=== PATIENT | male | born 1935 | race Caucasian/White ===

== ENCOUNTER 2022-05-14 08:49 | Emergency (ER) | payer MEDICARE, SELFPAY ==
[2022-05-14] VITALS (20 sets, daily range): BP systolic 118–141; BP diastolic 57–76; PULSE 67–93; RESP 14–20; TEMP 36.4; O2SAT 96–100
--- NOTE | 2022-05-14 09:21 | ED.ALLEREA ---
HPI - Allergic Reaction General Chief complaint: Allergic Reaction Stated complaint: allergic reaction Time Seen by Provider: 05/14/22 08:56 Source: patient Mode of arrival: ambulatory Limitations: no limitations History of Present Illness HPI narrative: Patient is an 86 y/o male who presents to the ED with c/o swelling of lips. Patient is a resident of [facility]. Patient reports he woke up around 4 AM this morning and noticed his upper and lower lips were swollen. He states the swelling seemed to worsen initially. He was given 50 mg Benadryl by [facility] staff and does report the swelling has improved slightly. He denies difficulty swallowing or breathing but does state his throat feels different. Denies any other symptoms, nausea, vomiting, diarrhea, abdominal pain, chest pain, dizziness, rash, itching. Patient denies any new soaps, lotions, face wash, medications, foods. Related Data Allergies Allergy/AdvReac Type Severity Reaction Status Date / Time cefdinir Allergy Unknown Verified 05/14/22 09:10 duloxetine [From Cymbalta] Allergy Unknown Verified 05/14/22 09:10 sertraline Allergy Unknown Verified 05/14/22 09:10 Ndefaiw-UMM-WmH Reductase Allergy Unknown Verified 05/14/22 09:10 Inhibitor Review of Systems Review of Systems: CONSTITUTIONAL: Denies fever, chills, or sweats. ENT: Reports swelling of lips, abnormal sensation to throat. Denies dysphagia, rhinorrhea, congestion, sore throat. CARDIOVASCULAR: Denies chest pain, palpitations. RESPIRATORY: Denies cough or dyspnea. GASTROINTESTINAL: Denies abdominal pain, nausea, vomiting, or diarrhea. SKIN: Denies rash, hives, or itching. NEUROLOGIC: Denies dizziness, headache, numbness, or weakness. All systems reviewed & are unremarkable except as noted in HPI and below PMFSH Past Medical History Medical History (Updated 05/14/22 @ 18:04 by Marsha Anderson PA-C) Dementia HTN (hypertension) Surgical History Surgical History (Updated 05/14/22 @ 18:04 by Marsha Anderson PA-C) No significant past surgical history Social History Social History (Updated 05/14/22 @ 18:04 by Marsha Anderson PA-C) Smoking status: Never smoker Exam Narrative: GENERAL: Elderly, well-nourished, non-toxic, in no acute distress. HEAD: Normocephalic, atraumatic. EYES: PERRLA, EOMI, conjunctiva clear, no significant periorbital edema. ENT: Significant angioedema of upper and lower lips. Swelling of tongue. Difficult to see posterior pharynx and posterior palate due to swelling, even with tongue depressor. NECK: Supple. No adenopathy, no masses. Anterior neck does appear slightly swollen. RESPIRATORY: Airway patent, respirations nonlabored. Clear to auscultation bilaterally, no rales, rhonchi, wheezing. Occasional cough on exam. CARDIOVASCULAR: Regular rate and rhythm without murmurs, rubs, or gallops. Peripheral pulses 2+ and equal bilaterally. ABDOMINAL: Soft, nontender, nondistended, no hepatosplenomegaly. Normoactive BS. MUSCULOSKELETAL: Moves all extremities. Strength/ROM intact without gross deformities. SKIN: Warm, dry, normal color. No rashes. No urticaria. NEURO: A&O X3. Speech clear. Cranial nerves II-XII grossly intact. Steady gait. No ataxic movements. PSYCHIATRIC: Appropriate mood and affect. Normal interaction. Course Consultations Consultation #1: Discussed case with PCP's PAIsak, will see patient in office on Wednesday of the appointment. No further BP meds at this time. Date: 05/14/22 Time: 12:13 Vital Signs Vital signs: Vital Signs Pulse Rate 82 05/14/22 08:57 Respiratory Rate 17 05/14/22 08:57 Pulse Oximetry 100 05/14/22 08:57 Temperature 97.6 F 05/14/22 09:04 Pulse Rate 71 05/14/22 12:30 Respiratory Rate 14 05/14/22 12:30 Blood Pressure 125/57 L 05/14/22 10:00 Pulse Oximetry 98 05/14/22 12:30 Oxygen Delivery Room Air 05/14/22 09:04 MDM - Allergic Reaction MDM Narrative Med
[2022-05-14] MEDS: FAMOTIDINE 20 MG/2 ML VIAL IV PUSH (09:31)
[2022-05-14] MEDS: methylPREDNISolone SOD SUCC 125 MG VIAL IV PUSH (09:31)
[2022-05-14] MEDS: EPINEPHrine HCL INJ 1 MG/ML AMPUL 0.3 MG IM (09:36)
--- NOTE | 2022-05-14 10:28 | PC.NURSE ---
Continues to have swelling to upper lip. No resp distress.
--- NOTE | 2022-05-14 11:30 | PC.NURSE ---
Patient report received from QUINTEN Santana. All questions answered and care of patient assumed. Patient assisted to BR via WC. Denies complaints. VSS. Denies SOB or difficulty breathing. Reports that he was initially having difficulty swallowing but reports that has resolved. His family state that his lip swelling has improved since arrival. Awaiting further orders and disposition. Family at bedside and call light within reach.
== END 2022-05-14 13:03 | disposition home or self-care (01) ==
PROVIDERS: Emergency Provider Physician Assistant; PCP Internal Medicine Geriatric Medicine
DX: T78.3XXA Angioneurotic edema, initial encounter (principal); T46.4X5A Adverse effect of angiotensin-converting-enzyme inhibitors, initial encounter; F03.90 Unspecified dementia, unspecified severity, without behavioral disturbance, psychotic disturbance, mood disturbance, and anxiety; I10 Essential (primary) hypertension
CPT/HCPCS: 96372; 96374; 96375; 99284; J0171; J2930

== ENCOUNTER 2022-11-14 11:06 | Observation (INO) | payer MEDICARE, SELFPAY ==
[2022-11-14] VITALS (24 sets, daily range): BP systolic 114–166; BP diastolic 67–98; PULSE 74–107; RESP 13–20; TEMP 36.4–37; O2SAT 95–100
--- NOTE | ~2022-11-14 | XR_ITS ---
XR femur RT min 2V DATE: 11/14/2022 12:00 INDICATION: Fall. Generalized right hip pain TECHNIQUE: AP and lateral views of the right femur COMPARISON: 11/14/2022 right hip and pelvis FINDINGS: No fracture or dislocation, avascular necrosis or bone destruction of the right femur is de tected. Normal alignment at the right hip and knee joints. Chondrocalcinosis is noted at the right kn ee joint. Femoral and popliteal artery calcifications. IMPRESSION: No fracture or dislocation of the right femur Right knee chondrocalcinosis Reviewed, dictated and finalized at location A.
--- NOTE | ~2022-11-14 | XR_ITS ---
XR chest 1V DATE: 11/14/2022 12:00 INDICATION: Fall. Weakness. TECHNIQUE: AP view on at 1149 hours COMPARISON: 01/11/2018 two-view chest FINDINGS: Status post sternotomy. Heart size is normal. Is aortic arch calcification. No pulmonary vascular congestion or pleural effusion. There is infiltrate or atelectasis in the medial base of the left lower lobe; otherwise no pulmonary infiltrate or consolidation. There is osteopenia. IMPRESSION: Medial basilar left lower lobe infiltrate or atelectasis Status post sternotomy Aortic atherosclerosis Osteopenia Reviewed, dictated and finalized at location A.
--- NOTE | ~2022-11-14 | MR_ITS ---
EXAMINATION: MR hip RT wo con DATE: 11/16/2022 11:10 INDICATION: Right hip pain. TECHNIQUE: Magnetic resonance imaging (MRI) of the right hip was performed without intravenous contra st. COMPARISON: Right hip CT 12/14/2022, radiographs 11/14/2022 FINDINGS: Bones/cartilage: There is 8 degrees levocurvature of lumbar spine. No fracture. There is mild osteoarthritis of the hi ps. There is mild osteoarthritis of right sacroiliac joint and moderate osteoarthritis of left sacroi liac joint. Labrum: There are tears of the acetabular popeye bilaterally. Fluid: There is no hip joint effusion. There is mild bilateral trochanteric bursitis. Soft tissues: The prostate is mildly enlarged. There is mild bilateral gluteus minimus tendinopathy. There is a com plete tear of right iliopsoas tendon at its distal attachment. There is edema in right iliopsoas musc le belly. There is mild tendinopathy of the hamstring origins bilaterally. IMPRESSION: 1. No fracture. 2. Complete tear of right iliopsoas tendon at its distal attachment. 3. Mild osteoarthritis of the hips. Reviewed, dictated and finalized at location A.
--- NOTE | ~2022-11-14 | CT_ITS ---
CT hip RT wo con DATE: 11/14/2022 14:05 INDICATION: Right thigh pain TECHNIQUE: Axial images through the right hip; sagittal and coronal reconstructions. COMPARISON: 11/14/2022 right hip and right femur FINDINGS: No right hip fracture or dislocation, avascular necrosis or bone destruction is evident. Mi ld right hip osteoarthritis. IMPRESSION: Fractures evident. There is clinical concern for occult fracture, consider MR imaging. Mild right hip osteoarthritis Reviewed, dictated and finalized at Location A. Reviewed, dictated and finalized at location A. IMPRESSION: Fractures evident. There is clinical concern for occult fracture, c onsider MR imaging. Mild right hip osteoarthritis
--- NOTE | ~2022-11-14 | XR_ITS ---
XR hip RT 2V w AP pelvis DATE: 11/14/2022 12:00 INDICATION: Fall. Generalized right hip pain TECHNIQUE: AP pelvis. AP and lateral views of right hip. COMPARISON: None FINDINGS: Normal alignment at the pubic symphysis and sacroiliac joints. No pelvic fracture or bone d estruction is detected. No fracture or dislocation, avascular necrosis or bone destruction of the right hip is detected. Bilateral mild hip osteoarthritis. Subtle bilateral hip chondrocalcinosis. Arterial calcifications the aorta, iliac and femoral arteries. IMPRESSION: No pelvic or right hip fracture is evident Mild bilateral hip osteoarthritis Subtle bilateral hip chondrocalcinosis Reviewed, dictated and finalized at location A.
--- NOTE | ~2022-11-14 | CT_ITS ---
EXAMINATION: CT brain wo con DATE: 11/14/2022 14:05 INDICATION: Fall. TECHNIQUE: Computed tomography (CT) of the head was performed without intravenous contrast. The mA wa s adjusted according to patient size. Iterative reconstruction technique was employed. Exam dose: 60 5.33 mGy-cm total exam DLP. COMPARISON: 01/11/2018 CT brain FINDINGS: Bilateral vertebral artery, basilar artery and bilateral carotid siphon and supraclinoid in ternal carotid artery calcifications. There is nonspecific diminished attenuation of the cerebral white matter, likely due to chronic small vessel ischemic changes. There is prominent central and cortical cerebral and cerebellar atrophy. No intracranial mass lesion or hemorrhage or cerebrovascular accident is evident. No midline shift or mass effect effect. No subdural or epidural hematoma. Minimal focal mucoperiosteal thickening of the maxillary sinuses. The paranasal sinuses and mastoid a ir cells are otherwise unremarkable. No fracture or bone destruction of the cranial vault. IMPRESSION: Cerebral atherosclerosis and chronic small vessel ischemic changes of the cerebral white matter Cerebral and cerebellar atrophy; no acute intracranial finding Reviewed, dictated and finalized at Location A. Reviewed, dictated and finalized at location A.
[2022-11-14 12:18] LABS: Basophils Absolute Auto 0.1 K/mm3 (0.0-0.1); Basophils Percent Auto 0.5 % (0.2-1.2); Eosinophils Absolute Auto 0.3 K/mm3 (0-0.3); Eosinophils Percent Auto 1.7 % (0-4.4); Hematocrit 32.7 % (42.0-52.0); Hemoglobin 11.5 g/dL (14.0-18.0); Immature Granulocyte Percent A 0.7 % (0-0.5); Lymphocytes Absolute Auto 1.44 K/mm3 (0.9-3.2); Lymphocytes Percent Auto 9.8 % (18.3-44.2); Mean Corpuscular HGB Conc 35.2 g/dl (32-36); Mean Corpuscular Hemoglobin 31.2 pg (26-34); Mean Corpuscular Volume 88.6 fl (80-100); Mean Platelet Volume 8.7 fl (7.4-10.4); Monocytes Absolute Auto 2.6 K/mm3 (0.1-0.6); Neutrophils Absolute Auto 10.1 K/mm3 (1.3-6.7); Neutrophils Percent Auto 69.3 % (45.5-73.1); Platelet Count Result 254 k/mm3 (150-375); Red Blood Count 3.69 M/mm3 (4.6-6.20); Red Cell Distribution Width 12.4 % (11.5-14.5); White Blood Count 14.6 K/mm3 (4.5-10.0)
[2022-11-14 12:29] LABS: Prothrombin Time 13.4 Seconds (11.1-14.7)
[2022-11-14 12:30] LABS: Partial Thromboplastin Time 30.7 SECONDS (22.3-36.8)
[2022-11-14 12:32] LABS: Alanine Aminotransferase 21 U/L (6-50); Albumin Level 4.1 g/dL (3.5-5.1); Alkaline Phosphatase 69 U/L (38-126); Anion Gap 10 mmol/L (8-16); Aspartate Amino Transferase 26 U/L (17-59); Bilirubin,Total 0.9 mg/dL (0.2-1.3); Blood Urea Nitrogen 19 mg/dL (9-20); Calcium 9.1 mg/dL (8.4-10.2); Carbon Dioxide 28 mmol/L (22-30); Chloride 90 mmol/L (98-107); Creatine Kinase 143 U/L (55-170); Estimated CRCL calculation 41 ml/min; Estimated Glomerular Filt Rate > 60; Glucose 115 mg/dL (65-110); Potassium 2.9 mmol/L (3.4-5.0); Sodium 128 mmol/L (137-145)
--- NOTE | 2022-11-14 13:34 | ED.EXTPRO ---
HPI - Extremity Problem General Chief complaint: Extremity Problem,Nontraumatic Stated complaint: unknown Time Seen by Provider: 11/14/22 11:58 History of Present Illness HPI Narrative: 87 year old male brought in today from assisted living for concerns of 2 falls last night. Per family at the bedside he has been having muscle cramps and complaining of left leg pain for about 1 week now. Patient had 2 falls last night and was brought here due to concerns. Denies syncope, chest pain, and states only issues are his leg and that he fell. Patient still with pain so has not ambulated this morning after his fall. MD Complaint: extremity pain Related Data Allergies Allergy/AdvReac Type Severity Reaction Status Date / Time cefdinir Allergy Unknown Verified 11/14/22 11:29 duloxetine [From Cymbalta] Allergy Unknown Verified 11/14/22 11:29 sertraline Allergy Unknown Verified 11/14/22 11:29 Kkciopm-RHR-DbX Reductase Allergy Unknown Verified 11/14/22 11:29 Inhibitor Review of Systems Review of Systems: CONSTITUTIONAL: Denies fever, chills, or sweats. EYES: Denies visual changes, redness, or discharge. CARDIOVASCULAR: Denies chest pain, palpitations, or edema. RESPIRATORY: Denies cough or dyspnea. SKIN: Denies rash or itching. MUSCULOSKELETAL: Right hip pain. Falls x2. NEUROLOGIC: Denies headache, numbness, dizziness, or weakness. PMFSH Past Medical History Medical History (Updated 11/14/22 @ 17:20 by Deedee Mcdonnell APRN) Dementia HTN (hypertension) Surgical History Surgical History (Updated 05/14/22 @ 18:04 by Marsha Anderson PA-C) No significant past surgical history Social History Social History (Updated 05/14/22 @ 18:04 by Marsha Anderson PA-C) Smoking status: Never smoker Living arrangements: halfway Exam Narrative: GENERAL: Well-appearing, well-nourished, and in no acute distress. HEAD: Normocephalic, bruising noted to forehead. EYES: PERRLA and EOMI. NECK: Supple. No adenopathy or masses. no cervical tenderness. Full ROM CHEST: Clear to auscultation. No respiratory distress. No wheezes rales or rhonchi HEART: Regular rate and rhythm. No murmur heard. Normal peripheral pulses. ABDOMEN: Soft, nontender, nondistended, normal active bowel sounds. EXTREMITIES: Normal range of motion. No edema. Tenderness on paplpation to right upper femur. SKIN: Warm, dry, no rash. NEURO: No focal deficits. Alert and oriented x3. PSYCH: Normal mood and affect. Course Vital Signs Vital signs: Vital Signs Temperature 98.6 F 11/14/22 11:10 Pulse Rate 92 11/14/22 11:10 Respiratory Rate 18 11/14/22 11:10 Blood Pressure 142/67 H 11/14/22 11:10 Pulse Oximetry 99 11/14/22 11:10 Oxygen Delivery Room Air 11/14/22 11:10 Temperature 98.6 F 11/14/22 11:10 Pulse Rate 99 11/14/22 16:45 Respiratory Rate 16 11/14/22 16:45 Blood Pressure 114/98 H 11/14/22 16:31 Pulse Oximetry 98 11/14/22 15:18 Oxygen Delivery Room Air 11/14/22 11:10 MDM - Extremity (Nontraumatic) MDM Narrative Medical decision making narrative: 87 year old male HPI as noted. Right hip pain concerns for possible fracture. CBC, CMP, CXR, CXR, HIP and femur ordered to rule out, fracture, infection such as pneumonia that could cause weakness and fall. CBC with increased wbc at 14.6, CMP NA 128, Potassium 2.9, glucose 115. Cxr pneumonia vs atelectasis. Will treat with ABX due to increase wbc and weakness/falls. Replace potassium. Due to pain with weight bearing ct right hip ordered which was negative. Ct head negative. Discussed with family plans for admission to treat for pneumonia and hypokalemia. All in agreement. Differential Diagnosis Differential diagnosis: Likely other (hip fracture, right hip pain, falls, infection such as uti pneumonia. ) Lab Data 11/14/22 12:11 11/14/22 12:11 Labs: Lab Results 11/14/22 11/14/22 Range/Units 12:10
[2022-11-14 13:49] LABS: Magnesium 1.7 mg/dL (1.6-2.3)
[2022-11-14] MEDS: POTASSIUM CHLORIDE 10 MEQ TABLET 40 MEQ PO (14:15)
[2022-11-14] MEDS: levoFLOXacin 750 MG/D5W 150 ML 750 MG/150 ML BAG 100 MG IVPB (14:15)
[2022-11-14] MEDS: KCL 20 MEQ/SW 100 ML 100 ML 50 MEQ IVPB (14:15)
[2022-11-14] MEDS: SODIUM CHLORIDE 0.9% IV 1,000 ML 150 ML IV CONT (14:15)
--- NOTE | 2022-11-14 14:17 | ECG_ITS ---
Measurements Intervals [place] Rate: 84 P: 21 VA: 198 QRS: 24 QRSD: 121 T: -17 QT: 383 QTc: 455 Interpretive Statements SINUS RHYTHM CANNOT RULE OUT SEPTAL MYOCARDIAL INFARCTION , PROBABLY OLD [35 ms Q WAVE IN V1/V2] NO PREVIOUS ECG AVAILABLE FOR COMPARISON Electronically Signed On 11-15-2022 12:12:36 CDT by Gianni Mcintyre M.D.
[2022-11-14 15:22] LABS: Troponin I 0.017 ng/mL (0.000-0.034)
--- NOTE | 2022-11-14 15:42 | PC.NURSE ---
ordered pt meal.
--- NOTE | 2022-11-14 17:15 | PC.NURSE ---
This patient, Efrain Flores, was admitted to [facility] Surg Room 325-01. Patient/family oriented to hospital policies and general routines including ID bracelet, bed and alarms, visiting hours, pain management, procedures, bathroom and other care routines, personal items, smoking policy, room service/diet, and visiting hours. Report received from Fabiana SHIPLEY Information on how to activate the Rapid Response Team has been discussed. Patient/Family are encouraged to report perceived risks to care and to ask questions if they do not understand what they are told or what they should do.
--- NOTE | 2022-11-14 18:06 | PM.IMHP ---
H&P: HPI History of Present Illness Date/Time: 11/14/22 17:30 Chief Complaint: Falls, difficulties ambulating. Narrative: This is an 87-year-old male with dementia, coronary artery disease, dyslipidemia, and hypertension who presented to the ED via private vehicle accompanied by his and daughter for evaluation of fall and difficulties ambulating. The patient and his provide some of the history however they both suffer from memory loss and his daughter provides additional information with the patient's permission. He and his moved to [facility] sometime this year and within the past couple of weeks they have encouraged the patient to use a walker due to concerns for balance issues. He has had a walker for approximately 1 week though it is unclear whether not he has been using it. Last evening he had 2 unwitnessed falls while in the bathroom. tells me that she heard the commotion in the bathroom and when she went to investigate the patient was sitting on the floor both times the with further questioning she cannot say for sure what position he was in or whether not he had his walker with him. On exam it looks like he has a small abrasion on the forehead but neither of them can recall whether not he had his head. In any event the patient isn't sure why he is falling but he thinks perhaps it is due to pain he has been having in his right thigh. This has apparently been an ongoing issue for him recently and he has been complaining about it frequently. According to the daughter he did physical therapy which seemed to help his symptoms for awhile though he has been complaining about the pain again. On exam he has a healing bruise in the same area and his since come to light that he receives his Repatha injections at that site. In any event he was brought in for evaluation of the falls and imaging of the head, hip, pelvis, and femur were all without acute findings. Chest x-ray showed medial err basilar left lower lobe infiltrate or atelectasis. His labs were significant for a WBC count of 14.6, sodium 128, potassium 2.9, chloride 90, CK 143. In the ED he was given a dose of levofloxacin for possible pneumonia and his potassium was replaced. He is being admitted in this setting for IV fluid rehydration and PT/OT consult. At the time my evaluation he complains of an aching or cramping pain in his right thigh and urinary urgency and hesitancy. He denies fever, chills, sweats, sinus congestion, sore throat, chest pain, shortness a breath, cough, nausea, vomiting, and diarrhea. Review of Systems Review of Systems: Twelve systems were reviewed and are negative except for as per HPI. The patient is not the greatest historian however and thus accuracy is questionable. [facility] Past Medical History Medical History (Updated 11/14/22 @ 22:19 by Jody Navarrete PA-C) Coronary artery disease Dementia Dyslipidemia Hypertension Surgical History Surgical History (Updated 11/14/22 @ 22:14 by Jody Navarrete PA-C) History of arthroscopy of knee History of cataract extraction History of four vessel coronary artery bypass graft Family History Family History Mother Kidney failure CHF (congestive heart failure) Dialysis patient Social History Social History (Updated 11/14/22 @ 22:15 by Jody Navarrete PA-C) Social History: Surrogate medical decision maker: Corine Flores () or Ioana Ludwin (daughter). Code status: Full code. Smoking status: Never smoker Alcohol intake: never Substance use: never Lack of Transportation: No Lack of Food: Never True Current Housing: I Have Housing Concerned About Future Housing: No Difficulty Paying Gas/Electric Bills: No Difficulty Paying for Meds: No Currently Unemployed: No Education: High School Diploma/GED Difficulty w/ Childcare or Family Care: No Additional living arrangements comments:
[2022-11-14 18:15] LABS: Anion Gap 9 mmol/L (8-16); Blood Urea Nitrogen 19 mg/dL (9-20); Calcium 9.1 mg/dL (8.4-10.2); Carbon Dioxide 26 mmol/L (22-30); Chloride 93 mmol/L (98-107); Estimated CRCL calculation 45 ml/min; Estimated Glomerular Filt Rate > 60; Glucose 130 mg/dL (65-110); Potassium 3.8 mmol/L (3.4-5.0); Sodium 128 mmol/L (137-145)
[2022-11-14 20:41] LABS: Creatinine Urine 70.4 mg/dL
[2022-11-14 20:48] LABS: Sodium Urine Random 66 meq/L
[2022-11-14] MEDS: SODIUM CHLORIDE 0.9% IV 1,000 ML 100 ML IV CONT ×2 (22:07→22:24)
[2022-11-14] MEDS: QUEtiapine FUMARATE 25 MG TABLET 50 MG PO (22:10)
[2022-11-14] MEDS: DIVALPROEX SODIUM SPRINKLE 125 MG CAP.DR PO (22:10)
[2022-11-14] MEDS: LABETALOL HCL 100 MG TABLET 200 MG PO (22:10)
[2022-11-14] MEDS: MELATONIN 3 MG TABLET PO (22:10)
[2022-11-15] VITALS (11 sets, daily range): BP systolic 144–150; BP diastolic 58–77; PULSE 80–98; RESP 20; TEMP 36.2–36.5; O2SAT 98–99
[2022-11-15] MEDS: ACETAMINOPHEN 325 MG TABLET 650 MG PO ×2 (02:28→09:13)
[2022-11-15 03:07] LABS: Appearance Urine Clear (Clear); Bacteria Urine None Seen /hpf; Bilirubin Urine Negative (Negative); Blood Urine Trace (Negative); Color Urine Yellow (Yellow); Glucose Urine UA Negative (Negative); Ketones Urine Negative (Negative); Leukocyte Esterase Ur 1+ LEU/UL (Negative); Nitrate Urine Negative (Negative); Non Pathogenic Casts 0-2; Protein Urine Negative (Negative); Specific Grav Ur 1.015 (1.001-1.035); Squamous Epithelial Cell Urine None seen /hpf (Few); WBC Urine 21-50 /hpf
[2022-11-15 03:20] LABS: Add Urine Microscopic? YES
[2022-11-15 06:08] LABS: Basophils Absolute Auto 0.1 K/mm3 (0.0-0.1); Basophils Percent Auto 0.5 % (0.2-1.2); Eosinophils Absolute Auto 0.4 K/mm3 (0-0.3); Eosinophils Percent Auto 2.9 % (0-4.4); Hematocrit 32.1 % (42.0-52.0); Hemoglobin 11.1 g/dL (14.0-18.0); Immature Granulocyte Absolute 0.09 K/mm3 (0.00-0.031); Immature Granulocyte Percent A 0.7 % (0-0.5); Lymphocytes Absolute Auto 1.53 K/mm3 (0.9-3.2); Lymphocytes Percent Auto 11.3 % (18.3-44.2); Mean Corpuscular HGB Conc 34.6 g/dl (32-36); Mean Corpuscular Hemoglobin 31.5 pg (26-34); Mean Corpuscular Volume 91.2 fl (80-100); Mean Platelet Volume 8.9 fl (7.4-10.4); Monocytes Absolute Auto 2.2 K/mm3 (0.1-0.6); Monocytes Percent Auto 16.5 % (2.6-8.5); Neutrophils Absolute Auto 9.3 K/mm3 (1.3-6.7); Neutrophils Percent Auto 68.1 % (45.5-73.1); Platelet Count Result 224 k/mm3 (150-375); Red Blood Count 3.52 M/mm3 (4.6-6.20); Red Cell Distribution Width 12.7 % (11.5-14.5); White Blood Count 13.6 K/mm3 (4.5-10.0)
[2022-11-15 06:22] LABS: Alanine Aminotransferase 19 U/L (6-50); Albumin Level 3.5 g/dL (3.5-5.1); Alkaline Phosphatase 50 U/L (38-126); Anion Gap 6 mmol/L (8-16); Aspartate Amino Transferase 27 U/L (17-59); Bilirubin,Total 0.7 mg/dL (0.2-1.3); Blood Urea Nitrogen 16 mg/dL (9-20); Calcium 8.6 mg/dL (8.4-10.2); Carbon Dioxide 29 mmol/L (22-30); Chloride 95 mmol/L (98-107); Estimated CRCL calculation 53 ml/min; Estimated Glomerular Filt Rate > 60; Glucose 96 mg/dL (65-110); Magnesium 1.6 mg/dL (1.6-2.3); Sodium 130 mmol/L (137-145)
[2022-11-15 06:46] LABS: Valproic Acid 22.3 ug/mL (50-120)
[2022-11-15] MEDS: CHOLECALCIFEROL 1,000 UNITS TABLET 1000 UNITS PO (08:27)
[2022-11-15] MEDS: DIVALPROEX SODIUM SPRINKLE 125 MG CAP.DR PO ×2 (08:27→21:31)
[2022-11-15] MEDS: polyethylene glycoL 3350 17 GM POWD.PACK PO (08:27)
[2022-11-15] MEDS: FAMOTIDINE 20 MG TABLET PO (08:27)
[2022-11-15] MEDS: LABETALOL HCL 100 MG TABLET 200 MG PO ×2 (08:28→21:31)
[2022-11-15] MEDS: ASPIRIN 81 MG CHEWABLE TABLET PO (08:29)
[2022-11-15] MEDS: amLODIPine BESYLATE 5 MG TABLET PO ×2 (08:29→16:52)
[2022-11-15] MEDS: POTASSIUM CHLORIDE 20 MEQ TABLET 40 MEQ PO (09:14)
--- NOTE | 2022-11-15 10:24 | PM.IMPN ---
Progress Note: A&P Assessment and Plan (1) Recurrent falls: Code(s): R29.6 - Repeated falls Status: Acute (2) Hypokalemia: Code(s): E87.6 - Hypokalemia Status: Acute (3) Lower urinary tract symptoms: Code(s): R39.9 - Unspecified symptoms and signs involving the genitourinary system Status: Acute (4) Hyponatremia: Code(s): E87.1 - Hypo-osmolality and hyponatremia Status: Acute (5) Abnormal chest x-ray: Code(s): R93.89 - Abnormal findings on diagnostic imaging of other specified body structures Status: Acute (6) Right thigh pain: Code(s): M79.651 - Pain in right thigh Status: Acute (7) Dyslipidemia: Code(s): E78.5 - Hyperlipidemia, unspecified Status: Acute (8) Hypertension: Code(s): I10 - Essential (primary) hypertension Status: Acute (9) Dementia: Code(s): F03.90 - Unspecified dementia, unspecified severity, without behavioral disturbance, psychotic disturbance, mood disturbance, and anxiety Status: Acute Subjective Date/time seen: 11/15/22 10:24 Interval history: No complaints Exam Narrative: General: Nontoxic-appearing male sitting at the side of the bed in no acute distress. Weight: 72.5 kg. BMI: 22.9. HEENT: Small healing abrasion on the right mid forehead. Slightly hard of hearing, wearing hearing aids. He is wearing corrective lenses. PERRL, EOMI. Sclera anicteric. Tacky mucous membranes. Neck: Supple. Respiratory: Respirations are nonlabored and he is speaking in full sentences. Faint rales at the left base. Cardiovascular: Regular rate and rhythm with S1-S2. Gastrointestinal: Abdomen is soft, nontender, and nondistended with positive bowel sounds. Skin: Warm and dry. Abrasion and contusion on the left elbow with Steri-Strips in place. Small bruise on the right anterior thigh. Extremities: No cyanosis, clubbing, or significant edema. Radial and pedal pulses intact. Neurological: Alert. Cranial nerves 2-12 are grossly intact. No gross focal deficits to casual conversation. Psychiatric: Pleasantly confused and cooperative. Objective Data Vital Signs Vital Signs: Vital Signs - 24 hr 11/14/22 11:10 11/14/22 14:13 11/14/22 15:18 Temperature 98.6 F Pulse Rate 92 90 100 Respiratory Rate 18 16 19 Blood Pressure 142/67 H 162/76 H 144/74 H Pulse Oximetry 99 95 98 Oxygen Delivery Room Air 11/14/22 13:37 11/14/22 13:38 11/14/22 13:45 Temperature Pulse Rate 89 88 86 Respiratory Rate 14 13 15 Blood Pressure 156/89 H Pulse Oximetry 97 100 97 Oxygen Delivery 11/14/22 13:46 11/14/22 14:07 11/14/22 14:08 Temperature Pulse Rate 89 89 90 Respiratory Rate 14 16 16 Blood Pressure 151/90 H 162/76 H Pulse Oximetry 99 98 99 Oxygen Delivery 11/14/22 14:15 11/14/22 14:16 11/14/22 14:30 Temperature Pulse Rate 86 88 90 Respiratory Rate 15 14 18 Blood Pressure 159/69 H Pulse Oximetry 97 98 100 Oxygen Delivery 11/14/22 14:31 11/14/22 14:46 11/14/22 14:47 Temperature Pulse Rate 92 Respiratory Rate 16 Blood Pressure 166/79 H 134/98 H Pulse Oximetry 100 99 100 Oxygen Delivery 11/14/22 15:59 11/14/22 16:28 11/14/22 16:30 Temperature Pulse Rate 91 98 105 H Respiratory Rate 13 18 16 Blood Pressure Pulse Oximetry Oxygen Delivery 11/14/22 16:31 11/14/22 16:45 11/14/22 16:00 Temperature Pulse Rate 105 H 99 74 Respiratory Rate 20 16 Blood Pressure 114/98 H Pulse Oximetry Oxygen Delivery 11/14/22 17:59 11/14/22 17:20 11/14/22 20:00 Temperature 97.7 F Pulse Rate 98 98 Respiratory Rate 16 16 Blood Pressure 152/67 H Pulse Oximetry 99 99 Oxygen Delivery Room Air Room Air 11/14/22 22:00 11/14/22 20:00 11/15/22 00:00 Temperature 97.5 F L Pulse Rate 93 107 H 82 Respiratory Rate 18 Blood Pressure 149/69 H Pulse Oximetry 97 Oxygen Delivery 11/15/22 04:00 11/15/22 06:0
--- NOTE | 2022-11-15 11:20 | PCOTNOTE ---
Attempted to see pt. for occupational therapy evaluation. Pt. stating R upper thigh pain at this time and does not want to move, with nursing suggestion and approval to wait until later time. Following.
[2022-11-15 16:55] LABS: Anion Gap 7 mmol/L (8-16); Blood Urea Nitrogen 16 mg/dL (9-20); Calcium 8.9 mg/dL (8.4-10.2); Carbon Dioxide 28 mmol/L (22-30); Chloride 93 mmol/L (98-107); Estimated CRCL calculation 51 ml/min; Estimated Glomerular Filt Rate > 60; Glucose 119 mg/dL (65-110); Potassium 3.8 mmol/L (3.4-5.0); Sodium 128 mmol/L (137-145)
[2022-11-15] MEDS: MELATONIN 3 MG TABLET PO (21:31)
[2022-11-16] VITALS (10 sets, daily range): BP systolic 118–157; BP diastolic 63–81; PULSE 84–110; RESP 16–18; TEMP 36.4–36.8; O2SAT 98–99
[2022-11-16] MEDS: QUEtiapine FUMARATE 25 MG TABLET 50 MG PO ×2 (00:29→20:54)
[2022-11-16] MEDS: DIVALPROEX SODIUM SPRINKLE 125 MG CAP.DR PO ×2 (08:58→20:54)
[2022-11-16] MEDS: polyethylene glycoL 3350 17 GM POWD.PACK PO (08:58)
[2022-11-16] MEDS: CHOLECALCIFEROL 1,000 UNITS TABLET 1000 UNITS PO (08:59)
[2022-11-16] MEDS: amLODIPine BESYLATE 5 MG TABLET PO ×2 (08:59→16:40)
[2022-11-16] MEDS: ASPIRIN 81 MG CHEWABLE TABLET PO (08:59)
[2022-11-16] MEDS: LABETALOL HCL 100 MG TABLET 200 MG PO ×2 (09:00→20:54)
--- NOTE | 2022-11-16 10:53 | PM.IMPN ---
Progress Note: A&P Assessment and Plan (1) Recurrent falls: Code(s): R29.6 - Repeated falls Status: Acute Assessment and Plan: PTOT (2) Hypokalemia: Code(s): E87.6 - Hypokalemia Status: Acute Assessment and Plan: Replace (3) Lower urinary tract symptoms: Code(s): R39.9 - Unspecified symptoms and signs involving the genitourinary system Status: Acute Assessment and Plan: Patient is on Levaquin. (4) Hyponatremia: Code(s): E87.1 - Hypo-osmolality and hyponatremia Status: Acute Assessment and Plan: Monitor (5) Abnormal chest x-ray: Code(s): R93.89 - Abnormal findings on diagnostic imaging of other specified body structures Status: Acute Assessment and Plan: Levaquin for possible pneumonia. Respiratory status is okay. (6) Right thigh pain: Code(s): M79.651 - Pain in right thigh Status: Acute Assessment and Plan: Right hip pain. Recent imaging noted. Will get MRI of the hip (7) Dyslipidemia: Code(s): E78.5 - Hyperlipidemia, unspecified Status: Acute (8) Hypertension: Code(s): I10 - Essential (primary) hypertension Status: Acute (9) Dementia: Code(s): F03.90 - Unspecified dementia, unspecified severity, without behavioral disturbance, psychotic disturbance, mood disturbance, and anxiety Status: Acute Subjective Date/time seen: 11/16/22 10:53 Interval history: Still having right leg and hip pain. Exam Narrative: General: Nontoxic-appearing male sitting at the side of the bed in no acute distress. Weight: 72.5 kg. BMI: 22.9. HEENT: Small healing abrasion on the right mid forehead. Slightly hard of hearing, wearing hearing aids. He is wearing corrective lenses. PERRL, EOMI. Sclera anicteric. Tacky mucous membranes. Neck: Supple. Respiratory: Respirations are nonlabored and he is speaking in full sentences. Faint rales at the left base. Cardiovascular: Regular rate and rhythm with S1-S2. Gastrointestinal: Abdomen is soft, nontender, and nondistended with positive bowel sounds. Skin: Warm and dry. Abrasion and contusion on the left elbow with Steri-Strips in place. Small bruise on the right anterior thigh. Extremities: No cyanosis, clubbing, or significant edema. Radial and pedal pulses intact. Neurological: Alert. Cranial nerves 2-12 are grossly intact. No gross focal deficits to casual conversation. Psychiatric: Pleasantly confused and cooperative. Objective Data Vital Signs Vital Signs: Vital Signs - 24 hr 11/15/22 12:00 11/15/22 13:52 11/15/22 16:42 Temperature 97.5 F L Pulse Rate 84 87 92 Respiratory Rate 20 Blood Pressure 145/72 H Pulse Oximetry 98 Oxygen Delivery 11/15/22 22:00 11/15/22 20:00 11/16/22 00:00 Temperature 97.7 F Pulse Rate 93 93 92 Respiratory Rate 20 20 Blood Pressure 144/77 H Pulse Oximetry 99 99 Oxygen Delivery Room Air 11/16/22 09:00 Temperature Pulse Rate 87 Respiratory Rate Blood Pressure Pulse Oximetry Oxygen Delivery Intake/Output Intake/Output: Intake & Output 11/13/22 11/14/22 11/15/22 11/16/22 23:59 23:59 23:59 23:59 Intake Total 730 2196 340 Output Total 125 1345 1225 Balance 605 851 -885 Meds/Results Medications: Active Medications Generic Name Dose Route Start Last Admin Trade Name Freq PRN Reason Stop Dose Admin Acetaminophen 650 mg 11/14/22 22:24 11/15/22 09:13 Acetaminophen 325 Mg Tablet PO 650 mg Q6H PRN Administration Mild Pain (1-3) or Fever Amlodipine Besylate 5 mg 11/15/22 09:00 11/16/22 08:59 Amlodipine Besylate 5 Mg Tablet PO 5 mg BID ANICETO Administration Aspirin 81 mg 11/15/22 09:00 11/16/22 08:59 Aspirin 81 Mg Chewable Tablet PO 81 mg DAILY ANICETO Administration Divalproex Sodium 125 mg 11/14/22 21:00 11/16/22 08:58 Divalproex Sodium Sprinkle 125 Mg Cap.Dr PO 125 mg Q12HR [facility] Admin
--- NOTE | 2022-11-16 11:14 | PCPTNOTE ---
The patient treatment was not able to be completed at this time due to patient out of room in MRI. Will plan to continue treatment per plan of care.
[2022-11-16] MEDS: levoFLOXacin 750 MG/D5W 150 ML 750 MG/150 ML BAG 100 MG IVPB (12:38)
--- NOTE | 2022-11-16 14:29 | PC.NURSE ---
Assessment charted by PETERSON Field reviewed and verified by QUINTEN Vargas. Pt is A&O to person. Pt reports no pain at this time. Pt went for MRI during this shift. Pt monitor for wanderguard removed for MRI. Removal was cleared with Lorena alejo RN witness and survey project manager to call. Pt expresses no needs at this time. IV site in R forearm started leaking. IV removed tip intact, new IV placed in L forearm. Pt tolerated well. Pt worked with PT and OT today and tolerated fine. Will continue to monitor pt.
[2022-11-16] MEDS: MELATONIN 3 MG TABLET PO (20:54)
[2022-11-17] VITALS (13 sets, daily range): BP systolic 129–152; BP diastolic 66–78; PULSE 71–93; RESP 15–16; TEMP 36.2–36.7; O2SAT 95–98
[2022-11-17] MEDS: ASPIRIN 81 MG CHEWABLE TABLET PO (08:50)
[2022-11-17] MEDS: CHOLECALCIFEROL 1,000 UNITS TABLET 1000 UNITS PO (08:50)
[2022-11-17] MEDS: LABETALOL HCL 100 MG TABLET 200 MG PO ×2 (08:50→21:18)
[2022-11-17] MEDS: DIVALPROEX SODIUM SPRINKLE 125 MG CAP.DR PO ×2 (08:51→21:18)
[2022-11-17] MEDS: amLODIPine BESYLATE 5 MG TABLET PO ×2 (08:51→16:39)
[2022-11-17] MEDS: polyethylene glycoL 3350 17 GM POWD.PACK PO (08:52)
[2022-11-17 09:30] LABS: Basophils Absolute Auto 0.1 K/mm3 (0.0-0.1); Basophils Percent Auto 0.7 % (0.2-1.2); Eosinophils Absolute Auto 0.5 K/mm3 (0-0.3); Eosinophils Percent Auto 3.7 % (0-4.4); Hematocrit 33.8 % (42.0-52.0); Hemoglobin 11.6 g/dL (14.0-18.0); Immature Granulocyte Percent A 0.8 % (0-0.5); Lymphocytes Absolute Auto 1.05 K/mm3 (0.9-3.2); Mean Corpuscular HGB Conc 34.3 g/dl (32-36); Mean Corpuscular Hemoglobin 31.2 pg (26-34); Mean Corpuscular Volume 90.9 fl (80-100); Mean Platelet Volume 8.5 fl (7.4-10.4); Monocytes Absolute Auto 1.8 K/mm3 (0.1-0.6); Monocytes Percent Auto 13.4 % (2.6-8.5); Neutrophils Absolute Auto 9.6 K/mm3 (1.3-6.7); Neutrophils Percent Auto 73.4 % (45.5-73.1); Platelet Count Result 269 k/mm3 (150-375); Red Blood Count 3.72 M/mm3 (4.6-6.20); Red Cell Distribution Width 12.4 % (11.5-14.5); White Blood Count 13.1 K/mm3 (4.5-10.0)
[2022-11-17 09:43] LABS: Anion Gap 8 mmol/L (8-16); Blood Urea Nitrogen 20 mg/dL (9-20); Calcium 8.8 mg/dL (8.4-10.2); Carbon Dioxide 30 mmol/L (22-30); Chloride 91 mmol/L (98-107); Estimated CRCL calculation 48 ml/min; Estimated Glomerular Filt Rate > 60; Glucose 116 mg/dL (65-110); Potassium 3.4 mmol/L (3.4-5.0); Sodium 129 mmol/L (137-145)
--- NOTE | 2022-11-17 10:46 | PM.DS ---
DS: Admitting Diagnosis Discharge Date November 17, 2022 Admitting Diagnosis Hypokalemia pneumonia weakness and falls DS: Discharge Diagnosis Discharge Diagnosis (1) Recurrent falls: Code(s): R29.6 - Repeated falls Status: Acute Assessment and Plan: PTOT (2) Hypokalemia: Code(s): E87.6 - Hypokalemia Status: Acute Assessment and Plan: Replace (3) Lower urinary tract symptoms: Code(s): R39.9 - Unspecified symptoms and signs involving the genitourinary system Status: Acute Assessment and Plan: Patient is on Levaquin. (4) Hyponatremia: Code(s): E87.1 - Hypo-osmolality and hyponatremia Status: Acute Assessment and Plan: Monitor (5) Abnormal chest x-ray: Code(s): R93.89 - Abnormal findings on diagnostic imaging of other specified body structures Status: Acute Assessment and Plan: Levaquin for possible pneumonia. Respiratory status is okay. (6) Right thigh pain: Code(s): M79.651 - Pain in right thigh Status: Acute Assessment and Plan: Right hip pain. Recent imaging noted. Will get MRI of the hip (7) Dyslipidemia: Code(s): E78.5 - Hyperlipidemia, unspecified Status: Acute (8) Hypertension: Code(s): I10 - Essential (primary) hypertension Status: Acute (9) Dementia: Code(s): F03.90 - Unspecified dementia, unspecified severity, without behavioral disturbance, psychotic disturbance, mood disturbance, and anxiety Status: Acute DS: Summary Hospital Course Hospital Course: Patient is an 87-year-old gentleman was admitted for weakness and falls found possible pneumonia and hypokalemia. He was on diuretic therapy which was held and will be held for about a week on discharge. Potassium was replaced and he was treated for pneumonia with Levaquin. He will be discharged home 1 more day of Levaquin otherwise is stable and can be discharged. Time Spent with Patient Time attestation: Total time spent providing and/or coordinating discharge services: Exam Narrative: General: Nontoxic-appearing male sitting at the side of the bed in no acute distress. Weight: 72.5 kg. BMI: 22.9. HEENT: Small healing abrasion on the right mid forehead. Slightly hard of hearing, wearing hearing aids. He is wearing corrective lenses. PERRL, EOMI. Sclera anicteric. Tacky mucous membranes. Neck: Supple. Respiratory: Respirations are nonlabored and he is speaking in full sentences. Faint rales at the left base. Cardiovascular: Regular rate and rhythm with S1-S2. Gastrointestinal: Abdomen is soft, nontender, and nondistended with positive bowel sounds. Skin: Warm and dry. Abrasion and contusion on the left elbow with Steri-Strips in place. Small bruise on the right anterior thigh. Extremities: No cyanosis, clubbing, or significant edema. Radial and pedal pulses intact. Neurological: Alert. Cranial nerves 2-12 are grossly intact. No gross focal deficits to casual conversation. Psychiatric: Pleasantly confused and cooperative. DS: Data Data Completed and Pending Labs on day of discharge: Labs from last 24 hours 11/17/22 11/14/22 11/14/22 09:23 20:23 12:10 WBC 13.1 H RBC 3.72 L Hgb 11.6 L Hct 33.8 L MCV 90.9 MCH 31.2 MCHC 34.3 RDW 12.4 Plt Count 269 MPV 8.5 Immature Gran % (Auto) 0.8 H Neut % (Auto) 73.4 H Lymph % (Auto) 8.0 L Ada % (Auto) 13.4 H Eos % (Auto) 3.7 Baso % (Auto) 0.7 Lymph # (Auto) 1.05 Ada # (Auto) 1.8 H Eos # (Auto) 0.5 H Baso # (Auto) 0.1 Abs Immat Gran (auto) 0.10 H Absolute Neuts (auto) 9.6 H Absolute Nucleated RBC 0.0 Nucleated RBC % 0.0 Sodium 129 L Potassium 3.4 Chloride 91 L Carbon Dioxide 30 Anion Gap 8 BUN 20 Creatinine 1.00 Estim Creat Clear Calc 48 Estimated GFR > 60 Glucose 116 H Calcium 8.8 Troponin I 0.017 Urine Color Yellow Ur
--- NOTE | 2022-11-17 16:13 | PC.NURSE ---
waiting for auth. unable to discharge to SNF [facility]
--- NOTE | 2022-11-17 16:22 | PC.NURSE ---
Pt ambulated with therapy today. Pt ambulated with nurse. Pt tolerated well. Pt has discharge orders in. Pt family does not want pt discharged back to facility. Pt family would like for pt to go to SNF. Pt has reported no pain and expresses no needs at this time. Will continue to monitor pt.
[2022-11-17 19:49] LABS: Osmolality, Urine 490 mOsm/kg (50-1200)
[2022-11-17] MEDS: MELATONIN 3 MG TABLET PO (21:18)
[2022-11-18] VITALS (13 sets, daily range): BP systolic 101–171; BP diastolic 56–87; PULSE 76–117; RESP 14–18; TEMP 36.2–36.5; O2SAT 95–100
[2022-11-18] MEDS: levoFLOXacin 750 MG TABLET PO (08:07)
[2022-11-18] MEDS: polyethylene glycoL 3350 17 GM POWD.PACK PO (08:07)
[2022-11-18] MEDS: LABETALOL HCL 100 MG TABLET 200 MG PO ×2 (08:08→20:46)
[2022-11-18] MEDS: CHOLECALCIFEROL 1,000 UNITS TABLET 1000 UNITS PO (08:09)
[2022-11-18] MEDS: ASPIRIN 81 MG CHEWABLE TABLET PO (08:09)
[2022-11-18] MEDS: amLODIPine BESYLATE 5 MG TABLET PO ×2 (08:09→17:06)
[2022-11-18] MEDS: DIVALPROEX SODIUM SPRINKLE 125 MG CAP.DR PO ×2 (08:12→20:47)
--- NOTE | 2022-11-18 11:04 | PM.IMPN ---
Progress Note: A&P Assessment and Plan (1) Recurrent falls: Code(s): R29.6 - Repeated falls Status: Acute Assessment and Plan: PTOT (2) Hypokalemia: Code(s): E87.6 - Hypokalemia Status: Acute Assessment and Plan: Replace (3) Lower urinary tract symptoms: Code(s): R39.9 - Unspecified symptoms and signs involving the genitourinary system Status: Acute Assessment and Plan: Finished levaquin. (4) Hyponatremia: Code(s): E87.1 - Hypo-osmolality and hyponatremia Status: Acute Assessment and Plan: Monitor (5) Right thigh pain: Code(s): M79.651 - Pain in right thigh Status: Acute Assessment and Plan: Right hip pain. Recent imaging noted. (6) Dyslipidemia: Code(s): E78.5 - Hyperlipidemia, unspecified Status: Acute (7) Hypertension: Code(s): I10 - Essential (primary) hypertension Status: Acute (8) Dementia: Code(s): F03.90 - Unspecified dementia, unspecified severity, without behavioral disturbance, psychotic disturbance, mood disturbance, and anxiety Status: Acute Plan Pending placement Subjective Date/time seen: 11/18/22 11:04 Interval history: asymptomatic. Hard of hearing Review of Systems Review of Systems: Twelve systems were reviewed and are negative except for as per HPI. The patient is not the greatest historian however and thus accuracy is questionable. Exam Narrative: General: Nontoxic-appearing male sitting at the side of the bed in no acute distress. Weight: 72.5 kg. BMI: 22.9. HEENT: Small healing abrasion on the right mid forehead. Slightly hard of hearing, wearing hearing aids. He is wearing corrective lenses. PERRL, EOMI. Sclera anicteric. Tacky mucous membranes. Neck: Supple. Respiratory: Respirations are nonlabored and he is speaking in full sentences. Faint rales at the left base. Cardiovascular: Regular rate and rhythm with S1-S2. Gastrointestinal: Abdomen is soft, nontender, and nondistended with positive bowel sounds. Skin: Warm and dry. Abrasion and contusion on the left elbow with Steri-Strips in place. Small bruise on the right anterior thigh. Extremities: No cyanosis, clubbing, or significant edema. Radial and pedal pulses intact. Neurological: Alert. Cranial nerves 2-12 are grossly intact. No gross focal deficits to casual conversation. Psychiatric: Pleasantly confused and cooperative. Objective Data Vital Signs Vital Signs: Vital Signs - 24 hr 11/17/22 12:03 11/17/22 14:00 11/17/22 14:00 Temperature 97.1 F L Pulse Rate 85 93 Respiratory Rate 16 Blood Pressure 129/78 129/78 Pulse Oximetry 98 Oxygen Delivery 11/17/22 14:05 11/17/22 16:00 11/17/22 21:15 Temperature 98.1 F Pulse Rate 89 90 Respiratory Rate 16 Blood Pressure 130/70 138/75 Pulse Oximetry 95 Oxygen Delivery 11/17/22 21:18 11/17/22 22:31 11/17/22 20:00 Temperature Pulse Rate 90 90 Respiratory Rate Blood Pressure Pulse Oximetry 95 Oxygen Delivery Room Air 11/18/22 00:00 11/18/22 04:00 11/18/22 06:00 Temperature 97.5 F L Pulse Rate 78 76 88 Respiratory Rate 16 Blood Pressure 145/67 H Pulse Oximetry 95 Oxygen Delivery 11/18/22 06:00 11/18/22 06:05 11/18/22 06:10 Temperature Pulse Rate 88 92 96 Respiratory Rate Blood Pressure 145/67 H 125/72 101/56 L Pulse Oximetry 95 97 100 Oxygen Delivery 11/18/22 08:08 11/18/22 08:13 11/18/22 08:19 Temperature Pulse Rate 86 85 Respiratory Rate Blood Pressure 122/65 Pulse Oximetry Oxygen Delivery Room Air 11/18/22 08:02 Temperature Pulse Rate 88 Respiratory Rate Blood Pressure Pulse Oximetry Oxygen Delivery Intake/Output Intake/Output: Intake & Output 11/15/22 11/16/22 11/17/22 11/18/22 23:59 23:59 23:59 23:59 Intake Total 2196 / 2196 1170 / 1170 1570 / 1570 200 / 200 Output Total 1345 / 1345 1
--- NOTE | 2022-11-18 14:46 | PC.NURSE ---
Pt is A&O to self. Pt has reported no pain this shift. Pt has expressed no needs at this time. Pt is due for repatha injection today. Provider notified and gave clearance to administer injection. Pt daughter will provide injection. Will send to pharmacy to verify prescription and administer when available. Pt up with therapy today. Pt tolerating well. Will continue to monitor pt.
--- NOTE | 2022-11-18 15:22 | PHAR ---
HOME MEDICATION VERIFIED BY PHARMACY KANG SURECLICK 140MG/ML PREFILLED AUTOINJECTOR INJECT 1 ML (140MG) SUBQ EVERY 2 WEEKS 1 AUTOINJECTOR BROUGHT IN
--- NOTE | 2022-11-18 15:55 | PC.NURSE ---
Pts repatha has been placed in refrigerator after pt refused. Pt daughter notified.
[2022-11-18] MEDS: MELATONIN 3 MG TABLET PO (20:47)
[2022-11-18] MEDS: QUEtiapine FUMARATE 25 MG TABLET 50 MG PO (20:47)
[2022-11-18] MEDS: HALOPERIDOL LACTATE 5 MG/ML VIAL IM (22:13)
[2022-11-18] MEDS: ACETAMINOPHEN 325 MG TABLET 650 MG PO (23:21)
[2022-11-19 05:47] VITALS: BP 144/63; PULSE 93; RESP 14; TEMP 36.3; O2SAT 99
[2022-11-19] MEDS: DIVALPROEX SODIUM SPRINKLE 125 MG CAP.DR PO (09:23)
[2022-11-19] MEDS: amLODIPine BESYLATE 5 MG TABLET PO (09:23)
[2022-11-19] MEDS: ASPIRIN 81 MG CHEWABLE TABLET PO (09:24)
[2022-11-19] MEDS: polyethylene glycoL 3350 17 GM POWD.PACK PO (09:24)
[2022-11-19] MEDS: CHOLECALCIFEROL 1,000 UNITS TABLET 1000 UNITS PO (09:24)
[2022-11-19 09:25] VITALS: PULSE 68
[2022-11-19] MEDS: LABETALOL HCL 100 MG TABLET 200 MG PO (09:25)
--- NOTE | 2022-11-19 10:34 | PM.DS ---
DS: Admitting Diagnosis Discharge Date 11/19/2022 Admitting Diagnosis Recurrent falls DS: Discharge Diagnosis Discharge Diagnosis (1) Lower urinary tract symptoms: Code(s): R39.9 - Unspecified symptoms and signs involving the genitourinary system Status: Acute (2) Hyponatremia: Code(s): E87.1 - Hypo-osmolality and hyponatremia Status: Acute (3) Recurrent falls: Code(s): R29.6 - Repeated falls Status: Acute (4) Dyslipidemia: Code(s): E78.5 - Hyperlipidemia, unspecified Status: Acute DS: Summary Hospital Course Hospital Course: Assessment and Plan (1) Recurrent falls: PT/OT (2) Hypokalemia: Replace (3) Lower urinary tract symptoms: Finished levaquin. (4) Hyponatremia: ? Monitor (5) Right thigh pain: Right hip pain. Recent imaging noted. (6) Dyslipidemia: ? (7) Hypertension: (8) Dementia: ? Patient is clinically stable and is being discharged home with home health. Time Spent with Patient Time attestation: Total time spent providing and/or coordinating discharge services: DS: Data Data Completed and Pending Labs on day of discharge: Labs from last 24 hours 11/14/22 19:34 Serum Osmolality 265 L Preliminary micro results at discharge 11/14/22 13:27 Blood Culture - Preliminary Blood 11/14/22 13:16 Blood Culture - Preliminary Blood Discharge Plan Discharge Attending physician on discharge: Teodoro Tomlin Discharging Clinician: Bharat Hayes Patient Disposition: Home, Self-Care Activity: as tolerated Diet: as tolerated Patient Instructions: Antibiotic Form Stand Alone Forms: General Discharge Information Follow-up/Referrals: Deedee Mcdonnell APRN [Emergency Provider] - Discharge Medications: Continued amlodipine 5 mg tablet 5 mg PO BID aspirin 81 mg tablet,chewable 81 mg PO DAILY melatonin 3 mg tablet,disintegrating 3 mg PO HS Repatha SureClick 140 mg/mL pen injector 140 mg SUBCUT [id number] Rx Instructions: Given on November 06 divalproex 125 mg capsule, delayed rel sprinkle 125 mg PO BID labetalol 200 mg tablet 200 mg PO BID cholecalciferol (vitamin D3) 25 mcg (1,000 unit) tablet 25 mcg PO DAILY polyethylene glycol 3350 [Miralax] 17 gram Powder In Packet 17 g PO DAILY famotidine 20 mg tablet 20 mg PO DAILY PRN (Reason: Heartburn) quetiapine 50 mg tablet 50 mg PO TID PRN (Reason: Agitation) Discontinued chlorthalidone 25 mg tablet 25 mg PO DAILY Date of admission: 11/14/22 14:31 Primary Care Provider: Kingston,Renea Admitting Provider: Bro Nunez Attending physician on admission: Bharat Hayes Condition: Stable
[2022-11-19 14:00] VITALS: BP 135/63; PULSE 80; RESP 16; TEMP 35.8; O2SAT 100
[2022-11-19 14:40] LABS: EDCOVIDSCREEN Negative (Negative)
--- NOTE | 2022-11-19 15:08 | PC.NURSE ---
Pt has discharged back to [facility] by daughter Ioana. Pt removed own IV prior to discharge. IV inspected, tip intact. Pt home medication Repatha returned to daughter at discharge. Report called to Katja. Pt was monitored for any changes in status while here.
== END 2022-11-19 15:00 | disposition home or self-care (01) ==
LOC: ANHED 17:20 → ANH3MEDSUR 18:44
PROVIDERS: Chiropractor; General Practice; Physician Assistant; Admitting Provider Internal Medicine; Emergency Provider Nurse Practitioner Family; PCP Internal Medicine Geriatric Medicine; Visit Provider Hospitalist
DX: R29.6 Repeated falls (principal); E87.6 Hypokalemia; R39.9 Unspecified symptoms and signs involving the genitourinary system; E87.1 Hypo-osmolality and hyponatremia; R93.89 Abnormal findings on diagnostic imaging of other specified body structures; M79.651 Pain in right thigh; E78.5 Hyperlipidemia, unspecified; I10 Essential (primary) hypertension; F03.90 Unspecified dementia, unspecified severity, without behavioral disturbance, psychotic disturbance, mood disturbance, and anxiety; R25.2 Cramp and spasm; M79.605 Pain in left leg; S76.011A Strain of muscle, fascia and tendon of right hip, initial encounter; I67.2 Cerebral atherosclerosis; Z20.822 Contact with and (suspected) exposure to COVID-19; M16.0 Bilateral primary osteoarthritis of hip; M11.252 Other chondrocalcinosis, left hip; M11.251 Other chondrocalcinosis, right hip; I70.201 Unspecified atherosclerosis of native arteries of extremities, right leg; I70.0 Atherosclerosis of aorta; M85.80 Other specified disorders of bone density and structure, unspecified site; I25.10 Atherosclerotic heart disease of native coronary artery without angina pectoris; Z95.1 Presence of aortocoronary bypass graft; Z82.49 Family history of ischemic heart disease and other diseases of the circulatory system; Z79.82 Long term (current) use of aspirin; Z79.899 Other long term (current) drug therapy
CPT/HCPCS: 36415; 70450; 71045; 73502; 73552; 73700; 73721; 80048; 80053; 80164; 81001; 82550; 82570; 83735; 83930; 83935; 84300; 84443; 84484; 85025; 85610; 85730; 87040; 87086; 87088; 87426; 93005; 96361; 96365; 96366; 96368; 96372; 96376; 97110; 97116; 97161; 97165; 97530; 97535; 99285; A9270; C9803; G0378; J1630; J1956; J3480; J7030

== ENCOUNTER 2022-12-27 08:58 | Emergency (ER) | payer MEDICARE, SELFPAY ==
--- NOTE | ~2022-12-27 | XR_ITS ---
XR chest 1V DATE: 12/27/2022 09:56 INDICATION: Fall. Weakness. TECHNIQUE: AP chest COMPARISON: 11/14/2022 AP chest FINDINGS: Status post sternotomy. Heart size is within normal range. Aortic arch calcification. Left lower lung calcified pulmonary granuloma. No pulmonary infiltrate or consolidation, pleural effusion or pulmonary vascular congestion or pneumothorax is detected. Surgical clips overlie the superior medial aspect of the left upper quadrant of the abdomen. Mild thoracic dextroscoliosis, degenerative change of the thoracic spine. Osteopenia. IMPRESSION: No active cardiopulmonary disease Aortic atherosclerosis Status post sternotomy Reviewed, dictated and finalized at location [facility].
--- NOTE | ~2022-12-27 | CT_ITS ---
EXAMINATION: CT brain wo con DATE: 12/27/2022 09:50 INDICATION: Patient fell and struck head. A 2 cm laceration to posterior upper parietal area TECHNIQUE: Computed tomography (CT) of the head was performed without intravenous contrast. The mA wa s adjusted according to patient size. Iterative reconstruction technique was employed. Exam dose: 60 5.33 mGy-cm total exam DLP. COMPARISON: 11/15/2019 CT brain FINDINGS: Intracranial cerebral atherosclerosis and chronic small vessel ischemic changes of the cere bral white matter are again noted. There is prominent central and cortical cerebral and cerebellar atrophy. No intracranial mass lesion or hemorrhage or recent cerebrovascular accident, midline shift or mass e ffect effect or subdural or epidural hematoma is detected. The orbital contents are unremarkable. Soft tissue laceration high over the posterior parietal convexity. No skull fracture or radiopaque so ft tissue foreign body is noted. The mastoid air cells and included paranasal sinuses are unremarkabl e. IMPRESSION: Soft tissue laceration high over the posterior parietal convexity. No skull fracture or a cute intracranial finding Reviewed, dictated and finalized at [facility]. Reviewed, dictated and finalized at location A. IMPRESSION: Soft tissue laceration high over the posterior parietal convexity. No skull fracture or acute intracranial finding
--- NOTE | ~2022-12-27 | CT_ITS ---
EXAMINATION: CT cervical spine wo con DATE: 12/27/2022 09:51 INDICATION: Fall. 8 cm laceration high posterior parietal area. TECHNIQUE: Computed tomography (CT) of the cervical spine was performed without intravenous contrast. Automated exposure control and iterative reconstruction technique were employed. Exam dose: 255.52 mGy-cm total exam DLP. COMPARISON: None FINDINGS: C1 and C2 are normally aligned and the odontoid process is intact. There is severe degenerative changes apophyseal joints at C7-T1 bilaterally with associated approxima tely 3 mm anterolisthesis and moderate degenerative disease at C7-T1. No recent fracture or dislocation or locked facet of the cervical spine is noted.. No prevertebral so ft tissue swelling. 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 Reviewed, dictated and finalized at location A. 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
--- NOTE | ~2022-12-27 | XR_ITS ---
XR hip BI 2V w AP pelvis DATE: 12/27/2022 09:55 INDICATION: Unwitnessed fall. Generalized pelvis, bilateral hip pain TECHNIQUE: AP pelvis. AP and lateral views of each hip. COMPARISON: None FINDINGS: Moderate osteoarthritic change of the hips. No fracture or dislocation, avascular necrosis or bone destruction of either hip is detected. The pubic symphysis and sacroiliac joints are intact. No pelvic fracture or bone destruction is detec brandt. Prominent of fecal material in the rectum and colon. Bilateral iliac and femoral artery calcifications. IMPRESSION: Moderate bilateral hip osteoarthritis No pelvic or left or right hip fracture or dislocation Reviewed, dictated and finalized at location A.
[2022-12-27 08:56] VITALS: BP 169/78; PULSE 88; RESP 16; TEMP 37.1; O2SAT 99
--- NOTE | 2022-12-27 09:24 | ECG_ITS ---
Measurements Intervals [place] Rate: 83 P: 65 SC: 205 QRS: 33 QRSD: 118 T: 5 QT: 373 QTc: 441 Interpretive Statements SINUS RHYTHM ATRIAL PREMATURE COMPLEXES INCOMPLETE LEFT BUNDLE BRANCH BLOCK BORDERLINE ST-T WAVE ABNORMALITY- INF/LAT LEADS BASELINE ARTIFACT- I, II, III, AVR, AVL, AVF ABNORMAL ECG COMPARED TO ECG 11/14/2022 14:26:59 NO SIGNIFICANT CHANGES Electronically Signed On 12-27-2022 16:20:23 CDT by Curly Rush D.O.
--- NOTE | 2022-12-27 09:28 | ED.WOUNDLAC ---
HPI - Wound/Laceration General Chief Complaint: Wound/Laceration Stated Complaint: FALL, HEAD LACERATION Time Seen by Provider: 12/27/22 09:06 History of Present Illness HPI narrative: 87 y/o M reports via EMS from [facility] for evaluation s/p fall that occurred this morning. According to the patient, states he was in his kitchen, lost his balance and fell while he was leaning forward causing him to fall to the ground. States he hit his head on the ground, no LOC. He is complaining of a headache and a lac to the superior aspect of the scalp, bleeding controlled. Pt denies CP, shortness of breath, vision changes, numbness or weakness prior to fall. Patient's daughter at bedside who states patient does not have a kitchen in his apartment, therefore unsure where patient fell. Patient is denying extremity injury, abdominal pain, nausea or vomiting, urinary complaints, fever, cough or congestion, neck pain or pain. Per daughter, patient is normally A&O x2. Related Data Home Medications Medication Instructions Recorded Confirmed amlodipine 5 mg tablet 5 mg PO BID 11/14/22 11/14/22 aspirin 81 mg chewable tablet 81 mg PO DAILY 11/14/22 11/14/22 cholecalciferol (vitamin D3) 25 25 mcg PO DAILY 11/14/22 11/14/22 mcg (1,000 unit) tablet divalproex 125 mg capsule,delayed 125 mg PO BID 11/14/22 11/14/22 release sprinkle evolocumab 140 mg/mL subcutaneous 140 mg subcut [id number] 11/14/22 11/14/22 pen injector (Warren Cornejo) famotidine 20 mg tablet 20 mg PO DAILY PRN Heartburn 11/14/22 11/14/22 labetalol 200 mg tablet 200 mg PO BID 11/14/22 11/14/22 melatonin 3 mg disintegrating 3 mg PO HS 11/14/22 11/14/22 tablet polyethylene glycol 3350 17 gram 17 g PO DAILY 11/14/22 11/14/22 oral powder packet (Miralax) quetiapine 50 mg tablet 50 mg PO TID PRN Agitation 11/14/22 11/14/22 chlorthalidone 25 mg tablet mg 12/27/22 mupirocin 2 % topical ointment topical 12/27/22 Allergies Allergy/AdvReac Type Severity Reaction Status Date / Time cefdinir Allergy Unknown Verified 12/27/22 09:07 duloxetine [From Cymbalta] Allergy Unknown Verified 12/27/22 09:07 sertraline Allergy Unknown Verified 12/27/22 09:07 [id number]-CrX Reductase Allergy Unknown Verified 12/27/22 09:07 Inhibitor Review of Systems Review of Systems: CONSTITUTIONAL: Denies fever, chills EYES: Denies visual changes, redness, or discharge. ENT: Denies rhinorrhea, congestion, sore throat, or otalgia. CARDIOVASCULAR: Denies chest pain, palpitations, or edema. RESPIRATORY: Denies cough or dyspnea. GASTROINTESTINAL: Denies abdominal pain, nausea, vomiting, or diarrhea. GENITOURINARY: Denies dysuria or hematuria. SKIN: See HPI MUSCULOSKELETAL: Denies back pain, joint pain, or myalgia. NEUROLOGIC: See HPI PSYCHIATRIC: Denies anxiety or depression. [facility] Past Medical History Medical History Coronary artery disease Dementia Dyslipidemia Hypertension Surgical History Surgical History History of arthroscopy of knee History of cataract extraction History of four vessel coronary artery bypass graft Family History Family History Mother Kidney failure CHF (congestive heart failure) Dialysis patient Social History Social History Social History: Surrogate medical decision maker: Corine Flores () or Ioana Mascorro (daughter). Code status: Full code. Smoking status: Never smoker Alcohol intake: never Substance use: never Lack of Transportation: No Lack of Food: Never True Current Housing: I Have Housing Concerned About Future Housing: No Difficulty Paying Gas/Electric Bills: No Difficulty Paying for Meds: No Currently Unemployed: No Education: High School Diploma/GED Difficulty w/ Childca
[2022-12-27] MEDS: ACETAMINOPHEN 500 MG TABLET 1000 MG PO (10:00)
[2022-12-27] MEDS: TETANUS,DIPHTHERIA,AC PERTUSSIS ADULT (0.5 ML) BOOSTRIX IM (10:01)
[2022-12-27 10:17] LABS: Basophils Absolute Auto 0.1 K/mm3 (0.0-0.1); Basophils Percent Auto 0.7 % (0.2-1.2); Eosinophils Absolute Auto 0.2 K/mm3 (0-0.3); Hematocrit 34.7 % (42.0-52.0); Hemoglobin 11.7 g/dL (14.0-18.0); Immature Granulocyte Absolute 0.09 K/mm3 (0.00-0.031); Immature Granulocyte Percent A 0.8 % (0-0.5); Lymphocytes Absolute Auto 1.05 K/mm3 (0.9-3.2); Lymphocytes Percent Auto 9.5 % (18.3-44.2); Mean Corpuscular HGB Conc 33.7 g/dl (32-36); Mean Corpuscular Hemoglobin 31.6 pg (26-34); Mean Corpuscular Volume 93.8 fl (80-100); Mean Platelet Volume 8.4 fl (7.4-10.4); Monocytes Absolute Auto 1.2 K/mm3 (0.1-0.6); Monocytes Percent Auto 11.1 % (2.6-8.5); Neutrophils Absolute Auto 8.4 K/mm3 (1.3-6.7); Neutrophils Percent Auto 75.9 % (45.5-73.1); Platelet Count Result 280 k/mm3 (150-375); Red Cell Distribution Width 13.3 % (11.5-14.5); White Blood Count 11.1 K/mm3 (4.5-10.0)
[2022-12-27 10:22] LABS: Appearance Urine Clear (Clear); Bacteria Urine None Seen /hpf; Bilirubin Urine Negative (Negative); Blood Urine Negative (Negative); Color Urine Yellow (Yellow); Glucose Urine UA Negative (Negative); Ketones Urine Negative (Negative); Leukocyte Esterase Ur Trace LEU/UL (Negative); Nitrate Urine Negative (Negative); Non Pathogenic Casts 0-2; Protein Urine Negative (Negative); RBC Urine 0-2 /hpf (0-2); Specific Grav Ur 1.012 (1.001-1.035); Squamous Epithelial Cell Urine None seen /hpf (Few); WBC Urine 0-5 /hpf; pH Urine 7.5 (5.0-9.0)
[2022-12-27 10:33] LABS: Add Urine Microscopic? YES
[2022-12-27 10:40] LABS: Troponin I < 0.012 ng/mL (0.000-0.034)
[2022-12-27 10:42] LABS: Alanine Aminotransferase 25 U/L (6-50); Albumin Level 4.2 g/dL (3.5-5.1); Alkaline Phosphatase 67 U/L (38-126); Anion Gap 7 mmol/L (8-16); Aspartate Amino Transferase 31 U/L (17-59); Bilirubin,Total 0.7 mg/dL (0.2-1.3); Blood Urea Nitrogen 18 mg/dL (9-20); Calcium 9.3 mg/dL (8.4-10.2); Carbon Dioxide 31 mmol/L (22-30); Chloride 95 mmol/L (98-107); Creatine Kinase 131 U/L (55-170); Estimated Glomerular Filt Rate > 60; Glucose 105 mg/dL (65-110); Potassium 2.8 mmol/L (3.4-5.0); Sodium 133 mmol/L (137-145)
[2022-12-27] MEDS: KCL 20 MEQ/SW 100 ML 100 ML 50 MEQ IVPB (11:10)
[2022-12-27] MEDS: POTASSIUM CHLORIDE 20 MEQ PACKET (FOR LIQUID) 40 MEQ PO (11:11)
[2022-12-27 11:16] VITALS: BP 161/86; PULSE 92; RESP 18; O2SAT 99
[2022-12-27 11:30] VITALS: BP 153/71; PULSE 91; RESP 17; O2SAT 97
[2022-12-27 11:37] LABS: Magnesium 1.7 mg/dL (1.6-2.3)
[2022-12-27] MEDS: SODIUM CHLORIDE 0.9% IV 1,000 ML 999 ML IV CONT (11:45)
[2022-12-27] MEDS: CEPHALEXIN 500 MG CAPSULE PO (12:27)
[2022-12-27 12:30] VITALS: BP 166/78; PULSE 86; RESP 18; O2SAT 98
[2022-12-27 13:30] VITALS: BP 160/92; PULSE 90; RESP 16; O2SAT 97
[2022-12-27 13:53] LABS: Anion Gap 6 mmol/L (8-16); Blood Urea Nitrogen 15 mg/dL (9-20); Calcium 9.1 mg/dL (8.4-10.2); Carbon Dioxide 29 mmol/L (22-30); Chloride 97 mmol/L (98-107); Estimated Glomerular Filt Rate > 60; Glucose 100 mg/dL (65-110); Potassium 3.3 mmol/L (3.4-5.0); Sodium 132 mmol/L (137-145)
== END 2022-12-27 14:20 ==
PROVIDERS: Emergency Provider Physician Assistant; PCP Internal Medicine Geriatric Medicine
DX: E87.6 Hypokalemia (principal); S01.01XA Laceration without foreign body of scalp, initial encounter; Z23 Encounter for immunization; F03.90 Unspecified dementia, unspecified severity, without behavioral disturbance, psychotic disturbance, mood disturbance, and anxiety; I25.10 Atherosclerotic heart disease of native coronary artery without angina pectoris; I10 Essential (primary) hypertension; E78.5 Hyperlipidemia, unspecified; Z95.1 Presence of aortocoronary bypass graft; Z98.49 Cataract extraction status, unspecified eye; Z79.82 Long term (current) use of aspirin; I70.0 Atherosclerosis of aorta; M16.4 Bilateral post-traumatic osteoarthritis of hip; I49.1 Atrial premature depolarization; I44.7 Left bundle-branch block, unspecified; R94.31 Abnormal electrocardiogram [ECG] [EKG]; M50.33 Other cervical disc degeneration, cervicothoracic region; W18.39XA Other fall on same level, initial encounter
CPT/HCPCS: 12002; 36415; 70450; 71045; 72125; 73521; 80048; 80053; 81001; 82550; 83735; 84484; 85025; 90471; 90715; 93005; 96365; 96366; 99284; A9270; J3480; J7030

== ENCOUNTER 2023-07-15 23:28 | Emergency (ER) | payer MEDICARE, SELFPAY ==
[2023-07-15 23:34] VITALS: BP 137/92; PULSE 96; RESP 15; TEMP 37.3; O2SAT 99
== END 2023-07-16 00:44 | disposition left against medical advice (07) ==
PROVIDERS: PCP Internal Medicine Geriatric Medicine
DX: S79.911A Unspecified injury of right hip, initial encounter (principal)
CPT/HCPCS: 99199

== ENCOUNTER 2023-12-10 05:56 | Emergency (ER) | payer MEDICARE, SELFPAY ==
--- NOTE | ~2023-12-10 | CT_ITS ---
CT head without contrast Indication: Status post fall COMPARISON: 12/27/2022 Technique: Serial scans were obtained through the brain without the administration of contrast. Dose reduction technique was used on this scan by utilizing automated exposure control and iterative recon struction technique. The dose-length product (DLP) was 605.33 mGy-cm. Findings: There is no evidence of intracranial hemorrhage, mass lesion, or acute infarct. The ventri cles and subarachnoid spaces are dilated, consistent with moderate to advanced atrophy. Low attenuat ion regions are seen within the periventricular white matter bilaterally, likely representing changes from chronic microvascular ischemic disease. There is no evidence of edema, mass effect or midline shift. The visualized paranasal sinuses and mastoid air cells are clear. Impression: No intracranial hemorrhage, mass, or acute infarct. Atrophy and chronic white matter changes, as above. Reviewed, dictated and finalized at [facility] [place]. Impression: No intracranial hemorrhage, mass, or acute infarct. Atrophy and chronic white matter changes, as above.
[2023-12-10 05:58] VITALS: BP 148/70; PULSE 72; RESP 15; TEMP 36.4; O2SAT 99
[2023-12-10 06:17] LABS: Basophils Absolute Auto 0.1 K/mm3 (0.0-0.1); Basophils Percent Auto 0.8 % (0.2-1.2); Eosinophils Absolute Auto 0.5 K/mm3 (0-0.3); Eosinophils Percent Auto 4.9 % (0-4.4); Hemoglobin 11.3 g/dL (14.0-18.0); Immature Granulocyte Absolute 0.06 K/mm3 (0.00-0.031); Immature Granulocyte Percent A 0.6 % (0-0.5); Lymphocytes Absolute Auto 1.35 K/mm3 (0.9-3.2); Lymphocytes Percent Auto 12.5 % (18.3-44.2); Mean Corpuscular HGB Conc 33.2 g/dl (32-36); Mean Corpuscular Hemoglobin 31.6 pg (26-34); Mean Platelet Volume 8.6 fl (7.4-10.4); Monocytes Absolute Auto 1.4 K/mm3 (0.1-0.6); Monocytes Percent Auto 12.7 % (2.6-8.5); Neutrophils Absolute Auto 7.4 K/mm3 (1.3-6.7); Neutrophils Percent Auto 68.5 % (45.5-73.1); Platelet Count Result 291 k/mm3 (150-375); Red Blood Count 3.58 M/mm3 (4.6-6.20); Red Cell Distribution Width 12.9 % (11.5-14.5); White Blood Count 10.8 K/mm3 (4.5-10.0)
[2023-12-10 06:28] LABS: Alanine Aminotransferase 34 U/L (6-50); Albumin Level 3.7 g/dL (3.5-5.1); Alkaline Phosphatase 88 U/L (38-126); Anion Gap 5 mmol/L (4-12); Aspartate Amino Transferase 81 U/L (17-59); Bilirubin,Total 0.6 mg/dL (0.2-1.3); Blood Urea Nitrogen 18 mg/dL (9-20); Calcium 9.1 mg/dL (8.4-10.2); Carbon Dioxide 28 mmol/L (22-30); Chloride 102 mmol/L (98-107); Estimated CRCL calculation 43 ml/min; Estimated Glomerular Filt Rate > 60; Glucose 98 mg/dL (65-110); Potassium 3.4 mmol/L (3.4-5.0); Sodium 135 mmol/L (137-145)
--- NOTE | 2023-12-10 07:49 | ED.FALL ---
HPI - Fall General Chief Complaint: Fall Stated Complaint: fall, head lac Time Seen by Provider: 12/10/23 06:55 History of Present Illness HPI Narrative: 88-year-old male presenting to the emergency department for evaluation for a head injury. Patient states he often has falls and did have a fall last night. Patient's only complaint is posterior scalp pain. Patient denies any other pain or injury. Patient does have Alzheimer's. Related Data Home Medications Medication Instructions Recorded Confirmed amlodipine 5 mg tablet 5 mg PO BID 11/14/22 11/14/22 aspirin 81 mg chewable tablet 81 mg PO DAILY 11/14/22 11/14/22 cholecalciferol (vitamin D3) 25 25 mcg PO DAILY 11/14/22 11/14/22 mcg (1,000 unit) tablet divalproex 125 mg capsule,delayed 125 mg PO BID 11/14/22 11/14/22 release sprinkle evolocumab 140 mg/mL subcutaneous 140 mg subcut [id number] 11/14/22 11/14/22 pen injector (Warren Cornejo) famotidine 20 mg tablet 20 mg PO DAILY PRN Heartburn 11/14/22 11/14/22 labetalol 200 mg tablet 200 mg PO BID 11/14/22 11/14/22 melatonin 3 mg disintegrating 3 mg PO HS 11/14/22 11/14/22 tablet polyethylene glycol 3350 17 gram 17 g PO DAILY 11/14/22 11/14/22 oral powder packet (Miralax) quetiapine 50 mg tablet 50 mg PO TID PRN Agitation 11/14/22 11/14/22 chlorthalidone 25 mg tablet mg 12/27/22 mupirocin 2 % topical ointment topical 12/27/22 Allergies Allergy/AdvReac Type Severity Reaction Status Date / Time cefdinir Allergy Unknown Verified 12/10/23 06:05 duloxetine [From Cymbalta] Allergy Unknown Verified 12/10/23 06:05 sertraline Allergy Unknown Verified 12/10/23 06:05 Rctjqst-MRO-IlM Reductase Allergy Unknown Verified 12/10/23 06:05 Inhibitor Review of Systems Review of Systems: All systems reviewed & are unremarkable except as noted in HPI and below PMFSH Past Medical History Medical History Coronary artery disease Dementia Dyslipidemia Hypertension Surgical History Surgical History History of arthroscopy of knee History of cataract extraction History of four vessel coronary artery bypass graft Family History Family History Mother Kidney failure CHF (congestive heart failure) Dialysis patient Social History Social History Social History: Surrogate medical decision maker: Corinera Flores () or Ioana Mascorro (daughter). Code status: Full code. Smoking status: Never smoker Alcohol intake: never Substance use: never Lack of Transportation: No Lack of Food: Never True Current Housing: I Have Housing Concerned About Future Housing: No Difficulty Paying Gas/Electric Bills: No Difficulty Paying for Meds: No Currently Unemployed: No Education: High School Diploma/GED Difficulty w/ Childcare or Family Care: No Additional living arrangements comments: The patient and his live in assisted living at [facility]. 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 Spiritual care concerns: No Exam Narrative: APPEARANCE: Well appearing, no pain, no distress, well-nourished. HEAD: normocephalic, posterior scalp abrasion. EYES: PERRLA/EOMI, conjunctivae clear. NOSE: Normal no drainage EARS:TMS clear with good light reflex. THROAT: Pharynx clear, no exudate. NECK: Supple. No adenopathy, no masses. RESPIRATORY: Airway patent, respirations nonlabored. Clear to auscultation bilaterally, no rales, rhonchi, wheezing. CARDIOVASCULAR: Regular rate and rhythm without murmurs rubs or gallops. ABDOMINAL: Soft, nontender, nondistended, normal bowel sounds MUSCULOSKELETAL: Moves all extremities. Strength/ROM intact, No edema, No calf tenderness. NEURO: Alert. Cranial nerves II through
[2023-12-10 08:53] VITALS: BP 149/72; PULSE 81; RESP 16; O2SAT 99
== END 2023-12-10 09:32 ==
PROVIDERS: Emergency Medicine; Emergency Provider Emergency Medicine; PCP Internal Medicine Geriatric Medicine
DX: S00.01XA Abrasion of scalp, initial encounter (principal); I25.10 Atherosclerotic heart disease of native coronary artery without angina pectoris; F03.90 Unspecified dementia, unspecified severity, without behavioral disturbance, psychotic disturbance, mood disturbance, and anxiety; E78.5 Hyperlipidemia, unspecified; I10 Essential (primary) hypertension; W19.XXXA Unspecified fall, initial encounter
CPT/HCPCS: 36415; 70450; 80053; 85025; 99284

== ENCOUNTER 2023-12-12 04:20 | Emergency (ER) | payer MEDICARE, SELFPAY ==
--- NOTE | ~2023-12-12 | CT_ITS ---
EXAMINATION: CT brain wo con DATE: 12/12/2023 04:54 INDICATION: Fall with head injury TECHNIQUE: Computed tomography (CT) of the head was performed without intravenous contrast. Sagittal and coronal reconstructions were performed. The mA was adjusted according to patient size. Iterative reconstruction technique was employed. The dose-length product was 681.00 mGy-cm. COMPARISON: head CT dated 12/10/2023 FINDINGS: No fracture. 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 No acute intracranial hemorrhage, acute infarction or abnormal extra axial fluid collection. There is mild scattered white matter hypoa ttenuation consistent with chronic small vessel ischemic disease. Symmetric prominence of the sulci a nd ventricles consistent with moderate age-appropriate diffuse cerebral volume loss. Symmetric promin ence of the sulci and ventricles consistent with moderate to severe age-appropriate diffuse cerebral volume loss. No mass/mass effect. The orbits and mastoid air cells are normal. Mild mucosal thickenin g in the bilateral maxillary sinuses. IMPRESSION: 1. No fracture or acute intracranial process. 2. 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 Reviewed, dictated and finalized at location A.
--- NOTE | ~2023-12-12 | CT_ITS ---
EXAMINATION: CT cervical spine wo con DATE: 12/12/2023 04:54 INDICATION: Fall with head injury TECHNIQUE: Computed tomography (CT) of the cervical spine was performed without intravenous contrast. Automated exposure control and iterative reconstruction technique were employed. The dose-length pro duct was 221.24 mGy-cm. COMPARISON: 12/27/2022 FINDINGS: Severe osteoarthritis at the atlantoaxial articulation with surrounding calcified pannus. 2 mm azul listhesis C7 on T1. Chronic mild superior endplate compression fracture at T3. The more cephalad vert ebral body heights are normal. Mild disc height loss at C7-T1. There is multilevel mild central canal stenosis resulting from disc bulges at C3-C4 through C6-C7. Additional mild central canal stenosis a s well as severe bilateral facet osteoarthritis due to the mild spondylolisthesis at C7-T1. This resu lts in mild bilateral neural foraminal stenosis at this level. Minimal additional scattered neural fo raminal stenosis and more cephalad cervical spine. Osteoarthritis 1.4 cm right thyroid nodule. Cervic al soft tissues are otherwise unremarkable. Visual is apices of lungs are clear. IMPRESSION: 1. Mild cervical spondylosis with no acute osseous abnormality. Reviewed, dictated and finalized at location A.
[2023-12-12 04:27] VITALS: BP 167/80; PULSE 80; RESP 17; TEMP 37; O2SAT 99
--- NOTE | 2023-12-12 04:37 | ED.GENADULT ---
HPI - General Adult General Chief complaint: Fall Stated complaint: FALL, LAC TO FOREHEAD Time Seen by Provider: 12/12/23 04:33 History of Present Illness HPI narrative: patient is a 88-year-old gentleman who presents emergency department chief complaint of fall. Patient does transfer from wheelchair to bed and fell striking his head the patient's baseline alert oriented x1 and has history of dementia patient reports the small laceration on his head is on daily aspirin. Related Data Home Medications Medication Instructions Recorded Confirmed amlodipine 5 mg tablet 5 mg PO BID 11/14/22 11/14/22 aspirin 81 mg chewable tablet 81 mg PO DAILY 11/14/22 11/14/22 cholecalciferol (vitamin D3) 25 25 mcg PO DAILY 11/14/22 11/14/22 mcg (1,000 unit) tablet divalproex 125 mg capsule,delayed 125 mg PO BID 11/14/22 11/14/22 release sprinkle evolocumab 140 mg/mL subcutaneous 140 mg subcut [id number] 11/14/22 11/14/22 pen injector (Warren Cornejo) famotidine 20 mg tablet 20 mg PO DAILY PRN Heartburn 11/14/22 11/14/22 labetalol 200 mg tablet 200 mg PO BID 11/14/22 11/14/22 melatonin 3 mg disintegrating 3 mg PO HS 11/14/22 11/14/22 tablet polyethylene glycol 3350 17 gram 17 g PO DAILY 11/14/22 11/14/22 oral powder packet (Miralax) quetiapine 50 mg tablet 50 mg PO TID PRN Agitation 11/14/22 11/14/22 chlorthalidone 25 mg tablet mg 12/27/22 mupirocin 2 % topical ointment topical 12/27/22 Allergies Allergy/AdvReac Type Severity Reaction Status Date / Time cefdinir Allergy Unknown Verified 12/10/23 06:05 duloxetine [From Cymbalta] Allergy Unknown Verified 12/10/23 06:05 sertraline Allergy Unknown Verified 12/10/23 06:05 Uyrrzfy-FSM-PcS Reductase Allergy Unknown Verified 12/10/23 06:05 Inhibitor Review of Systems Review of Systems: A 10 system review of systems was completed on the patient and is negative except for what is stated in the HPI. Nursing and ancillary documentation was reviewed. PMFSH Past Medical History Medical History Coronary artery disease Dementia Dyslipidemia Hypertension Surgical History Surgical History History of arthroscopy of knee History of cataract extraction History of four vessel coronary artery bypass graft Family History Family History Mother Kidney failure CHF (congestive heart failure) Dialysis patient Social History Social History Social History: Surrogate medical decision maker: Corine Flores () or Ioana Ludwin (daughter). Code status: Full code. Smoking status: Never smoker Alcohol intake: never Substance use: never Lack of Transportation: No Lack of Food: Never True Current Housing: I Have Housing Concerned About Future Housing: No Difficulty Paying Gas/Electric Bills: No Difficulty Paying for Meds: No Currently Unemployed: No Education: High School Diploma/GED Difficulty w/ Childcare or Family Care: No Additional living arrangements comments: The patient and his live in assisted living at [facility]. 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 Spiritual care concerns: No Exam Narrative: GENERAL: Well-appearing, well-nourished, and in no acute distress. HEAD: Normocephalic, 2 cm stellate laceration to forehead. EYES: PERRLA and EOMI. ENT: Nares clear, no rhinorrhea or epistaxis. Mucous membranes moist. NECK: Supple. CHEST: Clear to auscultation. No respiratory distress. HEART: Regular rate and rhythm. No murmur heard. Normal peripheral pulses. ABDOMEN: Soft, nontender, nondistended, normal active bowel sounds. EXTREMITIES: Normal range of motion. No edema. SKIN: Warm, dry, no rash. NEURO: No f
[2023-12-12 05:20] VITALS: BP 158/70; PULSE 79; RESP 18; O2SAT 97
[2023-12-12] MEDS: TETANUS,DIPHTHERIA,AC PERTUSSIS ADULT (0.5 ML) BOOSTRIX IM (05:36)
[2023-12-12 06:59] VITALS: BP 126/70; PULSE 89; RESP 15; O2SAT 99
--- NOTE | 2023-12-12 09:02 | PC.NURSE ---
Family arrived to take pt back to [facility]. Out of dept per wc to private vehicle.
== END 2023-12-12 09:03 ==
PROVIDERS: Emergency Provider Emergency Medicine; PCP Internal Medicine Geriatric Medicine
DX: S01.01XA Laceration without foreign body of scalp, initial encounter (principal); Z23 Encounter for immunization; F03.90 Unspecified dementia, unspecified severity, without behavioral disturbance, psychotic disturbance, mood disturbance, and anxiety; I25.10 Atherosclerotic heart disease of native coronary artery without angina pectoris; I10 Essential (primary) hypertension; E78.5 Hyperlipidemia, unspecified; Z95.1 Presence of aortocoronary bypass graft; Z98.49 Cataract extraction status, unspecified eye; Z79.82 Long term (current) use of aspirin; Z79.899 Other long term (current) drug therapy; W05.0XXA Fall from non-moving wheelchair, initial encounter
CPT/HCPCS: 12001; 70450; 72125; 90471; 90715; 99284

== ENCOUNTER 2024-01-12 05:34 | Emergency (ER) | payer MEDICARE, SELFPAY ==
--- NOTE | ~2024-01-12 | CT_ITS ---
CT head without contrast Indication: Status post fall COMPARISON: 11/15/2023 Technique: Serial scans were obtained through the brain without the administration of contrast. Dose reduction technique was used on this scan by utilizing automated exposure control and iterative recon struction technique. The dose-length product (DLP) was 605.33 mGy-cm. Findings: There is no evidence of intracranial hemorrhage, mass lesion, or acute infarct. The ventri cles and subarachnoid spaces are dilated, consistent with moderate to advanced atrophy. Low attenuat ion regions are seen within the periventricular white matter bilaterally, likely representing changes from chronic microvascular ischemic disease. There is no evidence of edema, mass effect or midline shift. The visualized paranasal sinuses and mastoid air cells are clear. Impression: No intracranial hemorrhage, mass, or acute infarct. Atrophy and chronic white matter changes, as above. Reviewed, dictated and finalized at location . Impression: No intracranial hemorrhage, mass, or acute infarct. Atrophy and chronic white matter changes, as above.
--- NOTE | ~2024-01-12 | CT_ITS ---
CT Facial Bones and Cervical Spine Clinical Indication: Status post fall Technique: Contiguous axial scans were obtained through the facial bones and cervical spine followed by coronal and sagittal reconstructions. Dose reduction technique was used on this scan by utilizing automated exposure control and iterative reconstruction technique. The dose-length product (DLP) was 247.61 mGy-cm. Findings: CT facial bones: No fractures are identified. The visualized paranasal sinuses are clear. Intraorbita l soft tissues appear normal. CT cervical spine: No fractures or subluxation. There is degenerative change at the articulation of the odontoid process with the anterior arch of C1. Intervertebral disc spaces are relatively well-pre served. There is mild disc osteophyte complex at C3-C4 with probable mild canal stenosis and mild rd ateral neural foraminal narrowing. Probable mild canal stenosis at C4-C5. No prevertebral soft tissue swelling. Impression: No fracture is seen in the facial bones. No fracture or subluxation of the cervical spine. Degenerative change of the cervical spine, as above. Reviewed, dictated and finalized at location . Impression: No fracture is seen in the facial bones. No fracture or subluxation of the cervical spine. Degenerative change of the cervical spine, as above.
[2024-01-12 05:36] VITALS: BP 164/72; PULSE 83; RESP 10; TEMP 36.3; O2SAT 99
--- NOTE | 2024-01-12 05:58 | ED.WOUNDLAC ---
HPI - Wound/Laceration General Chief Complaint: Wound/Laceration Stated Complaint: HEAD LAC Time Seen by Provider: 01/12/24 05:35 Source: patient Limitations: no limitations History of Present Illness HPI narrative: Patient is an 88-year-old male presents to the emergency department via EMS from [facility], EMS notes that the patient was found by staff with a laceration on his head and he patient has a history of Parkinson's and is unsteady on his feet, patient is alert orient x1 at baseline. Patient states he was walking when he thinks he hit his head on the wall or a shelf and thinks he may have fell but did not lose consciousness. Patient denies chest pain, difficulty breathing, fever, urinary incontinence, stool incontinence, back pain, neck pain, confusion, headache, extremity pain, decreased range of motion, abdominal pain, nausea, vomiting, diarrhea, melena, hematochezia, urinary discomfort, new or change medications. Patient denies use of blood thinners. Patient states that overall he feels well and is not having any significant pain. Related Data Home Medications Medication Instructions Recorded Confirmed amlodipine 5 mg tablet 5 mg PO BID 11/14/22 11/14/22 aspirin 81 mg chewable tablet 81 mg PO DAILY 11/14/22 11/14/22 cholecalciferol (vitamin D3) 25 25 mcg PO DAILY 11/14/22 11/14/22 mcg (1,000 unit) tablet divalproex 125 mg capsule,delayed 125 mg PO BID 11/14/22 11/14/22 release sprinkle evolocumab 140 mg/mL subcutaneous 140 mg subcut [id number] 11/14/22 11/14/22 pen injector (Warren Cornejo) famotidine 20 mg tablet 20 mg PO DAILY PRN Heartburn 11/14/22 11/14/22 labetalol 200 mg tablet 200 mg PO BID 11/14/22 11/14/22 melatonin 3 mg disintegrating 3 mg PO HS 11/14/22 11/14/22 tablet polyethylene glycol 3350 17 gram 17 g PO DAILY 11/14/22 11/14/22 oral powder packet (Miralax) quetiapine 50 mg tablet 50 mg PO TID PRN Agitation 11/14/22 11/14/22 chlorthalidone 25 mg tablet mg 12/27/22 mupirocin 2 % topical ointment topical 12/27/22 Allergies Allergy/AdvReac Type Severity Reaction Status Date / Time cefdinir Allergy Unknown Verified 12/10/23 06:05 duloxetine [From Cymbalta] Allergy Unknown Verified 12/10/23 06:05 sertraline Allergy Unknown Verified 12/10/23 06:05 Matsftd-TTA-BdI Reductase Allergy Unknown Verified 12/10/23 06:05 Inhibitor Review of Systems Review of Systems: A 10 system review of systems was completed on the patient and is negative except for what is stated in the HPI. Nursing and ancillary documentation was reviewed. [facility] Past Medical History Medical History Coronary artery disease Dementia Dyslipidemia Hypertension Surgical History Surgical History History of arthroscopy of knee History of cataract extraction History of four vessel coronary artery bypass graft Family History Family History Mother Kidney failure CHF (congestive heart failure) Dialysis patient Social History Social History Social History: Surrogate medical decision maker: Corinera Andreman () or Ioana Ludwin (daughter). Code status: Full code. Smoking status: Never smoker Alcohol intake: never Substance use: never Lack of Transportation: No Lack of Food: Never True Current Housing: I Have Housing Concerned About Future Housing: No Difficulty Paying Gas/Electric Bills: No Difficulty Paying for Meds: No Currently Unemployed: No Education: High School Diploma/GED Difficulty w/ Childcare or Family Care: No Additional living arrangements comments: The patient and his live in assisted living at [facility]. 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 He also worked at [employer]
[2024-01-12] MEDS: TETANUS,DIPHTHERIA,AC PERTUSSIS ADULT (0.5 ML) BOOSTRIX IM (06:49)
[2024-01-12 08:20] VITALS: BP 160/80; PULSE 81; RESP 18; O2SAT 97
== END 2024-01-12 08:45 ==
PROVIDERS: Emergency Provider Student in an Organized Health Care Education/Training Program; PCP Internal Medicine Geriatric Medicine
DX: S01.81XA Laceration without foreign body of other part of head, initial encounter (principal); Z23 Encounter for immunization; G20.A1 Parkinson's disease without dyskinesia, without mention of fluctuations; F03.90 Unspecified dementia, unspecified severity, without behavioral disturbance, psychotic disturbance, mood disturbance, and anxiety; I25.10 Atherosclerotic heart disease of native coronary artery without angina pectoris; I10 Essential (primary) hypertension; E78.5 Hyperlipidemia, unspecified; Z95.1 Presence of aortocoronary bypass graft; Z98.49 Cataract extraction status, unspecified eye; Z79.82 Long term (current) use of aspirin; Z79.899 Other long term (current) drug therapy; W18.09XA Striking against other object with subsequent fall, initial encounter
CPT/HCPCS: 12013; 70450; 70486; 72125; 90471; 90715; 99284

== ENCOUNTER 2024-03-28 07:29 | Emergency (ER) | payer MEDICARE, SELFPAY ==
--- NOTE | ~2024-03-28 | CT_ITS ---
CT brain wo con Ordering provider: Toni Costello MD History: 88 years Male with . fall . Comparison: January 12, 2024 Technique: CT of the head without contrast. Radiation reduction technique utilized.The dose-length product was 681 mGy-cm. 1V FINDINGS: BRAIN PARENCHYMA AND CSF SPACES: Mild leukoaraiosis and diffuse cortical atrophy. Mild atheromatous d isease. No midline shift, mass effect or hemorrhage. The brain parenchyma and CSF spaces are otherwi se normal. VISUALIZED PARANASAL SINUSES: Normal. MASTOIDS: Normal. BONES: Normal. SOFT TISSUES: Visualized nasopharynx is normal. Superficial soft tissues are normal. IMPRESSION: No acute intracranial findings. Reviewed, dictated and finalized at location A.
--- NOTE | ~2024-03-28 | CT_ITS ---
CT cervical spine wo con Ordering provider: Toni Costello MD History: . fall . Comparison: 01/12/2024 Technique: CT of the cervical spine was performed without contrast. Sagittal and coronal reformatted images were also obtained and reviewed. Automated exposure control and iterative reconstruction victoria hnique were employed. The dose-length product was 340.49 mGy-cm. FINDINGS: VERTEBRAE: No subluxation or acute fracture. The occipital condyles are intact. Loss of volume of T3 is noted which is most likely chronic. DISC SPACES: Narrowing of the disc C7-T1. Bilateral facet joint disease at the level of C7-T1. PARASPINOUS SOFT TISSUES: Normal. Calcification seen in the vertebral arteries. IMPRESSION: No acute osseous abnormality cervical spine. Loss of volume of T3 most likely chronic. Bilateral facet joint disease at the level of C7-T1. Reviewed, dictated and finalized at location A.
[2024-03-28 07:31] VITALS: PULSE 81; RESP 16; TEMP 36.4; O2SAT 100
[2024-03-28 07:46] VITALS: BP 171/75; PULSE 76; RESP 16; TEMP 36.4; O2SAT 100
[2024-03-28 08:16] VITALS: BP 175/74; PULSE 77; RESP 16; TEMP 36.5; O2SAT 100
--- NOTE | 2024-03-28 09:04 | ED.FALL ---
HPI - Fall General Chief Complaint: Fall Stated Complaint: fall, head injury Time Seen by Provider: 03/28/24 08:04 Source: EMS Mode of arrival: EMS Limitations: dementia History of Present Illness HPI Narrative: 88-year-old with a history of dementia was brought in from assisted living facility with the complaints of fall. Patient was sitting in the wheelchair fell off the wheelchair hit his head no LOC. denies any chest pain or shortness of breath or abdominal pain or hip pain MD complaint: fall Onset (ago): hour(s) Fall from: wheelchair Fall witnessed: yes, by living facility staff Place fall occurred: other Loss of consciousness: none Prolonged down time: no Symptoms prior to fall: none Context: history of frequent falls Location of injury: head Associated symptoms (after fall): denies Related Data Home Medications Medication Instructions Recorded Confirmed amlodipine 5 mg tablet 5 mg PO BID 11/14/22 11/14/22 aspirin 81 mg chewable tablet 81 mg PO DAILY 11/14/22 11/14/22 cholecalciferol (vitamin D3) 25 25 mcg PO DAILY 11/14/22 11/14/22 mcg (1,000 unit) tablet divalproex 125 mg capsule,delayed 125 mg PO BID 11/14/22 11/14/22 release sprinkle evolocumab 140 mg/mL subcutaneous 140 mg subcut [id number] 11/14/22 11/14/22 pen injector (Warren Cornejo) famotidine 20 mg tablet 20 mg PO DAILY PRN Heartburn 11/14/22 11/14/22 labetalol 200 mg tablet 200 mg PO BID 11/14/22 11/14/22 melatonin 3 mg disintegrating 3 mg PO HS 11/14/22 11/14/22 tablet polyethylene glycol 3350 17 gram 17 g PO DAILY 11/14/22 11/14/22 oral powder packet (Miralax) quetiapine 50 mg tablet 50 mg PO TID PRN Agitation 11/14/22 11/14/22 chlorthalidone 25 mg tablet mg 12/27/22 mupirocin 2 % topical ointment topical 12/27/22 Allergies Allergy/AdvReac Type Severity Reaction Status Date / Time cefdinir Allergy Unknown Verified 12/10/23 06:05 duloxetine [From Cymbalta] Allergy Unknown Verified 12/10/23 06:05 sertraline Allergy Unknown Verified 12/10/23 06:05 Wgbirso-DPO-RqC Reductase Allergy Unknown Verified 12/10/23 06:05 Inhibitor Review of Systems Review of Systems: ROS unobtainable: Yes unobtainable due to mental status PMFSH Past Medical History Medical History Coronary artery disease Dementia Dyslipidemia Hypertension Surgical History Surgical History History of arthroscopy of knee History of cataract extraction History of four vessel coronary artery bypass graft Family History Family History Mother Kidney failure CHF (congestive heart failure) Dialysis patient Social History Social History Social History: Surrogate medical decision maker: Corine Flores () or Ioana Dominguezron (daughter). Code status: Full code. Smoking status: Never smoker Alcohol intake: never Substance use: never Lack of Transportation: No Lack of Food: Never True Current Housing: I Have Housing Concerned About Future Housing: No Difficulty Paying Gas/Electric Bills: No Difficulty Paying for Meds: No Currently Unemployed: No Education: High School Diploma/GED Difficulty w/ Childcare or Family Care: No Additional living arrangements comments: The patient and his live in assisted living at [facility]. 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 Spiritual care concerns: No Exam Narrative: GENERAL: Well-appearing, well-nourished, and in no acute distress. Hard of hearing HEAD: Normocephalic, atraumatic. a small hematoma on right frontal area EYES: PERRLA and EOMI. ENT: Nares clear, no rhinorrhea or epistaxis. Mucous membranes moist. NECK: Supple. CHEST: Clear to auscultation. No respiratory distress. HEART: Regular rate an
[2024-03-28 09:33] VITALS: BP 175/74; PULSE 78; RESP 18; TEMP 36.6; O2SAT 100
--- NOTE | 2024-03-28 10:51 | PC.NURSE ---
Continue to wait on transportation. PO fluids given.
--- NOTE | 2024-03-28 11:15 | PC.NURSE ---
Pt incontinent of large amount of urine.Attempting to crawl out of bed. Lina care given, dry linens and pants applied. Pt placed in recliner with fall prevention alarm. Roma ANDRADE called inquiring if facility offers transportation. Facility does not offer transportation
--- NOTE | 2024-03-28 12:28 | PC.NURSE ---
Pt with increase agitation, swinging fist at staff. Pt assisted to W/C tech taking pt for walk within the department for distraction. Dr. Costello notified & po med order.
[2024-03-28] MEDS: LORazepam INJ (*CRX) 2 MG/ML VIAL 1 MG IV PUSH (12:47)
--- NOTE | 2024-03-28 12:48 | PC.NURSE ---
Pt spit out po meds, continues to swing at staff, grab staff arms. Dr. Bernal notified & IM Ativan order received.
--- NOTE | 2024-03-28 14:01 | PC.NURSE ---
Addendum entered by Melvi Del Valle RN 03/28/24 14:13: Unable to obtain vitals due to anxiety Original Note: Pt resting with reg resp & cooperative
== END 2024-03-28 14:25 ==
PROVIDERS: Emergency Provider Family Medicine; PCP Internal Medicine Geriatric Medicine
DX: S09.90XA Unspecified injury of head, initial encounter (principal); I25.10 Atherosclerotic heart disease of native coronary artery without angina pectoris; F03.90 Unspecified dementia, unspecified severity, without behavioral disturbance, psychotic disturbance, mood disturbance, and anxiety; E78.5 Hyperlipidemia, unspecified; I10 Essential (primary) hypertension; W05.0XXA Fall from non-moving wheelchair, initial encounter
CPT/HCPCS: 70450; 72125; 96374; 99284; J2060

== ENCOUNTER 2024-05-17 23:12 | Emergency (ER) | payer OTHER, MEDICARE, SELFPAY ==
--- NOTE | ~2024-05-17 | CT_ITS ---
Noncontrast CT scan of the cervical spine Technique: Multiple contiguous axial [address] images of the cervical spine were obtained and rec onstructed in 2D sagittal and coronal planes on the acquisition scanner. Dose reduction technique was used on this scan by utilizing automated exposure control, adjustment of the mA and/or kV according to patient size. The dose-length product (DLP) was 289.94 mGy-cm. Clinical History: Pain COMPARISON: 03/28/2024 Findings: No fractures or dislocations. Mild degenerative disc changes are present in the cervical s pine. Mild uncovertebral degenerative changes are present. Mild facet joint degenerative changes are present. There is mild to moderate canal stenosis at C3-C4 with disc osteophyte complex present. Prob able mild canal stenosis at C3 C4-C5. No prevertebral soft tissue swelling. Impression: No fracture or subluxation of the cervical spine. Degenerative changes, as above. Reviewed, dictated and finalized at [facility]. HOSTESS Impression: No fracture or subluxation of the cervical spine. Degenerative changes, as above.
--- NOTE | ~2024-05-17 | XR_ITS ---
AP view of the pelvis Clinical history: Pain Findings: No acute fracture or dislocation is seen. Osseous alignment is anatomic. Bilateral hip and SI joint spaces are preserved. Soft tissues are unremarkable. Impression: No significant abnormality is seen. Reviewed, dictated and finalized at location M. HER UP Impression: No significant abnormality is seen.
--- NOTE | ~2024-05-17 | XR_ITS ---
Portable chest x-ray Comparison: 12/27/2022 Clinical History: Status post fall Findings: Possible minimal central congestive change. Stable calcified left basilar granuloma. Card iomediastinal silhouette is stable. Bones and soft tissues are unremarkable. Impression: Possible minimal central congestive change. Reviewed, dictated and finalized at [facility]. UNTING CONSULTANT Impression: Possible minimal central congestive change.
--- NOTE | ~2024-05-17 | CT_ITS ---
CT head without contrast Indication: Head injury COMPARISON: 03/28/2024 Technique: Serial scans were obtained through the brain without the administration of contrast. Dose reduction technique was used on this scan by utilizing automated exposure control and iterative recon struction technique. The dose-length product (DLP) was 756.67 mGy-cm. Findings: There is no evidence of intracranial hemorrhage, mass lesion, or acute infarct. The ventri cles and subarachnoid spaces are dilated, consistent with moderate atrophy. Low attenuation regions are seen within the periventricular white matter bilaterally, likely representing changes from chroni c microvascular ischemic disease. There is no evidence of edema, mass effect or midline shift. The visualized paranasal sinuses and mastoid air cells are clear. Impression: No intracranial hemorrhage, mass, or acute infarct. Atrophy and chronic white matter changes, as above. Reviewed, dictated and finalized at [facility]. PING POINT INSPECTOR Impression: No intracranial hemorrhage, mass, or acute infarct. Atrophy and chronic white matter changes, as above.
[2024-05-17 23:13] VITALS: BP 167/97; PULSE 77; RESP 16; TEMP 36.5; O2SAT 100
[2024-05-17 23:19] VITALS: BP 167/97; PULSE 70; RESP 15; TEMP 36.5; O2SAT 100
--- NOTE | 2024-05-17 23:39 | ECG_ITS ---
Test Date: 2024-05-17 23:38:28 Measurements Intervals [place] Rate: 66 P: 44 MD: 210 QRS: 34 QRSD: 122 T: -3 QT: 428 QTc: 450 Interpretive Statements SINUS RHYTHM WITH FIRST DEGREE AV BLOCK ANTEROSEPTAL MYOCARDIAL INFARCTION , OF INDETERMINATE AGE [40+ ms Q WAVE IN V1-V4] No previous ECG available for comparison Electronically Signed On 05-18-2024 09:54:11 MORTGAGE LOAN PROCESSING CLERK by Job León M.D.
--- NOTE | 2024-05-17 23:57 | ED.HEATRA ---
HPI - Head Injury General Chief complaint: Head Injury Stated complaint: FALL, STRUCK HEAD, LOC+ Time Seen by Provider: 05/17/24 23:34 Source: patient and EMS Mode of arrival: EMS Limitations: dementia History of Present Illness HPI Narrative: This is an 88-year-old male that presents to the emergency department for witnessed fall at [facility]. Reportedly patient collided with the staff. They report he lost consciousness briefly. He has no complaints currently. Reportedly is at baseline. Related Data Home Medications Medication Instructions Recorded Confirmed amlodipine 5 mg tablet 5 mg PO BID 11/14/22 11/14/22 aspirin 81 mg chewable tablet 81 mg PO DAILY 11/14/22 11/14/22 cholecalciferol (vitamin D3) 25 25 mcg PO DAILY 11/14/22 11/14/22 mcg (1,000 unit) tablet divalproex 125 mg capsule,delayed 125 mg PO BID 11/14/22 11/14/22 release sprinkle evolocumab 140 mg/mL subcutaneous 140 mg subcut [id number] 11/14/22 11/14/22 pen injector (Warren Cornejo) famotidine 20 mg tablet 20 mg PO DAILY PRN Heartburn 11/14/22 11/14/22 labetalol 200 mg tablet 200 mg PO BID 11/14/22 11/14/22 melatonin 3 mg disintegrating 3 mg PO HS 11/14/22 11/14/22 tablet polyethylene glycol 3350 17 gram 17 g PO DAILY 11/14/22 11/14/22 oral powder packet (Miralax) quetiapine 50 mg tablet 50 mg PO TID PRN Agitation 11/14/22 11/14/22 chlorthalidone 25 mg tablet mg 12/27/22 mupirocin 2 % topical ointment topical 12/27/22 Allergies Allergy/AdvReac Type Severity Reaction Status Date / Time cefdinir Allergy Unknown Verified 12/10/23 06:05 duloxetine [From Cymbalta] Allergy Unknown Verified 12/10/23 06:05 sertraline Allergy Unknown Verified 12/10/23 06:05 Ebdvobk-HYF-QoW Reductase Allergy Unknown Verified 12/10/23 06:05 Inhibitor Review of Systems Review of Systems: ROS unobtainable: Yes unobtainable due to medical condition PMFSH Past Medical History Medical History Coronary artery disease Dementia Dyslipidemia Hypertension Surgical History Surgical History History of arthroscopy of knee History of cataract extraction History of four vessel coronary artery bypass graft Family History Family History Mother Kidney failure CHF (congestive heart failure) Dialysis patient Social History Social History Social History: Surrogate medical decision maker: Corine Flores () or Ioana Ludwin (daughter). Code status: Full code. Smoking status: Never smoker Alcohol intake: never Substance use: never Lack of Transportation: No Lack of Food: Never True Current Housing: I Have Housing Concerned About Future Housing: No Difficulty Paying Gas/Electric Bills: No Difficulty Paying for Meds: No Currently Unemployed: No Education: High School Diploma/GED Difficulty w/ Childcare or Family Care: No Additional living arrangements comments: The patient and his live in assisted living at [facility]. 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 He also worked at [employer]. Spiritual care concerns: No Exam Narrative: GENERAL: Elderly, well-nourished, and in no acute distress. HEAD: Normocephalic, atraumatic. EYES: PERRLA and EOMI. ENT: Nares clear, no rhinorrhea or epistaxis. Mucous membranes moist. Oropharynx without tonsillar hypertrophy exudate or other lesions. Bilateral TMs pearly howard non-bulging NECK: Supple. No adenopathy or masses. CHEST: Clear to auscultation. No respiratory distress. No wheezes rales or rhonchi HEART: Regular rate and rhythm. No murmur heard. Normal peripheral pulses. EXTREMITIES: Normal range of motion. No edema or obvious deformity. SKIN: Warm, dry, no rash. NEURO: No focal deficits. Alert and oriented x1. PSYCH: Normal mood and affect Course Vital Signs Vital signs: Vital Signs Temperature 97.7 F 05/17/24 23:13 Pulse Rate 77 05/17/24 23:13 Respiratory Rate 16 05/17/24 23:13 Blood Pressure 167/97 H 05/17/24 23:13 Pulse Oximetry 100 05/17/24 23:13 Oxygen Delivery Room Air 05/17/24 23:13 Temperature 97.7 F 05/17/24 23:19 Pulse Rate 76 05/18/24 02:09 Respiratory Rate 19 05/18/24 02:09 Blood Pressure 167/89 H 05/18/24 02:09 Pulse Oximetry 96 05/18/24 02:09 Oxygen Delivery Room Air 05/17/24 23:13 MDM - Head Injury MDM Narrative Medical decision making narrative: Patient presents to the emergency department for a fall today with head injury. Reportedly had brief loss of consciousness. Is neurologically intact at his baseline. CT brain and cervical spine without acute findings. Chest and pelvic x-rays without acute posttraumatic findings. Patient will be discharged back to [facility] care facility. Given warnings to return to the ER Differential Diagnosis Differential diagnosis: Likely concussion without loss of consciousness, closed head injury and subdural hematoma Imaging Data Radiologist's impression: CT brain: No acute intracranial hemorrhage. No midline shift or mass effect. The territorial howard-white matter differentiation is maintained throughout. Age related cerebral volume loss. Periventricular and subcortical white matter hypoattenuation, consistent with chronic microangiopathy CT cervical spine: No acute fracture subluxation of the cervical spine Chest x-ray: Mild pulmonary edema Pelvis x-ray: No acute fracture or dislocation ECG Data EKG #1: ECG completion date: 05/17/24 EKG Interpretation: normal rate, sinus rhythm, no ST changes and normal QT Critical Care Time Critical Care Time Critical Care Time: No Discharge Plan Discharge Clinical Impression: Fall Qualifiers: Encounter type: initial encounter Qualified Code(s): W19.XXXA - Unspecified fall, initial encounter Head injury Qualifiers: Encounter type: initial encounter Qualified Code(s): S09.90XA - Unspecified injury of head, initial encounter Patient Disposition: [facility] Condition: Stable Instructions: Head Injury (ED) Additional Instructions: Return to the emergency department if you experience fever, chest pain, shortness of breath, abdominal pain with nausea and vomiting, weakness, numbness, or any other symptoms that are concerning to you. Rest. Ice to the area. Over the counter pain medication as needed Follow up with primary care doctor Prescriptions: No Action chlorthalidone 25 mg tablet mupirocin 2 % ointment TOPICAL potassium chloride 20 mEq tablet extended release 20 meq PO DAILY Qty: 30 0RF cephalexin 500 mg capsule 500 mg PO Q6H Qty: 28 0RF amlodipine 5 mg tablet 5 mg PO BID aspirin 81 mg tablet,chewable 81 mg PO DAILY melatonin 3 mg tablet,disintegrating 3 mg PO HS Repatha SureClick 140 mg/mL pen injector 140 mg SUBCUT [id number] Rx Instructions: Given on November 06 divalproex 125 mg capsule, delayed rel sprinkle 125 mg PO BID labetalol 200 mg tablet 200 mg PO BID cholecalciferol (vitamin D3) 25 mcg (1,000 unit) tablet 25 mcg PO DAILY polyethylene glycol 3350 [Miralax] 17 gram Powder In Packet 17 g PO DAILY famotidine 20 mg tablet 20 mg PO DAILY PRN (Reason: Heartburn) quetiapine 50 mg tablet 50 mg PO TID PRN (Reason: Agitation) acetaminophen 500 mg tablet 500 mg PO Q6H PRN (Reason: pain) Qty: 30 0RF Follow-up/Referrals: [place],MD Renea [Primary Care Provider] - Stand Alone Forms: Snf Discharge
[2024-05-18 02:09] VITALS: BP 167/89; PULSE 76; RESP 19; O2SAT 96
[2024-05-18 05:10] VITALS: BP 154/74; PULSE 79; RESP 18; O2SAT 95
[2024-05-18 07:33] VITALS: BP 181/79; PULSE 75; RESP 16; TEMP 36.4; O2SAT 98
--- NOTE | 2024-05-18 07:48 | PC.NURSE ---
Pt placed in clean depend and in blue scrubs due to pts clothes smelling strongly of urine.
--- NOTE | 2024-05-18 08:40 | PC.NURSE ---
standard reg diet tray ordered
== END 2024-05-18 07:47 ==
PROVIDERS: Emergency Provider Physician Assistant; PCP Internal Medicine Geriatric Medicine
DX: S06.9X9A Unspecified intracranial injury with loss of consciousness of unspecified duration, initial encounter (principal); I25.10 Atherosclerotic heart disease of native coronary artery without angina pectoris; I10 Essential (primary) hypertension; F03.90 Unspecified dementia, unspecified severity, without behavioral disturbance, psychotic disturbance, mood disturbance, and anxiety; E78.5 Hyperlipidemia, unspecified; Z95.1 Presence of aortocoronary bypass graft; Z98.49 Cataract extraction status, unspecified eye; Z79.899 Other long term (current) drug therapy; Z79.82 Long term (current) use of aspirin; I44.0 Atrioventricular block, first degree; R94.31 Abnormal electrocardiogram [ECG] [EKG]; W03.XXXA Other fall on same level due to collision with another person, initial encounter
CPT/HCPCS: 70450; 71045; 72125; 72170; 93005; 99284

== ENCOUNTER 2024-07-22 00:27 | Emergency (ER) | payer MEDICARE, SELFPAY ==
--- NOTE | ~2024-07-22 | XR_ITS ---
EXAMINATION: XR pelvis 1-2V DATE: 07/22/2024 01:47 INDICATION: Fall. TECHNIQUE: An anteroposterior view of the pelvis was obtained. COMPARISON: Pelvis radiograph 05/18/2024 FINDINGS: Alignment is normal. No fracture. There is moderate lumbar spondylosis. There is mild osteo arthritis of the hips. IMPRESSION: 1. Mild osteoarthritis of the hips. Reviewed, dictated and finalized at location A. [employer] [employer]
--- NOTE | ~2024-07-22 | XR_ITS ---
EXAMINATION: XR knee RT 3V DATE: 07/22/2024 01:47 INDICATION: Fall. TECHNIQUE: 3 views of right knee were obtained. COMPARISON: Right femur radiograph 11/14/2022 FINDINGS: Alignment is normal. No fracture. Joint spaces are normal. No knee joint effusion. There ar e surgical clips in the medial lower leg. IMPRESSION: 1. No fracture. Reviewed, dictated and finalized at location A. IMPRESSION: 1. No fracture.
--- NOTE | ~2024-07-22 | XR_ITS ---
EXAMINATION: XR chest 1V DATE: 07/22/2024 01:47 INDICATION: Fall. TECHNIQUE: A single frontal view of the chest was obtained. COMPARISON: Chest single view 05/18/2024, 12/27/2022 FINDINGS: Calcified left lung nodules are consistent with old granulomatous disease. No pleural effus ion or pneumothorax. The heart size is normal. Median sternotomy wires and mediastinal surgical clips are seen, likely from prior coronary artery bypass grafting. IMPRESSION: 1. No acute cardiopulmonary disease. Reviewed, dictated and finalized at location A. TICE MANAGER
--- NOTE | ~2024-07-22 | CT_ITS ---
EXAMINATION: CT facial & cervical spine wo DATE: 07/22/2024 01:50 INDICATION: Head injury. Fall. TECHNIQUE: Computed tomography (CT) of the maxillofacial region and cervical spine was performed with out intravenous contrast. Automated exposure control and iterative reconstruction technique were empl oyed. The dose-length product was 360.81 mGy-cm. COMPARISON: CT cervical spine 05/18/2024 FINDINGS: MAXILLOFACIAL CT: There are likely changes of ocular lens replacement surgeries. There is mucosal thickening in the par anasal sinuses. There is rightward deviation of the nasal septum. The mastoid air cells are normal. CERVICAL SPINE CT: There is a 12 mm nodule in right thyroid lobe, likely not clinically significant. There is 2 mm anter olisthesis of C7 on T1. There is a chronic compression fracture of T3. There is mildly decreased disc height at C3-C4, C6-C7, and C7-T1. The following disc levels are specifically discussed: C2-C3: There is mild left uncovertebral joint osteoarthritis. There is moderate bilateral facet joint osteoarthritis. There is no neural foraminal stenosis. There is no central canal stenosis. C3-C4: There is mild bilateral uncovertebral joint osteoarthritis. There is mild right and moderate l eft facet joint osteoarthritis. There is no neural foraminal stenosis. There is mild central canal st enosis. C4-C5: There is no uncovertebral joint osteoarthritis. There is mild right and moderate left facet vitaliy int osteoarthritis. There is no neural foraminal stenosis. There is mild central canal stenosis. C5-C6: There is no uncovertebral joint osteoarthritis. There is mild bilateral facet joint osteoarthr itis. There is no neural foraminal stenosis. There is mild central canal stenosis. C6-C7: There is mild bilateral uncovertebral joint osteoarthritis. There is mild right and moderate l eft facet joint osteoarthritis. There is mild left neural foraminal stenosis. There is mild central c anal stenosis. C7-T1: There is no uncovertebral joint osteoarthritis. There is severe bilateral facet joint osteoart hritis. There is mild bilateral neural foraminal stenosis. There is no central canal stenosis. IMPRESSION: 1. No acute fracture. 2. Mild cervical spondylosis. Reviewed, dictated and finalized at location A. INUOUS IMPROVEMENT CONSULTANT
--- NOTE | ~2024-07-22 | XR_ITS ---
EXAMINATION: XR forearm LT 2V DATE: 07/22/2024 01:47 INDICATION: Fall. TECHNIQUE: 2 views of left forearm on 3 radiographs were obtained. COMPARISON: None. FINDINGS: Alignment is normal. No fracture. There are erosions of fourth metacarpophalangeal joint. T here are surgical clips in the forearm. No elbow joint effusion. IMPRESSION: 1. No fracture. 2. Erosions of fourth metacarpophalangeal joint, consistent with inflammatory versus septic arthritis . Reviewed, dictated and finalized at location A. ODYNAMICS PROFESSOR IMPRESSION: 1. No fracture. 2. Erosions of fourth metacarpophalangeal joint, consistent with inflammatory v ersus septic arthritis.
--- NOTE | ~2024-07-22 | CT_ITS ---
EXAMINATION: CT brain wo con DATE: 07/22/2024 01:49 INDICATION: Head injury. TECHNIQUE: Computed tomography (CT) of the head was performed without intravenous contrast. The mA wa s adjusted according to patient size. Iterative reconstruction technique was employed. The dose-lengt h product was 681.00 mGy-cm. 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 There are scattered areas of low atte nuation in the cerebral white matter. There is no intracranial hemorrhage, acute infarction, or abnor mal intracranial mass lesion. The ventricles are normal in size. There are likely changes of ocular l ens replacement surgeries. There is mucosal thickening in the paranasal sinuses. The mastoid air cell s are normal. IMPRESSION: 1. Small old infarct in right cerebellum. 2. Stable moderate nonspecific cerebral white matter disease, which likely represents chronic small v essel ischemic disease. Reviewed, dictated and finalized at location A. TENDER IMPRESSION: 1. Small old infarct in right cerebellum. 2. Stable moderate nonspecific cerebral white matter disease, which likely repr esents chronic small vessel ischemic disease.
[2024-07-22 00:25] VITALS: BP 158/72; PULSE 77; RESP 14; TEMP 36.6; O2SAT 100
--- OUTSIDE RECORDS SUMMARY | 2024-07-22 00:53 | XMS_ITS | Encounter Summary ---
Author Organization [facility] Healthcare Address [address] [place] [address] Care Team Providers Care Tooth Clerk Name Role Phone Davis Vital MD Unavailable [phone] Dylon Calderon OD Unavailable [phone] Gabriella Santos MD Unavailable Renea Onofre MD Primary Care Provider + [phone] Stanley Villegas MD Unavailable [phone] Tammy Angel DC Unavailable [phone] Jd Reagan MD Unavailable Rolando Ramirez MD Unavailable Lane Zimmer MD Unavailable [phone] Jocelyne Ontiveros NP Unavailable [phone] Peter Mosqueda MD Primary Care Provider Encounter Details Date Type Department Care Team (Late st Contact Info) Description 08/18/2023 Orders Only [facility] [address] [place] [address] Scanning, Provider Social History Tobacco Use Types Packs/Day Years Used Date Smoking Tobacco: Never Smokeless Tobacco: Never Alcohol Use Standard Drinks/Week Comments No 0 (1 standard drink = 0.6 oz pur e alcohol) PHQ-2 Answer Date Recorded PHQ-2 Total Score (If total score is 3 or more points, staff should administer the PHQ-9) 0 09/02/2022 Personal Safety Answer Date Recorded Getting School Help Needed Not on file 06/09 Sex and Gender Information Value Date Recorded Sex Assigned at Not on file 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 Gender Identity Not on file Sexual Orientation Not on file Occupation Industry Job Start Date Job End Date retired Not on file Not on file Not on file documented as of this encounter Plan of Treatment Not on file documented as of this encounter Procedures Procedure Name Priority Date/Time Associated Diagnosis Comments SCAN - LABS 08/18/2023 documented in this encounter Results * SCAN - LABS (08/18/2023) us Provider Scanning Final Result documented in this encounter Visit Diagnoses Not on filedocumented in this encounter Care Teams Tooth Clerk Relationship Specialty Start Date End Date Renea Onofre MD PCP - General Internal Medicine 05/13/17 01/05/24 Peter Mosqueda MD [address] [address] PCP - General Family Medicine 01/06/24 Davis Viatl MD Gastroenterology 12/18/16 Dylon Calderon OD Ophthalmology 12/18/16 Gabriella Santos MD Neurology 12/18/16 Stanley Villegas MD Surgeon Anesthesiology 03/14/18 Tammy Angel DC Referring Physician 05/30/18 Jd Reagan MD [address] [facility] [address] [place] [address] Consulting Physician Cardiology 04/11/19 [place] [address] [facility] [address] [place] [address] Consulting Physician Pulmonary Disease 12/26/19 Lane Zimmer MD [address] [place] [id number] Referring Physician Ophthalmology 09/02/22 Jocelyne Ontiveros NP [address] [place] [address] Nurse Practitioner Nurse Practitioner 09/02/22 documented as of this encounter
--- OUTSIDE RECORDS SUMMARY | 2024-07-22 00:53 | XMS_ITS | Continuity of Care Document ---
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 Name Role Phone Boo WELLS, Bouchra Unavailable Unavailable Allergies, Adverse Reactions, Alerts Substance Reaction Status Criticality No Known Allergies Active No Inform ation Medications Medication Instructions Dosage Effective Dates (start - stop) Status Comments iVizia (PF) 0.5 % eye drops instill 1 drop by ophthalmic route 3-4 times every day in both eyes - Active blood pressure medicine ORAL TABLET - Active Procedures Procedure Date No Charge Refraction Office/outpatient Visit, Est Fundus Photography W/ Report Eye Exam & Treatment No Charge Refraction Post-op Follow-up Visit Post-op Follow-up Visit Post-op Follow-up Visit Complex Extracapsular Cat Rem 3 [facility]Professional No Charge Refraction Post-op Follow-up Visit Post-op Follow-up Visit Complex Extracapsular Cat Rem 3 [facility] Office/outpatient Visit, Est No Charge Optomap Fundus Photos 023 No Charge GDX Retina [facility]Technical Feb-20-2023 No Charge Orbscan No Charge Refraction Office/outpatient Visit, New Advance Directives Directive Yes / No Effective Date File Name Other Directive No N/A N/A WARNING:The information contained in this section is historical and is provided for information only and does not constitute a legal document or any assurance that the information is still accurate. Please verify the information with the vargas of the legal document before using it for clinical purposes. Encounters Encounter Description Practice Location Reason(s) For Visit Diagnoses Date Provider Providers Copied on Encounter Office/outpa tient Visit, Est [facility], [address] [place], [place] [address]cre[facility] [address], [place], [place], [id number], tel:[phone] SEC Clemons [place] Professional Blurry/decr eased vision (chief complaint) Other secondary cataract, bilateralDry eye syndrome of bilateral lacrimal glandsParasi tic infestation of eyelid due to Demodex speciesDruse n (degenerativ e) of macula, bilateral 4 Boo OD Bouchra. [facility], [address], [place], [place], [address], [place]. tel:[phone] Referring Provider: Renea Onofre MD, [address] [place], [address]. tel:[phone] [facility], [facility] [address], [place], [place], [address], tel:[phone] SEC Luis M [place] Professional Complete Exam (chief complaint) Presence of intraocular lensOther secondary cataract, bilateralVit reous degeneration , bilateralDru sen (degenerativ e) of macula, bilateralMei bomian gland dysfnct right eye, upper and lower eyelidsMeibo isaiah gland dysfnct left eye, upper and lower eyelids 3 Boo OD Bouchra. [facility], [address], [place], [place], [address], [place]. tel:[phone] Referring Provider: Renea Onofre MD, [address] [place], [address]. tel:[phone] [facility], [address], [place], [place], [address], [place] tel:[phone] SEC Luis M MITCHELL Professional 1 mo PC IOL po (chief complaint) Post op visit 3 Goran Sherman. [address] [facility], [place], [place], [address], [place]. tel:[phone] Referring Provider: Renea Onofre MD, [address] [place], [address]. tel:[phone] [facility], [address], [place], [place], [address], [place] tel:[phone] SEC Clemons [place] Professional Post-Op (chief complaint) Post op visit 3 Goran Sherman. [address], [address] [place], [address], [place]. tel:[phone] Referring Provider: Renea Onofre MD, [address], [place], [address]. tel:[phone] [facility], [address], [place], [place], [address], [place] tel:[phone] SEC Luis M MITCHELL Professional 1 day PC IOL po (chief complaint) Post op visit 3 Boo Shook. [address], [place], [place], [address], [place]. tel:[phone] Referring Provider: Renea Onofre MD, [address], [place], [address]. tel:[phone] [facility], [address], [place], [place], [address], [place] tel:[phone] [facility] No Information 3 Goran Sherman. [address] [facility], [address], [place], [place], [address], [place]. tel:[phone] Referring Provider: Renea Onofre MD, [address], [place], [address]. tel:[phone] [facility], [address], [place], [place], [address], [place] tel:[phone] [facility] No Information 3 oGran Sherman. [address] [facility], [facility] [place], [address], [place]. tel:[phone] Referring Provider: Renea Onofre MD, [address], [place], [address]. tel:[phone] [facility], [address] [place] [address] [address], [place], [place], [address], [place] tel:[phone] SEC Luis M [place] Professional 2 week s/p COMPLEX PCIOL (chief complaint) Post op visit 3 Goran Sherman. [address] [facility], [facility] [address], [place], [place], [address], [place]. tel:[phone] Referring Provider: Fab Phipps OD, [facility] [address] [facility], [place], [address]. tel:[phone] [facility], [address], [place], [place], [address], [place] tel:[phone] [facility] 1 day s/p PCIOL (chief complaint) Post op visit 0 3 Boo OD Bouchra. [address], [place], [place], [address], [place]. tel:[phone] Referring Provider: Renea Onofre MD, [address], [place], [address]. tel:[phone] [facility], [address], [place], [place], [address], [place] tel:[phone] [facility] No Information 3 Goran Sherman. [address] [employer], [address] [place], [address], . tel:[phone] Referring Provider: Renea Onofre MD, [address] [place], [address]. tel:[phone] [facility], [address] [place] [address] [address], [place], [place], [address], tel:[phone] [facility] No Information 3 Goran Sherman. [address] [address], [address] [place], [address], [place]. tel:[phone] Referring Provider: Renea Onofre MD, [address] [place], [address]. 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 [address] [address], [facility] [place], [address], [place]. tel:[phone] Referring Provider: Renea Onofre MD, [address] [place], [address]. tel:[phone] Office/outpa tient Visit, [facility], [address] [place] [address] [address], [place], [place], [address], [place] tel:[phone] [facility] Cataract evaluation (chief complaint) Age-related nuclear cataract, bilateralMei bomian gland dysfnct left eye, upper and lower eyelidsMeibo isaiah gland dysfnct right eye, upper and lower eyelidsDry eye syndrome of bilateral lacrimal glandsParasi tic infestation of eyelid due to Demodex speciesOther specified inflammation s of eyelidPseudo exfoliation syndrome Fe 3 Goran Sherman. [address] [employer], [address], [place], [place], [address], . tel:[phone] Referring Provider: Fab Phipps OD, [facility] [address], [place], [address]. tel:[phone] Family History Family Member Type Diagnosis Age At Onset Problem Family history of Diabetes mirta denis Payers Payer name Insurance type Covered democrat ID Authoriza timisa(s) AARP Medicare Complete CI [id number] Social History Type Description Quantity Date Captured Comments Alcohol Use Details No Caffeine Use Details Tobacco Use Status Current non-smoker Smoking Status Never smoker Non-Smoking Tobacco Use Details : No Details Available : No Details Available Sex Male Chief Complaint And Reason For Visit From encounter dated '12/23/2023 11:30'. Blurry/decreased vision (chief complaint). Description: The 88 year old patient presents for evaluation of Blurry/decreased vision in the right eye and left eye. Pt states that starting a few weeks ago they noticed that vision hasn't seems as clear and pt states that everything seems more yellow. Pt also states that OOS has been burning every now and then. Reason For Referral Reason For Referral No Information Plan Of Treatment Date Type Action Status Patient Education Learning About YAG Lase r Capsulotomy completed Patient Education Learning About Vitreous Detachment completed Patient Education Cataracts: Care Instruc tions completed History Of Present Illness Encounter Date Complaint History Of Prese nt Illness Blurry/decreased vision The 88 y ear old patient presents for evaluation of Blurry/decreased vision in the right eye and left eye. Pt states that starting a few weeks ago they noticed that vision hasn't seems as clear and pt states that everything seems more yellow. Pt also states that OOS has been burning every now and then. Complete Exam The 87 year old patient presents for a complete IOL check ou. Patient states he has a few floaters more in OS then OD. Patient states his vision seems pretty good. 1 mo PC IOL po The 87 year old patient presents for evaluation of 1 mo PC IOL po in the left eye. Pt was given Pred and Ketorolac bid this morning, but he thinks this is the last day of use. Pt states He is not noticing any vision problems and OS seems to be a lot better. Post-Op The 87 year old patient presents for a 2 week post op CE OS. Patient is using Pred, Vigamox and Ketorolac qid OS. Patient states OS is doing good. Patient states sometimes OS gets crusty. 1 day PC IOL po The 87 year old patient presents for evaluation of 1 day PC IOL po in the left eye with mechanical pupil dilation. All medications reviewed and PO instructions understood. Pt using Vig qid, PF1% qid, and Ketorolac qid. Pt denies pain or discomfort. Pt states vision has improved. 2 week s/p COMPLEX PCIOL The 87 year old patient presents for evaluation of 2 week s/p COMPLEX PCIOL in the right eye 09/09/22. Patient states VA seems better. Patient using p/o gtts as directed. c/o with the left eye is difficulty seeing road signs, trouble reading small print, difficulty seeing in bright light, and difficulty seeing captions on the television. 1 day s/p PCIOL The 87 year old patient presents for evaluation of 1 day s/p PCIOL in the right eye. Patient doing ok. Patient instructed to use Pred, Ket, and Vig as well as use os eye shield. office visit The 87 year old patient presents for an office visit. Patient is scheduled for cataract sx next week and per Dr. Onofre patient has Blepharitis. Patient has been using wipes. Patient states there is always stuff in the corner of OS. Cataract evaluation The 86 year old patient presents for evaluation of Cataract evaluation in the right eye and left eye. Patient states VA is not good at a distance especially with the right eye. Patient has difficulty seeing road signs, trouble reading small print with both eyes, trouble seeing captions of the television, and struggles to see in bright sunlight. Patients paperwork said he would bring a list of meds in but per pt he forgot. 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
--- OUTSIDE RECORDS SUMMARY | 2024-07-22 00:53 | XMS_ITS | Referral Summary ---
Author Organization [facility] Address [address] [place] [address] Care Team Providers Care Professor/Nurse Anesthetist Name Role Phone Davis Vital MD Unavailable [phone] Dylon Calderon OD Unavailable [phone] Gabriella Santos MD Unavailable Stanley Villegas MD Unavailable [phone] Tammy Angel DC Unavailable [phone] Jd Reagan MD Unavailable Rolando Valladares MD Unavailable [phone] Lane Zimmer MD Unavailable [phone] Jocelyne Ontiveros NP Unavailable [phone] Peter Mosqueda MD Primary Care Provider Encounters Date Type Department Care Team Description 05/17/2024 Orders Only [facility] Information Management [address] [place] [id number] Scanning, Provider from Last 3 Months Allergies Active Allergy Reactions Criticality Noted Date Comments Cefdinir Swelling Medium 04/04/2018 Developed swelling on the lips and tongue Duloxetine Nausea only Low 03/14/2018 Attempt for the right L3 neuropathy and failed because of nausea Lisinopril Angioedema High 05/15/2022 Losartan Angioedema High 05/15/2022 Sertraline Unknown Low Srkkwru-Cav-Doy Reductase Inhibitors Muscle pain Medium 02/03/2018 Tetracyclines Unknown Low Medications cholecalciferol (VITAMIN D-3) 1,000 unit (25 mcg) tablet Take 1 tablet (1,000 Units total) by mouth daily Active cloNIDine (CATAPRES) 0.1 mg tabletIndication s:Benign hypertension with CKD (chronic kidney disease) stage III (HCC) Take 1 tablet (0.1 mg total) by mouth 2 (two) times a day as needed for high blood pressure >150/90 20 tablet 2 Active aspirin 81 mg chewable tabletIndication s:Ischemic heart disease due to coronary artery obstruction (CMS/HCC) ([facility]) Take 1 tablet (81 mg total) by mouth daily 30 tablet 11 3 Active famotidine-Ca carb-mag hydrox (PEPCID COMPLETE) 10-800-165 mg chewable tabletIndication s:Heartburn Take 1 tablet by mouth daily as needed for heartburn 30 tablet 11 3 Active polyethylene glycol (MIRALAX) 17 gram/dose powderIndication s:Chronic constipation Take 17 g by mouth daily 527 g 3 3 Active Additional Information Patient not taking.Reported on 01/18/2024 melatonin tabletIndication s:Insomnia, unspecified type Take 1 tablet (3mg total) by mouth once daily at bedtime. 30 tablet 5 3 Active chlorthalidone 25 mg tabletIndication s:Benign hypertension with CKD (chronic kidney disease) stage III (HCC),Stage 3b chronic kidney disease (HCC) Take 1 tablet (25 mg total) by mouth daily 30 tablet 7 3 Active labetaloL (NORMODYNE,TRAND ATE) 200 mg tabletIndication s:Benign hypertension with CKD (chronic kidney disease) stage III (HCC),Ischemic heart disease due to coronary artery obstruction (CMS/HCC) ([facility]) Take 1 tablet (200 mg total) by mouth 2 (two) times a day before breakfast and dinner 60 tablet 7 3 Active amLODIPine (NORVASC) 5 mg tabletIndication s:Benign hypertension with CKD (chronic kidney disease) stage III (HCC),Ischemic heart disease due to coronary artery obstruction (CMS/HCC) (HCC) Take 1 tablet (5 mg total) by mouth 2 (two) times a day before breakfast and dinner 60 tablet 7 3 Active divalproex (DEPAKOTE SPRINKLE) 125 mg capsule Take 1 capsule (125 mg total) by mouth 2 (two) times a day 3 Active mupirocin (BACTROBAN) 2 % ointmentIndicati ons:Right leg pain Apply topically daily as needed (rash) To the buttocks rash 22 g 1 4 Active celecoxib (CeleBREX) 200 mg capsuleIndicatio ns:Right leg pain Take 1 capsule (200 mg total) by mouth daily 30 capsule 2 4 Active ALPRAZolam (XANAX) 0.25 mg tabletIndication s:Test anxiety Take 1-2 tablets (0.25-0.5 mg total) by mouth daily as needed (Testing anxiety) 6 tablet 4 Active hydrOXYzine (ATARAX) 25 mg tablet 4 Active nitrofurantoin monohydrate (MACROBID) 100 mg capsule 4 Active Repatha Syringe syringe syringe 4 Active potassium chloride ER 20 mEq CR tablet 4 Active Active Problems Problem Noted Date Diagnosed Date Leg weakness, bilateral 07/18/2023 Assessment & Plan (07/18/2023 7:23 PM RAIL WALKER): Worse in the last week, see HPI for details. Mild weakness with R leg against resistance, patellar reflexes intact. Able to stand from wheelchair with stand by assist but when he tried to take 1 step both knees gave out. No other acute findings or neuro deficits on exam. XR of R hip 12/2022-moderate arthritis. MRI R hip 11/2022 showed possible tear of R ileopsoas tendon, saw ortho and they said it was not a tear. Will order XR of both hips and both knees to r/o worsening arthritis or other structural changes. Rxd Celebrex daily. Will REFER to PT at [place] for further assessment and strengthening exercises. Daughter agreeable to this plan. Keep follow in 8 weeks as scheduled. Right leg pain 07/18/2023 Assessment & Plan (07/18/2023 7:24 PM RAIL WALKER): Worse in the last week, see HPI for details. Mild weakness with R leg against resistance, patellar reflexes intact. Able to stand from wheelchair with stand by assist but when he tried to take 1 step both knees gave out. No other acute findings or neuro deficits on exam. XR of R hip 12/2022-moderate arthritis. MRI R hip 11/2022 showed possible tear of R ileopsoas tendon, saw ortho and they said it was not a tear. Will order XR of both hips and both knees to r/o worsening arthritis or other structural changes. Rxd Celebrex daily. Will REFER to PT at [place] for further assessment and strengthening exercises. Daughter agreeable to this plan. Keep follow in 8 weeks as scheduled. 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 Has not seen neurologist in years. No recent brain imaging in chart. Does not see psyc anymore since he changed facilities. Taking Depakote daily as rxd by Dr. Ontiveros (practitioner at previous living facility), no acute findings, tremors, or neuro deficits on exam, patellar reflexes intact. continue Depakote until follow up with Dr. Onofre in 8 weeks, might need neurology referral at that time. Claudication 02/19/2021 Sudden right hearing loss 11/22/2020 Assessment & Plan (11/22/2020 11:54 AM CDT): Hearing test with Dr. Miguel will obtain previous hearing testing Avoid ear cleaning techniques Avoid water to ears Continue Hearing aids Sensorineural hearing loss (SNHL) of both ears 0 10/24/2020 Assessment & Plan (11/22/2020 12:43 PM CDT): Hearing test with Dr. Miguel will obtain previous hearing testing Avoid ear cleaning techniques Avoid water to ears Continue Hearing aids Assessment & Plan (10/24/2020 9:46 AM CDT): Patient has know sensorineural hearing loss for which he uses hearing aides. He has seen Dr. Miguel in the past. Patient is reporting however, over the last 6 months he has felt there has been further progression of hearing loss, no associated pain. On exam he had some cerumen on TM that was irrigated, patient tolerated well. We discussed that we can refer to ENT for further evaluation to see if there is further w/u or treatment available. Patient will keep follow up as scheduled or return sooner if needed. Word finding difficulty 12/26/2019 Statin intolerance 12/26/2019 Vascular dementia 12/26/2019 Assessment & Plan (03/01/2023 8:45 AM CDT): Stable, not currently on any medications. Lives in [facility]. Staff gives him his medicine. No acute findings on exam today, answers all questions appropriately. Assessment & Plan (01/03/2023 8:45 PM CDT): Stable, not currently on any medications. Lives in [facility]. Staff gives him his medicine. No acute findings on exam today, answers all questions appropriately. Assessment & Plan (03/20/2022 11:37 AM CDT): Chronic problem Patient presents with daughter to have paperwork filled out for admission to assisted living facility - [facility] Paperwork completed and copied - to be scanned into chart Physical examination unremarkable today - at baseline, no acute findings Follow up in August 2022 for annual visit with Dr. Onofre or sooner if necessary PVC's (premature ventricular contractions) 04/29 Right-sided low back pain with right-sided sciat ica 01/17/2018 Overview (03/15/2018): Images from the original note were not included. MRI lumbar spine February [address] Villegas= disc fragments right L3 nerve root, , mild spinal stenosis mild at L4-5 from annular bulge with right and left disc compromised Bilateral L4-5 and Right L5-S1 the foraminal stenosis CKD (chronic kidney disease) stage 3, GFR 30-59 ml/min 12/18/2016 Hyperlipidemia LDL goal <70 10/28/2013 Overview (04/11/2019): Managed by Dr. Reagan with [facility] Osteoarthritis of knee 10/28/2013 Overview (09/17/2016): DJD (degenerative joint disease) of knee OPHELIA (obstructive sleep apnea) 09/02/2012 Overview (04/11/2019): Images from the original note were not included. Managed by Dr. VALLADARES OPHELIA on CPAP diagnosed 2012 nasal pillow between 8 and 13, referred to Dr. Santos to take over care December 2016 Initial sleep study 2012 Benign hypertension with CKD (chronic kidney disease) stage III 04/11/2012 Overview (09/17/2016): Hypertension Assessment & Plan (07/18/2023 7:32 PM RAIL WALKER): BP stable in office today on current therapy. No acute findings on exam. Continue current regimen and low salt diet. Assessment & Plan (06/11/2023 11:54 AM RAIL WALKER): BP stable in office today on current therapy. No acute findings on exam. Continue current regimen and low salt diet. Assessment & Plan (03/01/2023 8:40 AM CDT): BP stable in office today on current therapy. No acute findings on exam. Continue current regimen and low salt diet. Assessment & Plan (01/05/2023 8:05 AM CDT): BP stable in office today on current therapy. No acute findings on exam. Continue current regimen and low salt diet. Assessment & Plan (01/03/2023 9:03 PM CDT): BP stable in office today on current therapy. No acute findings on exam. Was put on potassium replacement by ER but daughter cannot remember name or dosage. Receck CMP today. Continue current regimen and low salt diet. Return next week for recheck and rush removal. Ischemic heart disease due t o coronary artery obstruction ([facility]/HCC) 09/01/2011 Overview (04/11/2019): Care now managed by Dr. Reagan at [facility] Heart bypass at [facility] with a right vein graft 1996, last stress test 2014 chemical stress test passed with flying colors. Long scan June 2018 Conclusions: Negative EKG portion of stress test. There is no ischemia. There is a large fixed defect involving the inferior and inferolateral dominguez, consistent with prior inferior CA. Global left ventricular function is at the lower limits of normal. There is septal dyskinesis and mild inferior hypokinesis. Left ventricular ejection fraction is 50 %. Electronically Signed By: Multiple pulmonary nodules d etermined by computed tomography of lung Overview (01/04/2020): Images from the original note were not included. December 2019 nodules persist unchanged, recheck 12 months IMPRESSION: 1. Redemonstration of nodular opacities and nodules in bilateral lungs, which are grossly unchanged in comparison to the prior study. Follow-up CT in 12 months is recommended to establish 2 years of stability as clinically indicated. 2. Mild emphysematous changes of the lungs with scattered mild bronchiectasis, subsegmental atelectasis, and scarring. No definite evidence of focal consolidation. Electronically signed by: Kiet Valero D.O. Pneumonia 04/04/2018 treated with antibiotics. Follow-up chest x-ray 05/16/2018 (+) for nodule. Noncontrast CT scan ordered. With office follow-up Following with Dr. VALLADARES, chest CT June 2018 IMPRESSION: 1. MILD FOCAL INFILTRATE IN THE RIGHT LOWER LOBE. DIFFERENTIAL DIAGNOSIS INCLUDES MILD OR RESOLVING PNEUMONIA. GIVEN ITS PRIOR APPEARANCE 2 MONTHS AGO, NEOPLASM CANNOT BE COMPLETELY EXCLUDED. CONSIDER SHORT-TERM INTERVAL FOLLOW-UP EXAM. 2. DIFFUSE VASCULAR CALCIFICATION AND OLD GRANULOMATOUS DISEASE. Pulmonary function test June 2018 Resolved Problems Problem Noted Date Diagnosed Date Resolved Date Nasal sore 07/18/2023 07/18/2023 Scalp laceration 01/04/2023 06/11/2023 Assessment & Plan (01/04/2023 10:59 AM CDT): Sustained during fall 1 week ago. Healing well, 8 rush removed without difficulty or bleeding. Wound cleansed with sterile saline and left open to air. No scrubbing. Keep area clean and dry. Fall on same level from slip ping, tripping and stumbling without subsequent striking against object, initial encounter 01/03/20232023 Assessment & Plan (06/11/2023 11:53 AM RAIL WALKER): 5 days ago, was walking with walker and just lost his footing. C/o R thigh pain. Tenderness as noted above, no acute findings. Likely muscular in nature, advised Tylenol as directed. Heat/ice as tolerated. Gentle stretching. Call if no improvement in 2-4 weeks. Assessment & Plan (01/03/2023 9:01 PM CDT): Multiple falls in the last 2 months, no fractures but did sustain an ileopsoas tear and a head laceration. Received an incomplete note from [facility] for latest ER visit but imaging was negative for anything acute. Vitals stable. No acute findings on exam. Head lac is healing appropriately. Will contact Dr. Palmer to facilitate referral for hip. Continue current regimen, return Wednesday to remove rush. Hamstring tear 01/03/2023 03/01/2023 Assessment & Plan (01/03/2023 8:55 PM CDT): MRI R hip done 11/14/22 at [facility] shows complete tear of R ileopsoas tendon. Was referred to Ortho but never heard from consult. Daughter admits he is still unstable. Definitely needs walker for assistance but is steady with this device. Generalized weakness noted. Continue PT as instructed. Will call Dr. Palmer office to check on referral. Hospital discharge follow-up 04/04/2018 04/11/2019 Syncope and collapse 01/17/2018 021 Acute pain of right thigh 01/17/2018 Assessment & Plan (06/11/2023 11:54 AM RAIL WALKER): Fall 5 days ago, was walking with walker and just lost his footing. C/o R thigh pain. Tenderness as noted above, no acute findings. Likely muscular in nature, advised Tylenol as directed. Heat/ice as tolerated. Gentle stretching. Call if no improvement in 2-4 weeks. Cataracts, bilateral 01/11/2017 021 Gastroesophageal reflux dise ase with esophagitis 12/18/2016 07/05/2020 Overview (12/18/2016): EGD with Dr. Vital, report needed Lightheadedness 10/28/2013 12/18/2016 Overview (09/17/2016): Dizziness - light-headed Immunizations Name Administration Dates Next Due Influenza, Quad, Adjuvantate d, Intramuscular 03/21/2021,03/08/2020 Influenza, Quadrivalent, Spl it, Preservative Free, Intradermal 03/26/2017 Influenza, Trivalent, Adjuva nted, Intramuscular 03/25/2017 Influenza, Trivalent, High D ose, Split, Preservative Free, Intramuscular 03/15/2019,03/14/2018,03/04/2016 Influenza, Trivalent, IM (MDV) 6,03/14/2015,02/28/2014,03/23 Influenza, Trivalent, Preser vative Free, Intramuscular 03/05/2015 Influenza, Unspecified 04/14/2022,03/14/2020, Moderna SARS-CoV-2 Monovalen t Vaccination (12+ YRS) 08/23/2020,07/27/2020 Pneumococcal Conjugate PCV 13 09/21/2014 Pneumococcal Polysaccharide PPV23 12/03/2015,06/2005,08/11/2005 Td, adsorbed 06/08/2002 Tdap 09/21/2014 ZOSTER LIVE 09/11/2008 ZOSTER Recombinant 10/05/2018,07/21/2018 Social History Tobacco Use Types Packs/Day Years Used Date Smoking Tobacco: Never Smokeless Tobacco: Never Tobacco Cessation:Counseling Given: Not Answered Alcohol Use Standard Drinks/Week Comments No 0 [...] on file Legal Sex Male 1:10 AM RAIL WALKER Gender Identity Not on file Sexual Orientation Not on file Occupation Industry Job Start Date Job End Date retired Not on file Not on file Not on file Last Filed Vital Signs Vital Sign Reading Time Taken Comments Blood Pressure 132/70 01/18/2024 9:21 AM CDT Pulse 66 01/18/2024 9:21 AM CDT Temperature 36.6 C (97.8 F) 01/18/2024 9:21 AM CDT Respiratory Rate 16 01/18/2024 9:21 AM CDT Oxygen Saturation 99% 01/18/2024 9:21 AM CDT Inhaled Oxygen Concentration - - Weight 72.6 kg (160 lb) 01/18/2024 9:21 AM CDT Height 175.3 cm (5' 9 ) 01/18/2024 9:21 AM CDT Body Mass Index 23.63 01/18/2024 9:21 AM CDT Plan of Treatment Not on file Procedures Procedure Name Priority Date/Time Associated Diagnosis Comments SCAN - RADIOLOGY/IMAGING 05/17/2024 from Last 3 Months Results * SCAN - RADIOLOGY/IMAGING (05/17/2024) Anatomical Region Laterality Modality Other Provider Scanning Final Result from Last 3 Months [place] [address] MEDICARE SOLUTIONS Advance Directives For more information, please contact: [phone] Documents on File Type Date Recorded 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 ADVANCE DIRECTIVE 04/11/2019 DNR ADVANCE DIRECTIVE 09/21/2014 POWER OF A [employer] * Full Code (Latest Code Status on File) Date Activated Date Inactivated Comments 03/31/2018 10:41 AM 04/01/2018 5:27 PM Care Teams Professor/Nurse Anesthetist Relationship Specialty Start Date End Date Peter Mosqueda MD [address] [address] PCP - General Family Medicine 01/06/24 Davis Vital MD Gastroenterology 12/18/16 Dylon Calderon OD Ophthalmology 12/18/16 Gabriella Santos MD Neurology 12/18/16 Stanley Villegas MD Surgeon Anesthesiology 03/14/18 Tammy Angel DC Referring Physician 05/30/18 Jd Reagan MD [address] [facility] [address] [place], [place] [id number] Consulting Physician Cardiology 04/11/19 [place] [address] [facility] [address] [place] [address] Consulting Physician Pulmonary Disease 12/26/19 Lane Zimmer MD [address] [address] Referring Physician Ophthalmology 09/02/22 Jocelyne Ontiveros NP [address] [place] [address] Nurse Practitioner Nurse Practitioner 09/02/22
--- OUTSIDE RECORDS SUMMARY | 2024-07-22 00:53 | XMS_ITS | Clinical Summary ---
Author Organization [facility] Address [address] [place] [address] Care Team Providers Care Autocad Designer Name Role Phone Davis Vital MD Unavailable [phone] Dylon Calderon OD Unavailable [phone] Gabriella Santos MD Unavailable Stanley Villegas MD Unavailable [phone] Tammy Angel PR Unavailable [phone] Jd Reagan MD Unavailable Rolando Valladares MD Unavailable [phone] Lane Zmimer MD Unavailable [phone] Jocelyne Ontiveros NP Unavailable [phone] Peter Mosqueda MD Primary Care Provider Allergies Active Allergy Reactions Criticality Noted Date Comments Cefdinir Swelling Medium 04/04/2018 Developed swelling on the lips and tongue Duloxetine Nausea only Low 03/14/2018 Attempt for the right L3 neuropathy and failed because of nausea Lisinopril Angioedema High 05/15/2022 Losartan Angioedema High 05/15/2022 Sertraline Unknown Low Zfoheaz-Qda-Prn Reductase Inhibitors Muscle pain Medium 02/03/2018 Tetracyclines [...] artery obstruction (CMS/HCC) (HCC) Take 1 tablet (81 mg total) by [...] artery obstruction (CMS/HCC) (HCC) Take 1 tablet (200 mg total) by [...] 07/18/2023 Assessment & Plan (07/18/2023 7:23 PM FLUORESCENT LAMP REPLACER): Worse in the last week, see HPI [...] Celebrex daily. Will REFER to PT at [place] for further assessment and strengthening exercises. Daughter agreeable to this plan. Keep follow in 8 weeks as scheduled. Right leg pain 07/18/2023 Assessment & Plan (07/18/2023 7:24 PM FLUORESCENT LAMP REPLACER): Worse in the last week, see HPI [...] Celebrex daily. Will REFER to PT at [place] for further assessment and strengthening exercises. Daughter agreeable to this plan. Keep follow in 8 weeks as scheduled. 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 Has not seen [...] not currently on any medications. Lives in [facility] long-term. Staff gives him his medicine. No acute findings on exam today, answers all questions appropriately. Assessment & Plan (01/03/2023 8:45 PM CDT): Stable, not currently on any medications. Lives in [facility] living. Staff gives him his medicine. No acute findings on exam today, answers all questions appropriately. Assessment & Plan (03/20/2022 11:37 AM CDT): Chronic problem Patient presents with daughter to have paperwork filled out for admission to assisted living facility - [facility] Paperwork completed and copied - to be [...] Overview (04/11/2019): Managed by Dr. Reagan with [facility] Osteoarthritis of knee 10/28/2013 Overview (09/17/2016): DJD [...] Hypertension Assessment & Plan (07/18/2023 7:32 PM FLUORESCENT LAMP REPLACER): BP stable in office today on current therapy. No acute findings on exam. Continue current regimen and low salt diet. 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 Reagan at [facility] Heart bypass at [facility] with a right vein graft 1996, last stress test 2014 chemical stress test passed with flying colors. Long scan June 2018 Conclusions: Negative EKG portion of stress test. There is no ischemia. There is a large fixed defect involving the inferior and inferolateral dominguez, consistent with prior inferior LA. Global left ventricular function is at the [...] 01/03/20232023 Assessment & Plan (06/11/2023 11:53 AM FLUORESCENT LAMP REPLACER): 5 days ago, was walking with walker [...] head laceration. Received an incomplete note from [place] for latest ER visit but imaging was negative for anything acute. Vitals stable. No acute findings on exam. Head lac is healing appropriately. Will contact Dr. Palmer to facilitate referral for hip. Continue current regimen, return Wednesday to remove rush. Hamstring tear 01/03/2023 03/01/2023 Assessment & Plan (01/03/2023 8:55 PM CDT): MRI R hip done 11/14/22 at [place] shows complete tear of R ileopsoas tendon. [...] 01/17/2018 Assessment & Plan (06/11/2023 11:54 AM FLUORESCENT LAMP REPLACER): Fall 5 days ago, was walking with [...] 10/28/2013 12/18/2016 Overview (09/17/2016): Dizziness - light-headed Encounters Date Type Department Care Team Description 05/17/2024 Orders Only [facility] Health Information Management [address] [place], [place] [id number] Scanning, Provider from Last 3 Months Immunizations Name Administration Dates Next Due Influenza, [...] 09/21/2014 ZOSTER LIVE 09/11/2008 ZOSTER Recombinant 10/05/2018,07/21/2018 Surgical History Surgery Date Site/Laterality Comments OTHER SURGICAL HISTORY 06/14/1965 - 06/13/1966 L knee surgery [facility] CORONARY ARTERY BYPASS GRAFT 06/14/1996 - 06/13/1997 CABG KNEE SURGERY COLONOSCOPY 06/14/2003 - 06/13/2004 Medical History Medical History Date Comments Hypertension Heart attack (HCC) High cholesterol Sleep apnea GERD (gastroesophageal reflux disease) Family History Medical History Relation Name Comments Diabetes Daughter 1 Riddhi Diabetes type I Daughter 1 Riddhi Migraines Daughter 2 Cancer Maternal Grandfather Alzheimer's disease Maternal Grandmother Kidney disease Mother (DUE TO BP) Relation Name Status Comments Daughter 1 Riddhi Daughter 2 Maternal Grandfather Maternal Grandmother Mother (DUE TO BP) Alive Social History Tobacco Use Types Packs/Day Years [...] on file Legal Sex Male 1:10 AM FLUORESCENT LAMP REPLACER Gender Identity Not on file Sexual Orientation Not on file Occupation Industry Job Start Date Job End Date retired Not on file Not on file Not on file Obstetrics History Last Filed Vital Signs Vital Sign Reading [...] 01/18/2024 9:21 AM CDT Plan of Treatment Health Maintenance Due Date Last Done Comments Hepatitis B Screening 1953 Depression Screening 09/03/2023 09/02/2022, 07/25/2021, 07/25/2021, Additional history exists Fall Risk Assessment 09/03/2023 09/02/2022, 07/25/2021, 07/05/2020, Additional history exists Well Visit 65+ 09/03/2023 09/02/2022, 07/15, 07/05/2020, Additional history exists Covid-19 Vaccine (2023-2 5 season) 2024 04/08/2021, 08/23/2020, 07/27/2020 Influenza Vaccine (#1) 2024 2, 03/21/2021, 03/14/2020, Additional history exists DTaP/Tdap/Td Vaccine (2 - Td or Tdap) 09/21/2024 09/21/2014, 06/08/2002 Pneumococcal vaccine 65+ Completed 016, 09/21/2014, 08/12/2005, Additional history exists Zoster Vaccine Completed 10/05/2018, 12/2018, 09/11/2008 Procedures Procedure Name Priority Date/Time Associated Diagnosis Comments SCAN - RADIOLOGY/IMAGING 05/17/2024 from Last 3 Months Results * SCAN - RADIOLOGY/IMAGING (05/17/2024) Anatomical Region Laterality Modality Other us Provider Scanning Final Result from Last 3 Months Insurance MEDICARE [employer]UTIONS MEDICARE SOLUTIONS [place] [id number] [place] [id number] MEDICARE SOLUTIONS MEDICARE SOLUTIONS Advance Directives For more information, please contact: [phone] Documents on File Type Date Recorded Patient Bacteriology Research Assistant Expl anation ADVANCE DIRECTIVE 04/11/2019 DNR ADVANCE DIRECTIVE 09/21/2014 POWER OF A [employer] * Full Code (Latest Code Status on File) Date Activated Date Inactivated Comments 03/31/2018 10:41 AM 04/01/2018 5:27 PM Care Teams Autocad Designer Relationship Specialty Start Date End Date Peter Mosqueda MD [address] [place] [id number] PCP - General Family Medicine 01/06/24 Davis Vital MD Gastroenterology 12/18/16 Dylon Calderon OD Ophthalmology 12/18/16 Gabriella Santos MD Neurology 12/18/16 Stanley Villegas MD Surgeon Anesthesiology 03/14/18 Tammy Angel DC Referring Physician 05/30/18 Jd Reagan MD [address] [facility] [address] [place] [address] Consulting Physician Cardiology 04/11/19 [place] [address] [facility] [address] [place] [address] Consulting Physician Pulmonary Disease 12/26/19 Lane Zimmer MD [address] [place] [address] Referring Physician Ophthalmology 09/02/22 Jocelyne Ontiveros NP [address] [place] [address] Nurse Practitioner Nurse Practitioner 09/02/22
--- OUTSIDE RECORDS SUMMARY | 2024-07-22 00:54 | XMS_ITS | Encounter Summary ---
Author Organization [facility] Address [address] [place] [address] Phone Care Team Providers Care Ethnic Origins Teacher Name Role Phone Davis Vital MD Unavailable [phone] Dylon Calderon OD Unavailable [phone] Gabriella Santos MD Unavailable Alfredo Velázquez Unavailable Unavailable León Esteban MD Unavailable [phone] Renea Onofre MD Primary Care Provider + [phone] Stanley Villegas MD Unavailable [phone] Tammy Angel DC Unavailable [phone] Jd Reagan MD Unavailable [phone] Rolando Ramirez MD Unavailable [phone] Lane Zimmer MD Unavailable [phone] Jocelyne Ontiveros NP Unavailable [phone] Peter Mosqueda MD Primary Care Provider Encounter Details Date Type Department Care Team (Late st Contact Info) Description 05/25/2017 Orders Only [facility] ProviderNikunj MD [address] [place] [address] Social History Tobacco Use Types Packs/Day Years Used Date Smoking Tobacco: Never Smokeless Tobacco: Never Alcohol Use Standard Drinks/Week Comments No 0 (1 standard drink = 0.6 oz pur e alcohol) Sex and Gender Information Value Date Recorded Sex Assigned at Not on file Legal Sex Male 1:10 AM GENERAL MERCHANDISE MANAGER Gender Identity Not on file Sexual Orientation Not on file documented as of this encounter Plan of Treatment Not on file documented as of this encounter Procedures Procedure Name Priority Date/Time Associated Diagnosis Comments DISCHARGE LABORATORY CUMULATIVE REPORT 05/25/2017 12:00 AM GENERAL MERCHANDISE MANAGER documented in this encounter Results * DISCHARGE LABORATORY CUMULATIVE REPORT (05/25/2017 12:00 AM GENERAL MERCHANDISE MANAGER) Narrative 05/25/2017 12:00 AM GENERAL MERCHANDISE MANAGER Ordered by an unspecified provider. Historical Provider LAB BLOOD ORDERABLES Gill l Result documented in this encounter Visit Diagnoses Not on filedocumented in this encounter Care Teams Ethnic Origins Teacher Relationship Specialty Start Date End Date Renea Onofre MD [facility] [place] [address] [place] [address] PCP - General Internal Medicine 05/13/17 01/05/24 Peter Mosqueda MD [address] [place] [address] PCP - General Family Medicine 01/06/24 Davis Vital MD Gastroenterology 12/18/16 Dylon Calderon OD Ophthalmology 12/18/16 Gabriella Santos MD Neurology 12/18/16 Alfredo Velázquez Cardiovascular Disease 12/18/16 04/10/19 León Esteban MD [address] [place] [address] Ophthalmology 01/11/17 03/13/18 Stanley Villegas MD [address] [place] [address] Surgeon Anesthesiology 03/14/18 Tammy Angel DC [address] [place] [address] Referring Physician 05/30/18 Jd Reagan MD [address] [facility] [address] [place] [address] Consulting Physician Cardiology 04/11/19 [place] [address] [address] [facility] [address] [place] [address] Consulting Physician Pulmonary Disease 12/26/19 Lane Zimmer MD [address] [place] [address] Referring Physician Ophthalmology 09/02/22 Jocelyne Ontiveros NP [address] [place] [address] Nurse Practitioner Nurse Practitioner 09/02/22 documented as of this encounter
--- OUTSIDE RECORDS SUMMARY | 2024-07-22 00:54 | XMS_ITS | Continuity of Care Document ---
Author Name Auto Generated, Auto Generated Organization [employer] Support Name Relationship Address Phone Riddhi Mascorro Emergency Contact [address] [place] [address] Unavailable Riddhi Mascorro Daughter [address] [place] [address] Unavailable Riddhi Mascorro [employer] [address] [place] [address] Unavailable Anna Finn Daughter Unknown Unavailable Efrain Flores Self [address] [place] [address] Unavailable Riddhi Mascorro Financial Responsible Republican [address] [place] [address] Unavailable Riddhi Mascorro [employer] [address] [place] [address] Unavailable Anna Finn Emergency Contact 2 Unknown Unava ilable Rambo Mascorro Emergency Contact 3 Unknown Unavaila ble Rambo Mascorro Son-in-Law Unknown Unavailable Summary Purpose Consult/Referral Allergies, Adverse Reactions, Alerts No Known Allergies Medications No Known Medications Conditions/Problems No Known Problems Procedures No Known Procedures
--- OUTSIDE RECORDS SUMMARY | 2024-07-22 00:54 | XMS_ITS | Data Portability ---
Author Organization MD - Formerly [facility], [employer] Address [address] [place] [address] Care Team Providers Care Fire Investigation Lieutenant Name Role Phone TOM TUTTLE OTHER EVGENY ONOFRE Primary Care Provider [phone] Assessment Encounter Date Assessment Date Assessment LastModified by Organization Details LastModified Time 02/01/2023 02/01/2023 Medication Changes GDR with Depakote which staff reports that patient has been more argumentative with his which was not occurring previously. He is really good with staff. No behaviors with them. Will continue Depakote 125 mg BID Worsening cognition. Try to incorporate activities that provide mental stimulation. Reorient. Redirect. Supportive Care. Given he has been well and stable will try gradual dose reduction. If he does well will continue dose reduction. The following diagnoses are based on currently available information and may change as additional information becomes available. At the time of this visit, the patient is not considered a harm to self or others. The patient possesses no judgement limiting mental health condition and is deemed safe for outpatient follow up. There are no immediate safety concerns expressed by patient or observed in today's session. I have determined the patient has a mental illness diagnosis, and patient has agreed to medication intervention. No psychological testing available to support diagnosis. Explained the diagnosis and treatment regimen. Discussed current medications prescribed and other treatment plans. Medication Education provided. Discussed with patient short- and long-term effect of medication, side effects, risk and benefits, medication compliance, dangers of concomitant alcohol, THC, illicit drug use with RX medication. Patient gave informed consent for treatment. Discussed the mechanism of action and SE of drugs prescribed. Counseling: Agrees to take medications as directed, will call the clinic for concerns about medication. Instructed to avoid abrupt withdrawal. Emergency Procedure and Safety Plan: Patient was encouraged to schedule earlier appointment if condition worsens or other difficulties develop. Contact the clinic during working hours; Go to the nearest ER in case of worsening of symptoms Dial 911 Return to the clinic for continuity of care prescriptions, mediation dosage changes, and assessment of symptoms; or sooner if needed to assess SE of medications, medication management and disease process. Call the clinic if you have medication questions or any other concerns. Signs and symptoms of when to seek further care reviewed with patient/caregive r/family/facilit y staff. Patient to follow up with primary care provider or return to clinic for any worsening signs and symptoms. Always present to ER or Urgent Care with any progression of/alarming symptoms, significant changes in symptoms or any concerning or urgent matters. Patient/caregive r/family/facilit y staff verbalized agreement and understanding of treatment plan. F/U 4 weeks, sooner if needed [email or web address] Not available 02/01/2023 17:01:19 03/01/2023 03/01/2023 Medication Changes has been doing better with Depakote 125 mg BID. Has his ups and downs. When he is getting a bit more agitated goes back to her room. Worsening cognition. Try to incorporate activities that provide mental stimulation. Reorient. Redirect. Supportive Care. Given he has been well and stable will try gradual dose reduction. If he does well will continue dose reduction. The following diagnoses are based on currently available information and may change as additional information becomes available. At the time of this visit, the patient is not considered a harm to self or others. The patient possesses no judgement limiting mental health condition and is deemed safe for outpatient follow up. There are no immediate safety concerns expressed by patient or observed in today's session. I have determined the patient has a mental illness diagnosis, and patient has agreed to medication intervention. No psychological testing available to support diagnosis. Explained the diagnosis and treatment regimen. Discussed current medications prescribed and other treatment plans. Medication Education provided. Discussed with patient short- and long-term effect of medication, side effects, risk and benefits, medication compliance, dangers of concomitant alcohol, THC, illicit drug use with RX medication. Patient gave informed consent for treatment. Discussed the mechanism of action and SE of drugs prescribed. Counseling: Agrees to take medications as directed, will call the clinic for concerns about medication. Instructed to avoid abrupt withdrawal. Emergency Procedure and Safety Plan: Patient was encouraged to schedule earlier appointment if condition worsens or other difficulties develop. Contact the clinic during working hours; Go to the nearest ER in case of worsening of symptoms Dial 911 Return to the clinic for continuity of care prescriptions, mediation dosage changes, and assessment of symptoms; or sooner if needed to assess SE of medications, medication management and disease process. Call the clinic if you have medication questions or any other concerns. Signs and symptoms of when to seek further care reviewed with patient/caregive r/family/facilit y staff. Patient to follow up with primary care provider or return to clinic for any worsening signs and symptoms. Always present to ER or Urgent Care with any progression of/alarming symptoms, significant changes in symptoms or any concerning or urgent matters. Patient/caregive r/family/facilit y staff verbalized agreement and understanding of treatment plan. F/U 4 weeks, sooner if needed [email or web address] Not available 03/02/2023 15:38:38 03/29/2023 03/29/2023 Medication Changes is trigger for agitation. Separate when such starts Worsening cognition. Try to incorporate activities that provide mental stimulation. Reorient. Redirect. Supportive Care. Given he has been well and stable will try gradual dose reduction. If he does well will continue dose reduction. The following diagnoses are based on currently available information and may change as additional information becomes available. At the time of this visit, the patient is not considered a harm to self or others. The patient possesses no judgement limiting mental health condition and is deemed safe for outpatient follow up. There are no immediate safety concerns expressed by patient or observed in today's session. I have determined the patient has a mental illness diagnosis, and patient has agreed to medication intervention. No psychological testing available to support diagnosis. Explained the diagnosis and treatment regimen. Discussed current medications prescribed and other treatment plans. Medication Education provided. Discussed with patient short- and long-term effect of medication, side effects, risk and benefits, medication compliance, dangers of concomitant alcohol, THC, illicit drug use with RX medication. Patient gave informed consent for treatment. Discussed the mechanism of action and SE of drugs prescribed. Counseling: Agrees to take medications as directed, will call the clinic for concerns about medication. Instructed to avoid abrupt withdrawal. Emergency Procedure and Safety Plan: Patient was encouraged to schedule earlier appointment if condition worsens or other difficulties develop. Contact the clinic during working hours; Go to the nearest ER in case of worsening of symptoms Dial 911 Return to the clinic for continuity of care prescriptions, mediation dosage changes, and assessment of symptoms; or sooner if needed to assess SE of medications, medication management and disease process. Call the clinic if you have medication questions or any other concerns. Signs and symptoms of when to seek further care reviewed with patient/caregive r/family/facilit y staff. Patient to follow up with primary care provider or return to clinic for any worsening signs and symptoms. Always present to ER or Urgent Care with any progression of/alarming symptoms, significant changes in symptoms or any concerning or urgent matters. Patient/caregive r/family/facilit y staff verbalized agreement and understanding of treatment plan. F/U 4 weeks, sooner if needed [email or web address] Not available 03/29/2023 13:53:52 04/26/2023 04/26/2023 Medication Changes Decreasing Depakote 125 mg to qHS is trigger for agitation. Separate when such starts Worsening cognition. Try to incorporate activities that provide mental stimulation. Reorient. Redirect. Supportive Care. Given he has been well and stable will try gradual dose reduction. If he does well will continue dose reduction. The following diagnoses are based on currently available information and may change as additional information becomes available. At the time of this visit, the patient is not considered a harm to self or others. The patient possesses no judgement limiting mental health condition and is deemed safe for outpatient follow up. There are no immediate safety concerns expressed by patient or observed in today's session. I have determined the patient has a mental illness diagnosis, and patient has agreed to medication intervention. No psychological testing available to support diagnosis. Explained the diagnosis and treatment regimen. Discussed current medications prescribed and other treatment plans. Medication Education provided. Discussed with patient short- and long-term effect of medication, side effects, risk and benefits, medication compliance, dangers of concomitant alcohol, THC, illicit drug use with RX medication. Patient gave informed consent for treatment. Discussed the mechanism of action and SE of drugs prescribed. Counseling: Agrees to take medications as directed, will call the clinic for concerns about medication. Instructed to avoid abrupt withdrawal. Emergency Procedure and Safety Plan: Patient was encouraged to schedule earlier appointment if condition worsens or other difficulties develop. Contact the clinic during working hours; Go to the nearest ER in case of worsening of symptoms Dial 911 Return to the clinic for continuity of care prescriptions, mediation dosage changes, and assessment of symptoms; or sooner if needed to assess SE of medications, medication management and disease process. Call the clinic if you have medication questions or any other concerns. Signs and symptoms of when to seek further care reviewed with patient/caregive r/family/facilit y staff. Patient to follow up with primary care provider or return to clinic for any worsening signs and symptoms. Always present to ER or Urgent Care with any progression of/alarming symptoms, significant changes in symptoms or any concerning or urgent matters. Patient/caregive r/family/facilit y staff verbalized agreement and understanding of treatment plan. F/U 4 weeks, sooner if needed [email or web address] Not available 04/26/2023 17:01:50 05/24/2023 05/24/2023 Medication Changes d/c Depakote Stopping Depakote and will see how patient does without medication. He is having notable worsening cognition. If patient starts having behaviors can look at restarting medication. Worsening cognition. Try to incorporate activities that provide mental stimulation. Reorient. Redirect. Supportive Care. Given he has been well and stable will try gradual dose reduction. If he does well will continue dose reduction. The following diagnoses are based on currently available information and may change as additional information becomes available. At the time of this visit, the patient is not considered a harm to self or others. The patient possesses no judgement limiting mental health condition and is deemed safe for outpatient follow up. There are no immediate safety concerns expressed by patient or observed in today's session. I have determined the patient has a mental illness diagnosis, and patient has agreed to medication intervention. No psychological testing available to support diagnosis. Explained the diagnosis and treatment regimen. Discussed current medications prescribed and other treatment plans. Medication Education provided. Discussed with patient short- and long-term effect of medication, side effects, risk and benefits, medication compliance, dangers of concomitant alcohol, THC, illicit drug use with RX medication. Patient gave informed consent for treatment. Discussed the mechanism of action and SE of drugs prescribed. Counseling: Agrees to take medications as directed, will call the clinic for concerns about medication. Instructed to avoid abrupt withdrawal. Emergency Procedure and Safety Plan: Patient was encouraged to schedule earlier appointment if condition worsens or other difficulties develop. Contact the clinic during working hours; Go to the nearest ER in case of worsening of symptoms Dial 911 Return to the clinic for continuity of care prescriptions, mediation dosage changes, and assessment of symptoms; or sooner if needed to assess SE of medications, medication management and disease process. Call the clinic if you have medication questions or any other concerns. Signs and symptoms of when to seek further care reviewed with patient/caregive r/family/facilit y staff. Patient to follow up with primary care provider or return to clinic for any worsening signs and symptoms. Always present to ER or Urgent Care with any progression of/alarming symptoms, significant changes in symptoms or any concerning or urgent matters. Patient/caregive r/family/facilit y staff verbalized agreement and understanding of treatment plan. F/U 4 weeks, sooner if needed [email or web address] Not available 05/24/2023 10:53:47 Plan of Treatment Reminders Order Date Submit Date Provider Last Modified By Organization Details Last Modified Time Details Appointments None recorded. Lab None recorded. Referral None recorded. Procedures None recorded. Surgeries None recorded. Imaging None recorded. Medication Orders divalproex 125 mg capsule,del ayed release sprinkle 2022 023 [email or web address] Formerly [facility], [address], [address], [place], [address], 3 10:52:49 divalproex 125 mg capsule,del ayed release sprinkle 2022 023 [email or web address] Not available 10:52:49 divalproex 125 mg capsule,del ayed release sprinkle 2022 023 [email or web address] Not available 10:52:49 Patient TargetsNo targets recorded. Patient Instructions Encounter Date Encounter Id Patient Instructions Last Modified By Organization Details Last Modified Time 05/24/2023 [id number] stop medication* - STOP DEPAKOTE ATHENAFAX Not available 05/24/2023 10:55:52 stop medication* - STOP DEPAKOTE ATHENAFAX Not available 05/24/2023 10:55:31 Reason for Referral None Reported. Problems Name Problem SNOMED Code Status Onset Date Resolution Date Notes Provider Name and Address Organization Details Recorded Time Dementia with behaviora l harriett cifuentes [id number] 3 Active 2022 Jocelyne Ontiveros, PIGMENT SUPPLIER-BC, PMHNP-BC [address], [place], [address], [facility] 3 15:32:35 Essential hypertens ion [id number] Completed 202209/05/2022 Jocelyne Ontiveros PIGMENT SUPPLIER-BC, PMHNP-BC [address], [place], [address], [facility] 3 17:49:40 Vitamin D deficienc y [id number] Completed 202209/05/2022 Jocelyne Ontiveros PIGMENT SUPPLIER-BC, PMHNP-BC [address], [place], [address], [facility] - [facility] 3 17:49:43 Problem Notes None recorded. Medical Equipment None Reported. Allergies Allergen ID Allergen Name Allergen Category Reaction Reaction Severity Criticality Documentation Date Start Date Code Code System Note Provider Name and Address Organization Details Recorded Time 5699 cefdinir medicatio n Not available Not available Not available 06/29/2022 51932 RxNorm Miles Ontiveros null, [place] - [facility] 3 16:27:05 5700 Product containin g 3-hydroxy -3-methyl glutaryl- coenzyme A reductase inhibitor (product) medicatio n Not available Not available Not available 06/29/2022 93778 009 SNOMED Miles Ontiveros null, [place] - [facility] 3 16:27:14 5701 Cymbalta medicatio n Not available Not available Not available 06/29/2022 86919 4 RxNorm (Dulo xetin e) Miles Ontiveros null, [place] - [facility] 3 16:27:36 5702 sertralin e medicatio n Not available Not available Not available 06/29/2022 65098 RxNorm Miles Ontiveros null, [place] - [facility] 3 16:27:43 5703 Product containin g tetracycl ine and antibioti c (product) medicatio n Not available Not available Not available 06/29/2022 78289 1004 SNANGEL Ontiveros null, [place] - [facility] 3 16:27:51 Medications Name Sig Start Date Stop Date Status Note LastModified by Organization Details LastModified Time celecoxib 200 mg capsule TAKE ONE CAPSULE BY MOUTH DAILY active Not Available Not Available No t Available labetalol 200 mg tablet TAKE ONE TABLET BY MOUTH TWO TIMES A DAY BEFORE BREAKFAS T AND DINNER active Not Available Not Available No t Available ofloxacin 0.3 % eye drops INSTILL 2 DROPS IN BOTH EYES FOUR TIMES DAILY FOR 7 DAYS 06/26 completed Not Available Not Available Not Available citalopram 10 mg tablet Take 1 tablet every day by oral route for 30 days. 2024 active Not Available Not Available Not Avai lable lisinopril 20 mg tablet TAKE 1 TABLET BY MOUTH DAILY 07/01 completed Not Available Not Available Not Available olanzapine 5 mg tablet 1 TAB BY MOUTH DAILY PRN (DEMENTI A WITH BEHAVIOR DISTURBA NCE) 09/02 completed Not Available Not Available Not Available Tylenol Arthritis Pain 650 mg tablet,ext ended release Order APAP ER 650 mg 2 tabs TID x 7 days then TID PRN 03/02 completed Not Available Not Available Not Available melatonin 3 mg tablet Take 1 tablet every day by oral route in the evening. active Not Available Not Available No t Available chlorthali done 25 mg tablet TAKE ONE TABLET BY MOUTH DAILY 06/26 completed Not Available Not Available Not Available amlodipine 5 mg tablet TAKE ONE TABLET BY MOUTH TWO TIMES A DAY BEFORE BREAKFAS T AND DINNER active Not Available Not Available No t Available ketorolac 0.5 % eye drops 01/04 completed Not Available Not Available Not Available potassium chloride ER 20 mEq tablet,ext ended release(pa rt/cryst) TAKE ONE TABLET BY MOUTH DAILY active Not Available Not Available No t Available famotidine 20 mg tablet TAKE 1 TABLET BY MOUTH TWICE DAILY 07/01 completed Not Available Not Available Not Available prednisolo ne acetate 1 % eye drops,susp ension 01/04 completed Not Available Not Available Not Available cephalexin 500 mg capsule TAKE 1 CAPSULE BY MOUTH EVERY 6 HOURS 01/04 completed Not Available Not Available Not Available prednisone 50 mg tablet TAKE 1 TABLET BY MOUTH DAILY FOR 5 DAYS 07/01 completed Not Available Not Available Not Available aspirin 81 mg chewable tablet Chew 1 tablet every day by oral route for 90 days. 03/02 completed Not Available Not Available Not Available cephalexin 500 mg tablet Take 1 tablet 4 times a day by oral route for 7 days. 01/04 completed Not Available Not Available Not Available mupirocin 2 % topical ointment APPLY TOPICALL Y TO THE AFFECTED AREA THREE TIMES DAILY 09/19 completed Not Available Not Available Not Available epinephrin e 0.3 mg/0.3 mL injection, auto-injec tor INJECT 0.3 MG IN THE MUSCLE NEEDED DIRECTED 09/19 completed Not Available Not Available Not Available Depakote Sprinkles 125 mg capsule,de layed release Take 2 capsules twice a day by oral route for 90 days. active Not Available Not Available No t Available polyethyle ne glycol 3350 17 gram/dose oral powder Take 17 g every day by oral route. 03/02 completed Not Available Not Available Not Available ergocalcif david (vitamin D2) 1,000 unit tablet Take 1 tablet every day by oral route. 01/04 completed Not Available Not Available Not Available moxifloxac in 0.5 % eye drops 01/04 completed Not Available Not Available Not Available memantine 5 mg tablet Take 1 tablet every day by oral route for 7 days. 2024 active then take 1 tablet twice daily Not Available Not Available Not Available quetiapine 50 mg tablet Take 1 tablet 3 times a day by oral route as needed. 01/04 completed Not Available Not Available Not Available cholecalci ferol (vitamin D3) 25 mcg (1,000 unit) tablet Take 1 tablet every day by oral route for 30 days. 03/02 completed Not Available Not Available Not Available Acid Freight Air Brake Fitter Complete (famotidin e) 10 mg-800 mg-165 mg chewable tablet Take 1 tablet every day by oral route as needed. 09/19 completed Not Available Not Available Not Available melatonin 3 mg disintegra ting tablet Take 1 tablet every day by oral route at bedtime for 30 days. 03/02 completed Not Available Not Available Not Available potassium chloride ER 20 mEq tablet,ext ended release Take 1 tablet every day by oral route in the morning. 09/19 /2023 completed Not Available Not Available Not Available Repatha SureClick 140 mg/mL subcutaneo us pen injector Inject 1 mL every 2 weeks by sub-q route for 28 days. 06/26 completed Not Available Not Available Not Available Xdemvy 0.25 % eye drops 06/26 completed Not Available Not Available Not Available Vitals None Recorded Social History Question Answer Notes LastModified by Organizat ion Details LastModified Time Tobacco Smoking Status Never Smoker [facility] 06/30/2022 16:30:00 Do You Have An Advance Directive? Yes [email or web address] Information not available 06/29/2022 What Is Your Level Of Alcohol Consumption? None [email or web address] Information not available 06/30/2022 Are You Currently Sexually Active With Anyone Who Has Traveled (within The Last 12 Weeks) To A Zika-affected Area? No [email or web address] Information not available 06/30/2022 Are You Blind Or Do You Have Difficulty Seeing? Yes Glasses [email or web address] Information not available 06/30/2022 Is Blood Transfusion Acceptable In An Emergency? Yes [email or web address] Information not available 06/29/2022 What Is Your Level Of Caffeine Consumption? Heavy [email or web address] Information not available 06/30/2022 What Type Of Emt I/99 Do You Use? None [email or web address] Information not available 06/30/2022 What Is Your Code Status? Full Code Information not available 06/29/2022 In The 14 Days Before Symptom Onset, Have You Had Close Contact With A Laboratory-confir med COVID-19 While That Case Was Ill? No [email or web address] Information not available 06/30/2022 In The 14 Days Before Symptom Onset, Have You Had Close Contact With A Person Who Is Under Investigation For COVID-19 While That Person Was Ill? No [email or web address] Information not available 06/30/2022 Have You Been To An Area Known To Be High Risk For COVID-19? No [email or web address] Information not available 06/30/2022 Are You Currently Employed? No Information not available 06/30/2022 Are You Deaf Or Do You Have Serious Difficulty Hearing? Yes Hearing Aids [email or web address] Information not available 06/30/2022 What Type Of Diet Are You Following? REGULAR [email or web address] Information not available 06/30/2022 Have You Processed Blood Or Body Fluids From An Ebola Virus Disease Patient Without Appropriate PPE? No Information not available 06/30/2022 Do You Reside In Or Have You Traveled To An Area Where Ebola Virus Transmission Is Active? No Information not available 06/30/2022 What Is The Highest Grade Or Level Of School You Have Completed Or The Highest Degree You Have Received? [id number] Information not available 06/30/2022 How Many Days Of Moderate To Strenuous Exercise, Like A Brisk Walk, Did You Do In The Last 7 Days? 0 Information not available 06/30/2022 Have There Been Any Changes To Your Family Or Social Situation? Yes Was In [facility] [place], Mentally Affected. [email or web address] Information not available 06/30/2022 Are There Any Guns Present In Your Home? No [email or web address] Information not available 06/30/2022 Which Of Your Hands Is Dominant? Right Information not available 06/30/2022 Have You Recently Or Are You Planning To Travel To An Area With Zika Virus? 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 06/30/2022 Information not available 06/30/2022 How Many Children Do You Have? 2 Information not available 06/30/2022 Do You Have Any Pets? No [email or web address] Information not available 06/30/2022 What Is Your Relationship Status? Information not available 06/30/2022 Do You Use Your Seat Belt Or Car Seat Routinely? Yes [email or web address] Information not available 06/30/2022 Are You Sexually Active? No [email or web address] Information not available 06/30/2022 Do You Have Smoke And Carbon Monoxide Detectors In Your Home? Yes [email or web address] Information not available 06/30/2022 Are You Passively Exposed To Smoke? No [email or web address] Information no t available 06/30/2022 Do You Participate In Social Media? No [email or web address] Information not available 06/30/2022 What Types Of Sporting Activities Do You Participate In? N/A Information not available 06/30/2022 Do You Feel Stressed (tense, Restless, Nervous, Or Anxious, Or Unable To Sleep At Night)? [id number] [email or web address] Information not available 06/30/2022 Do You Use Any Illicit Or Recreational Drugs? No [email or web address] Information not available 06/30/2022 Do You Use Sunscreen Routinely? No [email or web address] Information not available 06/30/2022 Have You Recently Traveled Abroad? No [email or web address] Information not available 06/30/2022 Are You Currently In School? No [email or web address] Information not available 06/30/2022 Do You Have Any Dietary Restrictions? No [email or web address] Information not available 06/30/2022 Do You Or Have You Ever Used Any Other Forms Of Tobacco Or Nicotine? No [email or web address] Information not available 06/30/2022 Sex: Male Functional Status Question Answer Note LastModified by Organizat ion Details LastModified Time Do you have difficulty walking or climbing stairs? No [email or web address] Information not available 06/30/2022 Do you have transportation difficulties? No [email or web address] Information not available 06/30/2022 Are you able to walk? YESWOREST [email or web address] Information not available 06/30/2022 Do you have difficulty doing errands alone? Yes [email or web address] Information not available 06/30/2022 Are you able to care for yourself? No [email or web address] Information not available 06/30/2022 Do you have difficulty dressing or bathing? No [email or web address] Information not available 06/30/2022 What is your exercise level? None [email or web address] Information not available 06/30/2022 Mental Status Question Answer Note LastModified by Organization D etails LastModified Time Do you have difficulty concentrating, remembering or making decisions? Yes Information no t available 06/30/2022 Family History Relationship Description Onset Age of this Age Resolved Age Notes LastModified by Organization Details LastModified Time Mother Kidney disease Not available 2022 16:24:15 Sister Cerebrovascu lar accident [email or web address] Not available 16:24:49 Medical History Condition Response Depression Y Parkinsons Disease Y Cancer Y Cardiac Diseases / Disorders Y Falls Y Infectious Disease/Disorders/Virus Y Dementia Y Hypertension Y Immunizations Vaccine Type Date Status Note Provider Nam jacobo and Address Organization Details Recorded Time SARS-COV-2 (COVID-19) vaccine, UNSPECIFIED 05/26/2021 completed Miles Ontiveros null, [facility] 06/29/2022 16:28:33 SARS-COV-2 (COVID-19) vaccine, UNSPECIFIED 08/23/2020 completed Miles Ontiveros null, MD - [facility] 06/29/2022 16:28:45 SARS-COV-2 (COVID-19) vaccine, UNSPECIFIED 04/08/2021 completed Miles Ontiveros null, [facility] 06/29/2022 16:28:54 Influenza, adjuvanted, quadrivalent, PF 03/18/2023 completed Wendy Alcon null, [facility] 03/18/2023 16:05:32 Past Encounters Encounter ID Performer Location Encounter Start Date Encounter Closed Date Diagnosis/Indication Diagnosis SNOMED-CT Code Diagnosis ICD10 Code Diagnosis Note [id number] Alaina Weaver [facility] [address] [place] [address] 06/30/2022 07:01:45 07/01/2022 12:01:24 Dementia with behavioral disturbance 2775467901 103 F03.918 Essential hypertension 39301255 I10 taking medication s. labs to eval levels. Vitamin D deficiency 347 87787 E55.9 taking medication s. labs to eval levels. Screening for disorder 643486286 Z13.89 [id number] PAMELA Strong, PMHNP-LUZ [facility] [address] [place] [address] 07/07/2022 14:39:50 07/07/2022 17:14:28 Dementia with behavioral disturbance [id number] 103 F03.918 behaviors and related are doing better. Still having some breakthrou gh but better than before. Pain in ri ght hip joint 0324343461 77308 M25.551 Pain in ri ght lower limb 691233712 M79.604 [id number] PAMELA Strong, PMHNP-LUZ [facility] [address] [place] [address] 07/31/2022 13:28:06 08/01/2022 09:38:23 Dementia with behavioral disturbance [id number] 103 F03.918 Abnormalit y of nail of toe 979220081 L60.8 [id number] Jocelyne Ontiveros, [facility], [facility] [address] [place] [address] 08/05/2022 09:25:48 08/05/2022 15:42:18 Dementia with behavioral disturbance [id number] 103 F03.918 Recurrent falls 60395014 2 R29.6 Advance care planning 71 6168172 Z71.89 [id number] Jocelyne Ontiveros [facility], [facility] [address] [place] [address] 08/24/2022 07:01:41 08/24/2022 18:59:28 Dementia with behavioral disturbance 9637034205 103 F03.918 Doing much better with moods and behaviors. Depakote has been providing significan t coverage. No Zyprexa has had to be given. Recurrent falls 56466275 2 R29.6 [id number] Jocelyne Ontiveros [facility], [facility] [address] [place] [address] 09/21/2022 05:51:16 09/21/2022 18:55:50 Dementia with behavioral disturbance [id number] 103 F03.918 Has been significan t views between PCP regarding medication s for dementia with behavioral disturbanc es. It was not until last month of being made aware that Jorge Luis had Parkinson' s Disease.Se roquel has already been tried which did not work and did not even decrease his agitated, combative behaviors. previously before starting Depakote he was combative, choked staff, grabbing at them. He was dangerous to self and others. was in fear because of his volatile behaviors. Correspond sheilae ensured between PCP and this office. She took it upon herself without discussing his health status to abruptly stop the Depakote. Facility had contacted this office as nothing was in med packs and notificati on to facility from Dr. Onofre's office was not evident. Medication was restarted. Given the back and forth between this office and Dr. Onofre as she wants him on other medication s which she demanded Abilify. No FDA approved medication s are for dementia with behavioral disturbanc es. Often Abilify does not decrease agitation, aggression , and combative behaviors. While studies at times show some improvemen t with hallucinat ions and delusions this is not what the medication would be used for. Abilify can aggravate parkinsoni sm in parkinson' s patients.T he only antipsycho tic with clear evidence regarding efficacy in PD patients is Clozapine, but it has a huge slew of side effects and requires significan t monitoring for many months of CBC.Antips ychotics do increase the risk of EPS and TD.Antipsy chotics are for treating psychosis, mood and behavioral disturbanc es. Often many of the antipsycho tics worsen motor symptoms through the dopaminerg ic receptor blockade. Depakote in mental health is considered a mood stabilizer and it is to reduce the excitabili ty of brain cells. Consulted and discussed with Board Certified Psychiatri st, Dr. Jairon MD on this case. Given Jorge Luis's situation Depakote remains the gold standard for treatment. It was suggested Nuplazid could be tried but given the cost could be difficult to afford. Difference between Parkinson' s and Parkinson' s plus syndrome PSP causes trouble with balance and stability that can mimic Parkinson' s disease. Unlike Parkinson' s disease, people with PSP don't experience tremors. They do have difficulty with eye movement and are likely to experience more trouble with speech, swallowing , and mood than people with Parkinson' s disease. [id number] PAMELA Strong, PMHNP-LUZ [facility] [address] [place] [facility] [place] [address] 11/11/2022 06:50:28 11/11/2022 16:41:03 Dementia with behavioral disturbance [id number] 103 F03.918 [id number] PAMELA Strong, PMHNP-BC [facility] [address] [place] [facility] [address] 12/07/2022 08:32:39 12/07/2022 09:44:41 Dementia with behavioral disturbance [id number] 103 F03.918 [id number] PAMELA Strong, PMHNP-BC [facility] [address] [place] [facility] [address] 01/04/2023 07:15:16 01/04/2023 15:08:59 Dementia with behavioral disturbance 4821318478 103 F03.918 [id number] Jocelyne Ontiveros, PIGMENT SUPPLIER-BC, PMHNP-BC [facility] [address] [place] [address] 02/01/2023 08:35:23 02/01/2023 19:36:17 Dementia with behavioral disturbance [id number] 103 F03.918 [id number] Jocelyne Ontiveros PIGMENT SUPPLIER-BC, PMHNP-BC [facility] [address] [place] [address] 03/01/2023 08:33:58 03/02/2023 19:39:29 Dementia with behavioral disturbance 2904074397 103 F03.918 [id number] Jocelyne Ontiveros PIGMENT SUPPLIER-BC, PMHNP-BC [facility] [address] [place] [facility] [address] 03/29/2023 07:17:59 03/29/2023 14:45:21 Dementia with behavioral disturbance [id number] 103 F03.918 [id number] Jocelyne Ontiveros, PIGMENT SUPPLIER-BC, PMHNP-BC [facility] [address] [place] [facility] [place] [address] 04/26/2023 08:31:08 04/26/2023 18:16:13 Dementia with behavioral disturbance [id number] 103 F03.918 [id number] Jocelyne Ontiveros, PIGMENT SUPPLIER-BC, PMHNP-BC [facility] [address] [place] [facility] [place] [address] 05/24/2023 07:05:18 05/24/2023 18:08:52 Dementia with behavioral disturbance [id number] 103 F03.918 Health Concerns Section Related Observation LastModified by Organization Detai ls LastModified Time None Recorded Concern Status LastModified by Organization Details LastModified Time None Recorded Advance Directives Directive Y: Payers Encounter Date Sequence Insurance Name Policy Number Policy Flores Covered Member ID Flores Member ID Guarantor Name 02/01/2023 1 [facility] (MEDICARE REPLACEMENT/A DVANTAGE - HMO) [id number] Efrain Flores [id number] Efrain Flores 03/01/2023 1 [facility] (MEDICARE REPLACEMENT/A DVANTAGE - HMO) [id number] Efrain Alvarado Flores [id number] Efrain Flores 03/29/2023 1 [facility] (MEDICARE REPLACEMENT/A DVANTAGE - HMO) [id number] Efrain Alvarado Flores [id number] Efrain Flores 04/26/2023 1 [facility] (MEDICARE REPLACEMENT/A DVANTAGE - HMO) [id number] Efrain Alvarado Flores [id number] Efrain Flores 05/24/2023 1 [facility] (MEDICARE REPLACEMENT/A DVANTAGE - HMO) [id number] Efrain Alvarado Flores [id number] Efrain Flores Notes Date Note Type Note Provider Name and Address Organization Details Recorded Time 02/01/2023 text/html DementiaReported bystaff.Quality:short term memory loss; inability to learn or remember new information; forgetting names or everyday words; disoriented time, self, or place Severity:moderate Context:difficulty planning or organizing Associated Symptoms:no depression; no paranoia; no anxiety; no irritability or agitation; no wandering;incontinence Notes:Staff reports that patient has been more argumentative with . PAMELA Strong, WILMAR-LUZ [address] [place], [address], [facility] 02/01/2023 17:02:20 03/01/2023 text/html DementiaReported bystaff.Quality:short term memory loss; inability to learn or remember new information; forgetting names or everyday words; disoriented time, self, or place Severity:moderate Context:difficulty planning or organizing Associated Symptoms:no depression; no paranoia; no anxiety; no irritability or agitation; no wandering;incontinence Notes:He has doing better on the lower dose of Depakote. PAMELA Strong, [facility] [address] [place], [address], [facility] 03/02/2023 15:39:48 03/29/2023 text/html DementiaReported bystaff.Quality:short term memory loss; inability to learn or remember new information; forgetting names or everyday words; disoriented time, self, or place Severity:moderate Context:difficulty planning or organizing Associated Symptoms:no depression; no paranoia; no anxiety; no irritability or agitation; no wandering;incontinence Notes:He has doing better on the lower dose of Depakote. Noted worsening cognition.Moods and behaviors good. However, can be a trigger with agitation. Jocelyne Love PAMELA Ontiveros, [facility] [address] [place], [address], [facility] 03/29/2023 13:54:30 04/26/2023 text/html DementiaReported bystaff.Quality:short term memory loss; inability to learn or remember new information; forgetting names or everyday words; disoriented time, self, or place Severity:moderate Context:difficulty planning or organizing Associated Symptoms:no depression; no paranoia; no anxiety; no irritability or agitation; no wandering;incontinence Notes:He has doing better on the lower dose of Depakote. Noted worsening cognition.Moods and behaviors good. However, can be a trigger with agitation. Jocelyne Love PAMELA Ontiveros, [facility] [address], [place], [address] [place] [address], [facility] 04/26/2023 17:02:18 05/24/2023 text/html DementiaReported bystaff.Quality:short term memory loss; inability to learn or remember new information; forgetting names or everyday words; disoriented time, self, or place Severity:moderate Context:difficulty planning or organizing Associated Symptoms:no depression; no paranoia; no anxiety; no irritability or agitation; no wandering;incontinence Notes:No noted behaviors have occurred. He has been doing very well. His confusion/cognition is worsening. Jocelyne Love [facility]iveros, [facility] [address] [place], [address], [facility] 05/24/2023 10:54:56
--- NOTE | 2024-07-22 02:21 | ED.GENADULT ---
HPI - General Adult General Chief complaint: Fall Stated complaint: Fall Time Seen by Provider: 07/22/24 00:49 History of Present Illness HPI narrative: This is an 88-year-old male with dementia presenting after a unwitnessed fall. Patient has severe dementia can not provide no meaningful information regarding to guide a workup. Patient was found by staff crawling on his knees tried to get back into bed. He has an abrasion to his R knee, L forearm, R side of forehead. Related Data Home Medications ?Medication ?Instructions ?Recorded ?Confirmed ?Last Taken ?Type amlodipine 5 mg tablet 5 mg PO BID 11/14/22 11/14/22 Unknown History aspirin 81 mg chewable tablet 81 mg PO DAILY 11/14/22 11/14/22 Unknown History cholecalciferol (vitamin D3) 25 25 mcg PO DAILY 11/14/22 11/14/22 Unknown History mcg (1,000 unit) tablet divalproex 125 mg capsule,delayed 125 mg PO BID 11/14/22 11/14/22 Unknown History release sprinkle evolocumab 140 mg/mL subcutaneous 140 mg subcut [id number] 11/14/22 11/14/22 11/06/22 08:00 History pen injector (Repatha Nubiaick) famotidine 20 mg tablet 20 mg PO DAILY PRN Heartburn 11/14/22 11/14/22 Unknown History labetalol 200 mg tablet 200 mg PO BID 11/14/22 11/14/22 Unknown History melatonin 3 mg disintegrating 3 mg PO HS 11/14/22 11/14/22 Unknown History tablet polyethylene glycol 3350 17 gram 17 g PO DAILY 11/14/22 11/14/22 Unknown History oral powder packet (Miralax) quetiapine 50 mg tablet 50 mg PO TID PRN Agitation 11/14/22 11/14/22 Unknown History chlorthalidone 25 mg tablet mg 12/27/22 Unknown History mupirocin 2 % topical ointment topical 12/27/22 Unknown History Allergies Allergy/AdvReac Type Severity Reaction Status Date / Time cefdinir Allergy Unknown Verified 12/10/23 06:05 duloxetine (From Cymbalta) Allergy Unknown Verified 12/10/23 06:05 sertraline Allergy Unknown Verified 12/10/23 06:05 Jwetnke-SVW-OjU Reductase Allergy Unknown Verified 12/10/23 06:05 Inhibitor [facility] Past Medical History Medical History Dyslipidemia Coronary artery disease Hypertension Dementia Surgical History Surgical History History of cataract extraction History of arthroscopy of knee History of four vessel coronary artery bypass graft Family History Family History Mother Kidney failure CHF (congestive heart failure) Dialysis patient Social History Social History Social History: Surrogate medical decision maker: Corine Flores () or Ioana Ludwin (daughter). Code status: Full code. Smoking status: Never smoker Alcohol intake: never Substance use: never Lack of Transportation: No Lack of Food: Never True Current Housing: I Have Housing Concerned About Future Housing: No Difficulty Paying Gas/Electric Bills: No Difficulty Paying for Meds: No Currently Unemployed: No Education: High School Diploma/GED Difficulty w/ Childcare or Family Care: No Additional living arrangements comments: The patient and his live in assisted living at [facility]. 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 He also worked at [employer]. Spiritual care concerns: No Exam Narrative: APPEARANCE: No apparent distress. Head: atraumatic. EYES: EOMI, NOSE: Atraumatic NECK: Trachea midline RESPIRATORY: No increased rate of breathing CARDIOVASCULAR: RRR, ABDOMINAL: Non-distended MUSCULOSKELETAl: Head to toe trauma exam performed without any areas of tenderness bruising or deformity. He does have of some minor abrasions over the right knee. NEURO: Alert. Moving 4/4 extremities SKIN:: Warm, dry. Normal color PSYCHIATRIC: Normal affect Course Vital Signs Vital signs: Vital Signs Temperature 98 F 07/22/24 00:25 Pulse Rate 77 07/22/24 00:25 Respiratory Rate 14 07/22/24 00:25 Blood Pressure 158/72 H 07/22/24 00:25 Pulse Oximetry 100 07/22/24 00:25 Oxygen Delivery Room Air 07/22/24 00:25 Temperature 98 F 07/22/24 00:25 Pulse Rate 77 07/22/24 00:25 Respiratory Rate 14 07/22/24 00:25 Blood Pressure 158/72 H 07/22/24 00:25 Pulse Oximetry 100 07/22/24 00:25 Oxygen Delivery Room Air 07/22/24 00:25 Medical Decision Making MDM Narrative Medical decision making narrative: -Course: 88-year-old male with dementia found crawling on the floor of his room. Trauma workup negative for any acute findings. Vital signs stable. Patient is his baseline mental status. [facility]. Vital Signs Vital Signs: Vital Signs Temperature 98 F 07/22/24 00:25 Pulse Rate 77 07/22/24 00:25 Respiratory Rate 14 07/22/24 00:25 Blood Pressure 158/72 H 07/22/24 00:25 Pulse Oximetry 100 07/22/24 00:25 Oxygen Delivery Room Air 07/22/24 00:25 Temperature 98 F 07/22/24 00:25 Pulse Rate 77 07/22/24 00:25 Respiratory Rate 14 07/22/24 00:25 Blood Pressure 158/72 H 07/22/24 00:25 Pulse Oximetry 100 07/22/24 00:25 Oxygen Delivery Room Air 07/22/24 00:25 Discharge Plan Discharge Clinical Impression: Fall Patient Disposition: Home, Self-Care Condition: Stable Instructions: Antibiotic Form, Fall Prevention (ED) Additional Instructions: Efrain Flores was sent to the ED after a fall. We did not find any traumatic injuries on CT/x-rays. If you have any other concerns please return him to the emergency department for re-evaluation. Patient Language: Bengali Prescriptions: No Action chlorthalidone 25 mg tablet mupirocin 2 % ointment TOPICAL potassium chloride 20 mEq tablet extended release 20 meq PO DAILY Qty: 30 0RF cephalexin 500 mg capsule 500 mg PO Q6H Qty: 28 0RF amlodipine 5 mg tablet 5 mg PO BID aspirin 81 mg tablet,chewable 81 mg PO DAILY melatonin 3 mg tablet,disintegrating 3 mg PO HS Repatha SureClick 140 mg/mL pen injector 140 mg SUBCUT [id number] Rx Instructions: Given on November 06 divalproex 125 mg capsule, delayed rel sprinkle 125 mg PO BID labetalol 200 mg tablet 200 mg PO BID cholecalciferol (vitamin D3) 25 mcg (1,000 unit) tablet 25 mcg PO DAILY polyethylene glycol 3350 [Miralax] 17 gram Powder In Packet 17 g PO DAILY famotidine 20 mg tablet 20 mg PO DAILY PRN (Reason: Heartburn) quetiapine 50 mg tablet 50 mg PO TID PRN (Reason: Agitation) acetaminophen 500 mg tablet 500 mg PO Q6H PRN (Reason: pain) Qty: 30 0RF ciprofloxacin HCl 500 mg tablet 500 mg PO Q12H 10 Days Qty: 20 0RF Follow-up/Referrals: [place],MD Renea [Primary Care Provider] -
[2024-07-22 06:15] VITALS: BP 150/75; PULSE 85; RESP 14; O2SAT 100
--- NOTE | 2024-07-22 07:18 | PC.NURSE ---
Report called to nurse at [facility] @[phone].
--- NOTE | 2024-07-22 07:26 | PC.NURSE ---
Assumed care of this pt at 0700 on 07/22/24. pt's IV not documented. IV removed in left forearm.
== END 2024-07-22 10:49 ==
PROVIDERS: Emergency Provider Emergency Medicine; PCP Internal Medicine Geriatric Medicine
DX: S00.81XA Abrasion of other part of head, initial encounter (principal); S80.211A Abrasion, right knee, initial encounter; S50.812A Abrasion of left forearm, initial encounter; F03.C0 Unspecified dementia, severe, without behavioral disturbance, psychotic disturbance, mood disturbance, and anxiety; I25.10 Atherosclerotic heart disease of native coronary artery without angina pectoris; I10 Essential (primary) hypertension; E78.5 Hyperlipidemia, unspecified; Z98.49 Cataract extraction status, unspecified eye; Z95.1 Presence of aortocoronary bypass graft; W19.XXXA Unspecified fall, initial encounter; M47.812 Spondylosis without myelopathy or radiculopathy, cervical region; R90.82 White matter disease, unspecified; M16.0 Bilateral primary osteoarthritis of hip; M85.842 Other specified disorders of bone density and structure, left hand
CPT/HCPCS: 70450; 70486; 71045; 72125; 72170; 73090; 73562; 99284

== ENCOUNTER 2024-08-22 17:21 | Inpatient (IN) | payer MEDICARE, SELFPAY ==
--- NOTE | ~2024-08-22 | XR_ITS ---
XR chest 1V portable Ordering provider: Anny Ochoa APRN History: 89 years Male with . wbc increasing . Comparison: August 22, 2024 FINDINGS: MEDIASTINUM: The cardiac silhouette is not enlarged. Postoperative changes in the mediastinum. LUNGS: No infiltrates, effusions or pneumothorax. Calcified granuloma in the left lower lobe unchange d. Slightly prominent markings in the left lower lobe. OTHER: No free air under the diaphragm. IMPRESSION: No acute cardiopulmonary pathology Reviewed, dictated and finalized at location A.
--- NOTE | ~2024-08-22 | US_ITS ---
US renal BI Ordering provider: Aleksey Márquez MD History: . elevated creatinine . Comparison: None. Technique: Ultrasound bilateral kidneys. Findings: RIGHT KIDNEY: Measures 8.7x 4.1x 4.5 cm in length which is normal in size. No renal cysts. No renal m ass or visualized echogenic stones. Otherwise, normal echotexture and contour. No hydronephrosis. Nor mal renal cortical thickness. Cortical thickness is 1 cm. LEFT KIDNEY: Measures 9.4x 5.7x 4.5 cm in length which is normal in size. No renal cysts. No renal ma ss or visualized echogenic stones. Otherwise, normal echotexture and contour. No hydronephrosis. Norm al renal cortical thickness. BLADDER: Not evaluated. IMPRESSION: No definite abnormality. Reviewed, dictated and finalized at location A. IMPRESSION: No definite abnormality.
--- NOTE | ~2024-08-22 | XR_ITS ---
EXAMINATION: XR chest 1V portable Exam Date/Time: 08/22/2024 19:00 CDT HISTORY: leukocytosis, altered, assess for PNA Comparison: 07/22/2024. RESULT: Lines, tubes, and devices: Intact sternotomy wires. Mediastinal surgical clips. Lungs and pleura: No focal consolidation, pleural effusion, or pneumothorax. Calcified granulomas. Cardiomediastinal silhouette: Stable. Other: No acute osseous or upper abdominal finding. IMPRESSION: No acute cardiopulmonary process. Reviewed, dictated and finalized at location K.
--- NOTE | ~2024-08-22 | CT_ITS ---
EXAMINATION: CT brain wo con DATE: 08/22/2024 19:03 INDICATION: rule out hemorrhage, altered . TECHNIQUE: Computed tomography (CT) of the head was performed without intravenous contrast. The mA wa s adjusted according to patient size. Iterative reconstruction technique was employed. The dose-lengt h product was 681.00 mGy-cm. COMPARISON: 07/22/2024. FINDINGS: Mild motion artifact. No acute intracranial hemorrhage or extra-axial fluid collection. No hydrocephalus, mass, or herniation. No acute ischemic infarct. Unremarkable dural venous sinus attenuation. No acute osseous abnormality. The aerated spaces are clear. Moderate atrophy and mild chronic white matter change. Atherosclerotic intracranial calcification. Bi lateral lens replacements. Small old right cerebellar infarct. IMPRESSION: No acute intracranial process. Reviewed, dictated and finalized at location K.
[2024-08-22 17:24] VITALS: BP 145/61; RESP 18; TEMP 36.8; O2SAT 95
--- NOTE | 2024-08-22 17:41 | PC.NURSE ---
This RN tried cleaning pt up and get situated in room when pt started getting verbally and physically aggressive. This RN asked if i could help get him clean and PT screamed HELL NO GET OUT HELP and this RN exited the room.
--- NOTE | 2024-08-22 18:06 | ED.WEAKNESS ---
HPI - Weakness General Chief complaint: Weakness <Alessandro Melvin PA-C - Last Filed: 08/23/24 02:14> Stated complaint: weakness <Alessandro Melvin PA-C - Last Filed: 08/23/24 02:14> Time Seen by Provider: 08/22/24 17:59 <Alessandro Melvin PA-C - Last Filed: 08/23/24 02:14> Source: EMS <Alessandro Melvin PA-C - Last Filed: 08/23/24 02:14> Mode of arrival: EMS <Alessandro Melvin PA-C - Last Filed: 08/23/24 02:14> Limitations: dementia <ELIZABETH Sarah Last Filed: 08/23/24 02:14> History of Present Illness HPI Narrative: This is a 88-year-old male who presents to the ED via EMS from [facility] due to patient being increasingly aggressive and weak. Patient is demented at baseline, A&O x1 at baseline. Per EMS crew, he is well known to that grew and they state that he seems to be at his baseline mental status. He can tell me his name but not the year or where he is at so does appear that he is at his baseline. He denies any medical complaints. History from patient otherwise limited. <Alessandro Melvin PA-C - Last Filed: 08/23/24 02:14> Related Data Home medications: Home Medications ?Medication ?Instructions ?Recorded ?Confirmed ?Last Taken ?Type amlodipine 5 mg tablet 5 mg PO BIDWM 11/14/22 08/22/24 Unknown History aspirin 81 mg chewable tablet 81 mg PO DAILY 11/14/22 08/22/24 Unknown History cholecalciferol (vitamin D3) 25 25 mcg PO DAILY 11/14/22 08/22/24 Unknown History mcg (1,000 unit) tablet divalproex 125 mg capsule,delayed 125 mg PO BID 11/14/22 08/22/24 Unknown History release sprinkle evolocumab 140 mg/mL subcutaneous 140 mg subcut [id number] 11/14/22 08/22/24 08/15/24 History pen injector (Warren Cornejo) labetalol 200 mg tablet 200 mg PO BID 11/14/22 08/22/24 Unknown History melatonin 3 mg disintegrating 3 mg PO HS 11/14/22 08/22/24 Unknown History tablet polyethylene glycol 3350 17 gram 17 g PO DAILY PRN constipation 11/14/22 08/22/24 Unknown History oral powder packet (Miralax) chlorthalidone 25 mg tablet 25 mg PO DAILY 12/27/22 08/22/24 Unknown History acetaminophen 500 mg tablet 650 mg PO Q6H PRN pain 08/22/24 08/22/24 Unknown History celecoxib 200 mg capsule 200 mg PO BIDWM 08/22/24 08/22/24 Unknown History citalopram 10 mg tablet 10 mg PO DAILY 08/22/24 08/22/24 Unknown History dextromethorphan-guaifenesin 10 10 ml PO Q4H PRN cough 08/22/24 08/22/24 Unknown History mg-100 mg/5 mL oral syrup (Chest Congestion Relief DM) guaifenesin 600 mg tablet, 600 mg PO Q12H PRN cough 08/22/24 08/22/24 Unknown History extended release 12 hr (Mucinex) memantine 10 mg tablet 5 mg PO BIDWM 08/22/24 08/22/24 Unknown History povidone (PF) 0.5 % eye drops 1 drp ophthalmic (eye) QID PRN DRY 08/22/24 08/22/24 Unknown History (iVizia (PF)) EYE tramadol 50 mg tablet 50 mg PO DAILY PRN pain 08/22/24 08/22/24 Unknown History <Alessandro Melvin PA-C - Last Filed: 08/23/24 02:14> Allergies/Adverse reactions: Allergies Allergy/AdvReac Type Severity Reaction Status Date / Time cefdinir Allergy Unknown Verified 08/22/24 23:00 duloxetine (From Cymbalta) Allergy Unknown Verified 08/22/24 23:00 lisinopril Allergy Unknown Verified 08/22/24 23:00 losartan Allergy Unknown Verified 08/22/24 23:00 sertraline Allergy Unknown Verified 08/22/24 23:00 [id number] Reductase Allergy Unknown Verified 08/22/24 23:00 Inhibitor Tetracyclines Allergy Unknown Verified 08/22/24 23:00 <Alessandro Melvin PA-C - Last Filed: 08/23/24 02:14> Review of Systems Review of Systems: All systems as dictated in HPI <Alessandro Melvin PA-C - Last Filed: 08/23/24 02:14> PMFSH Past Medical History Medical History: Medical History Dyslipidemia Coronary artery disease Hypertension Dementia <Alessandro Melvin PA-C - Last Filed: 08/23/24 02:14> Surgical History Surgical History: Surgical History History of cataract extraction History of arthroscopy of knee History of four vessel coronary artery bypass graft <Alessandro Melvin PA-C - Last Filed: 08/23/24 02:14> Family History Family History: Family History Mother Kidney failure CHF (congestive heart failure) Dialysis patient <Alessandro Melvin PA-C - Last Filed: 08/23/24 02:14> Social History Social History: Social History Social History: Surrogate medical decision maker: Corine Flores () or Ioana Mascorro (daughter). Code status: Full code. Smoking status: Unknown if ever smoked Alcohol intake: never Substance use: never Lack of Transportation: No Lack of Food: Never True Current Housing: I Have Housing Concerned About Future Housing: No Difficulty Paying Gas/Electric Bills: No Difficulty Paying for Meds: No Currently Unemployed: No Education: High School Diploma/GED Difficulty w/ Childcare or Family Care: No Additional living arrangements comments: The patient and his live in assisted living at [facility]. 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 He also worked at [employer]. Spiritual care concerns: No <Alessandro Melvin PA-C - Last Filed: 08/23/24 02:14> Exam Narrative: GENERAL: Well-appearing, well-nourished, and in no acute distress. HEAD: Normocephalic, atraumatic. EYES: PERRLA and EOMI. ENT: Nares clear, no rhinorrhea or epistaxis. Mucous membranes moist. Oropharynx without tonsillar hypertrophy exudate or other lesions. NECK: Supple. No adenopathy or masses. CHEST: No respiratory distress. Clear to auscultation. No wheezes rales or rhonchi HEART: Regular rate and rhythm. No murmur heard. Normal peripheral pulses. ABDOMEN: Soft, nontender, nondistended, normal active bowel sounds. MSK: Normal range of motion. No edema. SKIN: Warm, dry, no rash. NEURO: Alert and oriented x1, at baseline. Moves all 4 extremities spontaneously. Able to answer basic questions and follow commands. PSYCH: Normal mood and affect. <Alessandro Melvin PA-C - Last Filed: 08/23/24 02:14> Course CLOTH NAPPING SUPERVISOR/PA Physician Supervision Patient's HPI, Exam, and MDM were reviewed and I agreed with the workup and disposition done in the emergency department by the MLP. I was available for consultation, but was not directly involved with patient's care nor did I evaluate the patient. <Jules Hughes MD - Last Filed: 08/23/24 22:30> Vital Signs Vital signs: Vital Signs Temperature 36.8 C 08/22/24 17:24 Respiratory Rate 18 08/22/24 17:24 Blood Pressure 145/61 H 08/22/24 17:24 Pulse Oximetry 95 08/22/24 17:24 Oxygen Delivery Room Air 08/22/24 17:24 Temperature 36.9 C 08/23/24 21:13 Pulse Rate 80 08/23/24 21:13 Respiratory Rate 20 08/23/24 21:13 Blood Pressure 145/114 H 08/23/24 21:13 Pulse Oximetry 100 08/23/24 21:13 Oxygen Delivery Room Air 08/23/24 08:00 <Alessandro Melvin PA-C - Last Filed: 08/23/24 02:14> Vital Signs Temperature 36.8 C 08/22/24 17:24 Respiratory Rate 18 08/22/24 17:24 Blood Pressure 145/61 H 08/22/24 17:24 Pulse Oximetry 95 08/22/24 17:24 Oxygen Delivery Room Air 08/22/24 17:24 Temperature 36.9 C 08/23/24 21:13 Pulse Rate 80 08/23/24 21:13 Respiratory Rate 20 08/23/24 21:13 Blood Pressure 145/114 H 08/23/24 21:13 Pulse Oximetry 100 08/23/24 21:13 Oxygen Delivery Room Air 08/23/24 08:00 <Jules Hughes MD - Last Filed: 08/23/24 22:30> MDM - Weakness MDM Narrative Medical decision making narrative: This is an 88-year-old male who presents to the ED from local assisted living for complaint generalized weakness and increased aggression/combative behavior. Vitals are normal. He is alert oriented x1 and at his baseline[place] [id number] with left shift. Lactate is normal. CRP is normal. Urinalysis shows gross UTI with 3+ leuks, 51-100 whites 4+ bacteria. Culture pending. He was started on Levaquin and due to cephalosporin allergy listed in the chart. I do not see any obvious contraindications to Levaquin in the patient's medical history or on ECG. Discussed the case with hospitalist Angie CHURCHILL who agrees to admit the patient to [facility]. <Alessandro Melvin PA-C - Last Filed: 08/23/24 02:14> Lab Data Result diagrams: 08/23/24 05:01 08/23/24 17:16 <Alessandro Melvin PA-C - Last Filed: 08/23/24 02:14> Labs: Lab Results 08/22/24 08/22/24 08/22/24 Range/Units 18:29 19:24 19:36 WBC 18.6 H (4.5-10.0) K/mm3 RBC 3.50 L (4.6-6.20) M/mm3 Hgb 11.2 L (14.0-18.0) g/dL Hct 32.8 L (42.0-52.0) % MCV 93.7 (80-100) fl MCH 32.0 (26-34) pg MCHC 34.1 (32-36) g/dl RDW 13.6 (11.5-14.5) % Plt Count 254 (150-375) k/mm3 MPV 8.6 (7.4-10.4) fl Immature Gran % (Auto) 0.6 H (0-0.5) % Neut % (Auto) 85.9 H (45.5-73.1) % Lymph % (Auto) 6.1 L (18.3-44.2) % [place] % (Auto) 5.4 (2.6-8.5) % Eos % (Auto) 1.6 (0-4.4) % Baso % (Auto) 0.4 (0.2-1.2) % Lymph # (Auto) 1.14 (0.9-3.2) K/mm3 [place] # (Auto) 1.0 H (0.1-0.6) K/mm3 Eos # (Auto) 0.3 (0-0.3) K/mm3 Baso # (Auto) 0.1 (0.0-0.1) K/mm3 Abs Immat Gran (auto) 0.11 H (0.00-0.031) K/mm3 Absolute Neuts (auto) 16.0 H (1.3-6.7) K/mm3 Absolute Nucleated RBC 0.000 (0.0-0.012) K/mm3 Nucleated RBC % 0.0 (0.0-0.2) % PT 14.2 (11.1-14.7) Seconds INR 1.1 APTT 28.6 (22.3-36.8) Seconds Sodium 127 L (137-145) mmol/L Potassium 3.9 (3.4-5.0) mmol/L Chloride 95 L (98-107) mmol/L Carbon Dioxide 25 (22-30) mmol/L Anion Gap 7 (4-12) mmol/L BUN 23 H (9-20) mg/dL Creatinine 1.24 (0.7-1.3) mg/dL Estim Creat Clear Calc Not Reportable Estimated GFR 55 L (59 - ) Glucose 100 (65-110) mg/dL Lactic Acid 1.6 (0.7-2.0) mmol/L Calcium 8.9 (8.4-10.2) mg/dL C-Reactive Protein < 0.5 (<1.0) mg/dL Lipase 90 (23-300) U/L Urine Color Dark yellow (Yellow) Urine Appearance Clear (Clear) Urine pH 7.5 (5.0-9.0) Ur Specific [place] 1.015 (1.001-1.035) Urine Protein Negative (Negative) mg/dL Urine Glucose (UA) Negative (Negative) mg/dL Urine Ketones Trace H (Negative) mg/dL Ur Blood (Man) Negative (Negative) Urine Nitrate Negative (Negative) Urine Bilirubin Negative (Negative) Urine Urobilinogen 1.0 (<2.0) mg/dL Leukocyte Esterase Rfl 3+ H (Negative) FABIANO/UL Urine RBC 3-5 H (0-2) /hpf Urine WBC 51-100 H (0-3) /hpf Ur Squamous Epith Cells None seen (Few) /hpf Urine Bacteria 4+ H /hpf Urine Casts 0-2 <Alessandro Melvin PA-C - Last Filed: 08/23/24 02:14> Lab Results 08/22/24 08/22/24 08/22/24 Range/Units 18:29 19:24 19:36 WBC 18.6 H (4.5-10.0) K/mm3 RBC 3.50 L (4.6-6.20) M/mm3 Hgb 11.2 L (14.0-18.0) g/dL Hct 32.8 L (42.0-52.0) % MCV 93.7 (80-100) fl MCH 32.0 (26-34) pg MCHC 34.1 (32-36) g/dl RDW 13.6 (11.5-14.5) % Plt Count 254 (150-375) k/mm3 MPV 8.6 (7.4-10.4) fl Immature Gran % (Auto) 0.6 H (0-0.5) % Neut % (Auto) 85.9 H (45.5-73.1) % Lymph % (Auto) 6.1 L (18.3-44.2) % [place] % (Auto) 5.4 (2.6-8.5) % Eos % (Auto) 1.6 (0-4.4) % Baso % (Auto) 0.4 (0.2-1.2) % Lymph # (Auto) 1.14 (0.9-3.2) K/mm3 [place] # (Auto) 1.0 H (0.1-0.6) K/mm3 Eos # (Auto) 0.3 (0-0.3) K/mm3 Baso # (Auto) 0.1 (0.0-0.1) K/mm3 Abs Immat Gran (auto) 0.11 H (0.00-0.031) K/mm3 Absolute Neuts (auto) 16.0 H (1.3-6.7) K/mm3 Absolute Nucleated RBC 0.000 (0.0-0.012) K/mm3 Nucleated RBC % 0.0 (0.0-0.2) % PT 14.2 (11.1-14.7) Seconds INR 1.1 APTT 28.6 (22.3-36.8) Seconds Sodium 127 L (137-145) mmol/L Potassium 3.9 (3.4-5.0) mmol/L Chloride 95 L (98-107) mmol/L Carbon Dioxide 25 (22-30) mmol/L Anion Gap 7 (4-12) mmol/L BUN 23 H (9-20) mg/dL Creatinine 1.24 (0.7-1.3) mg/dL Estim Creat Clear Calc Not Reportable Estimated GFR 55 L (59 - ) Glucose 100 (65-110) mg/dL Lactic Acid 1.6 (0.7-2.0) mmol/L Calcium 8.9 (8.4-10.2) mg/dL C-Reactive Protein < 0.5 (<1.0) mg/dL Lipase 90 (23-300) U/L Urine Color Dark yellow (Yellow) Urine Appearance Clear (Clear) Urine pH 7.5 (5.0-9.0) Ur Specific [place] 1.015 (1.001-1.035) Urine Protein Negative (Negative) mg/dL Urine Glucose (UA) Negative (Negative) mg/dL Urine Ketones Trace H (Negative) mg/dL Ur Blood (Man) Negative (Negative) Urine Nitrate Negative (Negative) Urine Bilirubin Negative (Negative) Urine Urobilinogen 1.0 (<2.0) mg/dL Leukocyte Esterase Rfl 3+ H (Negative) FABIANO/UL Urine RBC 3-5 H (0-2) /hpf Urine WBC 51-100 H (0-3) /hpf Ur Squamous Epith Cells None seen (Few) /hpf Urine Bacteria 4+ H /hpf Urine Casts 0-2 <Jules Hughes MD - Last Filed: 08/23/24 22:30> Discharge Plan Discharge Clinical Impression: Hyponatremia, Acute UTI, Acute conjunctivitis of left eye <Alessandro Melvin PA-C - Last Filed: 08/23/24 02:14> Patient Disposition: Still a Patient <Alessandro Melvin PA-C - Last Filed: 08/23/24 02:14> Condition: Stable <Alessandro Melvin PA-C - Last Filed: 08/23/24 02:14>
--- OUTSIDE RECORDS SUMMARY | 2024-08-22 18:35 | XMS_ITS | Data Portability ---
Author Organization [place] - [facility] [employer] Address [address] [place] [address] Care Team Providers Care Contact Lens Molder Name Role Phone TOM TUTTLE OTHER EVGENY ONOFRE Primary Care Provider [phone] Assessment Encounter Date Assessment Date Assessment LastModified [...] plan. F/U 4 weeks, sooner if needed [email or web address] Not available 02/01/2023 17:01:19 03/01/2023 03/01/2023 Medication [...] plan. F/U 4 weeks, sooner if needed [email or web address] Not available 03/02/2023 15:38:38 03/29/2023 03/29/2023 Medication [...] plan. F/U 4 weeks, sooner if needed [email or web address] Not available 03/29/2023 13:53:52 04/26/2023 04/26/2023 Medication [...] plan. F/U 4 weeks, sooner if needed [email or web address] Not available 04/26/2023 17:01:50 05/24/2023 05/24/2023 Medication [...] plan. F/U 4 weeks, sooner if needed Not available 05/24/2023 10:53:47 Plan of Treatment Reminders Order Date Submit Date Provider Last Modified By Organization Details Last Modified Time Details Appointments None recorded. Lab None recorded. Referral None recorded. Procedures None recorded. Surgeries None recorded. Imaging None recorded. Medication Orders divalproex 125 mg capsule,del ayed release sprinkle 2022 023 [email or web address] Not available 3 10:52:49 divalproex 125 mg capsule,del ayed release sprinkle 2022 023 [email or web address] Not available 10:52:49 divalproex 125 mg capsule,del ayed release sprinkle [email or web address] [facility], [address], [address], [place], [address], 3 10:52:49 Patient TargetsNo targets recorded. Patient Instructions Encounter Date Encounter Id Patient Instructions Last Modified By Organization Details Last Modified Time 05/24/2023 [id number] stop medication* - STOP DEPAKOTE ATHENAFAX Not available 05/24/2023 10:55:52 stop medication* - STOP DEPAKOTE ATHENAFAX Not available 05/24/2023 10:55:31 Reason for Referral None Reported. Problems Name Problem SNOMED Code Status Onset Date Resolution Date Notes Provider Name and Address Organization Details Recorded Time Dementia with behaviora l harriett cifuentes [id number] 3 Active 2022 Jocelyne Ontiveros, DOG OBEDIENCE INSTRUCTOR-BC, PMHNP-BC [address], [place], [address], [facility] 3 15:32:35 Essential hypertens ion 18428710 Completed 202209/05/2022 Jocelyne Ontiveros DOG OBEDIENCE INSTRUCTOR-BC, PMHNP-BC [address], [place], [address], [facility] 3 17:49:40 Vitamin D deficienc y 67009738 Completed 202209/05/2022 Jocelyne Ontiveros DOG OBEDIENCE INSTRUCTOR-BC, PMHNP-BC [address], [place], [address], [facility] 3 17:49:43 Problem Notes None recorded. Medical Equipment None Reported. Allergies Allergen ID Allergen Name Allergen Category Reaction Reaction Severity Criticality Documentation Date Start Date Code Code System Note Provider Name and Address Organization Details Recorded Time 5699 cefdinir medicatio n Not available Not available Not available 06/29/2022 47505 RxNorm Miles Ontiveros null, [place] - [facility] 3 16:27:05 5700 Product containin g 3-hydroxy -3-methyl glutaryl- coenzyme A reductase inhibitor (product) medicatio n Not available Not available Not available 06/29/2022 68214 009 SNOMED Miles Ontiveros [place], [place] - [facility] 3 16:27:14 5701 Cymbalta medicatio n Not available Not available Not available 06/29/2022 19059 4 RxNorm (Dulo xetin e) Miles Ontiveros [place] - [facility] 3 16:27:36 5702 sertralin e medicatio n Not available Not available Not available 06/29/2022 08469 RxNorm Miles Ontiver[place] [facility] 3 16:27:43 5703 Product containin g tetracycl ine and antibioti c (product) medicatio n Not available Not available Not available 06/29/2022 50813 1004 SNANGEL Ontiveros null, [place] - [facility] 3 16:27:51 Medications Name Sig [...] Not Available Not Available Not Available Acid Brinell Tester Complete (famotidin e) 10 mg-800 mg-165 mg [...] Tobacco Smoking Status Never Smoker [place] [facility] 06/30/2022 16:30:00 Do You Have An Advance Directive? Yes Information not available 06/29/2022 What Is Your Level Of Alcohol Consumption? None [email or web address] Information not available 06/30/2022 Are You Currently Sexually Active With Anyone Who Has Traveled (within The Last 12 Weeks) To A Zika-affected Area? No [email or web address] Information not available 06/30/2022 Are You Blind Or Do You Have Difficulty Seeing? Yes Glasses [email or web address] Information not available 06/30/2022 Is Blood Transfusion Acceptable In An Emergency? Yes [email or web address] Information not available 06/29/2022 What Is Your Level Of Caffeine Consumption? Heavy [email or web address] Information not available 06/30/2022 What Type Of Support Services Manager Do You Use? None [email or web address] Information not available 06/30/2022 What Is Your Code Status? Full Code [email or web address] Information not available 06/29/2022 In The 14 Days Before Symptom Onset, Have You Had Close Contact With A Laboratory-confir med COVID-19 While That Case Was Ill? No [email or web address] Information not available 06/30/2022 In The 14 Days Before Symptom Onset, Have You Had Close Contact With A Person Who Is Under Investigation For COVID-19 While That Person Was Ill? No [email or web address] Information not available 06/30/2022 Have You Been To An Area Known To Be High Risk For COVID-19? No [email or web address] Information not available 06/30/2022 Are You Currently Employed? No [email or web address] Information not available 06/30/2022 Are You Deaf Or Do You Have Serious Difficulty Hearing? Yes Hearing Aids [email or web address] Information not available 06/30/2022 What Type Of Diet Are You Following? REGULAR [email or web address] Information not available 06/30/2022 Have You Processed Blood Or Body Fluids From An Ebola Virus Disease Patient Without Appropriate PPE? No [email or web address] Information not available 06/30/2022 Do You Reside In Or Have You Traveled To An Area Where Ebola Virus Transmission Is Active? No Information not available 06/30/2022 What Is The Highest Grade Or Level Of School You Have Completed Or The Highest Degree You Have Received? [id number] [email or web address] Information not available 06/30/2022 How Many Days Of Moderate To Strenuous Exercise, Like A Brisk Walk, Did You Do In The Last 7 Days? 0 [email or web address] Information not available 06/30/2022 Have There Been Any Changes To Your Family Or Social Situation? Yes Was In [facility] [place], Mentally Affected. [email or web address] Information not available 06/30/2022 Are There Any Guns Present In Your Home? No Information not available 06/30/2022 Which Of Your Hands Is Dominant? Right [email or web address] Information not available 06/30/2022 Have You Recently Or Are You Planning To Travel To An Area With Zika Virus? No Information not available 06/30/2022 Do You Have A Medical Power Of Coal Pulverizer Operator? Yes Ioana valdivia Information not available 06/30/2022 What Was The Date Of Your Most Recent Tobacco Screening? 06/30/2022 [email or web address] Information not available 06/30/2022 How Many Children Do You Have? 2 [email or web address] Information not available 06/30/2022 Do You Have Any Pets? No [email or web address] Information not available 06/30/2022 What Is Your Relationship Status? [email or web address] Information not available 06/30/2022 Do You Use Your Seat Belt Or Car Seat Routinely? Yes [email or web address] Information not available 06/30/2022 Are You Sexually Active? No Information not available 06/30/2022 Do You Have Smoke And Carbon Monoxide Detectors In Your Home? Yes [email or web address] Information not available 06/30/2022 Are You Passively Exposed To Smoke? No [email or web address] Information no t available 06/30/2022 Do You Participate In Social Media? No [email or web address] Information not available 06/30/2022 What Types Of Sporting Activities Do You Participate In? N/A [email or web address] Information not available 06/30/2022 Do You Feel Stressed (tense, Restless, Nervous, Or Anxious, Or Unable To Sleep At Night)? [id number] [email or web address] Information not available 06/30/2022 Do You Use Any Illicit Or Recreational Drugs? No [email or web address] Information not available 06/30/2022 Do You Use Sunscreen Routinely? No [email or web address] Information not available 06/30/2022 Have You Recently Traveled Abroad? No [email or web address] Information not available 06/30/2022 Are You Currently In School? No Information not available 06/30/2022 Do You Have Any Dietary Restrictions? No [email or web address] Information not available 06/30/2022 Do You Or Have You Ever Used Any Other Forms Of Tobacco Or Nicotine? No [email or web address] Information not available 06/30/2022 Sex: Male Functional Status Question Answer Note LastModified by Organizat ion Details LastModified Time Do you have difficulty walking or climbing stairs? No [email or web address] Information not available 06/30/2022 Do you have transportation difficulties? No [email or web address] Information not available 06/30/2022 Are you able to walk? YESWOREST [email or web address] Information not available 06/30/2022 Do you have difficulty doing errands alone? Yes [email or web address] Information not available 06/30/2022 Are you able to care for yourself? No [email or web address] Information not available 06/30/2022 Do you have difficulty dressing or bathing? No Information not available 06/30/2022 What is your exercise level? None [email or web address] Information not available 06/30/2022 Mental Status Question Answer Note LastModified by Organization D etails LastModified Time Do you have difficulty concentrating, remembering or making decisions? Yes [email or web address] Information no t available 06/30/2022 Family History Relationship Description Onset Age of this Age Resolved Age Notes LastModified by Organization Details LastModified Time Mother Kidney disease [email or web address] Not available 2022 16:24:15 Sister Cerebrovascu lar accident [email or web address] Not available 16:24:49 Medical History Condition Response Parkinsons Disease Y Cardiac Diseases / Disorders Y Falls Y Infectious Disease/Disorders/Virus Y Cancer Y Dementia Y Hypertension Y Depression Y Immunizations Vaccine Type Date Status Note Provider Nam jacobo and Address Organization Details Recorded Time SARS-COV-2 (COVID-19) vaccine, UNSPECIFIED 05/26/2021 completed Miles Ontiveros null, [facility] 06/29/2022 16:28:33 SARS-COV-2 (COVID-19) vaccine, UNSPECIFIED 08/23/2020 completed Miles Ontiveros null, [place] - [facility] 06/29/2022 16:28:45 SARS-COV-2 (COVID-19) vaccine, UNSPECIFIED 04/08/2021 completed Miles Ontiveros null, [facility] 06/29/2022 16:28:54 Influenza, adjuvanted, quadrivalent, PF 03/18/2023 completed Wendy Alcon null, [facility] 03/18/2023 16:05:32 Past Encounters Encounter ID Performer Location Encounter Start Date Encounter Closed Date Diagnosis/Indication Diagnosis SNOMED-CT Code Diagnosis ICD10 Code Diagnosis Note [id number] Alaina Weaver [facility] [address] [place] [address] 06/30/2022 07:01:45 07/01/2022 12:01:24 Dementia with behavioral disturbance 9527449725 103 F03.918 Essential hypertension 96247019 I10 taking medication s. labs to eval levels. Vitamin D deficiency 347 16913 E55.9 taking medication s. labs to eval levels. Screening for disorder 405261439 Z13.89 [id number] PAMELA Strong, PMHNP-LUZ [facility] [address] [place] [address] 07/07/2022 14:39:50 07/07/2022 17:14:28 Dementia with behavioral disturbance 2431892649 103 F03.918 behaviors and related are doing better. Still having some breakthrou gh but better than before. Pain in ri ght hip joint 7696604816 83888 M25.551 Pain in ri ght lower limb 387284191 M79.604 [id number] PAMELA Strong, PMHNP-LUZ [facility] [address] [place] [address] 07/31/2022 13:28:06 08/01/2022 09:38:23 Dementia with behavioral disturbance 4284447135 103 F03.918 Abnormalit y of nail of toe 595792691 L60.8 [id number] Jocelyne Ontiveros, [facility], [facility] Tele[facility]ic in[facility] [address] [place] [address] 08/05/2022 09:25:48 08/05/2022 15:42:18 Dementia with behavioral disturbance 5426985059 103 F03.918 Recurrent falls 39700482 2 R29.6 Advance care planning 71 3477487 Z71.89 [id number] Jocelyne Ontiveros [facility], [facility] [address] [place] [address] 08/24/2022 07:01:41 08/24/2022 18:59:28 Dementia with behavioral disturbance 5548935728 103 F03.918 Doing much better with moods and behaviors. Depakote has been providing significan t coverage. No Zyprexa has had to be given. Recurrent falls 56774586 2 R29.6 [id number] Jocelyne Ontiveros [facility], [facility] [address] [place] [address] 09/21/2022 05:51:16 09/21/2022 18:55:50 Dementia with behavioral disturbance 6010290393 103 F03.918 Has been significan t views [...] Dr. Jairon MD on this case. Given [place]'s situation Depakote remains the gold standard for [...] mood than people with Parkinson' s disease. [id number] PAMELA Strong, PMHNP-LUZ [facility] [address] [place] [facility] [place] [address] 11/11/2022 06:50:28 11/11/2022 16:41:03 Dementia with behavioral disturbance 7672291630 103 F03.918 [id number] PAMELA Strong, PMHNP-BC [facility] [address] [facility] [place] [address] 12/07/2022 08:32:39 12/07/2022 09:44:41 Dementia with behavioral disturbance 3462769306 103 F03.918 [id number] PAMELA Strong, PMHNP-BC [facility] [address] [facility] [place] [address] 01/04/2023 07:15:16 01/04/2023 15:08:59 Dementia with behavioral disturbance 5638895085 103 F03.918 [id number] Jocelyne Ontiveros, DOG OBEDIENCE INSTRUCTOR-BC, PMHNP-BC [facility] [address] [place] [address] 02/01/2023 08:35:23 02/01/2023 19:36:17 Dementia with behavioral disturbance 0273265051 103 F03.918 [id number] Jocelyne Ontiveros DOG OBEDIENCE INSTRUCTOR-BC, PMHNP-BC [facility] [address] [place] [address] 03/01/2023 08:33:58 03/02/2023 19:39:29 Dementia with behavioral disturbance 2590280860 103 F03.918 [id number] Jocelyne Ontiveros DOG OBEDIENCE INSTRUCTOR-BC, PMHNP-BC [facility] [address] [facility] [place] [address] 03/29/2023 07:17:59 03/29/2023 14:45:21 Dementia with behavioral disturbance 1167079554 103 F03.918 [id number] Jocelyne Ontiveros, DOG OBEDIENCE INSTRUCTOR-BC, PMHNP-BC [facility] [address] [facility] [place] [address] 04/26/2023 08:31:08 04/26/2023 18:16:13 Dementia with behavioral disturbance 4580529819 103 F03.918 [id number] Jocelyne Ontiveros, DOG OBEDIENCE INSTRUCTOR-BC, PMHNP-BC [facility] [address] [facility] [place] [address] 05/24/2023 07:05:18 05/24/2023 18:08:52 Dementia with behavioral disturbance 0312317238 103 F03.918 Health Concerns Section Related Observation LastModified by Organization Detai ls LastModified Time None Recorded Concern Status LastModified by Organization Details LastModified Time None Recorded Advance Directives Directive Y: Payers Encounter Date Sequence Insurance Name Policy Number Policy Flores Covered Member ID Flores Member ID Guarantor Name 02/01/2023 1 [facility] (MEDICARE REPLACEMENT/A DVANTAGE - HMO) [id number] Efrain Flores [id number] Efrain Flores 03/01/2023 1 [facility] (MEDICARE REPLACEMENT/A DVANTAGE - HMO) [id number] Efrain Alvarado Flores [id number] Efrain Flores 03/29/2023 1 [facility] (MEDICARE REPLACEMENT/A DVANTAGE - HMO) [id number] Efrain Alvarado Flores [id number] Efrain Flores 04/26/2023 1 [facility] (MEDICARE REPLACEMENT/A DVANTAGE - HMO) [id number] Efrain Alvarado Flores [id number] Efrain Flores 05/24/2023 1 [facility] (MEDICARE REPLACEMENT/A DVANTAGE - HMO) [id number] Efrain Alvarado Flores [id number] Efrain Flores Notes Date Note Type Note [...] with . PAMELA Strong, [facility]-LUZ [address] [place], [address], [facility] 02/01/2023 17:02:20 03/01/2023 text/html DementiaReported bystaff.Quality:short term memory loss; inability to learn or remember new information; forgetting names or everyday words; disoriented time, self, or place Severity:moderate Context:difficulty planning or organizing Associated Symptoms:no depression; no paranoia; no anxiety; no irritability or agitation; no wandering;incontinence Notes:He has doing better on the lower dose of Depakote. PAMELA Strong, [facility] [address] [place], [address], [facility] 03/02/2023 15:39:48 03/29/2023 text/html DementiaReported [...] trigger with agitation. Jocelyne Love PAMELA Ontiveros, [facility] [address] [place], [address], [facility] 03/29/2023 13:54:30 04/26/2023 text/html DementiaReported [...] trigger with agitation. Jocelyne Love PAMELA Ontiveros, [facility] [address], [place], [address] [place] [address], [facility] 04/26/2023 17:02:18 05/24/2023 text/html DementiaReported bystaff.Quality:short term memory loss; inability to learn or remember new information; forgetting names or everyday words; disoriented time, self, or place Severity:moderate Context:difficulty planning or organizing Associated Symptoms:no depression; no paranoia; no anxiety; no irritability or agitation; no wandering;incontinence Notes:No noted behaviors have occurred. He has been doing very well. His confusion/cognition is worsening. Jocelyne Love [facility]A [facility]iveros, [facility] [address] [place], [address], [facility] 05/24/2023 10:54:56
--- OUTSIDE RECORDS SUMMARY | 2024-08-22 18:35 | XMS_ITS | Clinical Summary ---
Author Organization [facility] Address [address] [place] [address] Care Team Providers Care Lap Layer Name Role Phone Davis Vital MD Unavailable [phone] Dylon Calderon OD Unavailable [phone] Gabriella Santos MD Unavailable Stanley Villegas MD Unavailable [phone] Tammy Angel ID Unavailable [phone] Jd Reagan MD Unavailable Rolando Valladares MD Unavailable [phone] Lane Zimmer MD Unavailable [phone] Jocelyne Ontiveros NP Unavailable [phone] Peter Mosqueda MD Primary Care Provider Allergies Active Allergy Reactions Criticality Noted Date Comments Cefdinir Swelling Medium 04/04/2018 Developed swelling on the lips and tongue Duloxetine Nausea only Low 03/14/2018 Attempt for the right L3 neuropathy and failed because of nausea Lisinopril Angioedema High 05/15/2022 Losartan Angioedema High 05/15/2022 Sertraline Unknown Low Nrqdlgs-Sba-Pki Reductase Inhibitors Muscle pain Medium 02/03/2018 Tetracyclines [...] heart disease due to coronary artery obstruction (HCC) Take 1 tablet (81 mg total) [...] 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 Will REFER to PT at [facility] for further assessment and strengthening exercises. Daughter agreeable to this plan. Keep follow in 8 weeks as scheduled. Right leg pain 07/18/2023 Assessment & Plan (07/18/2023 7:24 PM SPRAY CREW): Worse in the last week, see HPI [...] Celebrex daily. Will REFER to PT at [facility] for further assessment and strengthening exercises. Daughter agreeable to this plan. Keep follow in 8 weeks as scheduled. 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 Has not seen [...] not currently on any medications. Lives in [facility]. Staff gives him his medicine. No acute findings on exam today, answers all questions appropriately. Assessment & Plan (01/03/2023 8:45 PM CDT): Stable, not currently on any medications. Lives in [facility]. Staff gives him his medicine. No acute findings on exam today, answers all questions appropriately. Assessment & Plan (03/20/2022 11:37 AM CDT): Chronic problem Patient presents with daughter to have paperwork filled out for admission to assisted living facility - [facility] Paperwork completed and copied - [...] Hypertension Assessment & Plan (07/18/2023 7:32 PM SPRAY CREW): BP stable in office today on current therapy. No acute findings on exam. Continue current regimen and low salt diet. Assessment & Plan (06/11/2023 11:54 AM SPRAY CREW): BP stable in office today on current [...] and rush removal. Ischemic heart disease due to coronary artery ob struction 09/01/2011 Overview (04/11/2019): Care now managed by Dr. Reagan at [facility] bypass at [facility] with a right vein graft 1996, last stress test [place] 2014 chemical stress test passed with flying colors. Long scan June 2018 Conclusions: Negative EKG portion of stress test. There is no ischemia. There is a large fixed defect involving the inferior and inferolateral dominguez, consistent with prior inferior NM. Global left ventricular function is at the [...] 01/03/20232023 Assessment & Plan (06/11/2023 11:53 AM SPRAY CREW): 5 days ago, was walking with walker [...] head laceration. Received an incomplete note from [facility] for latest ER visit but imaging was negative for anything acute. Vitals stable. No acute findings on exam. Head lac is healing appropriately. Will contact Dr. Palmer to facilitate referral for hip. Continue current regimen, return Wednesday to remove rush. Hamstring tear 01/03/2023 03/01/2023 Assessment & Plan (01/03/2023 8:55 PM CDT): MRI R hip done 11/14/22 at [facility] shows complete tear of R ileopsoas tendon. [...] 01/17/2018 Assessment & Plan (06/11/2023 11:54 AM SPRAY CREW): Fall 5 days ago, was walking with [...] 12/18/2016 Overview (09/17/2016): Dizziness - light-headed Immunizations Immunization Administration Dates Next Due Influenza, Quad, Adjuvantate [...] on file Legal Sex Male 1:10 AM SPRAY CREW Gender Identity Not on file Sexual Orientation [...] 9:21 AM CDT Height 175.3 cm (5' 9) 01/18/2024 9:21 AM CDT Body Mass Index [...] 04/08/2021, 08/23/2020, 07/27/2020 Influenza Vaccine (#1) 2024 , 03/21/2021, 03/14/2020, Additional history exists DTaP/Tdap/Td Vaccine (2 - Td or Tdap) 09/21/2024 09/21/2014, 06/08/2002 Pneumococcal vaccine 65+ Completed 016, 09/21/2014, 08/12/2005, Additional history exists Zoster Vaccine Completed 10/05/2018, 12/2018, 09/11/2008 Insurance MEDICARE SOLUTIONS MEDICARE SOLUTIONS MEDICARE SOLUTIONS MEDICARE SOLUTIONS Advance Directives For more information, please contact: [phone] Documents on File Type Date Recorded Patient Firewood Cutter Expl anation ADVANCE DIRECTIVE 04/11/2019 DNR ADVANCE DIRECTIVE 09/21/2014 POWER OF A TTORNEY-MEDICAL * Full Code (Latest Code Status on File) Date Activated Date Inactivated Comments 03/31/2018 10:41 AM 04/01/2018 5:27 PM Care Teams Lap Layer Relationship Specialty Start Date End Date Peter Mosqueda MD [address] [address] PCP - General Family Medicine 01/06/24 Davis Vital MD Gastroenterology 12/18/16 Dylon Calderon OD Ophthalmology 12/18/16 Gabriella Santos MD Neurology 12/18/16 Stanley Villegas MD Surgeon Anesthesiology 03/14/18 Tammy Angel DC Referring Physician 05/30/18 Jd Reagan MD [address] [address] Consulting Physician Cardiology 04/11/19 [place] [address] [address] [address] Consulting Physician Pulmonary Disease 12/26/19 Lane Zimmer MD [address] MAI [address] [place] [address] Referring Physician Ophthalmology 09/02/22 Jocelyne Ontiveros NP [address] [place] [address] Nurse Practitioner Nurse Practitioner 09/02/22
--- OUTSIDE RECORDS SUMMARY | 2024-08-22 18:35 | XMS_ITS | Continuity of Care Document ---
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 [facility] [employer], [address], [place], [place], [address], [place]. tel:[phone] Referring Provider: Renea Onofre MD, [address] [place], [address]. tel:[phone] [facility], [facility] [employer] [address], [place], [place], [address], tel:[phone] SEC Luis M MS Professional Complete Exam (chief complaint) Presence of intraocular lensOther secondary cataract, bilateralVit reous degeneration , bilateralDru sen (degenerativ e) of macula, bilateralMei bomian gland dysfnct right eye, upper and lower eyelidsMeibo isaiah gland dysfnct left eye, upper and lower eyelids 3 Boo OD Bouchra. [facility] [employer], [address], [place], [place], [address], [place]. tel:[phone] Referring Provider: Renea Onofre MD, [address] [place], [address]. tel:[phone] [facility], [address], [place], [place], [address], [place] tel:[phone] SEC Luis M MITCHELL Professional 1 mo PC IOL po (chief complaint) Post op visit 3 Goran Sherman. [address] [facility], [address], [place], [place], [address], [place]. tel:[phone] Referring Provider: Renea Onofre MD, [address] [place], [address]. tel:[phone] [facility], [address], [place], [place], [address], [place] tel:[phone] SEC [place] Professional Post-Op (chief complaint) Post op visit 3 Goran Sherman. [address], [address] [place], [address], [place]. tel:[phone] Referring Provider: Renea Onofre MD, [address], [place], [address]. tel:[phone] [facility], [address], [place], [place], [address], [place] tel:[phone] SEC Luis M MITCHELL Professional 1 day PC IOL po (chief complaint) Post op visit 3 Boo Shook. [address] [employer], [address], [place], [place], [address], [place]. tel:[phone] Referring Provider: Renea Onofre MD, [address], [place], [address]. tel:[phone] [facility], [address], [place], [place], [address], [place] tel:[phone] [facility] No Information 3 Gor[address] Sherman. [address] [facility] [facility], [address], [place], [place], [address], [place]. tel:[phone] Referring Provider: Renea Onofre MD, [address], [place], [address]. tel:[phone] [facility], [address], [place], [place], [address], [place] tel:[phone] SEC [facility] Professional No Information 3 Gor[address] Sherman. [address] [facility], [facility] [place], [address], [place]. tel:[phone] Referring Provider: Renea Onofre MD, [address], [place], [address]. tel:[phone] [facility], [address] [place] [address] [address], [place], [place], [address], [place] tel:[phone] SEC [place] MS Professional 2 week s/p COMPLEX PCIOL (chief complaint) Post op visit 3 Goran Sherman. [address] [facility], [facility] A, [place], [place], [address], [place]. tel:[phone] Referring Provider: Fab Phipps OD, [employer] [address] [facility], [place], [address]. tel:[phone] [facility], [address], [place], [place], [address], [place] tel:[phone] SEC [facility] Professional 1 day s/p PCIOL (chief complaint) Post op visit 0 3 Boo OD Bouchra. [address], [address], [place], [place], [address], [place]. tel:[phone] Referring Provider: Renea Onofre MD, [address], [place], [address]. tel:[phone] [facility], [address], [place], [place], [address], [place] tel:[phone] [facility] No Information 3 Gor[address]. [address], [address], [address], . tel:[phone] Referring Provider: Renea Onofre MD, [address] [place], [address]. tel:[phone] [facility], [address] [place] [address] [address], [place], [place], [address], tel:[phone] SEC [facility] Professional No Information 3 [address]. [address], [address] [place], [address], [place]. tel:[phone] Referring Provider: Renea Onofre MD, [address] [place], [address]. 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 [address], [facility] [place], [address], [place]. tel:[phone] Referring Provider: Renea Onofre MD, [address] [place], [address]. tel:[phone] Office/outpa tient Visit, [facility], [address] [place] [address] [address], [place], [place], [address], [place] tel:[phone] SEC [facility] Professional Cataract evaluation (chief complaint) Age-related nuclear cataract, bilateralMei bomian gland dysfnct left eye, upper and lower eyelidsMeibo isaiah gland dysfnct right eye, upper and lower eyelidsDry eye syndrome of bilateral lacrimal glandsParasi tic infestation of eyelid due to Demodex speciesOther specified inflammation s of eyelidPseudo exfoliation syndrome Fe 3 Gor[address] Sherman. [address], [address], [place], [place], [address], . tel:[phone] Referring Provider: Fab Phipps OD, [facility] [address], [place], [address]. tel:[phone] Family History Family Member Type Diagnosis Age At Onset Problem Family history of Diabetes mirta denis Payers Payer name Insurance type Covered alliance party ID Authoriza timisa(s) AARP Medicare Complete CI [id number] Social History Type Description Quantity Date Captured [...]
--- OUTSIDE RECORDS SUMMARY | 2024-08-22 18:35 | XMS_ITS | Referral Summary ---
Author Organization [facility] Address [address] [place] [address] Care Team Providers Care Layout Technician Name Role Phone Davis Vital MD Unavailable [phone] Dylon Calderon OD Unavailable [phone] Gabriella Santos MD Unavailable Stanley Villegas MD Unavailable [phone] Tammy Angel [place] Unavailable [phone] Jd Reagan MD Unavailable Rolando Valladares MD Unavailable Lane Zimmer MD Unavailable [phone] Jocelyne Ontiveros NP Unavailable [phone] Peter Msoqueda MD Primary Care Provider [phone] Allergies Active Allergy Reactions Criticality Noted Date Comments Cefdinir Swelling Medium 04/04/2018 Developed swelling on the lips and tongue Duloxetine Nausea only Low 03/14/2018 Attempt for the right L3 neuropathy and failed because of nausea Lisinopril Angioedema High 05/15/2022 Losartan Angioedema High 05/15/2022 Sertraline Unknown Low Yjrjxdr-Ent-Wbq Reductase Inhibitors Muscle pain Medium 02/03/2018 Tetracyclines [...] 07/18/2023 Assessment & Plan (07/18/2023 7:23 PM REAL ESTATE PROFESSIONAL): Worse in the last week, see HPI [...] Celebrex daily. Will REFER to PT at [facility] for further assessment and strengthening exercises. Daughter agreeable to this plan. Keep follow in 8 weeks as scheduled. Right leg pain 07/18/2023 Assessment & Plan (07/18/2023 7:24 PM REAL ESTATE PROFESSIONAL): Worse in the last week, see HPI [...] Celebrex daily. Will REFER to PT at [facility] for further assessment and strengthening exercises. Daughter agreeable to this plan. Keep follow in 8 weeks as scheduled. 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 Has not seen [...] any medications. Lives in [facility]. Staff gives him his medicine. No acute findings on exam today, answers all questions appropriately. Assessment & Plan (01/03/2023 8:45 PM CDT): Stable, not currently on any medications. Lives in [facility]. Staff gives him his medicine. No acute findings on exam today, answers all questions appropriately. Assessment & Plan (03/20/2022 11:37 AM CDT): Chronic problem Patient presents with daughter to have paperwork filled out for admission to assisted living facility - [facility] Paperwork completed and copied - to [...] Hypertension Assessment & Plan (07/18/2023 7:32 PM REAL ESTATE PROFESSIONAL): BP stable in office today on current therapy. No acute findings on exam. Continue current regimen and low salt diet. Assessment & Plan (06/11/2023 11:54 AM REAL ESTATE PROFESSIONAL): BP stable in office today on current [...] Dr. Reagan at [facility] at [facility] with a right vein graft 1996, last stress test [place] 2014 chemical stress test passed with flying colors. Long scan June 2018 Conclusions: Negative EKG portion of stress test. There is no ischemia. There is a large fixed defect involving the inferior and inferolateral dominguez, consistent with prior inferior [place]. Global left ventricular function is at the [...] 01/03/20232023 Assessment & Plan (06/11/2023 11:53 AM REAL ESTATE PROFESSIONAL): 5 days ago, was walking with walker [...] head laceration. Received an incomplete note from [facility] for latest ER visit but imaging was negative for anything acute. Vitals stable. No acute findings on exam. Head lac is healing appropriately. Will contact Dr. Palmer to facilitate referral for hip. Continue current regimen, return Wednesday to remove rush. 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 [...] 01/17/2018 Assessment & Plan (06/11/2023 11:54 AM REAL ESTATE PROFESSIONAL): Fall 5 days ago, was walking with [...] on file Legal Sex Male 1:10 AM REAL ESTATE PROFESSIONAL Gender Identity Not on file Sexual Orientation [...] CDT Plan of Treatment Not on file [place] [address] MEDICARE SOLUTIONS MEDICARE SOLUTIONS MEDICARE SOLUTIONS Advance Directives For more information, please contact: [phone] Documents on File Type Date Recorded Patient Mirror Inspector Expl anation ADVANCE DIRECTIVE 04/11/2019 DNR ADVANCE DIRECTIVE 09/21/2014 POWER OF A TTORNEY-MEDICAL * Full Code (Latest Code Status on File) Date Activated Date Inactivated Comments 03/31/2018 10:41 AM 04/01/2018 5:27 PM Care Teams Layout Technician Relationship Specialty Start Date End Date Peter Mosqueda MD [address] [place] [address] PCP - General Family Medicine 01/06/24 Davis Vital MD Gastroenterology 12/18/16 Dylon Calderon OD Ophthalmology 12/18/16 Gabriella Santos MD Neurology 12/18/16 Stanley Villegas MD Surgeon Anesthesiology 03/14/18 Tammy Angel DC Referring Physician 05/30/18 Jd Reagan MD [address] [facility] [address] [place] [address] Consulting Physician Cardiology 04/11/19 [place] [address] [address] [facility] [address] [place] [address] Consulting Physician Pulmonary Disease 12/26/19 Lane Zimmer MD [address] [place] [address] Referring Physician Ophthalmology 09/02/22 Jocelyne Ontiveros NP [address] [place] [address] Nurse Practitioner Nurse Practitioner 09/02/22
--- OUTSIDE RECORDS SUMMARY | 2024-08-22 18:35 | XMS_ITS | Encounter Summary ---
Author Organization [facility] Address [address] [place] [address] Care Team Providers Care Oriental Rug Stretcher Name Role Phone Davis Vital MD Unavailable [phone] Dylon Calderon OD Unavailable [phone] Gabriella Santos MD Unavailable Renea Onofre MD Primary Care Provider [phone] Stanley Villegas MD Unavailable [phone] Tammy Angel DC Unavailable [phone] Jd Reagan MD Unavailable Rolando Ramirez MD Unavailable Lane Zimmer MD Unavailable [phone] Jocelyne Ontiveros NP Unavailable [phone] Peter Mosqueda MD Primary Care Provider Encounter Details Date Type Department Care Team (Late st Contact Info) Description 08/18/2023 Orders Only [facility] [address] [place] [address] Scanning, Provider Social History Tobacco [...] on file Legal Sex Male 1:10 AM RN DIGESTIVE Gender Identity Not on file Sexual Orientation [...] on filedocumented in this encounter Care Teams Oriental Rug Stretcher Relationship Specialty Start Date End Date Renea Onofre MD PCP - General Internal Medicine 05/13/17 01/05/24 Peter Mosqueda MD [address] [address] PCP - General Family Medicine 01/06/24 Davis Vital MD Gastroenterology 12/18/16 Dylon Calderon OD Ophthalmology 12/18/16 Gabriella Santos MD Neurology 12/18/16 Stanley Villegas MD Surgeon Anesthesiology 03/14/18 Tammy Angel DC Referring Physician 05/30/18 Jd Reagan MD [address] [facility] [address] [place] [address] Consulting Physician Cardiology 04/11/19 [place] [address] [address] [facility] [address] [place] [address] Consulting Physician Pulmonary Disease 12/26/19 Lane Zimmer MD [address] [place] [address] Referring Physician Ophthalmology 09/02/22 Jocelyne Ontiveros NP [address] [place] [address] Nurse Practitioner Nurse Practitioner 09/02/22 documented as of this encounter
--- OUTSIDE RECORDS SUMMARY | 2024-08-22 18:35 | XMS_ITS | Encounter Summary ---
Author Organization [facility] Address [address] [place] [address] Phone Care Team Providers Care Vp Publisher Development Name Role Phone Davis Vital MD Unavailable [phone] Dylon Calderon OD Unavailable [phone] Gabriella Santos MD Unavailable Alfredo Velázquez Unavailable Unavailable León Esteban MD Unavailable [phone] Renea Onofre MD Primary Care Provider + [phone] Stanley Villegas MD Unavailable [phone] Tammy Angel DC Unavailable [phone] Jd Reagan MD Unavailable [phone] Rolando Ramirez MD Unavailable [phone] Lane Zimmer MD Unavailable [phone] Jocelyne Ontiveros NP Unavailable [phone] Peter Mosqueda MD Primary Care Provider Encounter Details Date Type Department Care Team (Late st Contact Info) Description 05/25/2017 Orders Only [facility] ProviderNikunj MD [address] [place] [address] Social History Tobacco Use Types Packs/Day Years Used Date Smoking Tobacco: Never Smokeless Tobacco: Never Alcohol Use Standard Drinks/Week Comments No 0 (1 standard drink = 0.6 oz pur e alcohol) Sex and Gender Information Value Date Recorded Sex Assigned at Not on file Legal Sex Male 1:10 AM MEDICAL BILLING COORDINATOR Gender Identity Not on file Sexual Orientation Not on file documented as of this encounter Plan of Treatment Not on file documented as of this encounter Procedures Procedure Name Priority Date/Time Associated Diagnosis Comments DISCHARGE LABORATORY CUMULATIVE REPORT 05/25/2017 12:00 AM MEDICAL BILLING COORDINATOR documented in this encounter Results * DISCHARGE LABORATORY CUMULATIVE REPORT (05/25/2017 12:00 AM MEDICAL BILLING COORDINATOR) Narrative 05/25/2017 12:00 AM MEDICAL BILLING COORDINATOR Ordered by an unspecified provider. Historical Provider LAB BLOOD ORDERABLES Gill l Result documented in this encounter Visit Diagnoses Not on filedocumented in this encounter Care Teams Vp Publisher Development Relationship Specialty Start Date End Date Renea Onofre MD [facility] [address] [place] [address] PCP - General Internal Medicine 05/13/17 01/05/24 Peter Mosqueda MD [address] [address] [facility] [place] [address] [place] [id number] PCP - General Family Medicine 01/06/24 Davis Vital MD Gastroenterology 12/18/16 Dylon Calderon OD Ophthalmology 12/18/16 Gabriella Santos MD Neurology 12/18/16 Alfredo Velázquez Cardiovascular Disease 12/18/16 04/10/19 León Esteban MD [address] [place] [address] Ophthalmology 01/11/17 03/13/18 Stanley Villegas MD [address] [place] [address] Surgeon Anesthesiology 03/14/18 Tammy Angel DC [address] [place] [address] Referring Physician 05/30/18 Jd Reagan MD [address] [facility] [address] [place] [address] Consulting Physician Cardiology 04/11/19 [place] [address] [facility] [address] [place] [address] Consulting Physician Pulmonary Disease 12/26/19 Lane Zimmer MD [address] [place] [address] Referring Physician Ophthalmology 09/02/22 Jocelyne Ontiveros NP [address] [place] [address] Nurse Practitioner Nurse Practitioner 09/02/22 documented as of this encounter
[2024-08-22 18:37] LABS: Basophils Absolute Auto 0.1 K/mm3 (0.0-0.1); Basophils Percent Auto 0.4 % (0.2-1.2); Eosinophils Absolute Auto 0.3 K/mm3 (0-0.3); Eosinophils Percent Auto 1.6 % (0-4.4); Hematocrit 32.8 % (42.0-52.0); Hemoglobin 11.2 g/dL (14.0-18.0); Immature Granulocyte Absolute 0.11 K/mm3 (0.00-0.031); Immature Granulocyte Percent A 0.6 % (0-0.5); Lymphocytes Absolute Auto 1.14 K/mm3 (0.9-3.2); Lymphocytes Percent Auto 6.1 % (18.3-44.2); Mean Corpuscular HGB Conc 34.1 g/dl (32-36); Mean Corpuscular Volume 93.7 fl (80-100); Mean Platelet Volume 8.6 fl (7.4-10.4); Monocytes Percent Auto 5.4 % (2.6-8.5); Neutrophils Percent Auto 85.9 % (45.5-73.1); Platelet Count Result 254 k/mm3 (150-375); Red Cell Distribution Width 13.6 % (11.5-14.5); White Blood Count 18.6 K/mm3 (4.5-10.0)
[2024-08-22 18:48] LABS: Anion Gap 7 mmol/L (4-12); Blood Urea Nitrogen 23 mg/dL (9-20); Calcium 8.9 mg/dL (8.4-10.2); Carbon Dioxide 25 mmol/L (22-30); Chloride 95 mmol/L (98-107); Estimated Glomerular Filt Rate 55; Glucose 100 mg/dL (65-110); Potassium 3.9 mmol/L (3.4-5.0); Sodium 127 mmol/L (137-145)
--- NOTE | 2024-08-22 19:02 | ECG_ITS ---
Test Date: 2024-08-22 19:53:46 Measurements Intervals [place] Rate: 84 P: 48 WI: 193 QRS: 60 QRSD: 109 T: -34 QT: 376 QTc: 445 Interpretive Statements SINUS RHYTHM WITH OCCASIONAL VENTRICULAR PREMATURE COMPLEXES WITH OCCASIONAL SUPRAVENTRICULAR PREMATURE COMPLEXES SEPTAL MYOCARDIAL INFARCTION , OF INDETERMINATE AGE [40+ ms Q WAVE IN V1/V2] Compared to ECG 05/17/2024 23:38:28 Ventricular premature complex(es) now present Electronically Signed On 08-23-2024 13:26:01 CDT by Gianni Mcintyre M.D.
--- NOTE | 2024-08-22 19:14 | PC.NURSE ---
lab called to add on crp and lipase
[2024-08-22 19:30] LABS: CRP < 0.5 mg/dL (<1.0); INR 1.1; Lipase 90 U/L (23-300); Partial Thromboplastin Time 28.6 Seconds (22.3-36.8); Prothrombin Time 14.2 Seconds (11.1-14.7)
[2024-08-22] MEDS: LACTATED RINGERS 1,000 ML 999 ML IV CONT (19:39)
[2024-08-22 19:51] LABS: Add Urine Microscopic? YES; Appearance Urine Clear (Clear); Bacteria Urine 4+ /hpf; Bilirubin Urine Negative (Negative); Blood Urine Negative (Negative); Color Urine Dark Yellow (Yellow); Glucose Urine UA Negative (Negative); Ketones Urine Trace mg/dL (Negative); Leukocyte Esterase Ur 3+ LEU/UL (Negative); Nitrate Urine Negative (Negative); Non Pathogenic Casts 0-2; Protein Urine Negative (Negative); Specific Grav Ur 1.015 (1.001-1.035); Squamous Epithelial Cell Urine None Seen /hpf (Few); WBC Urine 51-100 /hpf (0-3); pH Urine 7.5 (5.0-9.0)
[2024-08-22 19:57] LABS: Lactic Acid Reflex 1.6 mmol/L (0.7-2.0)
[2024-08-22] MEDS: levoFLOXacin 750 MG/D5W 150 ML 750 MG/150 ML BAG 100 MG IVPB (20:44)
[2024-08-22] MEDS: SODIUM CHLORIDE 0.9% IV 1,000 ML 999 ML IV CONT (20:44)
--- NOTE | 2024-08-22 21:33 | PC.NURSE ---
Pt. urinated and had BM in depend. 3x staff members needed to change pt with family at bedside. Pt. continuously attempted to kick, hit and pinch staff during this while yelling profanities. Dirty depend removed, ramy care performed with soap and water, and clean depend applied. Fresh linen also applied to bed. Pt. continues to be aggressive toward staff and unable to be redirected. Unable to safety get updated set of VS. Pt. immediately removed VS equipment upon placement. YIFAN Melvin notified.
[2024-08-22 22:33] VITALS: BMI 20.9
--- NOTE | 2024-08-22 22:35 | ADMGEN ---
This patient, Efrain Flores, was admitted to Medical Room 256-. Patient/family oriented to hospital policies and general routines including ID bracelet, bed and alarms, visiting hours, pain management, procedures, bathroom and other care routines, personal items, smoking policy, room service/diet, and visiting hours. Information on how to activate the Rapid Response Team has been discussed. Patient/Family are encouraged to report perceived risks to care and to ask questions if they do not understand what they are told or what they should do.
--- NOTE | 2024-08-23 03:02 | P.HP_ITS ---
H&P: HPI History of Present Illness Date/Time: 08/23/24 03:02 Chief Complaint: weakness and behavior changes Narrative: This is an 88-year-old male with a significant past medical history of dementia, dyslipidemia, coronary artery disease, hypertension who presented to the hospital from his intermediate facility due to increasing aggressive combative behavior and weakness. Due to patient's Dementia and mentation, most of the history of presenting illness was obtained from the medical record. Workup in the hospital included a head CT which was negative for any acute intracranial process. Chest x-ray which was negative for any acute cardiopulmonary process. Initial labs showed a white blood cell count of 18.6, hemoglobin 11.2, sodium 127, chloride 95, creatinine 1.24, EGFR 55, lactic acid was 1.6. UA showed trace urine ketones, 3+ leukocyte, 3-5 urine RBC, 51-100 urine WBC, 4+ urine bacteria. Urine and blood cultures were obtained and are pending. EKG showing sinus rhythm with occasional PVCs with a rate of 84, QTC 445. Patient was given 1 L of normal saline, 1 L of LR, Levaquin, and started on maintenance IV fluids while in the ED. Review of Systems Review of Systems: ROS unobtainable: Yes unobtainable due to mental status PMFSH Past Medical History Medical History Dyslipidemia Coronary artery disease Hypertension Dementia Surgical History Surgical History History of cataract extraction History of arthroscopy of knee History of four vessel coronary artery bypass graft Family History Family History Mother Kidney failure CHF (congestive heart failure) Dialysis patient Social History Social History Social History: Surrogate medical decision maker: Corine Flores () or Ioana Mascorro (daughter). Code status: Full code. Smoking status: Unknown if ever smoked Alcohol intake: never Substance use: never Lack of Transportation: No Lack of Food: Never True Current Housing: I Have Housing Concerned About Future Housing: No Difficulty Paying Gas/Electric Bills: No Difficulty Paying for Meds: No Currently Unemployed: No Education: High School Diploma/GED Difficulty w/ Childcare or Family Care: No Additional living arrangements comments: The patient and his live in assisted living at [facility]. 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 He also worked at [employer]. Spiritual care concerns: No Meds Home Medications and Allergies Home Medications ?Medication ?Instructions ?Recorded ?Confirmed ?Type amlodipine 5 mg tablet 5 mg PO BIDWM 11/14/22 08/22/24 History aspirin 81 mg chewable tablet 81 mg PO DAILY 11/14/22 08/22/24 History cholecalciferol (vitamin D3) 25 25 mcg PO DAILY 11/14/22 08/22/24 History mcg (1,000 unit) tablet divalproex 125 mg capsule,delayed 125 mg PO BID 11/14/22 08/22/24 History release sprinkle evolocumab 140 mg/mL subcutaneous 140 mg subcut [id number] 11/14/22 08/22/24 History pen injector (Warren Cornejo) labetalol 200 mg tablet 200 mg PO BID 11/14/22 08/22/24 History melatonin 3 mg disintegrating 3 mg PO HS 11/14/22 08/22/24 History tablet polyethylene glycol 3350 17 gram 17 g PO DAILY PRN constipation 11/14/22 08/22/24 History oral powder packet (Miralax) chlorthalidone 25 mg tablet 25 mg PO DAILY 12/27/22 08/22/24 History potassium chloride 20 mEq 20 meq PO DAILY #30 tabs 12/27/22 08/22/24 Rx tablet,extended release acetaminophen 500 mg tablet 650 mg PO Q6H PRN pain 08/22/24 08/22/24 History celecoxib 200 mg capsule 200 mg PO BIDWM 08/22/24 08/22/24 History citalopram 10 mg tablet 10 mg PO DAILY 08/22/24 08/22/24 History dextromethorphan-guaifenesin 10 10 ml PO Q4H PRN cough 08/22/24 08/22/24 History mg-100 mg/5 mL oral syrup (Chest Congestion Relief DM) guaifenesin 600 mg tablet, 600 mg PO Q12H PRN cough 08/22/24 08/22/24 History extended release 12 hr (Mucinex) memantine 10 mg tablet 5 mg PO BIDWM 08/22/24 08/22/24 History povidone (PF) 0.5 % eye drops 1 drp ophthalmic (eye) QID PRN DRY 08/22/24 08/22/24 History (iVizia (PF)) EYE tramadol 50 mg tablet 50 mg PO DAILY PRN pain 08/22/24 08/22/24 History Allergies Allergy/AdvReac Type Severity Reaction Status Date / Time cefdinir Allergy Unknown Verified 08/22/24 23:00 duloxetine (From Cymbalta) Allergy Unknown Verified 08/22/24 23:00 lisinopril Allergy Unknown Verified 08/22/24 23:00 losartan Allergy Unknown Verified 08/22/24 23:00 sertraline Allergy Unknown Verified 08/22/24 23:00 Xvrurvi-[id number]-FpT Reductase Allergy Unknown Verified 08/22/24 23:00 Inhibitor Tetracyclines Allergy Unknown Verified 08/22/24 23:00 Vital Signs Vital Signs - 24 hr 08/22/24 17:24 Temperature 98.2 F Respiratory Rate 18 Blood Pressure 145/61 H Pulse Oximetry 95 Oxygen Delivery Room Air Exam Narrative: General: Agitated, malnourished Head: atraumatic, no encephalopathy Eyes: PERRLA, sclera clear ENT: moist mucous membranes, nasal passages clear Neck: supple, no JVD, no adenopathy, trachea midline Cardiac: Normal S1 and S2. RRR, Murmur noted, gallops or friction rubs, peripheral pulses intact. Respiratory: Lungs clear to auscultation, no adventitious lung sounds, currently on room air Gastrointestinal: soft, non-distended, non-tender, normoactive bowel sounds. : voiding without difficulty. Incontinent Extremities: moves all extremities well, no edema Skin: clean, dry, intact. No wounds or lesions. Neuro: Alert and oriented x1, cranial nerves intact, no neuro deficits. Psych: confused, agitated, hitting staff H&P: Results Labs Labs: Short CBC 08/22/24 Range/Units 18:29 WBC 18.6 H (4.5-10.0) K/mm3 Hgb 11.2 L (14.0-18.0) g/dL Hct 32.8 L (42.0-52.0) % Plt Count 254 (150-375) k/mm3 [facility] 08/22/24 18:29 Sodium 127 L Potassium 3.9 Chloride 95 L Carbon Dioxide 25 BUN 23 H Creatinine 1.24 Glucose 100 Calcium 8.9 Urine 08/22/24 Range/Units 19:36 Urine Color Dark yellow (Yellow) Urine Appearance Clear (Clear) Urine pH 7.5 (5.0-9.0) Ur Specific [place] 1.015 (1.001-1.035) Urine Protein Negative (Negative) mg/dL Urine Glucose (UA) Negative (Negative) mg/dL Imaging CT scan - head: Radiologist's impression: EXAMINATION: CT brain wo con DATE: 08/22/2024 19:03 INDICATION: rule out hemorrhage, altered . TECHNIQUE: Computed tomography (CT) of the head was performed without intravenous contrast. The mA was adjusted according to patient size. Iterative reconstruction technique was employed. The dose-length product was 681.00 mGy- cm. COMPARISON: 07/22/2024. FINDINGS: Mild motion artifact. No acute intracranial hemorrhage or extra-axial fluid collection. No hydrocephalus, mass, or herniation. No acute ischemic infarct. Unremarkable dural venous sinus attenuation. No acute osseous abnormality. The aerated spaces are clear. Moderate atrophy and mild chronic white matter change. Atherosclerotic intracranial calcification. Bilateral lens replacements. Small old right cerebellar infarct. IMPRESSION: No acute intracranial process. Reviewed, dictated and finalized at location K. Chest x-ray: Radiologist's impression: EXAMINATION: XR chest 1V portable Exam Date/Time: 08/22/2024 19:00 CDT HISTORY: leukocytosis, altered, assess for PNA Comparison: 07/22/2024. RESULT: Lines, tubes, and devices: Intact sternotomy wires. Mediastinal surgical clips. Lungs and pleura: No focal consolidation, pleural effusion, or pneumothorax. Calcified granulomas. Cardiomediastinal silhouette: Stable. Other: No acute osseous or upper abdominal finding. IMPRESSION: No acute cardiopulmonary process. Reviewed, dictated and finalized at location K. Assessment and Plan Assessment and plan (1) Acute UTI: Code(s): N39.0 - Urinary tract infection, site not specified Status: Acute Assessment and Plan: * UA showed trace urine ketones, 3+ leukocyte, 3-5 urine RBC, 51-100 urine WBC, 4+ urine bacteria * Urine culture and blood cultures were obtained and pending * Continue levofloxacin (2) Hyponatremia: Code(s): E87.1 - Hypo-osmolality and hyponatremia Status: Acute Assessment and Plan: Likely secondary to dehydration * Sodium 127 * Patient was given 2 L in the ED and then started on maintenance IV fluids (3) Dementia: Code(s): F03.90 - Unspecified dementia, unspecified severity, without behavioral disturbance, psychotic disturbance, mood disturbance, and anxiety Status: Acute Assessment and Plan: * Patient given a 1 time dose of IM Haldol 5 mg due to agitation overnight * Continue Namenda and Depakote (4) HTN (hypertension): Code(s): I10 - Essential (primary) hypertension Status: Acute Assessment and Plan: * Blood pressure ranging * Continue amlodipine and labetalol (5) Dyslipidemia: Code(s): E78.5 - Hyperlipidemia, unspecified Status: Acute Assessment and Plan: * Continue aspirin (6) Severe protein-calorie malnutrition: Code(s): E43 - Unspecified severe protein-calorie malnutrition Status: Acute Assessment and Plan: Likely secondary to dementia * Dietitian consulted * BMI 21.0, 64.4 kg * Encourage p.o. intake Quality VTE Prophylaxis VTE prophylaxis: pharmacologic ordered Hospitalist MIPS Advance Care Plan I have confirmed that the patient's Advanced Care Plan is present, code status is documented, or surrogate decision maker is listed in patient medical record.: Yes Medication Reconciliation I have utilized all available resources to obtain, update and review the patien ts current medications (includes all prescriptions, OTC, herbals, cannabis, and nutritional supplements).: Yes
[2024-08-23 03:24] VITALS: BP 150/70; PULSE 95; RESP 20; TEMP 36.7
[2024-08-23] MEDS: HALOPERIDOL LACTATE 5 MG/ML VIAL IM (04:09)
[2024-08-23] MEDS: SODIUM CHLORIDE 0.9% IV 1,000 ML 75 ML IV CONT ×3 (05:01→20:27)
[2024-08-23 05:29] LABS: Basophils Absolute Auto 0.1 K/mm3 (0.0-0.1); Basophils Percent Auto 0.5 % (0.2-1.2); Eosinophils Absolute Auto 0.2 K/mm3 (0-0.3); Eosinophils Percent Auto 1.8 % (0-4.4); Hematocrit 30.6 % (42.0-52.0); Hemoglobin 10.3 g/dL (14.0-18.0); Immature Granulocyte Absolute 0.05 K/mm3 (0.00-0.031); Immature Granulocyte Percent A 0.5 % (0-0.5); Lymphocytes Absolute Auto 1.54 K/mm3 (0.9-3.2); Lymphocytes Percent Auto 14.1 % (18.3-44.2); Mean Corpuscular HGB Conc 33.7 g/dl (32-36); Mean Corpuscular Hemoglobin 31.8 pg (26-34); Mean Corpuscular Volume 94.4 fl (80-100); Mean Platelet Volume 9.1 fl (7.4-10.4); Monocytes Absolute Auto 1.2 K/mm3 (0.1-0.6); Monocytes Percent Auto 11.4 % (2.6-8.5); Neutrophils Absolute Auto 7.8 K/mm3 (1.3-6.7); Neutrophils Percent Auto 71.7 % (45.5-73.1); Platelet Count Result 229 k/mm3 (150-375); Red Blood Count 3.24 M/mm3 (4.6-6.20); Red Cell Distribution Width 13.7 % (11.5-14.5); White Blood Count 10.9 K/mm3 (4.5-10.0)
[2024-08-23 05:52] LABS: Alanine Aminotransferase 26 U/L (6-50); Albumin Level 3.2 g/dL (3.5-5.1); Alkaline Phosphatase 71 U/L (38-126); Anion Gap 8 mmol/L (4-12); Aspartate Amino Transferase 34 U/L (17-59); Bilirubin,Total 0.9 mg/dL (0.2-1.3); Blood Urea Nitrogen 18 mg/dL (9-20); Calcium 8.5 mg/dL (8.4-10.2); Carbon Dioxide 23 mmol/L (22-30); Chloride 97 mmol/L (98-107); Estimated CRCL calculation 40 ml/min; Estimated Glomerular Filt Rate > 60; Glucose 82 mg/dL (65-110); Magnesium 1.5 mg/dL (1.6-2.3); Potassium 3.5 mmol/L (3.4-5.0); Sodium 128 mmol/L (137-145)
--- NOTE | 2024-08-23 07:24 | PM.IMPN ---
Progress Note: A&P Assessment and Plan (1) Acute UTI: Code(s): N39.0 - Urinary tract infection, site not specified Status: Acute Assessment and Plan: UA showed trace urine ketones, 3+ leukocyte, 3-5 urine RBC, 51-100 urine WBC, 4+ urine bacteria Urine culture and blood cultures were obtained and pending Continue levofloxacin WBC 18.6>10.9 on 08/23 (2) Hyponatremia: Code(s): E87.1 - Hypo-osmolality and hyponatremia Status: Acute Assessment and Plan: Likely secondary to dehydration Sodium 128 Patient was given 2 L in the ED and then started on maintenance IV fluids Plan to give 50 mL bolus of 3% saline (3) Dementia: Code(s): F03.90 - Unspecified dementia, unspecified severity, without behavioral disturbance, psychotic disturbance, mood disturbance, and anxiety Status: Acute Assessment and Plan: Patient given a 1 time dose of IM Haldol 5 mg due to agitation overnight Continue Namenda and Depakote (4) HTN (hypertension): Code(s): I10 - Essential (primary) hypertension Status: Acute Assessment and Plan: Blood pressure ranging Continue amlodipine and labetalol (5) Dyslipidemia: Code(s): E78.5 - Hyperlipidemia, unspecified Status: Acute Assessment and Plan: Continue aspirin (6) Severe protein-calorie malnutrition: Code(s): E43 - Unspecified severe protein-calorie malnutrition Status: Acute Assessment and Plan: Likely secondary to dementia Dietitian consulted BMI 21.0, 64.4 kg Encourage p.o. intake Time Spent With Patient Time: - Subjective Date/time seen: 08/23/24 07:24 Interval history: Patient is an 88-year-old male who presented to the ED due to increasing aggressive behavior and weakness Due to patient's Dementia and mentation, most of the history of presenting illness was obtained from the medical record. ED workup indicated urinary tract infection with associated hyponatremia. 08/23/2024 Patient is sitting comfortably at bedside. Denies any urinary symptoms or pain at this time.i Urine and blood cultures are still pending at this time. Will continue to treat UTI with Levofloxacin.According to staff, patient has been cooperative and pleasant so far but have been told that he can turn aggressive and agitated very quickly, but that this is his baseline. Review of Systems Review of Systems: ROS unobtainable: Yes unobtainable due to mental status Exam Narrative: Gen - well appearing male in no acute respiratory distress who is nontoxic-appearing lying semi recumbent in bed HEENT - normocephalic. Atraumatic. Pupils equal round and reactive. Extraocular motions intact. Sclera clear and anicteric. Nares patent. Oropharynx was clear. No oral lesions. Moist mucous membranes. Tongue was midline. Palate lissa symmetrically. No facial asymmetry. Neck - neck was supple. No dominant adenopathy, thyromegaly or masses. 2+ carotid upstrokes without bruits. Chest - lungs are clear to auscultation bilaterally. No wheezes or crackles. CV - heart was regular rate and rhythm. S1-S2. No murmurs gallops or rubs. Abd - abdomen was soft. Nontender. Nondistended. Positive bowel sounds. No organomegaly or masses. Ext - no clubbing, cyanosis or edema. 2+ DP pulses bilaterally. Neuro - patient is alert and oriented x1. Cranial nerves 2-12 are intact. Speech is clear. Psych - normal mood and affect. Patient is pleasant and cooperative. Skin - warm and dry. No rashes noted. Objective Data Vital Signs Vital Signs: Vital Signs - 24 hr 08/22/24 17:24 08/23/24 03:24 Temperature 98.2 F 98.0 F Pulse Rate 95 Respiratory Rate 18 20 Blood Pressure 145/61 H 150/70 H Pulse Oximetry 95 Oxygen Delivery Room Air Intake/Output Intake/Output: Intake & Output 08/21/24 08/21/24 08/22/24 08/23/24 00:59 23:59 23:59 23:59 Intake Total 1150 0 Output Total 75 1 Balance 1075 -1 Meds/Results Medications: Active Medications Generic Name Dose Route Start Last Admin Trade Name Freq PRN Reason Stop Dose Admin Acetaminophen 650 mg 08/23/24 04:23 Acetaminophen 325 Mg Tablet PO Q6H PRN pain 1-3 Amlodipine Besylate 5 mg 08/23/24 08:00 Amlodipine Besylate 5 Mg Tablet PO BIDWM [facility] Aspirin 81 mg 08/23/24 09:00 Aspirin 81 Mg Chewable Tablet PO DAILY [facility] Celecoxib 200 mg 08/23/24 08:00 Celecoxib 200 Mg Capsule PO BIDWM [facility] Chlorthalidone 25 mg 08/23/24 09:00 Chlorthalidone 25 Mg Tablet PO DAILY [facility] Citalopram Hydrobromide 10 mg 08/23/24 09:00 Citalopram Hydrobromide 10 Mg Tablet PO DAILY [facility] Divalproex Sodium 125 mg 08/23/24 09:00 Divalproex Sodium Sprinkle 125 Mg Cap.Dr PO Q12HR [facility] Enoxaparin Sodium 40 mg 08/23/24 09:00 Enoxaparin 40 Mg/0.4 Ml Syringe SUB-Q DAILY [facility] Guaifenesin/Dextromethorphan 10 ml 08/23/24 04:23 Guaifenesin/Dextromethorphan 10 Ml Udc PO Q4H PRN cough Sodium Chloride 1,000 mls @ 75 mls/hr 08/22/24 20:30 08/23/24 05:01 Normal Saline Iv IV CONT 75 mls/hr .[id number] [facility] Administration Levofloxacin/Dextrose 750 mg in 150 mls @ 100 mls/hr 08/24/24 21:00 Levaquin 750 Mg/D5w 150 Ml IVPB Q48H [facility] Labetalol HCl 200 mg 08/23/24 09:00 Labetalol Hcl 100 Mg Tablet PO Q12HR [facility] Melatonin 3 mg 08/23/24 21:00 Melatonin 3 Mg Tablet PO HS [facility] Memantine 5 mg 08/23/24 08:00 Memantine 5 Mg Tablet PO BIDWM [facility] Ofloxacin 1 drop 08/22/24 21:00 08/22/24 23:20 Ofloxacin 0.3% Ophth Soln 5 Ml Btl LEFT EYE Not Given QID [facility] Ondansetron HCl 4 mg 08/23/24 04:25 Ondansetron Inj 4 Mg/2 Ml Vial IV PUSH Q6H PRN Nausea And Vomiting Polyethylene Glycol 17 gm 08/23/24 04:23 Polyethylene Glycol 3350 17 Gm Powd.Pack PO DAILY PRN constipation Vitamin D 1,000 units 08/23/24 09:00 Cholecalciferol 1,000 Units Tablet PO DAILY [facility] Radiology Results: ITS Impressions Head CT 08/22/24 19:08 IMPRESSION: No acute intracranial process. Chest X-Ray 08/22/24 19:26 IMPRESSION: No acute cardiopulmonary process. Labs Labs: Laboratory Results - last 24 hr 08/22/24 08/22/24 08/22/24 18:29 19:24 19:36 WBC 18.6 H RBC 3.50 L Hgb 11.2 L Hct 32.8 L MCV 93.7 MCH 32.0 MCHC 34.1 RDW 13.6 Plt Count 254 MPV 8.6 Immature Gran % (Auto) 0.6 H Neut % (Auto) 85.9 H Lymph % (Auto) 6.1 L [place] % (Auto) 5.4 Eos % (Auto) 1.6 Baso % (Auto) 0.4 Lymph # (Auto) 1.14 [place] # (Auto) 1.0 H Eos # (Auto) 0.3 Baso # (Auto) 0.1 Abs Immat Gran (auto) 0.11 H Absolute Neuts (auto) 16.0 H Absolute Nucleated RBC 0.000 Nucleated RBC % 0.0 PT 14.2 INR 1.1 APTT 28.6 Sodium 127 L Potassium 3.9 Chloride 95 L Carbon Dioxide 25 Anion Gap 7 BUN 23 H Creatinine 1.24 Estim Creat Clear Calc Not Reportable Estimated GFR 55 L Glucose 100 Lactic Acid 1.6 Calcium 8.9 Magnesium Total Bilirubin AST ALT Alkaline Phosphatase C-Reactive Protein < 0.5 Total Protein Albumin Lipase 90 TSH Urine Color Dark yellow Urine Appearance Clear Urine pH 7.5 Ur Specific [place] 1.015 Urine Protein Negative Urine Glucose (UA) Negative Urine Ketones Trace H Ur Blood (Man) Negative Urine Nitrate Negative Urine Bilirubin Negative Urine Urobilinogen 1.0 Leukocyte Esterase Rfl 3+ H Urine RBC 3-5 H Urine WBC 51-100 H Ur Squamous Epith Cells None seen Urine Bacteria 4+ H Urine Casts 0-2 08/23/24 05:01 WBC 10.9 H RBC 3.24 L Hgb 10.3 L Hct 30.6 L MCV 94.4 MCH 31.8 MCHC 33.7 RDW 13.7 Plt Count 229 MPV 9.1 Immature Gran % (Auto) 0.5 Neut % (Auto) 71.7 Lymph % (Auto) 14.1 L [place] % (Auto) 11.4 H Eos % (Auto) 1.8 Baso % (Auto) 0.5 Lymph # (Auto) 1.54 [place] # (Auto) 1.2 H Eos # (Auto) 0.2 Baso # (Auto) 0.1 Abs Immat Gran (auto) 0.05 H Absolute Neuts (auto) 7.8 H Absolute Nucleated RBC 0.000 Nucleated RBC % 0.0 PT INR APTT Sodium 128 L Potassium 3.5 Chloride 97 L Carbon Dioxide 23 Anion Gap 8 BUN 18 Creatinine 1.04 Estim Creat Clear Calc 40 Estimated GFR > 60 Glucose 82 Lactic Acid Calcium 8.5 Magnesium 1.5 L Total Bilirubin 0.9 AST 34 ALT 26 Alkaline Phosphatase 71 C-Reactive Protein Total Protein 6.0 L Albumin 3.2 L Lipase TSH 1.710 Urine Color Urine Appearance Urine pH Ur Specific [place] Urine Protein Urine Glucose (UA) Urine Ketones Ur Blood (Man) Urine Nitrate Urine Bilirubin Urine Urobilinogen Leukocyte Esterase Rfl Urine RBC Urine WBC Ur Squamous Epith Cells Urine Bacteria Urine Casts Quality VTE Prophylaxis VTE prophylaxis: pharmacologic ordered
[2024-08-23 09:35] VITALS: PULSE 88
[2024-08-23] MEDS: LABETALOL HCL 100 MG TABLET 200 MG PO ×2 (09:35→20:26)
[2024-08-23] MEDS: DIVALPROEX SODIUM SPRINKLE 125 MG CAP.DR PO ×2 (09:35→20:20)
[2024-08-23] MEDS: CHLORTHALIDONE 25 MG TABLET PO (09:35)
[2024-08-23] MEDS: MEMANTINE 5 MG TABLET PO ×2 (09:35→17:27)
[2024-08-23] MEDS: ASPIRIN 81 MG CHEWABLE TABLET PO (09:35)
[2024-08-23] MEDS: CITALOPRAM HYDROBROMIDE 10 MG TABLET PO (09:36)
[2024-08-23] MEDS: CELECOXIB 200 MG CAPSULE PO ×2 (09:36→17:27)
[2024-08-23] MEDS: CHOLECALCIFEROL 1,000 UNITS TABLET 1000 UNITS PO (09:36)
[2024-08-23] MEDS: amLODIPine BESYLATE 5 MG TABLET PO ×2 (09:36→17:27)
[2024-08-23] MEDS: ENOXAPARIN 40 MG/0.4 ML SYRINGE SUB-Q (09:36)
[2024-08-23 11:11] VITALS: BMI 20.9
[2024-08-23] MEDS: OFLOXACIN 0.3% OPHTH SOLN 5 ML BTL 1 DROP LEFT EYE ×3 (13:20→20:22)
[2024-08-23] MEDS: SODIUM CHLORIDE 3% 100 ML 50 ML IV CONT (13:20)
[2024-08-23 15:49] LABS: Sodium Urine Random 170 meq/L
[2024-08-23 16:00] VITALS: BP 168/63; PULSE 78; RESP 18; TEMP 36.6; O2SAT 98
[2024-08-23 17:26] LABS: Sodium 127 mmol/L (137-145)
[2024-08-23] MEDS: SODIUM CHLORIDE 3% 50 ML IV CONT (18:30)
[2024-08-23 20:00] VITALS: PULSE 80; RESP 20; O2SAT 100
[2024-08-23] MEDS: MELATONIN 3 MG TABLET PO (20:20)
[2024-08-23 21:13] VITALS: BP 145/114; PULSE 80; RESP 20; TEMP 36.9; O2SAT 100
[2024-08-24 04:59] LABS: Basophils Absolute Auto 0.1 K/mm3 (0.0-0.1); Basophils Percent Auto 0.8 % (0.2-1.2); Eosinophils Absolute Auto 0.3 K/mm3 (0-0.3); Eosinophils Percent Auto 3.2 % (0-4.4); Hematocrit 35.6 % (42.0-52.0); Immature Granulocyte Absolute 0.05 K/mm3 (0.00-0.031); Immature Granulocyte Percent A 0.6 % (0-0.5); Lymphocytes Absolute Auto 1.39 K/mm3 (0.9-3.2); Lymphocytes Percent Auto 15.4 % (18.3-44.2); Mean Corpuscular HGB Conc 33.7 g/dl (32-36); Mean Corpuscular Hemoglobin 31.4 pg (26-34); Mean Corpuscular Volume 93.2 fl (80-100); Mean Platelet Volume 8.8 fl (7.4-10.4); Monocytes Absolute Auto 1.3 K/mm3 (0.1-0.6); Monocytes Percent Auto 14.2 % (2.6-8.5); Neutrophils Absolute Auto 5.9 K/mm3 (1.3-6.7); Neutrophils Percent Auto 65.8 % (45.5-73.1); Platelet Count Result 235 k/mm3 (150-375); Red Blood Count 3.82 M/mm3 (4.6-6.20); Red Cell Distribution Width 13.3 % (11.5-14.5)
[2024-08-24 05:14] LABS: Alanine Aminotransferase 33 U/L (6-50); Albumin Level 3.8 g/dL (3.5-5.1); Alkaline Phosphatase 69 U/L (38-126); Anion Gap 9 mmol/L (4-12); Aspartate Amino Transferase 50 U/L (17-59); Bilirubin,Total 0.9 mg/dL (0.2-1.3); Blood Urea Nitrogen 10 mg/dL (9-20); Calcium 9.1 mg/dL (8.4-10.2); Carbon Dioxide 26 mmol/L (22-30); Chloride 92 mmol/L (98-107); Estimated CRCL calculation 48 ml/min; Estimated Glomerular Filt Rate > 60; Glucose 96 mg/dL (65-110); Potassium 3.1 mmol/L (3.4-5.0); Sodium 127 mmol/L (137-145)
--- NOTE | 2024-08-24 07:00 | P.PNIM_ITS ---
Progress Note: A&P Assessment and Plan (1) Acute UTI: Code(s): N39.0 - Urinary tract infection, site not specified Status: Acute Assessment and Plan: * UA showed trace urine ketones, 3+ leukocyte, 3-5 urine RBC, 51-100 urine WBC, 4+ urine bacteria * Urine cultures pending, blood cultures negative for growth * Continue levofloxacin * WBC 18.6>10.9> 9.0 on 08/24 (2) Hyponatremia: Code(s): E87.1 - Hypo-osmolality and hyponatremia Status: Acute Assessment and Plan: Likely secondary to dehydration * Sodium 127 * Patient was given 2 L in the ED and then started on maintenance IV fluids * On Chlorthalidone which could be cause of electrolyte abnormalities, plan to hold * Urine Random Sodium: 170 * Urine Osmolality pending (3) Hypokalemia: Code(s): E87.6 - Hypokalemia Status: Acute Assessment and Plan: On ED workup: 3.9 * Today 3.1 * Will replace * monitor (4) Dementia: Code(s): F03.90 - Unspecified dementia, unspecified severity, without behavioral disturbance, psychotic disturbance, mood disturbance, and anxiety Status: Acute Assessment and Plan: * Patient given a 1 time dose of IM Haldol 5 mg due to agitation overnight * Continue Namenda and Depakote (5) HTN (hypertension): Code(s): I10 - Essential (primary) hypertension Status: Acute Assessment and Plan: * Blood pressure ranging * Continue amlodipine and labetalol (6) Dyslipidemia: Code(s): E78.5 - Hyperlipidemia, unspecified Status: Acute Assessment and Plan: * Continue aspirin (7) Severe protein-calorie malnutrition: Code(s): E43 - Unspecified severe protein-calorie malnutrition Status: Acute Assessment and Plan: Likely secondary to dementia * Dietitian consulted * BMI 21.0, 64.4 kg * Encourage p.o. intake Time Spent With Patient Time: Subjective Date/time seen: 08/24/24 07:00 Interval history: Patient is an 88-year-old male who presented to the ED due to increasing aggressive behavior and weakness Due to patient's Dementia and mentation, most of the history of presenting illness was obtained from the medical record. ED workup indicated urinary tract infection with associated hyponatremia. 08/24/2024 Patient is sitting comfortably at bedside, accompanied by daughter. Staff reports that the patient has been very pleasant this morning with no aggressive behavior, and daughter conquers. WBC 9.0, Sodium still low 127 with hypokalemia of 3.1. Will be given K supplementation and will plan to hold Chlorthalidone to address hyponatremia. Will continue hydrating with IVF and continue Levaquin with hopes to DC tomorrow perhaps. Review of Systems Review of Systems: ROS unobtainable: Yes unobtainable due to mental status Exam Narrative: Gen - well appearing male in no acute respiratory distress who is nontoxic- appearing lying semi recumbent in bed HEENT - normocephalic. Atraumatic. Pupils equal round and reactive. Extraocular motions intact. Sclera clear and anicteric. Nares patent. Oropha rynx was clear. No oral lesions. Moist mucous membranes. Tongue was midline. Palate lissa symmetrically. No facial asymmetry. Neck - neck was supple. No dominant adenopathy, thyromegaly or masses. 2+ carotid upstrokes without bruits. Chest - lungs are clear to auscultation bilaterally. No wheezes or crackles. CV - heart was regular rate and rhythm. S1-S2. No murmurs gallops or rubs. Abd - abdomen was soft. Nontender. Nondistended. Positive bowel sounds. No organomegaly or masses. Ext - no clubbing, cyanosis or edema. 2+ DP pulses bilaterally. Neuro - patient is alert and oriented x1. Cranial nerves 2-12 are intact. Speech is clear. Psych - normal mood and affect. Patient is pleasant and cooperative. Skin - warm and dry. No rashes noted. Objective Data Vital Signs Vital Signs: Vital Signs - 24 hr 08/23/24 08:00 08/23/24 09:35 08/23/24 16:00 Temperature 97.8 F Pulse Rate 88 78 Respiratory Rate 18 Blood Pressure 168/63 H Pulse Oximetry 98 Oxygen Delivery Room Air 08/23/24 20:00 08/23/24 21:13 Temperature 98.5 F Pulse Rate 80 80 Respiratory Rate 20 20 Blood Pressure 145/114 H Pulse Oximetry 100 100 Oxygen Delivery Room Air Intake/Output Intake/Output: Intake & Output 08/21/24 08/22/24 08/23/24 08/24/24 23:59 23:59 23:59 23:59 Intake Total 1150 1363.8 150 Output Total 75 1 Balance 1075 1362.8 150 Meds/Results Medications: Active Medications Generic Name Dose Route Start Last Admin Trade Name Freq PRN Reason Stop Dose Admin Acetaminophen 650 mg 08/23/24 04:23 Acetaminophen 325 Mg Tablet PO Q6H PRN pain 1-3 Amlodipine Besylate 5 mg 08/23/24 08:00 08/23/24 17:27 Amlodipine Besylate 5 Mg Tablet PO 5 mg BIDWM [facility] Administration Aspirin 81 mg 08/23/24 09:00 08/23/24 09:35 Aspirin 81 Mg Chewable Tablet PO 81 mg DAILY [facility] Administration Celecoxib 200 mg 08/23/24 08:00 08/23/24 17:27 Celecoxib 200 Mg Capsule PO 200 mg BIDWM [facility] Administration Chlorthalidone 25 mg 08/23/24 09:00 08/23/24 09:35 Chlorthalidone 25 Mg Tablet PO 25 mg DAILY [facility] Administration Citalopram Hydrobromide 10 mg 08/23/24 09:00 08/23/24 09:36 Citalopram Hydrobromide 10 Mg Tablet PO 10 mg DAILY [facility] Administration Divalproex Sodium 125 mg 08/23/24 09:00 08/23/24 20:20 Divalproex Sodium Sprinkle 125 Mg Cap.Dr PO 125 mg Q12HR [facility] Administration Enoxaparin Sodium 40 mg 08/23/24 09:00 08/23/24 09:36 Enoxaparin 40 Mg/0.4 Ml Syringe SUB-Q 40 mg DAILY [facility] Administration Guaifenesin/Dextromethorphan 10 ml 08/23/24 04:23 Guaifenesin/Dextromethorphan 10 Ml Udc PO Q4H PRN cough Sodium Chloride 1,000 mls @ 75 mls/hr 08/22/24 20:30 08/23/24 20:27 Normal Saline Iv IV CONT 75 mls/hr .[id number] [facility] Administration Levofloxacin/Dextrose 750 mg in 150 mls @ 100 mls/hr 08/24/24 21:00 Levaquin 750 Mg/D5w 150 Ml IVPB Q48H [facility] Labetalol HCl 200 mg 08/23/24 09:00 08/23/24 20:26 Labetalol Hcl 100 Mg Tablet PO 200 mg Q12HR [facility] Administration Melatonin 3 mg 08/23/24 21:00 08/23/24 20:20 Melatonin 3 Mg Tablet PO 3 mg HS [facility] Administration Memantine 5 mg 08/23/24 08:00 08/23/24 17:27 Memantine 5 Mg Tablet PO 5 mg BIDWM [facility] Administration Ofloxacin 1 drop 08/22/24 21:00 08/23/24 20:22 Ofloxacin 0.3% Ophth Soln 5 Ml Btl LEFT EYE 1 drop QID [facility] Administration Ondansetron HCl 4 mg 08/23/24 04:25 Ondansetron Inj 4 Mg/2 Ml Vial IV PUSH Q6H PRN Nausea And Vomiting Polyethylene Glycol 17 gm 08/23/24 04:23 Polyethylene Glycol 3350 17 Gm Powd.Pack PO DAILY PRN constipation Vitamin D 1,000 units 08/23/24 09:00 08/23/24 09:36 Cholecalciferol 1,000 Units Tablet PO 1,000 units DAILY [facility] Administration Radiology Results: ITS Impressions Head CT 08/22/24 19:08 IMPRESSION: No acute intracranial process. Chest X-Ray 08/22/24 19:26 IMPRESSION: No acute cardiopulmonary process. Labs Labs: Laboratory Results - last 24 hr 08/23/24 08/23/24 08/24/24 15:36 17:16 04:50 WBC 9.0 RBC 3.82 L Hgb 12.0 L Hct 35.6 L MCV 93.2 MCH 31.4 MCHC 33.7 RDW 13.3 Plt Count 235 MPV 8.8 Immature Gran % (Auto) 0.6 H Neut % (Auto) 65.8 Lymph % (Auto) 15.4 L [place] % (Auto) 14.2 H Eos % (Auto) 3.2 Baso % (Auto) 0.8 Lymph # (Auto) 1.39 [place] # (Auto) 1.3 H Eos # (Auto) 0.3 Baso # (Auto) 0.1 Abs Immat Gran (auto) 0.05 H Absolute Neuts (auto) 5.9 Absolute Nucleated RBC 0.000 Nucleated RBC % 0.0 Sodium 127 L 127 L Potassium 3.1 L Chloride 92 L Carbon Dioxide 26 Anion Gap 9 BUN 10 D Creatinine 0.87 Estim Creat Clear Calc 48 Estimated GFR > 60 Glucose 96 Calcium 9.1 Total Bilirubin 0.9 AST 50 ALT 33 Alkaline Phosphatase 69 Total Protein 7.0 Albumin 3.8 Ur Random Sodium 170 Quality VTE Prophylaxis VTE prophylaxis: pharmacologic ordered Hospitalist MIPS Advance Care Plan I have confirmed that the patient's Advanced Care Plan is present, code status is documented, or surrogate decision maker is listed in patient medical record.: Yes Medication Reconciliation I have utilized all available resources to obtain, update and review the patients current medications (includes all prescriptions, OTC, herbals, cannabis, and nutritional supplements).: Yes
[2024-08-24 09:07] VITALS: PULSE 80
[2024-08-24] MEDS: LABETALOL HCL 100 MG TABLET 200 MG PO (09:07)
[2024-08-24] MEDS: ASPIRIN 81 MG CHEWABLE TABLET PO (09:08)
[2024-08-24] MEDS: CHOLECALCIFEROL 1,000 UNITS TABLET 1000 UNITS PO (09:08)
[2024-08-24] MEDS: amLODIPine BESYLATE 5 MG TABLET PO (09:08)
[2024-08-24] MEDS: CITALOPRAM HYDROBROMIDE 10 MG TABLET PO (09:08)
[2024-08-24] MEDS: MEMANTINE 5 MG TABLET PO (09:08)
[2024-08-24] MEDS: DIVALPROEX SODIUM SPRINKLE 125 MG CAP.DR PO (09:13)
[2024-08-24] MEDS: CELECOXIB 200 MG CAPSULE PO (09:13)
[2024-08-24] MEDS: SODIUM CHLORIDE 0.9% IV 1,000 ML 75 ML IV CONT (09:14)
[2024-08-24 09:15] VITALS: BP 149/72; PULSE 74; O2SAT 95
[2024-08-24] MEDS: OFLOXACIN 0.3% OPHTH SOLN 5 ML BTL 1 DROP LEFT EYE ×2 (09:17→21:52)
[2024-08-24] MEDS: ENOXAPARIN 40 MG/0.4 ML SYRINGE SUB-Q (09:17)
--- NOTE | 2024-08-24 13:32 | PCOTNOTE ---
Attempted to see pt. for OT evaluation. Pt. very agitated and combative at this time when attempted. Unable to safely participate
[2024-08-24 16:00] VITALS: BP 121/54; PULSE 63; RESP 16; TEMP 36.3; O2SAT 99
[2024-08-24 19:50] VITALS: BP 153/67; PULSE 94; RESP 18; TEMP 36.7; O2SAT 98
[2024-08-24] MEDS: HALOPERIDOL LACTATE 5 MG/ML VIAL IM (19:53)
[2024-08-24 20:00] VITALS: PULSE 94; RESP 18; O2SAT 98
--- NOTE | 2024-08-24 21:50 | PM.EVENT ---
Event Note Event Note Event Note: Was called by bedside nursing around 8:00 p.m. that patient was climbing out of the bed, combative and aggressive to staff. He was given a 1 time dose Haldol 5 mg IM. when I assessed the patient he was still trying to get up out of the bed however was not hitting or kicking. Patient does have baseline dementia and was given Haldol a couple nights ago for similar agitation. We will continue to monitor.
[2024-08-24 23:49] VITALS: BP 149/69; PULSE 89; RESP 16
[2024-08-25 05:23] LABS: Basophils Absolute Auto 0.1 K/mm3 (0.0-0.1); Basophils Percent Auto 0.8 % (0.2-1.2); Eosinophils Absolute Auto 0.6 K/mm3 (0-0.3); Eosinophils Percent Auto 4.7 % (0-4.4); Hematocrit 36.4 % (42.0-52.0); Hemoglobin 12.2 g/dL (14.0-18.0); Immature Granulocyte Absolute 0.05 K/mm3 (0.00-0.031); Immature Granulocyte Percent A 0.4 % (0-0.5); Lymphocytes Percent Auto 16.7 % (18.3-44.2); Mean Corpuscular HGB Conc 33.5 g/dl (32-36); Mean Corpuscular Volume 92.6 fl (80-100); Mean Platelet Volume 8.8 fl (7.4-10.4); Monocytes Absolute Auto 1.7 K/mm3 (0.1-0.6); Monocytes Percent Auto 13.8 % (2.6-8.5); Neutrophils Absolute Auto 7.6 K/mm3 (1.3-6.7); Neutrophils Percent Auto 63.6 % (45.5-73.1); Platelet Count Result 253 k/mm3 (150-375); Red Blood Count 3.93 M/mm3 (4.6-6.20)
[2024-08-25 05:35] LABS: Alanine Aminotransferase 34 U/L (6-50); Albumin Level 3.8 g/dL (3.5-5.1); Alkaline Phosphatase 79 U/L (38-126); Anion Gap 9 mmol/L (4-12); Aspartate Amino Transferase 45 U/L (17-59); Bilirubin,Total 0.6 mg/dL (0.2-1.3); Blood Urea Nitrogen 14 mg/dL (9-20); Calcium 9.3 mg/dL (8.4-10.2); Carbon Dioxide 28 mmol/L (22-30); Chloride 92 mmol/L (98-107); Estimated CRCL calculation 43 ml/min; Estimated Glomerular Filt Rate > 60; Glucose 99 mg/dL (65-110); Potassium 3.7 mmol/L (3.4-5.0); Sodium 129 mmol/L (137-145)
--- NOTE | 2024-08-25 06:03 | P.PNCROSS_ITS ---
Event Note Event Note Event Note: 08/25/2024 at 06:30 Nursing staff called the patient had been aggressive and uncooperative last night. He had received 5 mg of Versed IM Haldol with improvement in symptoms. However he was again agitated this morning and was kicking at nursing staff. He was trying to climb over the bed rails that was high fall risk. I went and evaluated the patient and at the time of my evaluation he had settled down somewhat. We were trying to see if the patient would actually take any oral medications as he had refused all of his oral medications the day before. The patient seemed to have difficulty figuring out how to drink from a straw. Eventually he was able to drink from a straw but it seemed that he was unlikely to take oral medications at this time. Subsequently I did give it order for IM Zyprexa. The Zyprexa had just arrived at the bedside and had not yet been admi nistered. So I changed the order with a communication order to give 2.5 mg of IM Zyprexa and then if the patient was still uncooperative after 30-40 minutes weak a given the rest of the dose. I am hopeful at the patient will settle down in be more cooperative in may be able to take some oral medications this morning and I have ordered oral Zyprexa that I am hopeful he will be able to take at theresa t time.
[2024-08-25] MEDS: OLANZapine 10 MG INJ VIAL 5 MG IM (06:27)
--- NOTE | 2024-08-25 07:48 | PM.IMPN ---
Progress Note: A&P Assessment and Plan (1) Acute UTI: Code(s): N39.0 - Urinary tract infection, site not specified Status: Acute Assessment and Plan: UA showed trace urine ketones, 3+ leukocyte, 3-5 urine RBC, 51-100 urine WBC, 4+ urine bacteria Urine cultures pending, blood cultures negative for growth Continue levofloxacin WBC 18.6>10.9> 9.0> 12.0 on 08/25 (2) Hyponatremia: Code(s): E87.1 - Hypo-osmolality and hyponatremia Status: Acute Assessment and Plan: Likely secondary to dehydration Sodium 129 Patient was given 2 L in the ED and then started on maintenance IV fluids Hold Chlorthalidone Urine Random Sodium: 170 Urine Osmolality pending (3) Hypokalemia: Code(s): E87.6 - Hypokalemia Status: Acute Assessment and Plan: On ED workup: 3.9 Today 3.7 monitor (4) Dementia: Code(s): F03.90 - Unspecified dementia, unspecified severity, without behavioral disturbance, psychotic disturbance, mood disturbance, and anxiety Status: Acute Assessment and Plan: Patient given a 1 time dose of IM Haldol 5 mg due to agitation overnight Also given IM Zyprexa this AM, will schedule Remeron for PM Continue Namenda and Depakote (5) HTN (hypertension): Code(s): I10 - Essential (primary) hypertension Status: Acute Assessment and Plan: Blood pressure ranging Continue amlodipine and labetalol (6) Dyslipidemia: Code(s): E78.5 - Hyperlipidemia, unspecified Status: Acute Assessment and Plan: Continue aspirin (7) Severe protein-calorie malnutrition: Code(s): E43 - Unspecified severe protein-calorie malnutrition Status: Acute Assessment and Plan: Likely secondary to dementia Dietitian consulted BMI 21.0, 64.4 kg Encourage p.o. intake Time Spent With Patient Time: Subjective Date/time seen: 08/25/24 07:48 Interval history: Patient is an 88-year-old male who presented to the ED due to increasing aggressive behavior and weakness Due to patient's Dementia and mentation, most of the history of presenting illness was obtained from the medical record. ED workup indicated urinary tract infection with associated hyponatremia. 08/25/2024 Patient examined at bedside sleeping comfortably. The overnight provider was alerted by nursing staff that patient was aggressive and uncooperative over the night into the morning. Patient has also been refusing all oral medication. IM Zyprexa was ordered and patient has been sleeping comfortably since. Remeron will be ordered for nighttime regimen, will attempt to continue oral medications with possible discharge within 48 hours. Review of Systems Review of Systems: ROS unobtainable: Yes unobtainable due to mental status Exam Narrative: Gen - well appearing male in no acute respiratory distress who is nontoxic-appearing lying semi recumbent in bed HEENT - normocephalic. Atraumatic. Pupils equal round and reactive. Extraocular motions intact. Sclera clear and anicteric. Nares patent. Oropharynx was clear. No oral lesions. Moist mucous membranes. Tongue was midline. Palate lissa symmetrically. No facial asymmetry. Neck - neck was supple. No dominant adenopathy, thyromegaly or masses. 2+ carotid upstrokes without bruits. Chest - lungs are clear to auscultation bilaterally. No wheezes or crackles. CV - heart was regular rate and rhythm. S1-S2. No murmurs gallops or rubs. Abd - abdomen was soft. Nontender. Nondistended. Positive bowel sounds. No organomegaly or masses. Ext - no clubbing, cyanosis or edema. 2+ DP pulses bilaterally. Neuro - patient is alert and oriented x1. Cranial nerves 2-12 are intact. Speech is clear. Psych - normal mood and affect. Patient is pleasant and cooperative. Skin - warm and dry. No rashes noted. Objective Data Vital Signs Vital Signs: Vital Signs - 24 hr 08/24/24 09:07 08/24/24 09:15 08/24/24 09:15 Temperature Pulse Rate 80 74 Respiratory Rate Blood Pressure 149/72 H Pulse Oximetry 95 Oxygen Delivery Room Air 08/24/24 16:00 08/24/24 19:50 08/24/24 20:00 Temperature 97.4 F L 98.1 F Pulse Rate 63 94 94 Respiratory Rate 16 18 18 Blood Pressure 121/54 L 153/67 H Pulse Oximetry 99 98 98 Oxygen Delivery Room Air 08/24/24 23:49 Temperature Pulse Rate 89 Respiratory Rate 16 Blood Pressure 149/69 H Pulse Oximetry Oxygen Delivery Intake/Output Intake/Output: Intake & Output 03/05/0808/23/24 08/24/24 08/25/24 23:59 23:59 23:59 23:59 Intake Total 1150 1363.8 1828.7 0 Output Total 75 1 Balance 1075 1362.8 1828.7 0 Meds/Results Medications: Active Medications Generic Name Dose Route Start Last Admin Trade Name Freq PRN Reason Stop Dose Admin Acetaminophen 650 mg 08/23/24 04:23 Acetaminophen 325 Mg Tablet PO Q6H PRN pain 1-3 Amlodipine Besylate 5 mg 08/23/24 08:00 08/24/24 18:48 Amlodipine Besylate 5 Mg Tablet PO Not Given BIDWM [facility] Aspirin 81 mg 08/23/24 09:00 08/24/24 09:08 Aspirin 81 Mg Chewable Tablet PO 81 mg DAILY ANICETO Administration Celecoxib 200 mg 08/23/24 08:00 08/24/24 18:48 Celecoxib 200 Mg Capsule PO Not Given BIDWM [facility] Chlorthalidone 25 mg 08/23/24 09:00 08/23/24 09:35 Chlorthalidone 25 Mg Tablet PO 25 mg DAILY ANICETO Administration Citalopram Hydrobromide 10 mg 08/23/24 09:00 08/24/24 09:08 Citalopram Hydrobromide 10 Mg Tablet PO 10 mg DAILY [facility] Administration Divalproex Sodium 125 mg 08/23/24 09:00 08/24/24 22:22 Divalproex Sodium Sprinkle 125 Mg Cap.Dr PO Not Given Q12HR ANICETO Enoxaparin Sodium 40 mg 08/23/24 09:00 08/24/24 09:17 Enoxaparin 40 Mg/0.4 Ml Syringe SUB-Q 40 mg DAILY ANICETO Administration Guaifenesin/Dextromethorphan 10 ml 08/23/24 04:23 Guaifenesin/Dextromethorphan 10 Ml Udc PO Q4H PRN cough Sodium Chloride 1,000 mls @ 75 mls/hr 08/22/24 20:30 08/24/24 09:14 Normal Saline Iv IV CONT 75 mls/hr .[id number] ANICETO Administration Levofloxacin/Dextrose 750 mg in 150 mls @ 100 mls/hr 08/24/24 21:00 08/24/24 22:21 Levaquin 750 Mg/D5w 150 Ml IVPB Not Given Q48H [facility] Labetalol HCl 200 mg 08/23/24 09:00 08/24/24 22:23 Labetalol Hcl 100 Mg Tablet PO Not Given Q12HR ANICETO Melatonin 3 mg 08/23/24 21:00 08/24/24 22:23 Melatonin 3 Mg Tablet PO Not Given HS ANICETO Memantine 5 mg 08/23/24 08:00 08/24/24 18:48 Memantine 5 Mg Tablet PO Not Given BIDWM ANICETO Ofloxacin 1 drop 08/22/24 21:00 08/24/24 21:52 Ofloxacin 0.3% Ophth Soln 5 Ml Btl LEFT EYE 1 drop QID ANICETO Administration Ondansetron HCl 4 mg 08/23/24 04:25 Ondansetron Inj 4 Mg/2 Ml Vial IV PUSH Q6H PRN Nausea And Vomiting Polyethylene Glycol 17 gm 08/23/24 04:23 Polyethylene Glycol 3350 17 Gm Powd.Pack PO DAILY PRN constipation Vitamin D 1,000 units 08/23/24 09:00 08/24/24 09:08 Cholecalciferol 1,000 Units Tablet PO 1,000 units DAILY ANICETO Administration Radiology Results: ITS Impressions Head CT 08/22/24 19:08 IMPRESSION: No acute intracranial process. Chest X-Ray 08/22/24 19:26 IMPRESSION: No acute cardiopulmonary process. Labs Labs: Laboratory Results - last 24 hr 08/25/24 05:06 WBC 12.0 H RBC 3.93 L Hgb 12.2 L Hct 36.4 L MCV 92.6 MCH 31.0 MCHC 33.5 RDW 13.0 Plt Count 253 MPV 8.8 Immature Gran % (Auto) 0.4 Neut % (Auto) 63.6 Lymph % (Auto) 16.7 L [place] % (Auto) 13.8 H Eos % (Auto) 4.7 H Baso % (Auto) 0.8 Lymph # (Auto) 2.00 [place] # (Auto) 1.7 H Eos # (Auto) 0.6 H Baso # (Auto) 0.1 Abs Immat Gran (auto) 0.05 H Absolute Neuts (auto) 7.6 H Absolute Nucleated RBC 0.000 Nucleated RBC % 0.0 Sodium 129 L Potassium 3.7 Chloride 92 L Carbon Dioxide 28 Anion Gap 9 BUN 14 Creatinine 0.98 Estim Creat Clear Calc 43 Estimated GFR > 60 Glucose 99 Calcium 9.3 Total Bilirubin 0.6 AST 45 ALT 34 Alkaline Phosphatase 79 Total Protein 7.0 Albumin 3.8 Quality VTE Prophylaxis VTE prophylaxis: pharmacologic ordered
--- NOTE | 2024-08-25 10:30 | PCOTNOTE ---
Attempted to see pt for OT evaluation. Per RN, pt was very agitated and attempting to climb out of bed last night and needing meds to calm down. Pt is very sleepy this morning but when awakened, pt stated he wanted to sleep. When attempting to don a gown on pt, pt got agitated and swung his arm toward therapist. Due to agitation, will defer eval for now. Will continue to follow for OT eval.
[2024-08-25] MEDS: amLODIPine BESYLATE 5 MG TABLET PO (16:08)
[2024-08-25] MEDS: CELECOXIB 200 MG CAPSULE PO (16:08)
[2024-08-25] MEDS: ACETAMINOPHEN 325 MG TABLET 650 MG PO (16:08)
[2024-08-25] MEDS: MEMANTINE 5 MG TABLET PO (16:08)
[2024-08-25] MEDS: OFLOXACIN 0.3% OPHTH SOLN 5 ML BTL 1 DROP LEFT EYE ×2 (16:09→19:31)
[2024-08-25] MEDS: MELATONIN 3 MG TABLET PO (19:23)
[2024-08-25] MEDS: MIRTAZAPINE 7.5 MG TABLET PO (19:23)
[2024-08-25] MEDS: DIVALPROEX SODIUM SPRINKLE 125 MG CAP.DR PO (19:23)
[2024-08-26] VITALS: BP 148/68; PULSE 77; RESP 18; TEMP 36.5; O2SAT 99
[2024-08-26 03:57] VITALS: BP 105/61; PULSE 100; RESP 18; TEMP 36.5
--- NOTE | 2024-08-26 04:41 | PC.NURSE ---
0130- Pt stating he has to pee and repeatedly trying to get up despite multiple redirections and attempts to use urinal. Pt assisted to side of bed and using 2 staff, walked into bathroom. Pt refuses to use walker and had slow shuffled gait holding onto staff. After using restroom pt given walker to use and pt did not follow instructions on walker usage. Pt then began trying to sit in bathroom doorway thinking he was at the bed despite multiple redirections to continue walking. Slowly sat down onto floor. Assisted up and into wheelchair, then assisted into bed. Pt was very weak and barely able to stand after walking to bathroom. 0330- Pt again repeatedly attempting to get out of bed. Assisted into chair with alarm in place. Multiple attempts to get up, but pt too weak and will stand then sit back down. Pt uncooperative with staff but redirected with mild difficulty. No episodes of aggression or being combative this shift. 0445- Sitting in chair watching tv with staff in room r/t impulsiveness/weakness.
[2024-08-26 05:38] LABS: Basophils Absolute Auto 0.1 K/mm3 (0.0-0.1); Basophils Percent Auto 0.6 % (0.2-1.2); Eosinophils Absolute Auto 0.5 K/mm3 (0-0.3); Hematocrit 38.3 % (42.0-52.0); Immature Granulocyte Absolute 0.09 K/mm3 (0.00-0.031); Immature Granulocyte Percent A 0.7 % (0-0.5); Lymphocytes Absolute Auto 1.28 K/mm3 (0.9-3.2); Mean Corpuscular HGB Conc 33.9 g/dl (32-36); Mean Corpuscular Hemoglobin 31.6 pg (26-34); Mean Platelet Volume 8.8 fl (7.4-10.4); Monocytes Absolute Auto 1.4 K/mm3 (0.1-0.6); Monocytes Percent Auto 11.1 % (2.6-8.5); Neutrophils Absolute Auto 9.4 K/mm3 (1.3-6.7); Neutrophils Percent Auto 73.6 % (45.5-73.1); Platelet Count Result 296 k/mm3 (150-375); Red Blood Count 4.12 M/mm3 (4.6-6.20); White Blood Count 12.8 K/mm3 (4.5-10.0)
[2024-08-26 05:54] LABS: Alanine Aminotransferase 35 U/L (6-50); Albumin Level 4.1 g/dL (3.5-5.1); Alkaline Phosphatase 76 U/L (38-126); Anion Gap 12 mmol/L (4-12); Aspartate Amino Transferase 41 U/L (17-59); Bilirubin,Total 0.5 mg/dL (0.2-1.3); Blood Urea Nitrogen 19 mg/dL (9-20); Calcium 9.7 mg/dL (8.4-10.2); Carbon Dioxide 26 mmol/L (22-30); Chloride 91 mmol/L (98-107); Estimated CRCL calculation 40 ml/min; Estimated Glomerular Filt Rate > 60; Glucose 111 mg/dL (65-110); Sodium 129 mmol/L (137-145)
[2024-08-26 09:33] VITALS: PULSE 100
[2024-08-26] MEDS: LABETALOL HCL 100 MG TABLET 200 MG PO ×2 (09:33→20:37)
[2024-08-26] MEDS: POTASSIUM CHLORIDE 20 MEQ PACKET (FOR LIQUID) PO (09:34)
[2024-08-26] MEDS: ENOXAPARIN 40 MG/0.4 ML SYRINGE SUB-Q (09:34)
[2024-08-26] MEDS: amLODIPine BESYLATE 5 MG TABLET PO ×2 (09:36→17:42)
[2024-08-26] MEDS: MEMANTINE 5 MG TABLET PO ×2 (09:36→17:41)
[2024-08-26] MEDS: CHOLECALCIFEROL 1,000 UNITS TABLET 1000 UNITS PO (09:36)
[2024-08-26] MEDS: CITALOPRAM HYDROBROMIDE 10 MG TABLET PO (09:37)
[2024-08-26] MEDS: DIVALPROEX SODIUM SPRINKLE 125 MG CAP.DR PO ×2 (09:42→20:37)
[2024-08-26] MEDS: OFLOXACIN 0.3% OPHTH SOLN 5 ML BTL 1 DROP LEFT EYE ×2 (09:43→12:29)
[2024-08-26] MEDS: ASPIRIN 81 MG CHEWABLE TABLET PO (09:45)
[2024-08-26] MEDS: CELECOXIB 200 MG CAPSULE PO ×2 (09:46→17:42)
--- NOTE | 2024-08-26 11:43 | P.PNIM_ITS ---
Progress Note: A&P Assessment and Plan (1) Acute UTI: Code(s): N39.0 - Urinary tract infection, site not specified Status: Acute Assessment and Plan: * UA showed trace urine ketones, 3+ leukocyte, 3-5 urine RBC, 51-100 urine WBC, 4+ urine bacteria * Urine cultures pending, blood cultures negative for growth * Continue levofloxacin PO * WBC 18.6>10.9> 9.0> 12.8 on 08/26 (2) Hyponatremia: Code(s): E87.1 - Hypo-osmolality and hyponatremia Status: Acute Assessment and Plan: Likely secondary to dehydration * Sodium 129 * Patient was given 2 L in the ED and then started on maintenance IV fluids * Hold Chlorthalidone * Urine Random Sodium: 170 * Urine Osmolality pending * Nephrology consult, agree that Na is likely at his baseline, will continue to monitor and fluid restrict * Add salt tablets +/- low dose oral Lasix if Na drops (3) Hypokalemia: Code(s): E87.6 - Hypokalemia Status: Acute Assessment and Plan: On ED workup: 3.9 * Today 3.0 * Given supplementation * monitor (4) Dementia: Code(s): F03.90 - Unspecified dementia, unspecified severity, without behavioral disturbance, psychotic disturbance, mood disturbance, and anxiety Status: Acute Assessment and Plan: * Patient given a 1 time dose of IM Haldol 5 mg due to agitation overnight * Also given IM Zyprexa this AM, will schedule Remeron for PM * Continue Namenda and Depakote (5) HTN (hypertension): Code(s): I10 - Essential (primary) hypertension Status: Acute Assessment and Plan: * Blood pressure ranging * Continue amlodipine and labetalol (6) Dyslipidemia: Code(s): E78.5 - Hyperlipidemia, unspecified Status: Acute Assessment and Plan: * Continue aspirin (7) Severe protein-calorie malnutrition: Code(s): E43 - Unspecified severe protein-calorie malnutrition Status: Acute Assessment and Plan: Likely secondary to dementia * Dietitian consulted * BMI 21.0, 64.4 kg * Encourage p.o. intake Time Spent With Patient Time: - Subjective Date/time seen: 08/26/24 11:43 Interval history: Patient is an 88-year-old male who presented to the ED due to increasing aggressive behavior and weakness Due to patient's Dementia and mentation, most of the history of presenting illness was obtained from the medical record. ED workup indicated urinary tract infection with associated hyponatremia. 08/26/2024 Patient examined at bedside sleeping comfortably. Daughter is present with patient and able to answer questions. Sodium continues to be low at 129. Nephrology consulted and patient on fluid restrictions. Pt able take PO medications so will be switched to PO antibiotics. Patient is also able to eat upon command and is generally pleasant to staff, but continues to attempt to get out of bed. Review of Systems Review of Systems: ROS unobtainable: Yes unobtainable due to mental status Exam Narrative: Gen - well appearing male in no acute respiratory distress who is nontoxic- appearing lying semi recumbent in bed HEENT - normocephalic. Atraumatic. Pupils equal round and reactive. Extraocular motions intact. Sclera clear and anicteric. Nares patent. Oropharynx was clear. No oral lesions. Moist mucous membranes. Tongue was midline. Palate lissa symmetrically. No facial asymmetry. Neck - neck was supple. No dominant adenopathy, thyromegaly or masses. 2+ carotid upstrokes without bruits. Chest - lungs are clear to auscultation bilaterally. No wheezes or crackles. CV - heart was regular rate and rhythm. S1-S2. No murmurs gallops or rubs. Abd - abdomen was soft. Nontender. Nondistended. Positive bowel sounds. No organomegaly or masses. Ext - no clubbing, cyanosis or edema. 2+ DP pulses bilaterally. Neuro - patient is alert and oriented x1. Cranial nerves 2-12 are intact. Speech is clear. Psych - normal mood and affect. Patient is pleasant and cooperative. Skin - warm and dry. No rashes noted. Objective Data Vital Signs Vital Signs: Vital Signs - 24 hr 08/26/24 00:00 08/26/24 03:57 08/26/24 08:38 Temperature 97.7 F 97.7 F Pulse Rate 77 100 Respiratory Rate 18 18 Blood Pressure 148/68 H 105/61 Pulse Oximetry 99 Oxygen Delivery Room Air 08/26/24 09:33 Temperature Pulse Rate 100 Respiratory Rate Blood Pressure Pulse Oximetry Oxygen Delivery Intake/Output Intake/Output: Intake & Output 03/12/08/24/24 08/25/24 08/26/24 23:59 23:59 23:59 23:59 Intake Total 1363.8 1828.7 240 670 Output Total 1 Balance 1362.8 1828.7 240 670 Meds/Results Medications: Active Medications Generic Name Dose Route Start Last Admin Trade Name Freq PRN Reason Stop Dose Admin Acetaminophen 650 mg 08/23/24 04:23 08/25/24 16:08 Acetaminophen 325 Mg Tablet PO 650 mg Q6H PRN Administration pain 1-3 Amlodipine Besylate 5 mg 08/23/24 08:00 08/26/24 09:36 Amlodipine Besylate 5 Mg Tablet PO 5 mg BIDWM ANICETO Administration Aspirin 81 mg 08/23/24 09:00 08/26/24 09:45 Aspirin 81 Mg Chewable Tablet PO 81 mg DAILY ANICETO Administration Celecoxib 200 mg 08/23/24 08:00 08/26/24 09:46 Celecoxib 200 Mg Capsule PO 200 mg BIDWM ANICETO Administration Chlorthalidone 25 mg 08/23/24 09:00 08/23/24 09:35 Chlorthalidone 25 Mg Tablet PO 25 mg DAILY ANICETO Administration Citalopram Hydrobromide 10 mg 08/23/24 09:00 08/26/24 09:37 Citalopram Hydrobromide 10 Mg Tablet PO 10 mg DAILY ANICETO Administration Divalproex Sodium 125 mg 08/23/24 09:00 08/26/24 09:42 Divalproex Sodium Sprinkle 125 Mg Cap.Dr PO 125 mg Q12HR ANICETO Administration Enoxaparin Sodium 40 mg 08/23/24 09:00 08/26/24 09:34 Enoxaparin 40 Mg/0.4 Ml Syringe SUB-Q 40 mg DAILY ANICETO Administration Guaifenesin/Dextromethorphan 10 ml 08/23/24 04:23 Guaifenesin/Dextromethorphan 10 Ml Udc PO Q4H PRN cough Levofloxacin/Dextrose 750 mg in 150 mls @ 100 mls/hr 08/24/24 21:00 08/24/24 22:21 Levaquin 750 Mg/D5w 150 Ml IVPB Not Given Q48H ANICETO Labetalol HCl 200 mg 08/23/24 09:00 08/26/24 09:33 Labetalol Hcl 100 Mg Tablet PO 200 mg Q12HR ANICETO Administration Levofloxacin 250 mg 03/16/25 09:00 Levofloxacin 250 Mg Tablet PO DAILY ANICETO Melatonin 3 mg 08/23/24 21:00 08/25/24 19:23 Melatonin 3 Mg Tablet PO 3 mg HS ANICETO Administration Memantine 5 mg 08/23/24 08:00 08/26/24 09:36 Memantine 5 Mg Tablet PO 5 mg BIDWM ANICETO Administration Mirtazapine 7.5 mg 08/25/24 21:00 08/25/24 19:23 Mirtazapine 7.5 Mg Tablet PO 7.5 mg HS ANICETO Administration Ofloxacin 1 drop 08/22/24 21:00 08/26/24 09:43 Ofloxacin 0.3% Ophth Soln 5 Ml Btl LEFT EYE 1 drop QID ANICETO Administration Ondansetron HCl 4 mg 08/23/24 04:25 Ondansetron Inj 4 Mg/2 Ml Vial IV PUSH Q6H PRN Nausea And Vomiting Polyethylene Glycol 17 gm 08/23/24 04:23 Polyethylene Glycol 3350 17 Gm Powd.Pack PO DAILY PRN constipation Vitamin D 1,000 units 08/23/24 09:00 08/26/24 09:36 Cholecalciferol 1,000 Units Tablet PO 1,000 units DAILY ANICETO Administration Radiology Results: ITS Impressions Head CT 08/22/24 19:08 IMPRESSION: No acute intracranial process. Chest X-Ray 08/22/24 19:26 IMPRESSION: No acute cardiopulmonary process. Labs Labs: Laboratory Results - last 24 hr 08/26/24 05:21 WBC 12.8 H RBC 4.12 L Hgb 13.0 L Hct 38.3 L MCV 93.0 MCH 31.6 MCHC 33.9 RDW 13.0 Plt Count 296 MPV 8.8 Immature Gran % (Auto) 0.7 H Neut % (Auto) 73.6 H Lymph % (Auto) 10.0 L [place] % (Auto) 11.1 H Eos % (Auto) 4.0 Baso % (Auto) 0.6 Lymph # (Auto) 1.28 [place] # (Auto) 1.4 H Eos # (Auto) 0.5 H Baso # (Auto) 0.1 Abs Immat Gran (auto) 0.09 H Absolute Neuts (auto) 9.4 H Absolute Nucleated RBC 0.000 Nucleated RBC % 0.0 Sodium 129 L Potassium 3.0 L Chloride 91 L Carbon Dioxide 26 Anion Gap 12 BUN 19 Creatinine 1.03 Estim Creat Clear Calc 40 Estimated GFR > 60 Glucose 111 H Calcium 9.7 Total Bilirubin 0.5 AST 41 ALT 35 Alkaline Phosphatase 76 Total Protein 7.0 Albumin 4.1 Quality VTE Prophylaxis VTE prophylaxis: pharmacologic ordered
[2024-08-26] MEDS: levoFLOXacin 250 MG TABLET PO (12:29)
--- NOTE | 2024-08-26 13:01 | PM.CNNEP ---
Assessment and Plan Assessment and plan (1) Hyponatremia: Code(s): E87.1 - Hypo-osmolality and hyponatremia Status: Acute Assessment and Plan: The patient has chronic hyponatremia. It has been going on for at least 2 years. urine sodium is not low. Chest x-ray and head CT do not show any issues that would cause hyponatremia he has no history of cancer TSH is normal will check a cortisol level. He is on both chlorthalidone and mirtazapine. The chlorthalidone has been held. I will just discontinue this because he should not be on this going forward. He will need other medications to help with his blood pressure. Right now his blood pressure is under pretty good control. I will leave to the primary care doctor as to whether the mirtazapine is safe to hold considering his severe mental status issues. We can work around it if he needs to stay on it. It would certainly be a little better possibly if he were able to come off of it. For now will place him on a 1200cc fluid restriction. Since his sodium is at baseline I think we do not need to add any medications. If it drops any then we can always add salt tablets plus/minus low-dose oral Lasix but I would like to hold off on this for now because of side effects from the medications and the need to follow labs. (2) Severe protein-calorie malnutrition: Code(s): E43 - Unspecified severe protein-calorie malnutrition Status: Acute Assessment and Plan: Encouraged to eat. Is low osmolar intake also contributes to his low sodium level because it is all that much easier to overwhelm his sodium excretory ability. (3) Hypertension: Code(s): I10 - Essential (primary) hypertension Status: Acute Assessment and Plan: Blood pressure is under good control (4) Dementia: Code(s): F03.90 - Unspecified dementia, unspecified severity, without behavioral disturbance, psychotic disturbance, mood disturbance, and anxiety Status: Acute Assessment and Plan: from but the chart says his mental status now is about as good as he gets and so is at baseline History of Present Illness Reason for Consult Consult date: 08/26/24 Chief Complaint Chief complaint: UTI History of Present Illness Narrative: Efrain is a very pleasant 89-year-old gentleman who has multiple medical problems including severe dementia, hyperlipidemia, hypertension, coronary artery disease, chronic hyponatremia. Patient lives in a [facility] facility. He was aggressive combative and weak. The patient was sent to the emergency room on 08/23 for this complaint. He was found to have a bladder infection. He was treated with antibiotics. His centrally acting medications were also adjusted to help with his temper min. he seems to be a little better but still has problems at night. In the meantime his sodium level was found to be low. It was 128 in the ER and he was given 3% saline. Looking back in the records in 2018 is sodium level was normal, but in November of 2022 his sodium level is 128 and since then almost every time it was checked it is been summer between 127 and 133, the majority of times in the high 120s. It was in this general range when he was admitted to the hospital. The ER fear that the low sodium was causing some of the mental status changes which is why I suppose they gave him 3% saline. The patient was placed on an 800cc fluid diet today. The patient is sitting up in a chair alert and with his lunch in front of him. He does not interact very well. His speech is disorganized, however he is calm and in good spirits. I believe this is his baseline mental status. There is no history of cancer in the patient's chart. The patient is on chlorthalidone, and mirtazapine both of which can cause hyponatremia. The chlorthalidone has been held. Review of Systems Review of Systems: ROS unobtainable: Yes unobtainable due to mental status PMFSH Past Medical History Medical History Dyslipidemia Coronary artery disease Hypertension Dementia Surgical History Surgical History History of cataract extraction History of arthroscopy of knee History of four vessel coronary artery bypass graft Family History Family History Mother Kidney failure CHF (congestive heart failure) Dialysis patient Social History Social History Social History: Surrogate medical decision maker: Corine Flores () or Ioana Mascorro (daughter). Code status: Full code. Smoking status: Unknown if ever smoked Alcohol intake: never Substance use: never Lack of Transportation: No Lack of Food: Never True Current Housing: I Have Housing Concerned About Future Housing: No Difficulty Paying Gas/Electric Bills: No Difficulty Paying for Meds: No Currently Unemployed: No Education: High School Diploma/GED Difficulty w/ Childcare or Family Care: No Additional living arrangements comments: The patient and his live in assisted living at [facility]. 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 He also worked at [employer]. Spiritual care concerns: No Meds Home Medications and Allergies Home Medications ?Medication ?Instructions ?Recorded ?Confirmed ?Type amlodipine 5 mg tablet 5 mg PO BIDWM 11/14/22 08/22/24 History aspirin 81 mg chewable tablet 81 mg PO DAILY 11/14/22 08/22/24 History cholecalciferol (vitamin D3) 25 25 mcg PO DAILY 11/14/22 08/22/24 History mcg (1,000 unit) tablet divalproex 125 mg capsule,delayed 125 mg PO BID 11/14/22 08/22/24 History release sprinkle evolocumab 140 mg/mL subcutaneous 140 mg subcut [id number] 11/14/22 08/22/24 History pen injector (Warren Cornejo) labetalol 200 mg tablet 200 mg PO BID 11/14/22 08/22/24 History melatonin 3 mg disintegrating 3 mg PO HS 11/14/22 08/22/24 History tablet polyethylene glycol 3350 17 gram 17 g PO DAILY PRN constipation 11/14/22 08/22/24 History oral powder packet (Miralax) chlorthalidone 25 mg tablet 25 mg PO DAILY 12/27/22 08/22/24 History potassium chloride 20 mEq 20 meq PO DAILY #30 tabs 12/27/22 08/22/24 Rx tablet,extended release acetaminophen 500 mg tablet 650 mg PO Q6H PRN pain 08/22/24 08/22/24 History celecoxib 200 mg capsule 200 mg PO BIDWM 08/22/24 08/22/24 History citalopram 10 mg tablet 10 mg PO DAILY 08/22/24 08/22/24 History dextromethorphan-guaifenesin 10 10 ml PO Q4H PRN cough 08/22/24 08/22/24 History mg-100 mg/5 mL oral syrup (Chest Congestion Relief DM) guaifenesin 600 mg tablet, 600 mg PO Q12H PRN cough 08/22/24 08/22/24 History extended release 12 hr (Mucinex) memantine 10 mg tablet 5 mg PO BIDWM 08/22/24 08/22/24 History povidone (PF) 0.5 % eye drops 1 drp ophthalmic (eye) QID PRN DRY 08/22/24 08/22/24 History (iVizia (PF)) EYE tramadol 50 mg tablet 50 mg PO DAILY PRN pain 08/22/24 08/22/24 History Allergies Allergy/AdvReac Type Severity Reaction Status Date / Time cefdinir Allergy Unknown Verified 08/22/24 23:00 duloxetine (From Cymbalta) Allergy Unknown Verified 08/22/24 23:00 lisinopril Allergy Unknown Verified 08/22/24 23:00 losartan Allergy Unknown Verified 08/22/24 23:00 sertraline Allergy Unknown Verified 08/22/24 23:00 [id number]-RzF Reductase Allergy Unknown Verified 08/22/24 23:00 Inhibitor Tetracyclines Allergy Unknown Verified 08/22/24 23:00 Vital Signs Vital Signs - 24 hr 08/26/24 00:00 08/26/24 03:57 08/26/24 08:38 Temperature 97.7 F 97.7 F Pulse Rate 77 100 Respiratory Rate 18 18 Blood Pressure 148/68 H 105/61 Pulse Oximetry 99 Oxygen Delivery Room Air 08/26/24 09:33 Temperature Pulse Rate 100 Respiratory Rate Blood Pressure Pulse Oximetry Oxygen Delivery Exam Narrative: Exam Narrative: Well developed well-nourished in no acute distress Skin is warm and dry without rash Head normocephalic atraumatic Eyes normal sclerae and conjunctivae Mouth normal lips teeth and gums Neck no nodes no thyromegaly no carotid bruits Axillae no nodes Back no CVA tenderness Lungs symmetric and clear to auscultation and percussion Heart regular rate and rhythm without rub or gallop Abdomen bowel sounds positive soft nontender, no HSM, masses, or bruits. Extremities no cyanosis, clubbing, or edema Pulses 2+ equal in radial arteries Psychological not anxious or depressed Neuro alert and oriented x3 motor 5/5 cranial nerves 2-12 intact reflexes 2+ and equal in the biceps and patellar tendons cerebellar normal rapid alternating movements Results Lab Results 08/26/24 05:21 08/26/24 05:21 Lab results: Most recent lab results Calcium 9.7 mg/dL (8.4-10.2) 08/26/24 05:21 Magnesium 1.5 mg/dL (1.6-2.3) L 08/23/24 05:01
[2024-08-26 14:00] VITALS: BP 108/64; PULSE 99; RESP 17; TEMP 36.4; O2SAT 98
[2024-08-26 20:37] VITALS: PULSE 83
[2024-08-26] MEDS: MIRTAZAPINE 7.5 MG TABLET PO (20:37)
[2024-08-26] MEDS: MELATONIN 3 MG TABLET PO (20:37)
[2024-08-26 22:00] VITALS: PULSE 83; RESP 18; TEMP 36.3; O2SAT 100
[2024-08-27 05:19] LABS: Basophils Absolute Auto 0.1 K/mm3 (0.0-0.1); Basophils Percent Auto 0.5 % (0.2-1.2); Eosinophils Absolute Auto 0.6 K/mm3 (0-0.3); Eosinophils Percent Auto 4.3 % (0-4.4); Hematocrit 33.6 % (42.0-52.0); Hemoglobin 11.6 g/dL (14.0-18.0); Immature Granulocyte Absolute 0.07 K/mm3 (0.00-0.031); Immature Granulocyte Percent A 0.5 % (0-0.5); Lymphocytes Absolute Auto 2.01 K/mm3 (0.9-3.2); Lymphocytes Percent Auto 15.5 % (18.3-44.2); Mean Corpuscular HGB Conc 34.5 g/dl (32-36); Mean Corpuscular Hemoglobin 32.2 pg (26-34); Mean Corpuscular Volume 93.3 fl (80-100); Mean Platelet Volume 8.8 fl (7.4-10.4); Monocytes Absolute Auto 1.6 K/mm3 (0.1-0.6); Monocytes Percent Auto 12.3 % (2.6-8.5); Neutrophils Absolute Auto 8.7 K/mm3 (1.3-6.7); Neutrophils Percent Auto 66.9 % (45.5-73.1); Platelet Count Result 277 k/mm3 (150-375); Red Cell Distribution Width 13.2 % (11.5-14.5)
[2024-08-27 05:37] LABS: Alanine Aminotransferase 32 U/L (6-50); Albumin Level 3.7 g/dL (3.5-5.1); Alkaline Phosphatase 75 U/L (38-126); Anion Gap 8 mmol/L (4-12); Aspartate Amino Transferase 33 U/L (17-59); Bilirubin,Total 0.3 mg/dL (0.2-1.3); Blood Urea Nitrogen 37 mg/dL (9-20); Calcium 9.9 mg/dL (8.4-10.2); Carbon Dioxide 32 mmol/L (22-30); Chloride 93 mmol/L (98-107); Estimated CRCL calculation 24 ml/min; Estimated Glomerular Filt Rate 38; Glucose 106 mg/dL (65-110); Sodium 133 mmol/L (137-145)
[2024-08-27 06:00] VITALS: BP 133/49; PULSE 71; RESP 18; TEMP 36.3; O2SAT 100
--- NOTE | 2024-08-27 07:17 | P.PNIM_ITS ---
Progress Note: A&P Assessment and Plan (1) Acute UTI: Code(s): N39.0 - Urinary tract infection, site not specified Status: Acute Assessment and Plan: * UA showed trace urine ketones, 3+ leukocyte, 3-5 urine RBC, 51-100 urine WBC, 4+ urine bacteria * Urine cultures pending, blood cultures negative for growth * Continue levofloxacin PO * WBC 18.6>10.9> 9.0> 13 on 08/27 (2) Acute kidney injury: Code(s): N17.9 - Acute kidney failure, unspecified Status: Acute Assessment and Plan: -Creatinine: 1.72, GFR: 38, BUN: 37 -IV Fluids: 1,000 mL NS -Trend renal function -trend electrolytes, correct as needed -Hold fluid restrictions, encourage PO (3) Hyponatremia: Code(s): E87.1 - Hypo-osmolality and hyponatremia Status: Acute Assessment and Plan: Likely secondary to dehydration * Sodium 133 * Patient was given 2 L in the ED and then started on maintenance IV fluids * Hold Chlorthalidone * Urine Random Sodium: 170 * Urine Osmolality pending * Nephrology consult, agree that Na is likely at his baseline, will continue to monitor * Add salt tablets +/- low dose oral Lasix if Na drops (4) Hypokalemia: Code(s): E87.6 - Hypokalemia Status: Acute Assessment and Plan: On ED workup: 3.9 * Today 4 * monitor (5) Dementia: Code(s): F03.90 - Unspecified dementia, unspecified severity, without behavioral disturbance, psychotic disturbance, mood disturbance, and anxiety Status: Acute Assessment and Plan: * Scheduled Remeron for PM * Continue Namenda and Depakote (6) HTN (hypertension): Code(s): I10 - Essential (primary) hypertension Status: Acute Assessment and Plan: * Blood pressure ranging * Continue amlodipine and labetalol (7) Dyslipidemia: Code(s): E78.5 - Hyperlipidemia, unspecified Status: Acute Assessment and Plan: * Continue aspirin (8) Severe protein-calorie malnutrition: Code(s): E43 - Unspecified severe protein-calorie malnutrition Status: Acute Assessment and Plan: Likely secondary to dementia * Dietitian consulted * BMI 21.0, 64.4 kg * Encourage p.o. intake Time Spent With Patient Time: 15-25 Subjective Date/time seen: 08/27/24 07:17 Interval history: Patient is an 88-year-old male who presented to the ED due to increasing aggressive behavior and weakness Due to patient's Dementia and mentation, most of the history of presenting illness was obtained from the medical record. ED workup indicated urinary tract infection with associated hyponatremia. 08/27/2024 Patient examined at bedside sleeping comfortably. Sodium levels improved today, however patient developed RONNI, likely secondary to fluid restriction. Plan to hold fluid restriction and administer fluids with close monitoring of Sodium levels. Nephrology in agreement that hyponatremia likely chronic given multiple previous measurements also in the 128-130 range. Renal ultrasound unremarkable. Will encourage PO intake of fluids and monitor kidney function tomorrow. Echocardiogram has been ordered. Review of Systems Review of Systems: ROS unobtainable: Yes unobtainable due to mental status Exam Narrative: Gen - well appearing male in no acute respiratory distress who is nontoxic- appearing lying semi recumbent in bed HEENT - normocephalic. Atraumatic. Mucous membranes dry. Neck - neck was supple. No dominant adenopathy, thyromegaly or masses. 2+ carotid upstrokes without bruits. Chest - lungs are clear to auscultation bilaterally. No wheezes or crackles. CV - heart was regular rate and rhythm. S1-S2. No murmurs gallops or rubs. Abd - abdomen was soft. Nontender. Nondistended. Positive bowel sounds. No organomegaly or masses. Ext - no clubbing, cyanosis or edema. 2+ DP pulses bilaterally. Neuro - patient is alert and oriented x1. Cranial nerves 2-12 are intact. Speech is clear. Psych - normal mood and affect. Patient is pleasant and cooperative. Skin - warm and dry. No rashes noted. Objective Data Vital Signs Vital Signs: Vital Signs - 24 hr 08/26/24 08:00 08/26/24 08:38 08/26/24 09:33 Temperature Pulse Rate 100 Respiratory Rate Blood Pressure Pulse Oximetry Oxygen Delivery Room Air Room Air 08/26/24 14:00 08/26/24 20:37 08/26/24 22:00 Temperature 97.6 F 97.4 F L Pulse Rate 99 83 83 Respiratory Rate 17 18 Blood Pressure 108/64 Pulse Oximetry 98 100 Oxygen Delivery 08/27/24 06:00 Temperature 97.3 F L Pulse Rate 71 Respiratory Rate 18 Blood Pressure 133/49 L Pulse Oximetry 100 Oxygen Delivery Intake/Output Intake/Output: Intake & Output 08/24/24 08/25/24 08/26/24 08/27/24 23:59 23:59 23:59 23:59 Intake Total 1828.7 240 1270 Balance 1828.7 240 1270 Meds/Results Medications: Active Medications Generic Name Dose Route Start Last Admin Trade Name Freq PRN Reason Stop Dose Admin Acetaminophen 650 mg 08/23/24 04:23 08/25/24 16:08 Acetaminophen 325 Mg Tablet PO 650 mg Q6H PRN Administration pain 1-3 Amlodipine Besylate 5 mg 08/23/24 08:00 08/26/24 17:42 Amlodipine Besylate 5 Mg Tablet PO 5 mg BIDWM ANICETO Administration Aspirin 81 mg 08/23/24 09:00 08/26/24 09:45 Aspirin 81 Mg Chewable Tablet PO 81 mg DAILY ANICETO Administration Celecoxib 200 mg 08/23/24 08:00 08/26/24 17:42 Celecoxib 200 Mg Capsule PO 200 mg BIDWM ANICETO Administration Citalopram Hydrobromide 10 mg 08/23/24 09:00 08/26/24 09:37 Citalopram Hydrobromide 10 Mg Tablet PO 10 mg DAILY ANICETO Administration Divalproex Sodium 125 mg 08/23/24 09:00 08/26/24 20:37 Divalproex Sodium Sprinkle 125 Mg Cap.Dr PO 125 mg Q12HR ANICETO Administration Enoxaparin Sodium 40 mg 08/23/24 09:00 08/26/24 09:34 Enoxaparin 40 Mg/0.4 Ml Syringe SUB-Q 40 mg DAILY ANICETO Administration Guaifenesin/Dextromethorphan 10 ml 08/23/24 04:23 Guaifenesin/Dextromethorphan 10 Ml Udc PO Q4H PRN cough Sodium Chloride 1,000 mls @ 999 mls/hr 08/27/24 07:12 Normal Saline Iv IV CONT 08/27/24 08:12 .Q1H1M ONE Labetalol HCl 200 mg 08/23/24 09:00 08/26/24 20:37 Labetalol Hcl 100 Mg Tablet PO 200 mg Q12HR ANICETO Administration Levofloxacin 250 mg 08/26/24 11:45 08/26/24 12:29 Levofloxacin 250 Mg Tablet PO 250 mg DAILY ANICETO Administration Melatonin 3 mg 08/23/24 21:00 08/26/24 20:37 Melatonin 3 Mg Tablet PO 3 mg HS ANICETO Administration Memantine 5 mg 08/23/24 08:00 08/26/24 17:41 Memantine 5 Mg Tablet PO 5 mg BIDWM ANICETO Administration Mirtazapine 7.5 mg 08/25/24 21:00 08/26/24 20:37 Mirtazapine 7.5 Mg Tablet PO 7.5 mg HS ANICETO Administration Ofloxacin 1 drop 08/22/24 21:00 08/26/24 22:38 Ofloxacin 0.3% Ophth Soln 5 Ml Btl LEFT EYE Not Given QID ANICETO Ondansetron HCl 4 mg 08/23/24 04:25 Ondansetron Inj 4 Mg/2 Ml Vial IV PUSH Q6H PRN Nausea And Vomiting Polyethylene Glycol 17 gm 08/23/24 04:23 Polyethylene Glycol 3350 17 Gm Powd.Pack PO DAILY PRN constipation Vitamin D 1,000 units 08/23/24 09:00 08/26/24 09:36 Cholecalciferol 1,000 Units Tablet PO 1,000 units DAILY ANICETO Administration Radiology Results: ITS Impressions Head CT 08/22/24 19:08 IMPRESSION: No acute intracranial process. Chest X-Ray 08/22/24 19:26 IMPRESSION: No acute cardiopulmonary process. Labs Labs: Laboratory Results - last 24 hr 08/26/24 08/27/24 05:17 05:11 WBC 13.0 H RBC 3.60 L Hgb 11.6 L Hct 33.6 L MCV 93.3 MCH 32.2 MCHC 34.5 RDW 13.2 Plt Count 277 MPV 8.8 Immature Gran % (Auto) 0.5 Neut % (Auto) 66.9 Lymph % (Auto) 15.5 L [place] % (Auto) 12.3 H Eos % (Auto) 4.3 Baso % (Auto) 0.5 Lymph # (Auto) 2.01 [place] # (Auto) 1.6 H Eos # (Auto) 0.6 H Baso # (Auto) 0.1 Abs Immat Gran (auto) 0.07 H Absolute Neuts (auto) 8.7 H Absolute Nucleated RBC 0.000 Nucleated RBC % 0.0 Sodium 133 L Potassium 4.0 Chloride 93 L Carbon Dioxide 32 H Anion Gap 8 BUN 37 H D Creatinine 1.72 H Estim Creat Clear Calc 24 Estimated GFR 38 L Glucose 106 Calcium 9.9 Total Bilirubin 0.3 AST 33 ALT 32 Alkaline Phosphatase 75 Total Protein 7.0 Albumin 3.7 Random Cortisol 16.20 Quality VTE Prophylaxis VTE prophylaxis: pharmacologic ordered
[2024-08-27 09:22] LABS: Creatine Kinase 125 U/L (55-170)
--- NOTE | 2024-08-27 09:48 | P.PNNP_ITS ---
Progress Note: A&P Assessment and Plan (1) Hyponatremia: Code(s): E87.1 - Hypo-osmolality and hyponatremia Status: Acute Assessment and Plan: The patient has chronic hyponatremia. It has been going on for at least 2 years. urine sodium is not low. Chest x-ray and head CT do not show any issues that would cause hyponatremia he has no history of cancer TSH is normal Cortisol level is okay. He was on both chlorthalidone and mirtazapine. the former has been stopped. The latter is still on board the sodium level is better today. I think this is because of the fluid restriction. His creatinine is also higher and I think he is dehydrated. See below. Will stop the fluid restriction and encourage p.o. intake (2) Severe protein-calorie malnutrition: Code(s): E43 - Unspecified severe protein-calorie malnutrition Status: Acute Assessment and Plan: Encouraged to eat. (3) Hypertension: Code(s): I10 - Essential (primary) hypertension Status: Acute Assessment and Plan: Blood pressure is under good control (4) Dementia: Code(s): F03.90 - Unspecified dementia, unspecified severity, without behavioral disturbance, psychotic disturbance, mood disturbance, and anxiety Status: Acute Assessment and Plan: from but the chart says his mental status now is about as good as he gets and so is at baseline (5) Acute kidney injury: Code(s): N17.9 - Acute kidney failure, unspecified Status: Acute Assessment and Plan: the patient's creatinine is elevated. I think his intake is poor. He is not on diuretics anymore. He is on Celebrex. Will stop the Celebrex will check renal ultrasound in urine electrolytes. Encourage p.o. intake. I talked with the nurse about giving him saline but he pulls IVs out within a few minutes of having them put in. So the nurse will get him up in a chair and try to get him to eat and drink. Consider change in code status? Subjective Date/time seen: 08/27/24 09:48 Interval history: patient is not very interactive. Lying in bed comfortably. Not eating very much Review of Systems Cardiovascular: Cardiovascular: Reports no additional cardiovascular complaints Respiratory: Respiratory: Reports no additional respiratory complaints Gastrointestinal: Gastrointestinal: Reports no additional gastrointestinal complaints Genitourinary: Genitourinary: Reports no additional male genitourinary complaints Exam Narrative: WDWN male very weak but in NAD skin no rash head ncat mucous membranes look dry or to me today. He is mouth breathing. lungs clear cor reg no rub abd BS+ nontender and soft ext no edema. Objective Data Vital Signs Vital Signs: Vital Signs - 24 hr 08/26/24 14:00 08/26/24 20:37 08/26/24 22:00 Temperature 97.6 F 97.4 F L Pulse Rate 99 83 83 Respiratory Rate 17 18 Blood Pressure 108/64 Pulse Oximetry 98 100 08/27/24 06:00 Temperature 97.3 F L Pulse Rate 71 Respiratory Rate 18 Blood Pressure 133/49 L Pulse Oximetry 100 Intake/Output Intake/Output: Intake & Output 08/24/24 08/25/24 08/26/24 08/27/24 23:59 23:59 23:59 23:59 Intake Total 1828.7 240 1270 Balance 1828.7 240 1270 Meds/Results Medications: Active Medications Generic Name Dose Route Start Last Admin Trade Name Freq PRN Reason Stop Dose Admin Acetaminophen 650 mg 08/23/24 04:23 08/25/24 16:08 Acetaminophen 325 Mg Tablet PO 650 mg Q6H PRN Administration pain 1-3 Amlodipine Besylate 5 mg 08/27/24 09:00 Amlodipine Besylate 5 Mg Tablet PO DAILY ANICETO Aspirin 81 mg 08/23/24 09:00 08/26/24 09:45 Aspirin 81 Mg Chewable Tablet PO 81 mg DAILY ANICETO Administration Citalopram Hydrobromide 10 mg 08/23/24 09:00 08/26/24 09:37 Citalopram Hydrobromide 10 Mg Tablet PO 10 mg DAILY ANICETO Administration Divalproex Sodium 125 mg 08/23/24 09:00 08/26/24 20:37 Divalproex Sodium Sprinkle 125 Mg Cap.Dr PO 125 mg Q12HR ANICETO Administration Enoxaparin Sodium 40 mg 08/23/24 09:00 08/26/24 09:34 Enoxaparin 40 Mg/0.4 Ml Syringe SUB-Q 40 mg DAILY ANICETO Administration Guaifenesin/Dextromethorphan 10 ml 08/23/24 04:23 Guaifenesin/Dextromethorphan 10 Ml Udc PO Q4H PRN cough Labetalol HCl 200 mg 08/23/24 09:00 08/26/24 20:37 Labetalol Hcl 100 Mg Tablet PO 200 mg Q12HR ANICETO Administration Levofloxacin 250 mg 08/26/24 11:45 08/26/24 12:29 Levofloxacin 250 Mg Tablet PO 250 mg DAILY ANICETO Administration Melatonin 3 mg 08/23/24 21:00 08/26/24 20:37 Melatonin 3 Mg Tablet PO 3 mg HS ANICETO Administration Memantine 5 mg 08/23/24 08:00 08/26/24 17:41 Memantine 5 Mg Tablet PO 5 mg BIDWM ANICETO Administration Mirtazapine 7.5 mg 08/25/24 21:00 08/26/24 20:37 Mirtazapine 7.5 Mg Tablet PO 7.5 mg HS ANICETO Administration Ofloxacin 1 drop 08/22/24 21:00 08/26/24 22:38 Ofloxacin 0.3% Ophth Soln 5 Ml Btl LEFT EYE Not Given QID [facility] Ondansetron HCl 4 mg 08/23/24 04:25 Ondansetron Inj 4 Mg/2 Ml Vial IV PUSH Q6H PRN Nausea And Vomiting Perflutren Lipid Microsphere 0 ml 08/27/24 07:16 Perflutren Lipid Microspheres 1.5 Ml Vial Diluted To 10 Ml Total Volume IV PUSH 08/30/24 07:16 ONCE PRN adequate visualization Protocol Polyethylene Glycol 17 gm 08/23/24 04:23 Polyethylene Glycol 3350 17 Gm Powd.Pack PO DAILY PRN constipation Vitamin D 1,000 units 08/23/24 09:00 08/26/24 09:36 Cholecalciferol 1,000 Units Tablet PO 1,000 units DAILY ANICETO Administration Radiology Results: ITS Impressions Head CT 08/22/24 19:08 IMPRESSION: No acute intracranial process. Chest X-Ray 08/22/24 19:26 IMPRESSION: No acute cardiopulmonary process. Labs Labs: Laboratory Results - last 24 hr 08/26/24 08/27/24 05:17 05:11 WBC 13.0 H RBC 3.60 L Hgb 11.6 L Hct 33.6 L MCV 93.3 MCH 32.2 MCHC 34.5 RDW 13.2 Plt Count 277 MPV 8.8 Immature Gran % (Auto) 0.5 Neut % (Auto) 66.9 Lymph % (Auto) 15.5 L [place] % (Auto) 12.3 H Eos % (Auto) 4.3 Baso % (Auto) 0.5 Lymph # (Auto) 2.01 [place] # (Auto) 1.6 H Eos # (Auto) 0.6 H Baso # (Auto) 0.1 Abs Immat Gran (auto) 0.07 H Absolute Neuts (auto) 8.7 H Absolute Nucleated RBC 0.000 Nucleated RBC % 0.0 Sodium 133 L Potassium 4.0 Chloride 93 L Carbon Dioxide 32 H Anion Gap 8 BUN 37 H D Creatinine 1.72 H Estim Creat Clear Calc 24 Estimated GFR 38 L Glucose 106 Calcium 9.9 Total Bilirubin 0.3 AST 33 ALT 32 Alkaline Phosphatase 75 Total Creatine Kinase 125 Total Protein 7.0 Albumin 3.7 Random Cortisol 16.20
[2024-08-27] MEDS: SODIUM CHLORIDE 0.9% IV 1,000 ML 999 ML IV CONT (13:30)
[2024-08-27 16:05] LABS: Anion Gap 6 mmol/L (4-12); Blood Urea Nitrogen 30 mg/dL (9-20); Calcium 9.5 mg/dL (8.4-10.2); Carbon Dioxide 32 mmol/L (22-30); Chloride 95 mmol/L (98-107); Estimated CRCL calculation 32 ml/min; Estimated Glomerular Filt Rate 51; Glucose 108 mg/dL (65-110); Sodium 133 mmol/L (137-145)
[2024-08-27 22:00] VITALS: BP 154/63; PULSE 71; RESP 18; TEMP 36.4; O2SAT 99
[2024-08-28 04:44] LABS: Basophils Absolute Auto 0.1 K/mm3 (0.0-0.1); Basophils Percent Auto 0.7 % (0.2-1.2); Eosinophils Absolute Auto 0.7 K/mm3 (0-0.3); Eosinophils Percent Auto 5.2 % (0-4.4); Hematocrit 36.5 % (42.0-52.0); Hemoglobin 11.9 g/dL (14.0-18.0); Immature Granulocyte Absolute 0.08 K/mm3 (0.00-0.031); Immature Granulocyte Percent A 0.6 % (0-0.5); Lymphocytes Absolute Auto 1.64 K/mm3 (0.9-3.2); Lymphocytes Percent Auto 12.8 % (18.3-44.2); Mean Corpuscular HGB Conc 32.6 g/dl (32-36); Mean Corpuscular Hemoglobin 31.2 pg (26-34); Mean Corpuscular Volume 95.8 fl (80-100); Mean Platelet Volume 8.7 fl (7.4-10.4); Monocytes Absolute Auto 1.6 K/mm3 (0.1-0.6); Monocytes Percent Auto 12.4 % (2.6-8.5); Neutrophils Absolute Auto 8.7 K/mm3 (1.3-6.7); Neutrophils Percent Auto 68.3 % (45.5-73.1); Platelet Count Result 315 k/mm3 (150-375); Red Blood Count 3.81 M/mm3 (4.6-6.20); Red Cell Distribution Width 13.7 % (11.5-14.5); White Blood Count 12.8 K/mm3 (4.5-10.0)
[2024-08-28 04:56] LABS: Alanine Aminotransferase 34 U/L (6-50); Albumin Level 3.9 g/dL (3.5-5.1); Alkaline Phosphatase 68 U/L (38-126); Anion Gap 8 mmol/L (4-12); Aspartate Amino Transferase 38 U/L (17-59); Bilirubin,Total 0.4 mg/dL (0.2-1.3); Blood Urea Nitrogen 25 mg/dL (9-20); Calcium 9.8 mg/dL (8.4-10.2); Carbon Dioxide 33 mmol/L (22-30); Chloride 95 mmol/L (98-107); Estimated CRCL calculation 38 ml/min; Estimated Glomerular Filt Rate > 60; Glucose 101 mg/dL (65-110); Potassium 4.5 mmol/L (3.4-5.0); Sodium 136 mmol/L (137-145)
--- NOTE | 2024-08-28 08:08 | P.PNNP_ITS ---
Progress Note: A&P Assessment and Plan (1) Hyponatremia: Code(s): E87.1 - Hypo-osmolality and hyponatremia Status: Acute Assessment and Plan: The patient has chronic hyponatremia. It has been going on for at least 2 years. urine sodium is not low. Chest x-ray and head CT do not show any issues that would cause hyponatremia he has no history of cancer TSH is normal Cortisol level is okay. He was on both chlorthalidone and mirtazapine. the former has been stopped. The latter is still on board the sodium level is better today. now up to 136. His creatinine is better. Off the fluid restriction and encouraging p.o. intake (2) Severe protein-calorie malnutrition: Code(s): E43 - Unspecified severe protein-calorie malnutrition Status: Acute Assessment and Plan: Encouraged to eat. (3) Hypertension: Code(s): I10 - Essential (primary) hypertension Status: Acute Assessment and Plan: Blood pressure is under good control but variable with a systolic between 101 60 (4) Dementia: Code(s): F03.90 - Unspecified dementia, unspecified severity, without behavioral disturbance, psychotic disturbance, mood disturbance, and anxiety Status: Acute Assessment and Plan: from but the chart says his mental status now is about as good as he gets and so is at baseline (5) Acute kidney injury: Code(s): N17.9 - Acute kidney failure, unspecified Status: Acute Assessment and Plan: the patient's creatinine was elevated. renal sonogram was unremarkable urine test not collected because of patient cooperation now off the Celebrex. Off the fluid restriction eating better. The nurse yesterday was able to get an IV and was able to give him 500cc of saline before he pulled the IV out. His creatinine has returned to normal. We can cancel the urine tests. Subjective Date/time seen: 08/28/24 08:08 Interval history: patient is resting comfortably in bed Exam Narrative: WDWN male very weak but in NAD skin no rash head ncat lungs clear bilaterally cor reg no rub or gallop abd BS+ nontender and soft ext no edema. Objective Data Vital Signs Vital Signs: Vital Signs - 24 hr 08/27/24 22:00 Temperature 97.5 F L Pulse Rate 71 Respiratory Rate 18 Blood Pressure 154/63 H Pulse Oximetry 99 Intake/Output Intake/Output: Intake & Output 08/25/24 08/26/24 08/27/24 08/28/24 23:59 23:59 23:59 23:59 Intake Total 240 1270 500 Balance 240 1270 500 Meds/Results Medications: Active Medications Generic Name Dose Route Start Last Admin Trade Name Freq PRN Reason Stop Dose Admin Acetaminophen 650 mg 08/23/24 04:23 08/25/24 16:08 Acetaminophen 325 Mg Tablet PO 650 mg Q6H PRN Administration pain 1-3 Amlodipine Besylate 5 mg 08/27/24 09:00 08/27/24 16:50 Amlodipine Besylate 5 Mg Tablet PO Not Given DAILY ANICETO Aspirin 81 mg 08/23/24 09:00 08/27/24 15:58 Aspirin 81 Mg Chewable Tablet PO Not Given DAILY ANICETO Citalopram Hydrobromide 10 mg 08/23/24 09:00 08/27/24 15:58 Citalopram Hydrobromide 10 Mg Tablet PO Not Given DAILY [facility] Divalproex Sodium 125 mg 08/23/24 09:00 08/27/24 21:47 Divalproex Sodium Sprinkle 125 Mg Cap.Dr PO Not Given Q12HR ANICETO Enoxaparin Sodium 40 mg 08/23/24 09:00 08/27/24 15:59 Enoxaparin 40 Mg/0.4 Ml Syringe SUB-Q Not Given DAILY ANICETO Guaifenesin/Dextromethorphan 10 ml 08/23/24 04:23 Guaifenesin/Dextromethorphan 10 Ml Udc PO Q4H PRN cough Labetalol HCl 200 mg 08/23/24 09:00 08/27/24 21:47 Labetalol Hcl 100 Mg Tablet PO Not Given Q12HR ANICETO Levofloxacin 250 mg 08/26/24 11:45 08/27/24 15:59 Levofloxacin 250 Mg Tablet PO Not Given DAILY ANICETO Melatonin 3 mg 08/23/24 21:00 08/27/24 21:48 Melatonin 3 Mg Tablet PO Not Given HS ANICETO Memantine 5 mg 08/23/24 08:00 08/27/24 16:06 Memantine 5 Mg Tablet PO Not Given BIDWM ANICETO Mirtazapine 7.5 mg 08/25/24 21:00 08/27/24 21:48 Mirtazapine 7.5 Mg Tablet PO Not Given HS ANICETO Ofloxacin 1 drop 08/22/24 21:00 08/27/24 21:48 Ofloxacin 0.3% Ophth Soln 5 Ml Btl LEFT EYE Not Given QID ANICETO Ondansetron HCl 4 mg 08/23/24 04:25 Ondansetron Inj 4 Mg/2 Ml Vial IV PUSH Q6H PRN Nausea And Vomiting Perflutren Lipid Microsphere 0 ml 08/27/24 07:16 Perflutren Lipid Microspheres 1.5 Ml Vial Diluted To 10 Ml Total Volume IV PUSH 08/30/24 07:16 ONCE PRN adequate visualization Protocol Polyethylene Glycol 17 gm 08/23/24 04:23 Polyethylene Glycol 3350 17 Gm Powd.Pack PO DAILY PRN constipation Vitamin D 1,000 units 08/23/24 09:00 08/27/24 15:58 Cholecalciferol 1,000 Units Tablet PO Not Given DAILY [facility] Radiology Results: ITS Impressions Head CT 08/22/24 19:08 IMPRESSION: No acute intracranial process. Chest X-Ray 08/22/24 19:26 IMPRESSION: No acute cardiopulmonary process. Renal Ultrasound 08/27/24 11:56 IMPRESSION: No definite abnormality. Labs Labs: Laboratory Results - last 24 hr 08/27/24 08/27/24 08/28/24 05:11 15:36 04:24 WBC 12.8 H RBC 3.81 L Hgb 11.9 L Hct 36.5 L MCV 95.8 MCH 31.2 MCHC 32.6 RDW 13.7 Plt Count 315 MPV 8.7 Immature Gran % (Auto) 0.6 H Neut % (Auto) 68.3 Lymph % (Auto) 12.8 L [place] % (Auto) 12.4 H Eos % (Auto) 5.2 H Baso % (Auto) 0.7 Lymph # (Auto) 1.64 [place] # (Auto) 1.6 H Eos # (Auto) 0.7 H Baso # (Auto) 0.1 Abs Immat Gran (auto) 0.08 H Absolute Neuts (auto) 8.7 H Absolute Nucleated RBC 0.000 Nucleated RBC % 0.0 Sodium 133 L 136 L Potassium 4.0 4.5 Chloride 95 L 95 L Carbon Dioxide 32 H 33 H Anion Gap 6 8 BUN 30 H 25 H Creatinine 1.32 H 1.08 Estim Creat Clear Calc 32 38 Estimated GFR 51 L > 60 Glucose 108 101 Calcium 9.5 9.8 Total Bilirubin 0.4 AST 38 ALT 34 Alkaline Phosphatase 68 Total Creatine Kinase 125 Total Protein 7.0 Albumin 3.9
--- NOTE | 2024-08-28 09:08 | PCPTNOTE ---
900- attempted PT evaluation, pt refused. Discussed with RN, pt has been combative and agitated.
--- NOTE | 2024-08-28 11:02 | P.PNIM_ITS ---
Progress Note: A&P Assessment and Plan (1) Acute UTI: Code(s): N39.0 - Urinary tract infection, site not specified Status: Acute Assessment and Plan: * UA showed trace urine ketones, 3+ leukocyte, 3-5 urine RBC, 51-100 urine WBC, 4+ urine bacteria * Urine cultures pending, blood cultures negative for growth * Continue levofloxacin PO * WBC 18.6>10.9> 9.0> 12.8 on 08/28 (2) Acute kidney injury: Code(s): N17.9 - Acute kidney failure, unspecified Status: Acute Assessment and Plan: -Creatinine: 1.08, GFR: >60, BUN: 25 -Encourage PO intake of fluids, off fluid restriction -Trend renal function -trend electrolytes, correct as needed -Renal sonogram unremarkable (3) Hyponatremia: Code(s): E87.1 - Hypo-osmolality and hyponatremia Status: Acute Assessment and Plan: Likely secondary to dehydration * Sodium 136 * Patient was given 2 L in the ED and then started on maintenance IV fluids * Hold Chlorthalidone * Urine Random Sodium: 170 * Nephrology consult, agree that Na is likely at his baseline, will continue to monitor * Add salt tablets +/- low dose oral Lasix if Na drops * Off the fluid restriction and encouraging p.o. intake (4) Hypokalemia: Code(s): E87.6 - Hypokalemia Status: Acute Assessment and Plan: On ED workup: 3.9 * Today 4 * monitor (5) Dementia: Code(s): F03.90 - Unspecified dementia, unspecified severity, without behavioral disturbance, psychotic disturbance, mood disturbance, and anxiety Status: Acute Assessment and Plan: * Scheduled Remeron for PM * Continue Namenda and Depakote (6) HTN (hypertension): Code(s): I10 - Essential (primary) hypertension Status: Acute Assessment and Plan: * Blood pressure ranging * Continue amlodipine and labetalol (7) Dyslipidemia: Code(s): E78.5 - Hyperlipidemia, unspecified Status: Acute Assessment and Plan: * Continue aspirin (8) Severe protein-calorie malnutrition: Code(s): E43 - Unspecified severe protein-calorie malnutrition Status: Acute Assessment and Plan: Likely secondary to dementia * Dietitian consulted * BMI 21.0, 64.4 kg * Encourage p.o. intake Time Spent With Patient Time: Subjective Date/time seen: 08/28/24 11:02 Interval history: Patient is an 88-year-old male who presented to the ED due to increasing aggressive behavior and weakness Due to patient's Dementia and mentation, most of the history of presenting illness was obtained from the medical record. ED workup indicated urinary tract infection with associated hyponatremia. 08/28/2024 Patient is resting comfortably in bed. Sodium improved to 136 today, up from 133 yesterday. Continue monitoring I&Os. Cr down from 1.32 to 1.08 today. GFR >60. Still waiting on placement to possible SNF or rehab facility. Review of Systems Review of Systems: ROS unobtainable: Yes unobtainable due to mental status Exam Narrative: Gen - well appearing male in no acute respiratory distress who is nontoxic- appearing lying semi recumbent in bed HEENT - normocephalic. Atraumatic. Mucous membranes dry. Neck - neck was supple. No dominant adenopathy, thyromegaly or masses. 2+ carotid upstrokes without bruits. Chest - lungs are clear to auscultation bilaterally. No wheezes or crackles. CV - heart was regular rate and rhythm. S1-S2. No murmurs gallops or rubs. Abd - abdomen was soft. Nontender. Nondistended. Positive bowel sounds. No organomegaly or masses. Ext - no clubbing, cyanosis or edema. 2+ DP pulses bilaterally. Neuro - patient is alert and oriented x1. Cranial nerves 2-12 are intact. Speech is clear. Psych - normal mood and affect. Patient is pleasant and cooperative. Skin - warm and dry. No rashes noted. Objective Data Vital Signs Vital Signs: Vital Signs - 24 hr 08/27/24 22:00 Temperature 97.5 F L Pulse Rate 71 Respiratory Rate 18 Blood Pressure 154/63 H Pulse Oximetry 99 Intake/Output Intake/Output: Intake & Output 08/25/24 08/26/24 08/27/24 08/28/24 23:59 23:59 23:59 23:59 Intake Total 240 1270 500 Balance 240 1270 500 Meds/Results Medications: Active Medications Generic Name Dose Route Start Last Admin Trade Name Freq PRN Reason Stop Dose Admin Acetaminophen 650 mg 08/23/24 04:23 08/25/24 16:08 Acetaminophen 325 Mg Tablet PO 650 mg Q6H PRN Administration pain 1-3 Amlodipine Besylate 5 mg 08/27/24 09:00 08/28/24 09:58 Amlodipine Besylate 5 Mg Tablet PO Not Given DAILY [facility] Aspirin 81 mg 08/23/24 09:00 08/28/24 09:58 Aspirin 81 Mg Chewable Tablet PO Not Given DAILY ANICETO Citalopram Hydrobromide 10 mg 08/23/24 09:00 08/28/24 09:59 Citalopram Hydrobromide 10 Mg Tablet PO Not Given DAILY [facility] Divalproex Sodium 125 mg 08/23/24 09:00 08/28/24 09:59 Divalproex Sodium Sprinkle 125 Mg Cap.Dr PO Not Given Q12HR ANICETO Enoxaparin Sodium 40 mg 08/23/24 09:00 08/28/24 10:00 Enoxaparin 40 Mg/0.4 Ml Syringe SUB-Q Not Given DAILY [facility] Guaifenesin/Dextromethorphan 10 ml 08/23/24 04:23 Guaifenesin/Dextromethorphan 10 Ml Udc PO Q4H PRN cough Labetalol HCl 200 mg 08/23/24 09:00 08/28/24 09:59 Labetalol Hcl 100 Mg Tablet PO Not Given Q12HR ANICETO Levofloxacin 250 mg 08/26/24 11:45 08/28/24 09:59 Levofloxacin 250 Mg Tablet PO Not Given DAILY [facility]O Melatonin 3 mg 08/23/24 21:00 08/27/24 21:48 Melatonin 3 Mg Tablet PO Not Given HS ANICETO Memantine 5 mg 08/23/24 08:00 08/28/24 09:58 Memantine 5 Mg Tablet PO Not Given BIDWM ANICETO Mirtazapine 7.5 mg 08/25/24 21:00 08/27/24 21:48 Mirtazapine 7.5 Mg Tablet PO Not Given HS ANICETO Ofloxacin 1 drop 08/22/24 21:00 08/28/24 10:01 Ofloxacin 0.3% Ophth Soln 5 Ml Btl LEFT EYE Not Given QID ANICETO Ondansetron HCl 4 mg 08/23/24 04:25 Ondansetron Inj 4 Mg/2 Ml Vial IV PUSH Q6H PRN Nausea And Vomiting Perflutren Lipid Microsphere 0 ml 03/16/25 07:16 Perflutren Lipid Microspheres 1.5 Ml Vial Diluted To 10 Ml Total Volume IV PUSH 08/30/24 07:16 ONCE PRN adequate visualization Protocol Polyethylene Glycol 17 gm 08/23/24 04:23 Polyethylene Glycol 3350 17 Gm Powd.Pack PO DAILY PRN constipation Vitamin D 1,000 units 08/23/24 09:00 08/28/24 09:59 Cholecalciferol 1,000 Units Tablet PO Not Given DAILY [facility] Radiology Results: ITS Impressions Head CT 08/22/24 19:08 IMPRESSION: No acute intracranial process. Chest X-Ray 08/22/24 19:26 IMPRESSION: No acute cardiopulmonary process. Renal Ultrasound 08/27/24 11:56 IMPRESSION: No definite abnormality. Labs Labs: Laboratory Results - last 24 hr 08/27/24 08/28/24 15:36 04:24 WBC 12.8 H RBC 3.81 L Hgb 11.9 L Hct 36.5 L MCV 95.8 MCH 31.2 MCHC 32.6 RDW 13.7 Plt Count 315 MPV 8.7 Immature Gran % (Auto) 0.6 H Neut % (Auto) 68.3 Lymph % (Auto) 12.8 L [place] % (Auto) 12.4 H Eos % (Auto) 5.2 H Baso % (Auto) 0.7 Lymph # (Auto) 1.64 [place] # (Auto) 1.6 H Eos # (Auto) 0.7 H Baso # (Auto) 0.1 Abs Immat Gran (auto) 0.08 H Absolute Neuts (auto) 8.7 H Absolute Nucleated RBC 0.000 Nucleated RBC % 0.0 Sodium 133 L 136 L Potassium 4.0 4.5 Chloride 95 L 95 L Carbon Dioxide 32 H 33 H Anion Gap 6 8 BUN 30 H 25 H Creatinine 1.32 H 1.08 Estim Creat Clear Calc 32 38 Estimated GFR 51 L > 60 Glucose 108 101 Calcium 9.5 9.8 Total Bilirubin 0.4 AST 38 ALT 34 Alkaline Phosphatase 68 Total Protein 7.0 Albumin 3.9 Quality VTE Prophylaxis VTE prophylaxis: pharmacologic ordered
--- NOTE | 2024-08-28 11:27 | PCOTNOTE ---
The patient treatment was not able to be completed. Patient is not appropriate to be seen at this time. Refusing nursing and PT. Will plan to continue treatment per plan of care.
[2024-08-28 12:08] LABS: Protein, Total 5.9 g/dL (6.1-8.1)
--- NOTE | 2024-08-28 12:41 | PCNFU ---
Nutrition Follow-Up Complete: Moderate protein calorie malnutrition related to chronic dementia as evidenced by moderate muscle wasting and fat loss Adequate PO intake at least 75% meals and supplements - Not meeting goal Goal: Pt current nutrition is Regular diet, fluid restriction 1200 ml/d. Ensure Enlive TID (350 kcal, 20 g protein) Nutrition recommendation: Tube feeding is not a good option for pt because he pulls out IVs and would likely pull out an NG or PEG Last recorded weight is 64.4 kg. Bowel Motility: Last BM 08/25/24 Labs Reviewed: Hgb 11.9, Hct 36.5, Na 136, BUN 25 Meds Noted: Remeron, miralax, Zzofran Skin: No skin issues noted Additional Notes: Pt is not eating, refusing meals and meds, and pulling at lines. Pt is full code so an NH tube feeding would be an appropriate recommendation, but an NG would likely get pulled out. Encourage PO intakes. Will continue to follow. Monitoring intakes, weights, labs, supplement tolerance, plan of care Follow up in 5 days
[2024-08-28 16:18] LABS: Osmolality, Urine. 461 mOsm/kg (50-1200)
[2024-08-28] MEDS: ACETAMINOPHEN 325 MG TABLET 650 MG PO (17:16)
[2024-08-28] MEDS: MEMANTINE 5 MG TABLET PO (17:16)
[2024-08-28] MEDS: OFLOXACIN 0.3% OPHTH SOLN 5 ML BTL 1 DROP LEFT EYE ×2 (17:20→20:27)
[2024-08-28 20:26] VITALS: PULSE 67
[2024-08-28] MEDS: LABETALOL HCL 100 MG TABLET 200 MG PO (20:26)
[2024-08-28] MEDS: DIVALPROEX SODIUM SPRINKLE 125 MG CAP.DR PO (20:26)
[2024-08-28] MEDS: MELATONIN 3 MG TABLET PO (20:27)
[2024-08-28] MEDS: MIRTAZAPINE 7.5 MG TABLET PO (20:27)
[2024-08-28 20:35] VITALS: PULSE 93; RESP 20; O2SAT 90
[2024-08-28 20:50] VITALS: BP 139/99; PULSE 93; RESP 20; TEMP 36.6; O2SAT 90
[2024-08-29 04:10] VITALS: BP 129/59; PULSE 82; RESP 18; TEMP 36.5; O2SAT 100
[2024-08-29 05:37] LABS: Basophils Absolute Auto 0.1 K/mm3 (0.0-0.1); Basophils Percent Auto 0.7 % (0.2-1.2); Eosinophils Absolute Auto 0.3 K/mm3 (0-0.3); Eosinophils Percent Auto 2.5 % (0-4.4); Hematocrit 35.1 % (42.0-52.0); Hemoglobin 11.5 g/dL (14.0-18.0); Immature Granulocyte Absolute 0.07 K/mm3 (0.00-0.031); Immature Granulocyte Percent A 0.5 % (0-0.5); Lymphocytes Absolute Auto 1.25 K/mm3 (0.9-3.2); Lymphocytes Percent Auto 9.2 % (18.3-44.2); Mean Corpuscular HGB Conc 32.8 g/dl (32-36); Mean Corpuscular Hemoglobin 31.9 pg (26-34); Mean Corpuscular Volume 97.5 fl (80-100); Mean Platelet Volume 8.9 fl (7.4-10.4); Monocytes Absolute Auto 1.9 K/mm3 (0.1-0.6); Monocytes Percent Auto 13.7 % (2.6-8.5); Neutrophils Percent Auto 73.4 % (45.5-73.1); Platelet Count Result 288 k/mm3 (150-375); Red Cell Distribution Width 13.6 % (11.5-14.5); White Blood Count 13.6 K/mm3 (4.5-10.0)
[2024-08-29 05:59] LABS: Alanine Aminotransferase 28 U/L (6-50); Albumin Level 3.7 g/dL (3.5-5.1); Alkaline Phosphatase 67 U/L (38-126); Anion Gap 6 mmol/L (4-12); Aspartate Amino Transferase 25 U/L (17-59); Bilirubin,Total 0.7 mg/dL (0.2-1.3); Blood Urea Nitrogen 22 mg/dL (9-20); Calcium 9.7 mg/dL (8.4-10.2); Carbon Dioxide 34 mmol/L (22-30); Chloride 98 mmol/L (98-107); Estimated CRCL calculation 35 ml/min; Estimated Glomerular Filt Rate 58; Glucose 103 mg/dL (65-110); Phosphorus 3.1 mg/dL (2.5-4.5); Potassium 3.9 mmol/L (3.4-5.0); Sodium 138 mmol/L (137-145)
--- NOTE | 2024-08-29 08:36 | PM.PNNEP ---
Progress Note: A&P Assessment and Plan (1) Hyponatremia: Code(s): E87.1 - Hypo-osmolality and hyponatremia Status: Acute Assessment and Plan: The patient has chronic hyponatremia. It has been going on for at least 2 years. urine sodium is not low. Chest x-ray and head CT do not show any issues that would cause hyponatremia he has no history of cancer TSH is normal Cortisol level is okay. He was on both chlorthalidone and mirtazapine. the former has been stopped. The latter is still on board the sodium level is better today. now up to 138 His creatinine is normal again. Patient looks stable. Renal will sign off (2) Severe protein-calorie malnutrition: Code(s): E43 - Unspecified severe protein-calorie malnutrition Status: Acute Assessment and Plan: Encouraged to eat. (3) Hypertension: Code(s): I10 - Essential (primary) hypertension Status: Acute Assessment and Plan: Blood pressure is under good control but variable with a systolic between 105 and 154 (4) Dementia: Code(s): F03.90 - Unspecified dementia, unspecified severity, without behavioral disturbance, psychotic disturbance, mood disturbance, and anxiety Status: Acute Assessment and Plan: from but the chart says his mental status now is about as good as he gets and so is at baseline (5) Acute kidney injury: Code(s): N17.9 - Acute kidney failure, unspecified Status: Acute Assessment and Plan: the patient's creatinine was elevated. this has resolved Subjective Date/time seen: 08/29/24 08:36 Interval history: [place] is about the same today. Not very interactive lying in bed comfortably. Exam Narrative: WDWN male very weak but in NAD skin no rash Or subcu not head ncat lungs clear to auscultation cor reg no rub or gallop abd BS+ nontender and soft ext no edema. Objective Data Vital Signs Vital Signs: Vital Signs - 24 hr 08/28/24 20:26 08/28/24 20:35 08/28/24 20:50 Temperature 97.8 F Pulse Rate 67 93 93 Respiratory Rate 20 20 Blood Pressure 139/99 H Pulse Oximetry 90 90 Oxygen Delivery Room Air 08/29/24 04:10 Temperature 97.7 F Pulse Rate 82 Respiratory Rate 18 Blood Pressure 129/59 L Pulse Oximetry 100 Oxygen Delivery Intake/Output Intake/Output: Intake & Output 08/26/24 08/27/24 08/28/24 08/29/24 23:59 23:59 23:59 23:59 Intake Total 1270 500 600 0 Balance 1270 500 600 0 Meds/Results Medications: Active Medications Generic Name Dose Route Start Last Admin Trade Name Freq PRN Reason Stop Dose Admin Acetaminophen 650 mg 08/23/24 04:23 08/28/24 17:16 Acetaminophen 325 Mg Tablet PO 650 mg Q6H PRN Administration pain 1-3 Amlodipine Besylate 5 mg 08/27/24 09:00 08/28/24 09:58 Amlodipine Besylate 5 Mg Tablet PO Not Given DAILY ANICETO Aspirin 81 mg 08/23/24 09:00 08/28/24 09:58 Aspirin 81 Mg Chewable Tablet PO Not Given DAILY [facility] Citalopram Hydrobromide 10 mg 08/23/24 09:00 08/28/24 09:59 Citalopram Hydrobromide 10 Mg Tablet PO Not Given DAILY [facility]O Divalproex Sodium 125 mg 08/23/24 09:00 08/28/24 20:26 Divalproex Sodium Sprinkle 125 Mg Cap.Dr PO 125 mg Q12HR ANICETO Administration Enoxaparin Sodium 40 mg 08/23/24 09:00 08/28/24 10:00 Enoxaparin 40 Mg/0.4 Ml Syringe SUB-Q Not Given DAILY [facility] Guaifenesin/Dextromethorphan 10 ml 08/23/24 04:23 Guaifenesin/Dextromethorphan 10 Ml Udc PO Q4H PRN cough Labetalol HCl 200 mg 08/23/24 09:00 08/28/24 20:26 Labetalol Hcl 100 Mg Tablet PO 200 mg Q12HR ANICETO Administration Levofloxacin 250 mg 08/26/24 11:45 08/28/24 09:59 Levofloxacin 250 Mg Tablet PO Not Given DAILY [facility] Melatonin 3 mg 08/23/24 21:00 08/28/24 20:27 Melatonin 3 Mg Tablet PO 3 mg HS ANICETO Administration Memantine 5 mg 08/23/24 08:00 08/28/24 17:16 Memantine 5 Mg Tablet PO 5 mg BIDWM ANICETO Administration Mirtazapine 7.5 mg 08/25/24 21:00 08/28/24 20:27 Mirtazapine 7.5 Mg Tablet PO 7.5 mg HS ANICETO Administration Ofloxacin 1 drop 08/22/24 21:00 08/28/24 20:27 Ofloxacin 0.3% Ophth Soln 5 Ml Btl LEFT EYE 1 drop QID ANICETO Administration Ondansetron HCl 4 mg 08/23/24 04:25 Ondansetron Inj 4 Mg/2 Ml Vial IV PUSH Q6H PRN Nausea And Vomiting Perflutren Lipid Microsphere 0 ml 08/27/24 07:16 Perflutren Lipid Microspheres 1.5 Ml Vial Diluted To 10 Ml Total Volume IV PUSH 08/30/24 07:16 ONCE PRN adequate visualization Protocol Polyethylene Glycol 17 gm 08/23/24 04:23 Polyethylene Glycol 3350 17 Gm Powd.Pack PO DAILY PRN constipation Vitamin D 1,000 units 08/23/24 09:00 08/28/24 09:59 Cholecalciferol 1,000 Units Tablet PO Not Given DAILY [facility] Radiology Results: ITS Impressions Head CT 08/22/24 19:08 IMPRESSION: No acute intracranial process. Chest X-Ray 08/22/24 19:26 IMPRESSION: No acute cardiopulmonary process. Renal Ultrasound 08/27/24 11:56 IMPRESSION: No definite abnormality. Labs Labs: Laboratory Results - last 24 hr 08/23/24 08/27/24 08/29/24 15:36 05:11 05:17 WBC 13.6 H RBC 3.60 L Hgb 11.5 L Hct 35.1 L MCV 97.5 MCH 31.9 MCHC 32.8 RDW 13.6 Plt Count 288 MPV 8.9 Immature Gran % (Auto) 0.5 Neut % (Auto) 73.4 H Lymph % (Auto) 9.2 L [place] % (Auto) 13.7 H Eos % (Auto) 2.5 Baso % (Auto) 0.7 Lymph # (Auto) 1.25 [place] # (Auto) 1.9 H Eos # (Auto) 0.3 Baso # (Auto) 0.1 Abs Immat Gran (auto) 0.07 H Absolute Neuts (auto) 10.0 H Absolute Nucleated RBC 0.000 Nucleated RBC % 0.0 Sodium 138 Potassium 3.9 Chloride 98 Carbon Dioxide 34 H Anion Gap 6 BUN 22 H Creatinine 1.19 Estim Creat Clear Calc 35 Estimated GFR 58 L Glucose 103 Calcium 9.7 Phosphorus 3.1 Total Bilirubin 0.7 AST 25 ALT 28 Alkaline Phosphatase 67 Total Protein 5.9 L 7.0 Albumin 3.7 Urine Osmolality 461
[2024-08-29 09:23] VITALS: PULSE 66
[2024-08-29] MEDS: amLODIPine BESYLATE 5 MG TABLET PO (09:23)
[2024-08-29] MEDS: CHOLECALCIFEROL 1,000 UNITS TABLET 1000 UNITS PO (09:23)
[2024-08-29] MEDS: CITALOPRAM HYDROBROMIDE 10 MG TABLET PO (09:23)
[2024-08-29] MEDS: LABETALOL HCL 100 MG TABLET 200 MG PO ×2 (09:23→20:47)
[2024-08-29] MEDS: levoFLOXacin 250 MG TABLET PO (09:23)
[2024-08-29] MEDS: ACETAMINOPHEN 325 MG TABLET 650 MG PO (09:24)
[2024-08-29] MEDS: MEMANTINE 5 MG TABLET PO ×2 (09:24→17:19)
[2024-08-29] MEDS: DIVALPROEX SODIUM SPRINKLE 125 MG CAP.DR PO ×2 (09:24→20:47)
[2024-08-29] MEDS: ASPIRIN 81 MG CHEWABLE TABLET PO (09:24)
--- NOTE | 2024-08-29 12:53 | P.PNIM_ITS ---
Progress Note: A&P Assessment and Plan (1) Acute UTI: Code(s): N39.0 - Urinary tract infection, site not specified Status: Acute Assessment and Plan: * UA showed trace urine ketones, 3+ leukocyte, 3-5 urine RBC, 51-100 urine WBC, 4+ urine bacteria * Urine cultures pending, blood cultures negative for growth * Continue levofloxacin PO * WBC 18.6>10.9> 9.0> 13.6 on 08/29 (2) Acute kidney injury: Code(s): N17.9 - Acute kidney failure, unspecified Status: Resolved Assessment and Plan: -Creatinine: 1.08, GFR: >60, BUN: 25 -Encourage PO intake of fluids, off fluid restriction -Trend renal function -trend electrolytes, correct as needed -Renal sonogram unremarkable Resolved (3) Hyponatremia: Code(s): E87.1 - Hypo-osmolality and hyponatremia Status: Resolved Assessment and Plan: Likely secondary to dehydration * Sodium 138 * Patient was given 2 L in the ED and then started on maintenance IV fluids * Hold Chlorthalidone * Urine Random Sodium: 170 * Nephrology consulted, signed off * Add salt tablets +/- low dose oral Lasix if Na drops * Off the fluid restriction and encouraging p.o. intake Resolved (4) Hypokalemia: Code(s): E87.6 - Hypokalemia Status: Resolved Assessment and Plan: On ED workup: 3.9 * Today 3.9 * monitor Resolved (5) Dementia: Code(s): F03.90 - Unspecified dementia, unspecified severity, without behavioral disturbance, psychotic disturbance, mood disturbance, and anxiety Status: Acute Assessment and Plan: * Scheduled Remeron for PM * Continue Namenda and Depakote (6) HTN (hypertension): Code(s): I10 - Essential (primary) hypertension Status: Acute Assessment and Plan: * Blood pressure ranging * Continue amlodipine and labetalol (7) Dyslipidemia: Code(s): E78.5 - Hyperlipidemia, unspecified Status: Acute Assessment and Plan: * Continue aspirin (8) Severe protein-calorie malnutrition: Code(s): E43 - Unspecified severe protein-calorie malnutrition Status: Acute Assessment and Plan: Likely secondary to dementia * Dietitian consulted * BMI 21.0, 64.4 kg * Encourage p.o. intake Time Spent With Patient Time: 15-25 Subjective Date/time seen: 08/29/24 12:53 Interval history: Patient is an 88-year-old male who presented to the ED due to increasing aggressive behavior and weakness Due to patient's Dementia and mentation, most of the history of presenting illness was obtained from the medical record. ED workup indicated urinary tract infection with associated hyponatremia. 08/29/2024 Patient is examined sitting comfortably in bed. Upon examination, as well as per nursing staff, patient appears to be cooperating and improving mentation pringle today. He had been refusing any of his oral medications before today, as well as ripping out his IV. This morning he took his PO medications and has been very cooperative. He denies any complains at this time. WBC has elevated to 13.6, likely due to intermittent antibiotic use. Labs otherwise are stable or improving. Na has corrected to 138, Cr 1.19 and GFR 58. Plan was to be d/c today, however PT has yet to see him and authorization for rehab placement is contingent upon a PT eval within past 24 hours. Will plan for discharge tomorrow pending PT evaluation. Review of Systems Review of Systems: ROS unobtainable: Yes unobtainable due to mental status Exam Narrative: Gen - well appearing male in no acute respiratory distress who is nontoxic-ap pearing lying semi recumbent in bed HEENT - normocephalic. Atraumatic. Mucous membranes dry. Neck - neck was supple. No dominant adenopathy, thyromegaly or masses. 2+ carotid upstrokes without bruits. Chest - lungs are clear to auscultation bilaterally. No wheezes or crackles. CV - heart was regular rate and rhythm. S1-S2. No murmurs gallops or rubs. Abd - abdomen was soft. Nontender. Nondistended. Positive bowel sounds. No organomegaly or masses. Ext - no clubbing, cyanosis or edema. 2+ DP pulses bilaterally. Neuro - patient is alert and oriented x1. Cranial nerves 2-12 are intact. Speech is clear. Psych - normal mood and affect. Patient is pleasant and cooperative. Skin - warm and dry. No rashes noted. Objective Data Vital Signs Vital Signs: Vital Signs - 24 hr 08/28/24 20:26 08/28/24 20:35 08/28/24 20:50 Temperature 97.8 F Pulse Rate 67 93 93 Respiratory Rate 20 20 Blood Pressure 139/99 H Pulse Oximetry 90 90 Oxygen Delivery Room Air 08/29/24 04:10 08/29/24 09:20 08/29/24 09:23 Temperature 97.7 F Pulse Rate 82 66 Respiratory Rate 18 Blood Pressure 129/59 L Pulse Oximetry 100 Oxygen Delivery Room Air Intake/Output Intake/Output: Intake & Output 08/26/24 08/27/24 08/28/24 08/29/24 23:59 23:59 23:59 23:59 Intake Total 1270 500 600 25 Balance 1270 500 600 25 Meds/Results Medications: Active Medications Generic Name Dose Route Start Last Admin Trade Name Freq PRN Reason Stop Dose Admin Acetaminophen 650 mg 08/23/24 04:23 08/29/24 09:24 Acetaminophen 325 Mg Tablet PO 650 mg Q6H PRN Administration pain 1-3 Amlodipine Besylate 5 mg 08/27/24 09:00 08/29/24 09:23 Amlodipine Besylate 5 Mg Tablet PO 5 mg DAILY ANICETO Administration Aspirin 81 mg 08/23/24 09:00 08/29/24 09:24 Aspirin 81 Mg Chewable Tablet PO 81 mg DAILY ANICETO Administration Citalopram Hydrobromide 10 mg 08/23/24 09:00 08/29/24 09:23 Citalopram Hydrobromide 10 Mg Tablet PO 10 mg DAILY ANICETO Administration Divalproex Sodium 125 mg 08/23/24 09:00 08/29/24 09:24 Divalproex Sodium Sprinkle 125 Mg Cap.Dr PO 125 mg Q12HR ANICETO Administration Enoxaparin Sodium 40 mg 08/23/24 09:00 08/29/24 09:24 Enoxaparin 40 Mg/0.4 Ml Syringe SUB-Q Not Given DAILY ANICETO Guaifenesin/Dextromethorphan 10 ml 08/23/24 04:23 Guaifenesin/Dextromethorphan 10 Ml Udc PO Q4H PRN cough Labetalol HCl 200 mg 08/23/24 09:00 08/29/24 09:23 Labetalol Hcl 100 Mg Tablet PO 200 mg Q12HR ANICETO Administration Levofloxacin 250 mg 08/26/24 11:45 08/29/24 09:23 Levofloxacin 250 Mg Tablet PO 250 mg DAILY ANICETO Administration Melatonin 3 mg 08/23/24 21:00 08/28/24 20:27 Melatonin 3 Mg Tablet PO 3 mg HS ANICETO Administration Memantine 5 mg 08/23/24 08:00 08/29/24 09:24 Memantine 5 Mg Tablet PO 5 mg BIDWM ANICETO Administration Mirtazapine 7.5 mg 08/25/24 21:00 08/28/24 20:27 Mirtazapine 7.5 Mg Tablet PO 7.5 mg HS ANICETO Administration Ofloxacin 1 drop 08/22/24 21:00 08/29/24 11:45 Ofloxacin 0.3% Ophth Soln 5 Ml Btl LEFT EYE Not Given QID ANICETO Ondansetron HCl 4 mg 08/23/24 04:25 Ondansetron Inj 4 Mg/2 Ml Vial IV PUSH Q6H PRN Nausea And Vomiting Perflutren Lipid Microsphere 0 ml 08/27/24 07:16 Perflutren Lipid Microspheres 1.5 Ml Vial Diluted To 10 Ml Total Volume IV PUSH 08/30/24 07:16 ONCE PRN adequate visualization Protocol Polyethylene Glycol 17 gm 08/23/24 04:23 Polyethylene Glycol 3350 17 Gm Powd.Pack PO DAILY PRN constipation Vitamin D 1,000 units 08/23/24 09:00 08/29/24 09:23 Cholecalciferol 1,000 Units Tablet PO 1,000 units DAILY ANICETO Administration Radiology Results: ITS Impressions Head CT 08/22/24 19:08 IMPRESSION: No acute intracranial process. Chest X-Ray 08/22/24 19:26 IMPRESSION: No acute cardiopulmonary process. Renal Ultrasound 08/27/24 11:56 IMPRESSION: No definite abnormality. Labs Labs: Laboratory Results - last 24 hr 08/23/24 08/29/24 15:36 05:17 WBC 13.6 H RBC 3.60 L Hgb 11.5 L Hct 35.1 L MCV 97.5 MCH 31.9 MCHC 32.8 RDW 13.6 Plt Count 288 MPV 8.9 Immature Gran % (Auto) 0.5 Neut % (Auto) 73.4 H Lymph % (Auto) 9.2 L [place] % (Auto) 13.7 H Eos % (Auto) 2.5 Baso % (Auto) 0.7 Lymph # (Auto) 1.25 [place] # (Auto) 1.9 H Eos # (Auto) 0.3 Baso # (Auto) 0.1 Abs Immat Gran (auto) 0.07 H Absolute Neuts (auto) 10.0 H Absolute Nucleated RBC 0.000 Nucleated RBC % 0.0 Sodium 138 Potassium 3.9 Chloride 98 Carbon Dioxide 34 H Anion Gap 6 BUN 22 H Creatinine 1.19 Estim Creat Clear Calc 35 Estimated GFR 58 L Glucose 103 Calcium 9.7 Phosphorus 3.1 Total Bilirubin 0.7 AST 25 ALT 28 Alkaline Phosphatase 67 Total Protein 7.0 Albumin 3.7 Urine Osmolality 461 Quality VTE Prophylaxis VTE prophylaxis: pharmacologic ordered
[2024-08-29 14:00] VITALS: BP 109/52; PULSE 50; RESP 18; TEMP 35.5; O2SAT 90
[2024-08-29 20:00] VITALS: PULSE 87; RESP 16; O2SAT 100
[2024-08-29 20:26] VITALS: BP 154/73; PULSE 87; RESP 16; TEMP 36.6; O2SAT 100
[2024-08-29 20:47] VITALS: PULSE 87
[2024-08-29] MEDS: MIRTAZAPINE 7.5 MG TABLET PO (20:47)
[2024-08-29] MEDS: MELATONIN 3 MG TABLET PO (20:49)
[2024-08-29] MEDS: OFLOXACIN 0.3% OPHTH SOLN 5 ML BTL 1 DROP LEFT EYE (21:00)
[2024-08-30] VITALS (7 sets, daily range): BP systolic 135–166; BP diastolic 51–73; PULSE 73–81; RESP 12–18; TEMP 36.5–36.7; O2SAT 94–100
[2024-08-30 05:45] LABS: Basophils Absolute Auto 0.1 K/mm3 (0.0-0.1); Basophils Percent Auto 0.5 % (0.2-1.2); Eosinophils Absolute Auto 0.4 K/mm3 (0-0.3); Eosinophils Percent Auto 3.3 % (0-4.4); Hematocrit 33.9 % (42.0-52.0); Hemoglobin 11.3 g/dL (14.0-18.0); Immature Granulocyte Absolute 0.09 K/mm3 (0.00-0.031); Immature Granulocyte Percent A 0.7 % (0-0.5); Lymphocytes Absolute Auto 1.57 K/mm3 (0.9-3.2); Lymphocytes Percent Auto 12.2 % (18.3-44.2); Mean Corpuscular HGB Conc 33.3 g/dl (32-36); Monocytes Absolute Auto 1.9 K/mm3 (0.1-0.6); Monocytes Percent Auto 14.5 % (2.6-8.5); Neutrophils Absolute Auto 8.8 K/mm3 (1.3-6.7); Neutrophils Percent Auto 68.8 % (45.5-73.1); Platelet Count Result 277 k/mm3 (150-375); Red Blood Count 3.53 M/mm3 (4.6-6.20); Red Cell Distribution Width 13.6 % (11.5-14.5); White Blood Count 12.9 K/mm3 (4.5-10.0)
[2024-08-30 05:50] LABS: Alanine Aminotransferase 29 U/L (6-50); Albumin Level 3.8 g/dL (3.5-5.1); Alkaline Phosphatase 70 U/L (38-126); Anion Gap 10 mmol/L (4-12); Aspartate Amino Transferase 28 U/L (17-59); Bilirubin,Total 0.6 mg/dL (0.2-1.3); Blood Urea Nitrogen 24 mg/dL (9-20); Calcium 9.5 mg/dL (8.4-10.2); Carbon Dioxide 28 mmol/L (22-30); Chloride 100 mmol/L (98-107); Estimated CRCL calculation 38 ml/min; Estimated Glomerular Filt Rate > 60; Glucose 112 mg/dL (65-110); Potassium 3.3 mmol/L (3.4-5.0); Sodium 138 mmol/L (137-145)
--- NOTE | 2024-08-30 07:45 | P.PNIM_ITS ---
Progress Note: A&P Assessment and Plan (1) Acute UTI: Code(s): N39.0 - Urinary tract infection, site not specified Status: Acute Assessment and Plan: * UA showed trace urine ketones, 3+ leukocyte, 3-5 urine RBC, 51-100 urine WBC, 4+ urine bacteria * Urine cultures rothia species * blood cultures negative for growth * levofloxacin PO switch to cefazolin * Leukocytosis increasing (2) Acute kidney injury: Code(s): N17.9 - Acute kidney failure, unspecified Status: Resolved Assessment and Plan: -Creatinine: 1.08, GFR: >60, BUN: 25 -Encourage PO intake of fluids, off fluid restriction -Trend renal function -trend electrolytes, correct as needed -Renal sonogram unremarkable Resolved (3) Hyponatremia: Code(s): E87.1 - Hypo-osmolality and hyponatremia Status: Resolved Assessment and Plan: Likely secondary to dehydration * Sodium 138 * Patient was given 2 L in the ED and then started on maintenance IV fluids * Hold Chlorthalidone * Urine Random Sodium: 170 * Nephrology consulted, signed off * Add salt tablets +/- low dose oral Lasix if Na drops * Off the fluid restriction and encouraging p.o. intake Resolved (4) Hypokalemia: Code(s): E87.6 - Hypokalemia Status: Resolved Assessment and Plan: Replete as needed Daily BMP (5) Dementia: Code(s): F03.90 - Unspecified dementia, unspecified severity, without behavioral disturbance, psychotic disturbance, mood disturbance, and anxiety Status: Acute Assessment and Plan: Stable * Scheduled Remeron for PM * Continue Namenda and Depakote (6) HTN (hypertension): Code(s): I10 - Essential (primary) hypertension Status: Acute Assessment and Plan: * Blood pressure ranging * Continue amlodipine and labetalol (7) Dyslipidemia: Code(s): E78.5 - Hyperlipidemia, unspecified Status: Acute Assessment and Plan: * Continue aspirin (8) Severe protein-calorie malnutrition: Code(s): E43 - Unspecified severe protein-calorie malnutrition Status: Acute Assessment and Plan: Likely secondary to dementia * Dietitian consulted * BMI 21.0, 64.4 kg * Encourage p.o. intake Time Spent With Patient Time with patient: Greater than 35 minutes Subjective Date/time seen: 08/30/24 07:45 Interval history: Patient is an 88-year-old male who presented to the ED due to increasing aggressive behavior and weakness Due to patient's Dementia and mentation, most of the history of presenting illness was obtained from the medical record. ED workup indicated urinary tract infection with associated hyponatremia. Leukocytosis on a.m. labs, patient switched to cefazolin due to urine cultures, currently unable to do other antibiotics due to allergies or reaction with other medications patient is on. he will need SNF placement, case management board Review of Systems Review of Systems: ROS unobtainable: Yes unobtainable due to mental status Exam Narrative: Gen - well appearing male in no acute respiratory distress who is nontoxic- appearing lying semi recumbent in bed HEENT - normocephalic. Atraumatic. Mucous membranes dry. Neck - neck was supple. No dominant adenopathy, thyromegaly or masses. 2+ carotid upstrokes without bruits. Chest - lungs are clear to auscultation bilaterally. No wheezes or crackles. CV - heart was regular rate and rhythm. Murmur. Abd - abdomen was soft. Nontender. Nondistended. Positive bowel sounds. No organomegaly or masses. Ext - no clubbing, cyanosis or edema. 2+ DP pulses bilaterally. Neuro - patient is alert and oriented x1. Cranial nerves 2-12 are intact. Speech is clear. Psych - normal mood and affect. Patient is pleasant and cooperative. Skin - warm and dry. No rashes noted. Objective Data Vital Signs Vital Signs: Vital Signs - 24 hr 08/29/24 09:20 08/29/24 09:23 08/29/24 13:03 Temperature Pulse Rate 66 Respiratory Rate Blood Pressure Pulse Oximetry Oxygen Delivery Room Air Room Air 08/29/24 14:00 08/29/24 20:00 08/29/24 20:26 Temperature 96 F L 97.8 F Pulse Rate 50 L 87 87 Respiratory Rate 18 16 16 Blood Pressure 109/52 L 154/73 H Pulse Oximetry 90 100 100 Oxygen Delivery Room Air 08/29/24 20:47 03/19/25 05:23 Temperature 97.9 F Pulse Rate 87 73 Respiratory Rate 18 Blood Pressure 157/51 H Pulse Oximetry 99 Oxygen Delivery Intake/Output Intake/Output: Intake & Output 08/27/24 08/28/24 08/29/24 08/30/24 23:59 23:59 23:59 23:59 Intake Total 500 600 611 0 Balance 500 600 611 0 Meds/Results Medications: Active Medications Generic Name Dose Route Start Last Admin Trade Name Freq PRN Reason Stop Dose Admin Acetaminophen 650 mg 08/23/24 04:23 08/29/24 09:24 Acetaminophen 325 Mg Tablet PO 650 mg Q6H PRN Administration pain 1-3 Amlodipine Besylate 5 mg 08/27/24 09:00 08/29/24 09:23 Amlodipine Besylate 5 Mg Tablet PO 5 mg DAILY ANICETO Administration Aspirin 81 mg 08/23/24 09:00 08/29/24 09:24 Aspirin 81 Mg Chewable Tablet PO 81 mg DAILY ANICETO Administration Citalopram Hydrobromide 10 mg 08/23/24 09:00 08/29/24 09:23 Citalopram Hydrobromide 10 Mg Tablet PO 10 mg DAILY ANICETO Administration Divalproex Sodium 125 mg 08/23/24 09:00 08/29/24 20:47 Divalproex Sodium Sprinkle 125 Mg Cap.Dr PO 125 mg Q12HR ANICETO Administration Enoxaparin Sodium 40 mg 08/23/24 09:00 08/29/24 09:24 Enoxaparin 40 Mg/0.4 Ml Syringe SUB-Q Not Given DAILY ANICETO Guaifenesin/Dextromethorphan 10 ml 08/23/24 04:23 Guaifenesin/Dextromethorphan 10 Ml Udc PO Q4H PRN cough Labetalol HCl 200 mg 08/23/24 09:00 08/29/24 20:47 Labetalol Hcl 100 Mg Tablet PO 200 mg Q12HR ANICETO Administration Levofloxacin 250 mg 08/26/24 11:45 08/29/24 09:23 Levofloxacin 250 Mg Tablet PO 250 mg DAILY ANICETO Administration Melatonin 3 mg 08/23/24 21:00 08/29/24 20:49 Melatonin 3 Mg Tablet PO 3 mg HS ANICETO Administration Memantine 5 mg 08/23/24 08:00 08/29/24 17:19 Memantine 5 Mg Tablet PO 5 mg BIDWM ANICETO Administration Mirtazapine 7.5 mg 08/25/24 21:00 08/29/24 20:47 Mirtazapine 7.5 Mg Tablet PO 7.5 mg HS ANICETO Administration Ofloxacin 1 drop 08/22/24 21:00 08/29/24 21:00 Ofloxacin 0.3% Ophth Soln 5 Ml Btl LEFT EYE 1 drop QID ANICETO Administration Ondansetron HCl 4 mg 08/23/24 04:25 Ondansetron Inj 4 Mg/2 Ml Vial IV PUSH Q6H PRN Nausea And Vomiting Polyethylene Glycol 17 gm 08/23/24 04:23 Polyethylene Glycol 3350 17 Gm Powd.Pack PO DAILY PRN constipation Vitamin D 1,000 units 08/23/24 09:00 08/29/24 09:23 Cholecalciferol 1,000 Units Tablet PO 1,000 units DAILY ANICETO Administration Radiology Results: ITS Impressions Head CT 08/22/24 19:08 IMPRESSION: No acute intracranial process. Chest X-Ray 08/22/24 19:26 IMPRESSION: No acute cardiopulmonary process. Renal Ultrasound 08/27/24 11:56 IMPRESSION: No definite abnormality. Labs Labs: Laboratory Results - last 24 hr 08/26/24 08/30/24 05:21 05:18 WBC 12.9 H RBC 3.53 L Hgb 11.3 L Hct 33.9 L MCV 96.0 MCH 32.0 MCHC 33.3 RDW 13.6 Plt Count 277 MPV 9.0 Immature Gran % (Auto) 0.7 H Neut % (Auto) 68.8 Lymph % (Auto) 12.2 L [place] % (Auto) 14.5 H Eos % (Auto) 3.3 Baso % (Auto) 0.5 Lymph # (Auto) 1.57 [place] # (Auto) 1.9 H Eos # (Auto) 0.4 H Baso # (Auto) 0.1 Abs Immat Gran (auto) 0.09 H Absolute Neuts (auto) 8.8 H Absolute Nucleated RBC 0.000 Nucleated RBC % 0.0 Sodium 138 Potassium 3.3 L Chloride 100 Carbon Dioxide 28 Anion Gap 10 BUN 24 H Creatinine 1.09 Estim Creat Clear Calc 38 Estimated GFR > 60 Glucose 112 H Serum Osmolality 280 Calcium 9.5 Total Bilirubin 0.6 AST 28 ALT 29 Alkaline Phosphatase 70 Total Protein 7.0 Albumin 3.8 Quality VTE Prophylaxis VTE prophylaxis: pharmacologic ordered Hospitalist MIPS Advance Care Plan I have confirmed that the patient's Advanced Care Plan is present, code status is documented, or surrogate decision maker is listed in patient medical record.: Yes Medication Reconciliation I have utilized all available resources to obtain, update and review the patients current medications (includes all prescriptions, OTC, herbals, cannabis, and nutritional supplements).: Yes
[2024-08-30 08:09] LABS: Albumin 3.3 g/dL (3.8-4.8); Alpha 1 Globulin 0.3 g/dL (0.2-0.3); Alpha 2 Globulin 0.7 g/dL (0.5-0.9); Beta 1 Globulin 0.4 g/dL (0.4-0.6); Gamma Globulin 0.8 g/dL (0.8-1.7)
[2024-08-30] MEDS: levoFLOXacin 250 MG TABLET PO (08:57)
[2024-08-30] MEDS: DIVALPROEX SODIUM SPRINKLE 125 MG CAP.DR PO ×2 (08:57→20:35)
[2024-08-30] MEDS: LABETALOL HCL 100 MG TABLET 200 MG PO ×2 (08:57→20:35)
[2024-08-30] MEDS: amLODIPine BESYLATE 5 MG TABLET PO (08:57)
[2024-08-30] MEDS: OFLOXACIN 0.3% OPHTH SOLN 5 ML BTL 1 DROP LEFT EYE ×3 (09:00→20:41)
[2024-08-30] MEDS: MEMANTINE 5 MG TABLET PO ×2 (09:00→16:54)
[2024-08-30] MEDS: CITALOPRAM HYDROBROMIDE 10 MG TABLET PO (09:00)
[2024-08-30] MEDS: CHOLECALCIFEROL 1,000 UNITS TABLET 1000 UNITS PO (09:00)
[2024-08-30] MEDS: ENOXAPARIN 40 MG/0.4 ML SYRINGE SUB-Q (09:00)
[2024-08-30] MEDS: ASPIRIN 81 MG CHEWABLE TABLET PO (09:00)
[2024-08-30] MEDS: POTASSIUM CHLORIDE 20 MEQ PACKET (FOR LIQUID) 40 MEQ PO (09:04)
[2024-08-30] MEDS: ceFAZolin 2 GM/D5W 50 ML 2 GM/50 ML BAG IVPB ×2 (11:16→17:00)
[2024-08-30 15:58] LABS: Osmolality, Urine. 437 mOsm/kg (50-1200)
[2024-08-30] MEDS: MIRTAZAPINE 7.5 MG TABLET PO (20:35)
[2024-08-30] MEDS: MELATONIN 3 MG TABLET PO (20:35)
[2024-08-31] MEDS: ceFAZolin 2 GM/D5W 50 ML 2 GM/50 ML BAG IVPB ×3 (01:15→17:16)
[2024-08-31 05:15] VITALS: BP 155/85; PULSE 77; RESP 16; TEMP 36.4; O2SAT 100
[2024-08-31 05:41] LABS: Basophils Absolute Auto 0.1 K/mm3 (0.0-0.1); Basophils Percent Auto 0.8 % (0.2-1.2); Eosinophils Absolute Auto 0.6 K/mm3 (0-0.3); Eosinophils Percent Auto 5.9 % (0-4.4); Hemoglobin 10.9 g/dL (14.0-18.0); Immature Granulocyte Absolute 0.05 K/mm3 (0.00-0.031); Immature Granulocyte Percent A 0.5 % (0-0.5); Lymphocytes Absolute Auto 1.65 K/mm3 (0.9-3.2); Lymphocytes Percent Auto 15.6 % (18.3-44.2); Mean Corpuscular Volume 96.8 fl (80-100); Mean Platelet Volume 8.6 fl (7.4-10.4); Monocytes Absolute Auto 1.3 K/mm3 (0.1-0.6); Monocytes Percent Auto 12.6 % (2.6-8.5); Neutrophils Absolute Auto 6.9 K/mm3 (1.3-6.7); Neutrophils Percent Auto 64.6 % (45.5-73.1); Platelet Count Result 297 k/mm3 (150-375); Red Blood Count 3.41 M/mm3 (4.6-6.20); Red Cell Distribution Width 13.6 % (11.5-14.5); White Blood Count 10.6 K/mm3 (4.5-10.0)
[2024-08-31 05:51] LABS: Alanine Aminotransferase 22 U/L (6-50); Albumin Level 3.7 g/dL (3.5-5.1); Alkaline Phosphatase 69 U/L (38-126); Anion Gap 7 mmol/L (4-12); Aspartate Amino Transferase 24 U/L (17-59); Bilirubin,Total 0.2 mg/dL (0.2-1.3); Blood Urea Nitrogen 22 mg/dL (9-20); Calcium 9.5 mg/dL (8.4-10.2); Carbon Dioxide 29 mmol/L (22-30); Chloride 104 mmol/L (98-107); Estimated CRCL calculation 38 ml/min; Estimated Glomerular Filt Rate > 60; Glucose 100 mg/dL (65-110); Potassium 3.8 mmol/L (3.4-5.0); Sodium 140 mmol/L (137-145)
--- NOTE | 2024-08-31 07:39 | P.PNIM_ITS ---
Progress Note: A&P Assessment and Plan (1) Acute UTI: Code(s): N39.0 - Urinary tract infection, site not specified Status: Acute Assessment and Plan: * UA showed trace urine ketones, 3+ leukocyte, 3-5 urine RBC, 51-100 urine WBC, 4+ urine bacteria * Urine cultures rothia species * blood cultures negative for growth * levofloxacin PO switch to IV cefazolin * Leukocytosis improving * Will need to family about penicillin allergy, patient may possibly be able to do p.o. is cefdinir (2) Acute kidney injury: Code(s): N17.9 - Acute kidney failure, unspecified Status: Resolved Assessment and Plan: -Encourage PO intake of fluids, off fluid restriction -Trend renal function -trend electrolytes, correct as needed -Renal sonogram unremarkable Resolved (3) Hyponatremia: Code(s): E87.1 - Hypo-osmolality and hyponatremia Status: Resolved Assessment and Plan: Likely secondary to dehydration * Patient was given 2 L in the ED and then started on maintenance IV fluids * Hold Chlorthalidone * Urine Random Sodium: 170 * Nephrology consulted, signed off * Off the fluid restriction and encouraging p.o. intake Resolved (4) Hypokalemia: Code(s): E87.6 - Hypokalemia Status: Resolved Assessment and Plan: Replete as needed Daily BMP (5) Dementia: Code(s): F03.90 - Unspecified dementia, unspecified severity, without behavioral disturbance, psychotic disturbance, mood disturbance, and anxiety Status: Acute Assessment and Plan: Stable * Scheduled Remeron for PM * Continue Namenda and Depakote (6) HTN (hypertension): Code(s): I10 - Essential (primary) hypertension Status: Acute Assessment and Plan: * Blood pressure ranging * Continue amlodipine and labetalol (7) Dyslipidemia: Code(s): E78.5 - Hyperlipidemia, unspecified Status: Acute Assessment and Plan: * Continue aspirin (8) Severe protein-calorie malnutrition: Code(s): E43 - Unspecified severe protein-calorie malnutrition Status: Acute Assessment and Plan: Likely secondary to dementia * Dietitian consulted * BMI 21.0, 64.4 kg * Encourage p.o. 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 ED workup indicated urinary tract infection with associated hyponatremia. Leukocytosis on a.m. labs, patient switched to cefazolin due to urine cultures, currently unable to do other antibiotics due to allergies or reaction with other medications patient is on. Currently unable to get hold of family. he will need SNF placement, case management board Review of Systems Review of Systems: ROS unobtainable: Yes unobtainable due to mental status Exam Narrative: Gen - well appearing male in no acute respiratory distress who is nontoxic HEENT - normocephalic. Atraumatic. Mucous membranes moist. Neck - neck was supple. No dominant adenopathy, thyromegaly or masses. 2+ carotid upstrokes without bruits. Chest - lungs are clear to auscultation bilaterally. No wheezes or crackles. CV - heart was regular rate and rhythm. Murmur. Abd - abdomen was soft. Nontender. Nondistended. Positive bowel sounds. No organomegaly or masses. Ext - no clubbing, cyanosis or edema. 2+ DP pulses bilaterally. Neuro - patient is alert and oriented x1. Cranial nerves 2-12 are intact. Speech is clear. Psych - normal mood and affect. Patient is pleasant and cooperative. Skin - warm and dry. No rashes noted. Objective Data Vital Signs Vital Signs: Vital Signs - 24 hr 08/30/24 08:55 08/30/24 08:57 08/30/24 09:06 Temperature Pulse Rate 81 81 Respiratory Rate 12 Blood Pressure 166/73 H Pulse Oximetry 99 Oxygen Delivery Room Air 08/30/24 14:00 08/30/24 20:00 08/30/24 20:23 Temperature 98.1 F 97.7 F Pulse Rate 75 77 77 Respiratory Rate 12 18 18 Blood Pressure 146/65 H 135/56 L Pulse Oximetry 100 94 94 Oxygen Delivery Room Air 08/30/24 20:35 08/31/24 05:15 Temperature 97.6 F Pulse Rate 77 77 Respiratory Rate 16 Blood Pressure 155/85 H Pulse Oximetry 100 Oxygen Delivery Intake/Output Intake/Output: Intake & Output 08/28/24 08/29/24 08/30/24 08/31/24 23:59 23:59 23:59 23:59 Intake Total 600 611 590 200 Balance 600 611 590 200 Meds/Results Medications: Active Medications Generic Name Dose Route Start Last Admin Trade Name Freq PRN Reason Stop Dose Admin Acetaminophen 650 mg 08/23/24 04:23 08/29/24 09:24 Acetaminophen 325 Mg Tablet PO 650 mg Q6H PRN Administration pain 1-3 Amlodipine Besylate 5 mg 08/27/24 09:00 08/30/24 08:57 Amlodipine Besylate 5 Mg Tablet PO 5 mg DAILY ANICETO Administration Aspirin 81 mg 08/23/24 09:00 08/30/24 09:00 Aspirin 81 Mg Chewable Tablet PO 81 mg DAILY ANICETO Administration Citalopram Hydrobromide 10 mg 08/23/24 09:00 08/30/24 09:00 Citalopram Hydrobromide 10 Mg Tablet PO 10 mg DAILY ANICETO Administration Divalproex Sodium 125 mg 08/23/24 09:00 08/30/24 20:35 Divalproex Sodium Sprinkle 125 Mg Cap.Dr PO 125 mg Q12HR ANICETO Administration Enoxaparin Sodium 40 mg 08/23/24 09:00 08/30/24 09:00 Enoxaparin 40 Mg/0.4 Ml Syringe SUB-Q 40 mg DAILY ANICETO Administration Guaifenesin/Dextromethorphan 10 ml 08/23/24 04:23 Guaifenesin/Dextromethorphan 10 Ml Udc PO Q4H PRN cough Cefazolin Sodium 2 gm in 50 mls @ 100 mls/hr 08/30/24 10:00 08/31/24 02:03 Ancef 2 Gm/D5w 50 Ml IVPB 09/06/24 02:29 Infused Q8H ANICETO Infusion Labetalol HCl 200 mg 08/23/24 09:00 08/30/24 20:35 Labetalol Hcl 100 Mg Tablet PO 200 mg Q12HR ANICETO Administration Melatonin 3 mg 08/23/24 21:00 08/30/24 20:35 Melatonin 3 Mg Tablet PO 3 mg HS ANICETO Administration Memantine 5 mg 08/23/24 08:00 08/30/24 16:54 Memantine 5 Mg Tablet PO 5 mg BIDWM ANICETO Administration Mirtazapine 7.5 mg 08/25/24 21:00 08/30/24 20:35 Mirtazapine 7.5 Mg Tablet PO 7.5 mg HS ANICETO Administration Ofloxacin 1 drop 08/22/24 21:00 08/30/24 20:41 Ofloxacin 0.3% Ophth Soln 5 Ml Btl LEFT EYE 1 drop QID ANICETO Administration Ondansetron HCl 4 mg 08/23/24 04:25 Ondansetron Inj 4 Mg/2 Ml Vial IV PUSH Q6H PRN Nausea And Vomiting Polyethylene Glycol 17 gm 08/23/24 04:23 Polyethylene Glycol 3350 17 Gm Powd.Pack PO DAILY PRN constipation Vitamin D 1,000 units 08/23/24 09:00 08/30/24 09:00 Cholecalciferol 1,000 Units Tablet PO 1,000 units DAILY ANICETO Administration Radiology Results: ITS Impressions Head CT 08/22/24 19:08 IMPRESSION: No acute intracranial process. Renal Ultrasound 08/27/24 11:56 IMPRESSION: No definite abnormality. Chest X-Ray 08/30/24 08:33 IMPRESSION: No acute cardiopulmonary pathology Labs Labs: Laboratory Results - last 24 hr 08/27/24 08/27/24 08/31/24 05:11 05:32 05:21 WBC 10.6 H RBC 3.41 L Hgb 10.9 L Hct 33.0 L MCV 96.8 MCH 32.0 MCHC 33.0 RDW 13.6 Plt Count 297 MPV 8.6 Immature Gran % (Auto) 0.5 Neut % (Auto) 64.6 Lymph % (Auto) 15.[address] % (Auto) 12.6 H Eos % (Auto) 5.9 H Baso % (Auto) 0.8 Lymph # (Auto) 1.65 Lane # (Auto) 1.3 H Eos # (Auto) 0.6 H Baso # (Auto) 0.1 Abs Immat Gran (auto) 0.05 H Absolute Neuts (auto) 6.9 H Absolute Nucleated RBC 0.000 Nucleated RBC % 0.0 Sodium 140 Potassium 3.8 Chloride 104 Carbon Dioxide 29 Anion Gap 7 BUN 22 H Creatinine 1.09 Estim Creat Clear Calc 38 Estimated GFR > 60 Glucose 100 Calcium 9.5 Total Bilirubin 0.2 AST 24 ALT 22 Alkaline Phosphatase 69 Total Protein 7.0 Albumin 3.3 L 3.7 Ppjyr-0-Xchlfvaqx 0.3 Ifmjh-3-Uezjxalbn 0.7 Zwmm-6-Icyfufcg 0.4 Lybe-0-Tpehmsbf 0.4 Gamma Globulins 0.8 PEP Interpretation See note Urine Osmolality 437 Quality VTE Prophylaxis VTE prophylaxis: pharmacologic ordered
[2024-08-31] MEDS: ACETAMINOPHEN 325 MG TABLET 650 MG PO (09:06)
[2024-08-31] MEDS: DIVALPROEX SODIUM SPRINKLE 125 MG CAP.DR PO ×2 (09:06→21:06)
[2024-08-31 09:07] VITALS: PULSE 78
[2024-08-31] MEDS: ENOXAPARIN 40 MG/0.4 ML SYRINGE SUB-Q (09:07)
[2024-08-31] MEDS: ASPIRIN 81 MG CHEWABLE TABLET PO (09:07)
[2024-08-31] MEDS: amLODIPine BESYLATE 5 MG TABLET PO (09:07)
[2024-08-31] MEDS: CHOLECALCIFEROL 1,000 UNITS TABLET 1000 UNITS PO (09:07)
[2024-08-31] MEDS: MEMANTINE 5 MG TABLET PO ×2 (09:07→17:16)
[2024-08-31] MEDS: CITALOPRAM HYDROBROMIDE 10 MG TABLET PO (09:07)
[2024-08-31] MEDS: LABETALOL HCL 100 MG TABLET 200 MG PO ×2 (09:07→21:06)
[2024-08-31] MEDS: OFLOXACIN 0.3% OPHTH SOLN 5 ML BTL 1 DROP LEFT EYE ×3 (09:08→21:13)
--- NOTE | 2024-08-31 12:02 | PCNFU ---
Nutrition Follow-Up Complete: Moderate protein calorie malnutrition related to chronic dementia as evidenced by moderate muscle wasting and fat loss Goal: Adequate PO intake at least 75% meals and supplements Patient is meeting goal. No new goal. Pt current nutrition is Regular with Ensure Enlive TID. Last recorded weight is 64.4 kg, no new weight to report. Bowel Motility:+BM reported 08/25 Labs Reviewed: BUN 22, Hct 33.0, Hgb 10.9 Meds Noted: Vit D, Remeron, Lovenox Skin: WNL Additional Notes: Patient is tolerating regular diet. Intake 75-100% of most meals. Patient is drinking diet supplements of Ensure, providing an additional 350 kcal and 20 gm protein. Agree with diet orders. Monitoring intakes, weights, labs, supplement tolerance, plan of care Follow up in 5 days
[2024-08-31 14:00] VITALS: BP 120/52; PULSE 75; RESP 18; TEMP 36.3; O2SAT 100
[2024-08-31 20:00] VITALS: PULSE 84; RESP 16; O2SAT 100
[2024-08-31 20:34] VITALS: BP 122/69; PULSE 93; RESP 16; TEMP 36.8; O2SAT 100
[2024-08-31 21:06] VITALS: PULSE 84
[2024-08-31] MEDS: MELATONIN 3 MG TABLET PO (21:06)
[2024-08-31] MEDS: MIRTAZAPINE 7.5 MG TABLET PO (21:06)
[2024-09-01] MEDS: ceFAZolin 2 GM/D5W 50 ML 2 GM/50 ML BAG IVPB ×2 (02:02→09:00)
[2024-09-01 05:17] LABS: Basophils Absolute Auto 0.1 K/mm3 (0.0-0.1); Basophils Percent Auto 0.8 % (0.2-1.2); Eosinophils Absolute Auto 0.7 K/mm3 (0-0.3); Eosinophils Percent Auto 6.3 % (0-4.4); Hematocrit 34.4 % (42.0-52.0); Hemoglobin 11.1 g/dL (14.0-18.0); Immature Granulocyte Absolute 0.07 K/mm3 (0.00-0.031); Immature Granulocyte Percent A 0.7 % (0-0.5); Lymphocytes Absolute Auto 1.63 K/mm3 (0.9-3.2); Lymphocytes Percent Auto 15.6 % (18.3-44.2); Mean Corpuscular HGB Conc 32.3 g/dl (32-36); Mean Corpuscular Hemoglobin 31.5 pg (26-34); Mean Corpuscular Volume 97.7 fl (80-100); Mean Platelet Volume 8.9 fl (7.4-10.4); Monocytes Absolute Auto 1.4 K/mm3 (0.1-0.6); Neutrophils Absolute Auto 6.7 K/mm3 (1.3-6.7); Neutrophils Percent Auto 63.6 % (45.5-73.1); Platelet Count Result 308 k/mm3 (150-375); Red Blood Count 3.52 M/mm3 (4.6-6.20); Red Cell Distribution Width 13.4 % (11.5-14.5); White Blood Count 10.5 K/mm3 (4.5-10.0)
[2024-09-01 05:24] LABS: Alanine Aminotransferase 13 U/L (6-50); Albumin Level 3.6 g/dL (3.5-5.1); Alkaline Phosphatase 75 U/L (38-126); Anion Gap 7 mmol/L (4-12); Aspartate Amino Transferase 27 U/L (17-59); Bilirubin,Total 0.2 mg/dL (0.2-1.3); Blood Urea Nitrogen 28 mg/dL (9-20); Calcium 9.5 mg/dL (8.4-10.2); Carbon Dioxide 30 mmol/L (22-30); Chloride 102 mmol/L (98-107); Estimated CRCL calculation 35 ml/min; Estimated Glomerular Filt Rate 58; Glucose 105 mg/dL (65-110); Potassium 3.7 mmol/L (3.4-5.0); Sodium 139 mmol/L (137-145)
[2024-09-01 05:59] VITALS: BP 172/61; PULSE 73; RESP 20; TEMP 36.4; O2SAT 95
[2024-09-01] MEDS: CHOLECALCIFEROL 1,000 UNITS TABLET 1000 UNITS PO (08:48)
[2024-09-01] MEDS: DIVALPROEX SODIUM SPRINKLE 125 MG CAP.DR PO (08:48)
[2024-09-01] MEDS: ACETAMINOPHEN 325 MG TABLET 650 MG PO (08:48)
[2024-09-01 08:49] VITALS: PULSE 78
[2024-09-01] MEDS: MEMANTINE 5 MG TABLET PO (08:49)
[2024-09-01] MEDS: ENOXAPARIN 40 MG/0.4 ML SYRINGE SUB-Q (08:49)
[2024-09-01] MEDS: ASPIRIN 81 MG CHEWABLE TABLET PO (08:49)
[2024-09-01] MEDS: CITALOPRAM HYDROBROMIDE 10 MG TABLET PO (08:49)
[2024-09-01] MEDS: LABETALOL HCL 100 MG TABLET 200 MG PO (08:49)
[2024-09-01] MEDS: amLODIPine BESYLATE 5 MG TABLET PO (08:49)
[2024-09-01] MEDS: OFLOXACIN 0.3% OPHTH SOLN 5 ML BTL 1 DROP LEFT EYE (08:49)
--- NOTE | 2024-09-01 10:05 | PM.DS ---
DS: Admitting Diagnosis Discharge Date 09/01/24 Admitting Diagnosis UTI DS: Discharge Diagnosis Discharge Diagnosis (1) Acute UTI: Code(s): N39.0 - Urinary tract infection, site not specified Status: Acute (2) Acute kidney injury: Code(s): N17.9 - Acute kidney failure, unspecified Status: Resolved (3) Hyponatremia: Code(s): E87.1 - Hypo-osmolality and hyponatremia Status: Resolved (4) Hypokalemia: Code(s): E87.6 - Hypokalemia Status: Resolved (5) Dementia: Code(s): F03.90 - Unspecified dementia, unspecified severity, without behavioral disturbance, psychotic disturbance, mood disturbance, and anxiety Status: Acute (6) HTN (hypertension): Code(s): I10 - Essential (primary) hypertension Status: Acute (7) Dyslipidemia: Code(s): E78.5 - Hyperlipidemia, unspecified Status: Acute (8) Severe protein-calorie malnutrition: Code(s): E43 - Unspecified severe protein-calorie malnutrition Status: Acute DS: Summary Hospital Course Reason for hospitalization: Weakness Behavioral changes Hospital Course: This is an 88-year-old male with a significant past medical history of dementia, dyslipidemia, coronary artery disease, hypertension who presented to the hospital from his longterm facility due to increasing aggressive combative behavior and weakness. Due to patient's Dementia and mentation, most of the history of presenting illness was obtained from the medical record. Workup in the hospital included a head CT which was negative for any acute intracranial process. Chest x-ray which was negative for any acute cardiopulmonary process. Initial labs showed a white blood cell count of 18.6, hemoglobin 11.2, sodium 127, chloride 95, creatinine 1.24, EGFR 55, lactic acid was 1.6. UA showed trace urine ketones, 3+ leukocyte, 3-5 urine RBC, 51-100 urine WBC, 4+ urine bacteria. Urine and blood cultures were obtained and are pending. EKG showing sinus rhythm with occasional PVCs with a rate of 84, QTC 445. Patient was given 1 L of normal saline, 1 L of LR, Levaquin, and started on maintenance IV fluids while in the ED. Patient was admitted and started on Levofloxacin for UTI. Urine culture resulted in Rothia species. On 08/24, Chlorthalidone was held to address Hyponatremia. Sodium levels eventually lissa back up to within normal limits. Patient developed an RONNI with an elevated Creatinine. Nephrology was consulted regarding the RONNI and hyponatremia and they agreed that these levels are likely chronic but were okay with continuing the hold on the Chlorthalidone for the time being. Patient was started on Remeron at night for repeated aggressive behavior starting early in the A.M. Patient required Haldol on the morning of 08/25. After Remeron was initiated, the aggressive behavior subsided. Nephrology signed off on 08/29 after Sodium levels were stable and creatinine dropped to within normal limits. PO Levo was switched to IV Cefazolin due to continuing increase in Leukocytosis. On the A.M. of 09/01, the WBC was down to 10.5. Given this decrease and the fact that the patient has been able to intake his PO medications and food, patient okay to be switched to PO Keflex. Pharmacy notes that the patient has had this therapy in 2022 without any reported reactions. Patient has been accepted at [facility]. Plan to discharge to this facility with continued antibiotic coverage with PO Cephalexin. Time Spent with Patient Time attestation: Total time spent providing and/or coordinating discharge services:45 Exam Narrative: Gen - well appearing male in no acute respiratory distress who is nontoxic HEENT - normocephalic. Atraumatic. Mucous membranes moist. Neck - neck was supple. No dominant adenopathy, thyromegaly or masses. 2+ carotid upstrokes without bruits. Chest - lungs are clear to auscultation bilaterally. No wheezes or crackles. CV - heart was regular rate and rhythm. Murmur. Abd - abdomen was soft. Nontender. Nondistended. Positive bowel sounds. No organomegaly or masses. Ext - no clubbing, cyanosis or edema. 2+ DP pulses bilaterally. Neuro - patient is alert and oriented x1. Cranial nerves 2-12 are intact. Speech is clear. Psych - normal mood and affect. Patient is pleasant and cooperative. Skin - warm and dry. No rashes noted. DS: Data Data Completed and Pending Labs on day of discharge: Labs from last 24 hours 09/01/24 04:57 WBC 10.5 H RBC 3.52 L Hgb 11.1 L Hct 34.4 L MCV 97.7 MCH 31.5 MCHC 32.3 RDW 13.4 Plt Count 308 MPV 8.9 Immature Gran % (Auto) 0.7 H Neut % (Auto) 63.6 Lymph % (Auto) 15.6 L Trinity % (Auto) 13.0 H Eos % (Auto) 6.3 H Baso % (Auto) 0.8 Lymph # (Auto) 1.63 Trinity # (Auto) 1.4 H Eos # (Auto) 0.7 H Baso # (Auto) 0.1 Abs Immat Gran (auto) 0.07 H Absolute Neuts (auto) 6.7 Absolute Nucleated RBC 0.000 Nucleated RBC % 0.0 Sodium 139 Potassium 3.7 Chloride 102 Carbon Dioxide 30 Anion Gap 7 BUN 28 H Creatinine 1.19 Estim Creat Clear Calc 35 Estimated GFR 58 L Glucose 105 Calcium 9.5 Total Bilirubin 0.2 AST 27 ALT 13 Alkaline Phosphatase 75 Total Protein 7.0 Albumin 3.6 Discharge Plan Discharge Attending physician on discharge: Dakotah Brasher Consulting providers: Aleksey Márquez Discharging Clinician: Dakotah Brasher Anticipated Discharge Date/Time: 09/01/24 10:01 Patient Disposition: SNF Activity: as tolerated Diet: heart healthy Discharge Instructions: Discharge disposition: Take medications as prescribed. Keflex 500mg, orally. Every 12 hours. Monitor blood pressures Encouraged to continue with yearly vaccinations Return to the emergency department if he developed sudden shortness of breath, chest pain, nausea, vomiting, upset stomach or intractable diarrhea Return to the emergency department if you develop fever greater than 101.5 Follow-up with the primary care physician within 1-2 weeks Thank you for [facility] for your healthcare needs Patient Language: Kinyarwanda Stand Alone Forms: General Discharge Information, Chcf Discharge Follow-up/Referrals: Zack,Jong Greenwood DO [Primary Care Provider] - Discharge Medications: New cephalexin 500 mg capsule 500 mg PO Q12H Qty: 6 0RF Continued chlorthalidone 25 mg tablet 25 mg PO DAILY potassium chloride 20 mEq tablet extended release 20 meq PO DAILY Qty: 30 0RF amlodipine 5 mg tablet 5 mg PO BIDWM aspirin 81 mg tablet,chewable 81 mg PO DAILY melatonin 3 mg tablet,disintegrating 3 mg PO HS Repatha SureClick 140 mg/mL pen injector 140 mg SUBCUT [id number] Rx Instructions: Given on May 26 divalproex 125 mg capsule, delayed rel sprinkle 125 mg PO BID labetalol 200 mg tablet 200 mg PO BID cholecalciferol (vitamin D3) 25 mcg (1,000 unit) tablet 25 mcg PO DAILY polyethylene glycol 3350 [Miralax] 17 gram Powder In Packet 17 g PO DAILY PRN (Reason: constipation) celecoxib 200 mg capsule 200 mg PO BIDWM citalopram 10 mg tablet 10 mg PO DAILY memantine 10 mg tablet 5 mg PO BIDWM dextromethorphan-guaifenesin [Chest Congestion Relief DM] 10-100 mg/5 mL syrup 10 ml PO Q4H PRN (Reason: cough) iVizia (PF) 0.5 % drops 1 drp ophthalmic (eye) QID PRN (Reason: DRY EYE) guaifenesin [Mucinex] 600 mg tablet extended release 12hr 600 mg PO Q12H PRN (Reason: cough) tramadol 50 mg tablet 50 mg PO DAILY PRN (Reason: pain) acetaminophen 500 mg tablet 650 mg PO Q6H PRN (Reason: pain) Date of admission: 08/24/24 09:07 Primary Care Provider: Zack,Jong Greenwood Admitting Provider: Alyssa Montano Attending physician on admission: Dakotah Brasher Condition: Stable Quality VTE Prophylaxis VTE prophylaxis: pharmacologic ordered Hospitalist MIPS Heart Failure (Exclusion) Patient has history of Heart Transplant or Left Ventricular Assistive Device?: No IF YES, STOP HERE Heart Failure (Qualifier) Patient has current or prior documentation of LVEF less than or equal to 40%, or mod/servere depressed LVSF?: No IF NO, STOP HERE
[2024-09-01 14:00] VITALS: BP 152/62; PULSE 72; RESP 14; O2SAT 99
== END 2024-09-01 14:20 | DRG 690 ==
LOC: ANHED 18:33 → ANH3MEDSUR 21:27 → ANH2MED 22:25
PROVIDERS: Internal Medicine Nephrology; Nurse Practitioner Acute Care; Admitting Provider Hospitalist; Emergency Provider Physician Assistant; PCP Internal Medicine; Visit Provider Physician Assistant
DX: N39.0 Urinary tract infection, site not specified (principal); E87.1 Hypo-osmolality and hyponatremia; N17.9 Acute kidney failure, unspecified; E44.0 Moderate protein-calorie malnutrition; I10 Essential (primary) hypertension; I25.10 Atherosclerotic heart disease of native coronary artery without angina pectoris; E87.6 Hypokalemia; E78.5 Hyperlipidemia, unspecified; B96.89 Other specified bacterial agents as the cause of diseases classified elsewhere; F03.90 Unspecified dementia, unspecified severity, without behavioral disturbance, psychotic disturbance, mood disturbance, and anxiety; Z68.21 Body mass index [BMI] 21.0-21.9, adult; Z79.82 Long term (current) use of aspirin; Z95.1 Presence of aortocoronary bypass graft
CPT/HCPCS: 36415; 70450; 71045; 76775; 80048; 80053; 80069; 81001; 82533; 82550; 83605; 83690; 83735; 83930; 83935; 84155; 84165; 84295; 84300; 84443; 85025; 85610; 85730; 86140; 87040; 87086; 93005; 96361; 96365; 96367; 96372; 97161; 97166; 97530; 97535; 99285; A9270; G0378; J0690; J1630; J1650; J1956; J2359; J7030; J7120; J7131